=== PATIENT | male | born 1930 | race Caucasian/White ===

== ENCOUNTER 2020-05-29 16:18 | Emergency (ER) | payer MEDICARE, BC ==
[2020-05-29] MEDS ORDERED: Acetaminophen 325 MG Tab PO ONE (17:07)
--- NOTE | 2020-05-29 17:48 | EDM.PDOC ---
ED HPI GENERAL MEDICAL PROBLEM - General Chief Complaint: Eye Problems Stated Complaint: R EYE SWELLING/REDNESS Time Seen by Provider: 05/29/20 16:35 Source of Information: Reports: Patient, Family (daughter), RN Notes Reviewed - History of Present Illness INITIAL COMMENTS - FREE TEXT/NARRATIVE: 89 yr old male with L eye pain for about 7 to 10 days. Daughter states they did see his eye Dr down in [place] and he did not feel that there was a globe problem. They went to our [facility] clinic, transferred here for possible MRI of the R eye but arrived at 5:00, MRI's not done after hrs. There also was concern for possible stroke but he has has no speech difficulty, focal numbness or weakness or facial droop. 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 He has had increased mattering R eye the last few days. Eye feels scratchy. Does not feel that he has gotten anything into the eye. 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." Cardiovascular History: Reports: None Respiratory History: Reports: None Gastrointestinal History: Reports: None Genitourinary History: Reports: None Musculoskeletal History: Reports: Back Pain, Chronic Psychiatric History: Reports: None Endocrine/Metabolic History: Reports: Obesity/BMI 30+ Hematologic History: Reports: None Immunologic History: Reports: None Oncologic (Cancer) History: Reports: None Dermatologic History: Reports: None - Infectious Disease History Infectious Disease History: Reports: None - Past Surgical History Neurological Surgical History: Reports: C-Spine Musculoskeletal Surgical History: Reports: Knee Replacement Social & Family History - Tobacco Use Smoking Status *Q: Never Smoker - Caffeine Use Caffeine Use: Reports: Coffee - Recreational Drug Use Recreational Drug Use: No ED ROS GENERAL - Review of Systems Review Of Systems: See Below Constitutional: Denies: Fever, Chills HEENT: Reports: Eye Pain. Denies: Sinus Problem, Vision Change Respiratory: Denies: Shortness of Breath Cardiovascular: Denies: Chest Pain Endocrine: Reports: Fatigue GI/Abdominal: Denies: Abdominal Pain, Vomiting Musculoskeletal: Reports: Other (no acute sx) Skin: Denies: Rash Neurological: Reports: Dizziness. Denies: Headache ED EXAM GENERAL W FULL EYE - Physical Exam Exam: See Below General Appearance: Alert, No Apparent Distress Eye Exam: Right Eye: Conjunctival Injection Eyelids: Bilateral: Normal Appearance Conjunctiva & Sclera: Right: Injected Course - Vital Signs Last Recorded V/S: Last Vital Signs Temp 98.1 F 05/29/20 16:32 Pulse 65 05/29/20 16:32 Resp 16 05/29/20 16:32 BP 141/80 H 05/29/20 16:32 Pulse Ox 95 05/29/20 16:32 - Orders/Labs/Meds Meds: Medications Discontinued Medications Generic Name Dose Route Start Last Admin Trade Name Kg PRN Reason Stop Dose Admin Acetaminophen 975 mg 05/29/20 17:07 05/29/20 17:12 Tylenol PO 05/29/20 17:08 975 mg ONETIME ONE Administration - Re-Assessments/Exams Free Text/Narrative Re-Assessment/Exam: 05/30/20 22:38 CT orbit, sinuses, do not show any acute findings. Head CT also does not show acute findings. Discharge instr. as documented. Departure - Departure Time of Disposition: 18:49 Disposition: Home, Self-Care 01 Condition: Fair Clinical Impression: Conjunctivitis, Pain, eye, right - Discharge Information Instructions: How to Use Eye Drops and Eye Ointments Referrals: Marvin Santana MD [Primary Care Provider] - Forms: ED Department Discharge Additional Instructions: cipro opthalmic soln. 2 drops R eye 3 times daily for 1 week. Tylenol q 6 to 8 hr as needed for discomfort. See your eye Dr in the next 1 to 3 days for recheck, next available appt. Call tomorrow AM for appt. Sepsis Event Note (ED) - Evaluation Sepsis Screening Result: No Definite Risk
--- NOTE | 2020-05-29 18:30 | CT ---
Head CT Technique: Multiple axial sections through the brain were obtained. Intravenous contrast was not utilized. Comparison: Prior head CT study is not available. Findings: Ventricles along with basal cisterns and sulci over the convexities are moderately prominent. 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 No other abnormal parenchymal densities are seen. No evidence of intracranial hemorrhage. No midline shift or mass-effect is appreciated. Bone window settings were reviewed. Prior left mastoidectomy is seen which shows evidence of an apparent air-fluid level. Right mastoid sinus is clear. Middle ear cavities are clear. No acute calvarial finding is seen. Impression: 1. Air-fluid level within previous left mastoidectomy cavity. Uncertain if this is postsurgical or represents infection. Please correlate if patient is symptomatic over this area. 2. Senescent change as noted above. 3. No acute intracranial abnormality is appreciated. Diagnostic code #3 This report was dictated in MDT
--- NOTE | 2020-05-29 18:32 | CT ---
CT paranasal sinuses Technique: Multiple axial sections through the paranasal sinuses were obtained. Reconstructed coronal and sagittal images were obtained. Findings: Mild mucosal thickening is seen within both maxillary sinuses. Old inferior floor blowout fracture is noted within the left orbit. Minimal areas of mucosal thickening is seen within the ethmoid sinuses. Frontal sinuses and sphenoid sinuses are clear. Air-fluid level is again seen within left mastoidectomy cavity. No acute bony abnormality is appreciated. Right and left globes are symmetric. No retrobulbar abnormality seen. Extraocular muscles are symmetric. Impression: 1. Mild chronic appearing sinus findings. 2. Small air-fluid level is again noted within the left mastoidectomy cavity. 3. Old blowout inferior floor fracture within the left orbit. Diagnostic code #2 This report was dictated in MDT
== END 2020-05-29 19:01 | disposition home or self-care (01) ==
LOC: JD.ED 16:18
DX: H10.9 Unspecified conjunctivitis (principal); E66.9 Obesity, unspecified; Z98.890 Other specified postprocedural states; Z79.82 Long term (current) use of aspirin; Z79.899 Other long term (current) drug therapy; Z68.31 Body mass index [BMI] 31.0-31.9, adult; H57.11 Ocular pain, right eye; R26.9 Unspecified abnormalities of gait and mobility; R29.90 Unspecified symptoms and signs involving the nervous system
CPT/HCPCS: 70450; 70486; 99214; 99283; A9270; 99282

== ENCOUNTER 2020-07-18 16:00 | Emergency (ER) | payer BC, MEDICARE ==
[2020-07-18] MEDS ORDERED: Sodium Chloride 0.9% 10 ML Syringe FLUSH PRN (16:36)
--- NOTE | 2020-07-18 17:14 | EDM.PDOC ---
ED HPI GENERAL MEDICAL PROBLEM - General Chief Complaint: Fever Stated Complaint: [facility] Time Seen by Provider: 07/18/20 16:34 Source of Information: Reports: Patient, [facility] Records History Limitations: Reports: Other (Hearing deficit) - History of Present Illness INITIAL COMMENTS - FREE TEXT/NARRATIVE: Patient is an 89-year-old male sent to the emergency department from [facility] assisted [facility] with complaints of increased confusion, weakness, and fever. Patient was diagnosed COVID +2 days ago and assisted-living reports he is had a cough and fever since that time. Patient is very hard of hearing so it is somewhat difficult to get an accurate history from him. Patient is alert and oriented x3. He knew that the month was June, he knew his full name and date of , and he knew that he was at the hospital. He also knows that he lives at [facility]. Document sent from the assisted living facility state that he has had increased weakness, confusion, and a temperature. Transfer papers from the assisted living showed vital signs of a temperature of 101.3, pulse 95, respiratory rate 18, blood pressure 118/60, and oxygen saturation of 92% on room air. Vital signs on arrival to the emergency department showed a temperature of 97.9, pulse 63, respiratory rate 24, blood pressure 163/95, and an oxygen saturation of 96%. Patient denies any chest pain, however does acknowledge that he has been weak. Review of the patient's medication list show that his last dose of Tylenol 1000 mg was at 9 AM this morning. He is normally alert and oriented and ambulatory with a front wheel walker at the assisted living facility. - Related Data Allergies Allergy/AdvReac Type Severity Reaction Status Date / Time celecoxib [From Celebrex] Allergy Cannot Verified 07/18/20 16:15 Remember solifenacin [From Vesicare] Allergy Cannot Verified 07/18/20 16:15 Remember tamsulosin [From Flomax] Allergy Cannot Verified 07/18/20 16:15 Remember Home Meds: Home Meds Acetaminophen [Tylenol] 650 mg PO BID 05/29/20 [History] Aspirin 325 mg PO DAILY 05/29/20 [History] Gabapentin [Neurontin] 100 mg PO DAILY 05/29/20 [History] [place]-3/DHA/Epa/Fish Oil [Fish Oil 1,000 mg Softgel] 1 each PO DAILY 05/29/20 [History] Cefdinir [Omnicef] 300 mg PO DAILY 10 Days #10 cap 07/18/20 [Rx] Cholecalciferol (Vitamin D3) [Vitamin D3] 5,000 intnl unit PO DAILY 07/18/20 [History] Gabapentin [Neurontin] 100 mg PO BEDTIME PRN 07/18/20 [History] Lactulose 2 tbsp PO DAILY 07/18/20 [History] Vit A and D3 in Cod Liver Oil [Cod Liver Oil Softgel] 1 cap PO DAILY 07/18/20 [History] polyethylene glycoL 3350 [MiraLAX] 17 gm PO DAILY PRN 07/18/20 [History] Past Medical History HEENT History: Reports: Impaired Vision, Other (See Below) 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." Cardiovascular History: Reports: None Respiratory History: Reports: None Gastrointestinal History: Reports: None Genitourinary History: Reports: None Musculoskeletal History: Reports: Back Pain, Chronic Psychiatric History: Reports: None Endocrine/Metabolic History: Reports: Obesity/BMI 30+ Hematologic History: Reports: None Immunologic History: Reports: None Oncologic (Cancer) History: Reports: None Dermatologic History: Reports: None - Infectious Disease History Infectious Disease History: Reports: None - Past Surgical History Neurological Surgical History: Reports: C-Spine Musculoskeletal Surgical History: Reports: Knee Replacement Social & Family History - Caffeine Use Caffeine Use: Reports: Coffee ED ROS GENERAL - Review of Systems Review Of Systems: See Below Constitutional: Reports: Fever, Weakness HEENT: Reports: No Symptoms Respiratory: Reports: Cough. Denies: Shortness of Breath, Wheezing Cardiovascular: Reports: No Symptoms. Denies: Chest Pain Endocrine: Reports: No Symptoms GI/Abdominal: Reports: No Symptoms. Denies: Abdominal Pain, Diarrhea, Nausea, Vomiting : Reports: No Symptoms Musculoskeletal: Reports: No Symptoms Skin: Reports: No Symptoms Neurological: Reports: Confusion (per assisted living report. ) Psychiatric: Reports: No Symptoms Hematologic/Lymphatic: Reports: No Symptoms Immunologic: Reports: No Symptoms ED EXAM, GENERAL - Physical Exam Exam: See Below Exam Limited By: Other (Hearing impairment) General Appearance: Alert, WD/WN, No Apparent Distress Respiratory/Chest: No Respiratory Distress, Lungs Clear, Normal Breath Sounds, No Accessory Muscle Use, Chest Non-Tender, Other (Audible upper airway rhonchi that clear with coughing.) Cardiovascular: Normal Peripheral Pulses, Regular Rate, Rhythm, No Edema, No Gallop, No JVD, No Murmur, No Rub EKG INTERPRETATION EKG Date: 07/18/20 Time: 16:53 Rhythm: NSR Rate (Beats/Min): 61 [place]: Normal P-Wave: Present QRS: Normal ST-T: Normal QT: Normal EKG Interpretation Comments: Sinus rhythm at 61 bpm Initial poor R wave progression with Q waves 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 Linnea GRIGSBY. Course - Vital Signs Last Recorded V/S: Last Vital Signs Temp 97.9 F 07/18/20 16:01 Pulse 63 07/18/20 16:01 Resp 24 H 07/18/20 16:01 BP 163/95 H 07/18/20 16:01 Pulse Ox 96 07/18/20 16:01 - Orders/Labs/Meds Orders: Active Orders 24 hr Category Date Time Status EKG Documentation Completion [RC] STAT Care 07/18/20 16:37 Active Peripheral IV Care [RC] . DIRECTED Care 07/18/20 16:37 Active CULTURE BLOOD [BC] Stat Lab 07/18/20 17:10 Received CULTURE BLOOD [BC] Stat Lab 07/18/20 17:30 Received CULTURE URINE [RM] Stat Lab 07/18/20 18:20 Received Sodium Chloride 0.9% [Saline Flush] Med 07/18/20 16:36 Active 10 ml FLUSH ASDIRECTED PRN Blood Culture x2 Reflex Set [OM.PC] Stat Oth 07/18/20 16:37 Ordered Peripheral IV Insertion Adult [OM.PC] Stat Oth 07/18/20 16:36 Ordered Medication Orders Sodium Chloride (Saline Flush) 10 ml FLUSH ASDIRECTED PRN PRN Reason: Keep Vein Open Last Admin: 07/18/20 17:10 Dose: 10 ml Documented by: MARTINEZ Labs: Laboratory Tests 07/18/20 07/18/20 07/18/20 Range/Units 17:10 17:10 17:10 WBC 6.54 (4.23-9.07) K/mm3 RBC 4.65 (4.63-6.08) M/mm3 Hgb 15.0 (13.7-17.5) gm/dl Hct 43.2 (40.1-51.0) % MCV 92.9 H (79.0-92.2) fl MCH 32.3 H (25.7-32.2) pg MCHC 34.7 (32.2-35.5) g/dl RDW Std Deviation 47.5 H (35.1-43.9) fL Plt Count 143 L (163-337) K/mm3 MPV 10.1 (9.4-12.3) fl Neut % (Auto) 64.0 (34.0-67.9) % Lymph % (Auto) 19.9 L (21.8-53.1) % [place] % (Auto) 13.5 H (5.3-12.2) % Eos % (Auto) 2.1 (0.8-7.0) Baso % (Auto) 0.2 (0.1-1.2) % Neut # (Auto) 4.19 (1.78-5.38) K/mm3 Lymph # (Auto) 1.30 L (1.32-3.57) K/mm3 [place] # (Auto) 0.88 H (0.30-0.82) K/mm3 Eos # (Auto) 0.14 (0.04-0.54) K/mm3 Baso # (Auto) 0.01 (0.01-0.08) K/mm3 D-Dimer, Quantitative 1.11 H (0.19-0.50) mg/L Sodium 130 L (136-145) mEq/L Potassium 4.2 (3.5-5.1) mEq/L Chloride 96 L (98-107) mEq/L Carbon Dioxide 22 (21-32) mEq/L Anion Gap 16.2 H (5-15) BUN 25 H (7-18) mg/dL Creatinine 1.6 H (0.7-1.3) mg/dL Est Cr Clr Drug Dosing 27.76 mL/min Estimated GFR (MDRD) 41 (>60) mL/min BUN/Creatinine Ratio 15.6 (14-18) Glucose 141 H (83-115) mg/dL Lactic Acid (0.4-2.0) mmol/L Calcium 8.7 (8.5-10.1) mg/dL Ferritin (26-388) ng/ml Total Bilirubin 0.4 (0.2-1.0) mg/dL AST 21 (15-37) U/L ALT 21 (16-63) U/L Alkaline Phosphatase 88 (46-116) U/L Lactate Dehydrogenase 178 (85-227) U/L Troponin I 0.040 (0.00-0.056) ng/mL C-Reactive Protein 3.0 H* (<1.0) mg/dL NT-Pro-B Natriuret Pep (0-450) pg/mL Total Protein 7.3 (6.4-8.2) g/dl Albumin 3.5 (3.4-5.0) g/dl Globulin 3.8 gm/dL Albumin/Globulin Ratio 0.9 L (1-2) Urine Color (Yellow) Urine Appearance (Clear) Urine pH (5.0-8.0) Ur Specific [place] (1.005-1.030) Urine Protein (Negative) Urine Glucose (UA) (Negative) Urine Ketones (Negative) Urine Occult Blood (Negative) Urine Nitrite (Negative) Urine Bilirubin (Negative) Urine Urobilinogen (0.2-1.0) Ur Leukocyte Esterase (Negative) Urine RBC (0-5) /hpf Urine WBC (0-5) /hpf Ur Epithelial Cells (0-5) /hpf Urine Bacteria (FEW) /hpf Urine Mucus (FEW) /hpf 07/18/20 07/18/20 07/18/20 Range/Units 17:10 17:10 17:10 WBC (4.23-9.07) K/mm3 RBC (4.63-6.08) M/mm3 Hgb (13.7-17.5) gm/dl Hct (40.1-51.0) % MCV (79.0-92.2) fl MCH (25.7-32.2) pg MCHC (32.2-35.5) g/dl RDW Std Deviation (35.1-43.9) fL Plt Count (163-337) K/mm3 MPV (9.4-12.3) fl Neut % (Auto) (34.0-67.9) % Lymph % (Auto) (21.8-53.1) % [place] % (Auto) (5.3-12.2) % Eos % (Auto) (0.8-7.0) Baso % (Auto) (0.1-1.2) % Neut # (Auto) (1.78-5.38) K/mm3 Lymph # (Auto) (1.32-3.57) K/mm3 [place] # (Auto) (0.30-0.82) K/mm3 Eos # (Auto) (0.04-0.54) K/mm3 Baso # (Auto) (0.01-0.08) K/mm3 D-Dimer, Quantitative (0.19-0.50) mg/L Sodium (136-145) mEq/L Potassium (3.5-5.1) mEq/L Chloride (98-107) mEq/L Carbon Dioxide (21-32) mEq/L Anion Gap (5-15) BUN (7-18) mg/dL Creatinine (0.7-1.3) mg/dL Est Cr Clr Drug Dosing mL/min Estimated GFR (MDRD) (>60) mL/min BUN/Creatinine Ratio (14-18) Glucose (83-115) mg/dL Lactic Acid 1.3 (0.4-2.0) mmol/L Calcium (8.5-10.1) mg/dL Ferritin 737 H (26-388) ng/ml Total Bilirubin (0.2-1.0) mg/dL AST (15-37) U/L ALT (16-63) U/L Alkaline Phosphatase (46-116) U/L Lactate Dehydrogenase (85-227) U/L Troponin I (0.00-0.056) ng/mL C-Reactive Protein (<1.0) mg/dL NT-Pro-B Natriuret Pep 2112 H (0-450) pg/mL Total Protein (6.4-8.2) g/dl Albumin (3.4-5.0) g/dl Globulin gm/dL Albumin/Globulin Ratio (1-2) Urine Color (Yellow) Urine Appearance (Clear) Urine pH (5.0-8.0) Ur Specific [place] (1.005-1.030) Urine Protein (Negative) Urine Glucose (UA) (Negative) Urine Ketones (Negative) Urine Occult Blood (Negative) Urine Nitrite (Negative) Urine Bilirubin (Negative) Urine Urobilinogen (0.2-1.0) Ur Leukocyte Esterase (Negative) Urine RBC (0-5) /hpf Urine WBC (0-5) /hpf Ur Epithelial Cells (0-5) /hpf Urine Bacteria (FEW) /hpf Urine Mucus (FEW) /hpf 07/18/20 Range/Units 18:20 WBC (4.23-9.07) K/mm3 RBC (4.63-6.08) M/mm3 Hgb (13.7-17.5) gm/dl Hct (40.1-51.0) % MCV (79.0-92.2) fl MCH (25.7-32.2) pg MCHC (32.2-35.5) g/dl RDW Std Deviation (35.1-43.9) fL Plt Count (163-337) K/mm3 MPV (9.4-12.3) fl Neut % (Auto) (34.0-67.9) % Lymph % (Auto) (21.8-53.1) % [place] % (Auto) (5.3-12.2) % Eos % (Auto) (0.8-7.0) Baso % (Auto) (0.1-1.2) % Neut # (Auto) (1.78-5.38) K/mm3 Lymph # (Auto) (1.32-3.57) K/mm3 [place] # (Auto) (0.30-0.82) K/mm3 Eos # (Auto) (0.04-0.54) K/mm3 Baso # (Auto) (0.01-0.08) K/mm3 D-Dimer, Quantitative (0.19-0.50) mg/L Sodium (136-145) mEq/L Potassium (3.5-5.1) mEq/L Chloride (98-107) mEq/L Carbon Dioxide (21-32) mEq/L Anion Gap (5-15) BUN (7-18) mg/dL Creatinine (0.7-1.3) mg/dL Est Cr Clr Drug Dosing mL/min Estimated GFR (MDRD) (>60) mL/min BUN/Creatinine Ratio (14-18) Glucose (83-115) mg/dL Lactic Acid (0.4-2.0) mmol/L Calcium (8.5-10.1) mg/dL Ferritin (26-388) ng/ml Total Bilirubin (0.2-1.0) mg/dL AST (15-37) U/L ALT (16-63) U/L Alkaline Phosphatase (46-116) U/L Lactate Dehydrogenase (85-227) U/L Troponin I (0.00-0.056) ng/mL C-Reactive Protein (<1.0) mg/dL NT-Pro-B Natriuret Pep (0-450) pg/mL Total Protein (6.4-8.2) g/dl Albumin (3.4-5.0) g/dl Globulin gm/dL Albumin/Globulin Ratio (1-2) Urine Color Dark yellow (Yellow) Urine Appearance Slt cloudy H (Clear) Urine pH 6.0 (5.0-8.0) Ur Specific [place] 1.025 (1.005-1.030) Urine Protein 1+ H (Negative) Urine Glucose (UA) Negative (Negative) Urine Ketones Trace H (Negative) Urine Occult Blood 2+ H (Negative) Urine Nitrite Positive H (Negative) Urine Bilirubin Negative (Negative) Urine Urobilinogen 1.0 (0.2-1.0) Ur Leukocyte Esterase 1+ H (Negative) Urine RBC 10-20 H (0-5) /hpf Urine WBC 5-10 H (0-5) /hpf Ur Epithelial Cells Not seen (0-5) /hpf Urine Bacteria Many H (FEW) /hpf Urine Mucus Few (FEW) /hpf Meds: Medications Generic Name Dose Route Start Last Admin Trade Name Freq PRN Reason Stop Dose Admin Sodium Chloride 10 ml 07/18/20 16:36 07/18/20 17:10 Saline Flush FLUSH 10 ml ASDIRECTED PRN Administration Keep Vein Open Discontinued Medications Generic Name Dose Route Start Last Admin Trade Name Freq PRN Reason Stop Dose Admin Ceftriaxone Sodium 2 gm/ 100 mls @ 200 mls/hr 07/18/20 19:11 07/18/20 19:45 Sodium Chloride IV 07/18/20 19:40 200 mls/hr ONETIME ONE Administration - Re-Assessments/Exams Free Text/Narrative Re-Assessment/Exam: Patient is an 89-year-old male sent from [facility] assisted living with complaints of confusion, weakness, and fever. Vital signs on triage were stable. He was afebrile at 97.6, and from documentation provided from assisted living, patient has not received Tylenol since 930 this morning. His oxygen saturation was 96% on room air. On my exam, patient is alert and oriented. He knows where he is, he knows what month it is, he knows his name and date of , and he knows that he lives at [facility]. He does admit to being weak, however reports this is to be expected with a COVID diagnosis. I have ordered a CBC, CMP, CRP, troponin, d-dimer, LDH, ferritin, proBNP, blood cultures x2, EKG, and a chest x-ray. Patient is asking to call his at [facility]. Nursing staff will assist with this. 07/18/20 20:38 Hematology was significant for d-dimer minimally elevated at 1.11, sodium 130, chloride 96, anion gap 16.2, BUN 25, creatinine 1.6, glucose 141, ferritin 737, CRP 3.0, BNP 2112. Troponin was negative. D-dimer minimally elevated, however this is to be expected due to patient's age as well as COVID diagnosis. He is not hypoxic and he is not tachycardic, therefore do not feel a CT angiogram of the chest is indicated at this time. Urinalysis did show 1+ protein, trace ketones, 2+ occult blood, positive nitrates, 1+ leukocyte esterase, 10-20 RBCs, 5-10 WBCs, and many bacteria. 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 I have ordered Rocephin 2 g to be given IV. We will plan to discharge the patient back to the assisted living facility with a prescription for Omnicef for treatment of urinary tract infection at a renal dosing of 300 mg daily for 10 days. Recommend that they continue Tylenol as well as extra assistance with ADLs due to his weakness. Return to the ER for worsening symptoms. 07/18/20 22:22 Nursing staff updated me that [facility] was hesitant to accept the patient back due to his weakness and that they do not feel that they have sufficient staff to care for him. They requested that we ensure that he is able to ambulate without assistance. HEAVEN Graves help to walk the patient. He was able to walk independently with the use of a front wheel walker which is his normal assistive device per assisted living transfer sheet. He was able to walk out of the room, into the hallway, turn around and walk back into the room and then remained sitting up in the chair. Mikayla RN, and Mine RN are working with [facility] to arrange patient's return to [facility] as there are no beds available in the facility and there is no medical need for admission at this point. Departure - Departure Time of Disposition: 20:41 Disposition: Home, Self-Care 01 Condition: Good Clinical Impression: COVID-19 Urinary tract infection Qualifiers: Urinary tract infection type: catheter-associated UTI Indwelling urinary catheter type: indwelling urethral catheter Encounter type: initial encounter Qualified Code(s): T83.511A - Infection and inflammatory reaction due to indwelling urethral catheter, initial encounter - Discharge Information *PRESCRIPTION DRUG MONITORING PROGRAM REVIEWED*: No *COPY OF PRESCRIPTION DRUG MONITORING REPORT IN PATIENT KENDAL: No Prescriptions: Cefdinir [Omnicef] 300 mg PO DAILY 10 Days #10 cap Instructions: COVID-19 Frequently Asked Questions, COVID-19, Urinary Tract Infection, Adult Referrals: PCP,None [Primary Care Provider] - Forms: ED Department Discharge Additional Instructions: Brayan was seen in the emergency department today for weakness, confusion, and fever with a diagnosis of COVID. On arrival to ER,Brayan was afebrile with a temperature of 97.9, pulse was 63, respiratory rate 24, oxygen was 96% on room air, blood pressure 163/95. He was alert and oriented. He knew his name, what month it was, his date of , and where he lives. Work-up was completed including blood work, urinalysis, chest x-ray, and an EKG of his heart. His chest x-ray was clear of a pneumonia. His EKG showed no acute abnormalities. Troponin was negative. His urinalysis did show that he has a catheter associated UTI. He received a dose of IV antibiotics while in the emergency department. A prescription for Omnicef has been sent. He should take this once daily for 10 days to clear the infection. He was able to get up and walk throughout the room and out into the hallway with a front wheel walker without difficulty. If he should have worsening symptoms such as hypoxia, chest pain, or other symptoms of concern, please not hesitate to return him to emergency department for reevaluation. Sepsis Event Note (ED) - Evaluation Sepsis Screening Result: Possible Severe Sepsis Risk - Focused Exam Vital Signs: Vital Signs Temp Pulse Resp BP Pulse Ox 07/18/20 16:01 97.9 F 63 24 H 163/95 H 96 - My Orders Last 24 Hours: My Active Orders 07/18/20 16:36 Sodium Chloride 0.9% [Saline Flush] 10 ml FLUSH ASDIRECTED PRN Peripheral IV Insertion Adult [OM.PC] Stat 07/18/20 16:37 EKG Documentation Completion [RC] STAT Peripheral IV Care [RC] . DIRECTED Blood Culture x2 Reflex Set [OM.PC] Stat 07/18/20 17:10 CULTURE BLOOD [BC] Stat 07/18/20 17:30 CULTURE BLOOD [BC] Stat 07/18/20 18:20 CULTURE URINE [RM] Stat - Assessment/Plan Last 24 Hours: My Active Orders 07/18/20 16:36 Sodium Chloride 0.9% [Saline Flush] 10 ml FLUSH ASDIRECTED PRN Peripheral IV Insertion Adult [OM.PC] Stat 07/18/20 16:37 EKG Documentation Completion [RC] STAT Peripheral IV Care [RC] . DIRECTED Blood Culture x2 Reflex Set [OM.PC] Stat 07/18/20 17:10 CULTURE BLOOD [BC] Stat 07/18/20 17:30 CULTURE BLOOD [BC] Stat 07/18/20 18:20 CULTURE URINE [RM] Stat
--- NOTE | 2020-07-18 18:07 | CR ---
Chest: Portable view of the chest was obtained. Comparison: No prior chest imaging is available. Heart size and mediastinum are normal. Lungs are clear with no acute parenchymal change. Previous cervical spine surgery is noted. Impression: 1. Findings as noted above. Nothing acute is appreciated at this time. Diagnostic code #2 This report was dictated in MDT
[2020-07-18] MEDS ORDERED: cefTRIAXone 2 GM in Sodium Chloride 0.9% 100 ML IV ONE (19:11)
== END 2020-07-18 22:49 | disposition home or self-care (01) ==
LOC: JD.ED 16:00
DX: U07.1 COVID-19 (principal); T83.511A Infection and inflammatory reaction due to indwelling urethral catheter, initial encounter; E66.9 Obesity, unspecified; Z88.8 Allergy status to other drugs, medicaments and biological substances; Z79.82 Long term (current) use of aspirin; Z79.899 Other long term (current) drug therapy; Z68.26 Body mass index [BMI] 26.0-26.9, adult
CPT/HCPCS: 36415; 71045; 80053; 81001; 82728; 83605; 83615; 83880; 84484; 85025; 85379; 86140; 87040; 87086; 87088; 87184; 87186; 93005; 96365; 99285; J0696; J7050

== ENCOUNTER 2020-07-19 11:10 | Emergency (ER) | payer MEDICARE, BC ==
--- NOTE | 2020-07-19 11:58 | EDM.PDOC ---
ED HPI GENERAL MEDICAL PROBLEM - General Chief Complaint: General Stated Complaint: [facility] Time Seen by Provider: 07/19/20 11:52 - History of Present Illness INITIAL COMMENTS - FREE TEXT/NARRATIVE: 89-year-old male brought in by EMS from [facility] as the patient could get off the toilet without help. When EMS arrived with the assistance of a gait belt could get off the toilet and shuffled to the gurney. Patient was seen here last evening diagnosed with urinary tract infection he was diagnosed with COVID 3 days ago. The patient has a history of urinary tract infections that he gets on a frequent basis after 2 days of antibiotics the patient usually bounce right back and feels normal. He was given 2 g of Rocephin around 830 last night. The patient tells me that he would feel better if he got home, referring to the [facility] [place]. He denies new complaint however communication with him is somewhat difficult due to his hearing problems. - Related Data Allergies Allergy/AdvReac Type Severity Reaction Status Date / Time celecoxib [From Celebrex] Allergy Cannot Verified 07/19/20 11:30 Remember solifenacin [From Vesicare] Allergy Cannot Verified 07/19/20 11:30 Remember tamsulosin [From Flomax] Allergy Cannot Verified 07/19/20 11:30 Remember Home Meds: Home Meds Acetaminophen [Tylenol] 650 mg PO BID 05/29/20 [History] Aspirin 325 mg PO DAILY 05/29/20 [History] Gabapentin [Neurontin] 100 mg PO DAILY 05/29/20 [History] [place]-3/DHA/Epa/Fish Oil [Fish Oil 1,000 mg Softgel] 1 each PO DAILY 05/29/20 [History] Cefdinir [Omnicef] 300 mg PO DAILY 10 Days #10 cap 07/18/20 [Rx] Cholecalciferol (Vitamin D3) [Vitamin D3] 5,000 intnl unit PO DAILY 07/18/20 [History] Gabapentin [Neurontin] 100 mg PO BEDTIME PRN 07/18/20 [History] Lactulose 2 tbsp PO DAILY 07/18/20 [History] Vit A and D3 in Cod Liver Oil [Cod Liver Oil Softgel] 1 cap PO DAILY 07/18/20 [History] polyethylene glycoL 3350 [MiraLAX] 17 gm PO DAILY PRN 07/18/20 [History] Acetaminophen [Tylenol Extra Strength] 1,000 mg PO DAILY 07/19/20 [History] Past Medical History HEENT History: Reports: Impaired Vision, Other (See Below) 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 Musculoskeletal History: Reports: Back Pain, Chronic Other Musculoskeletal History: sacroilitis, cervicalgia Other Neuro History: disorientation Psychiatric History: Reports: None Endocrine/Metabolic History: Reports: Obesity/BMI 30+ Hematologic History: Reports: None Immunologic History: Reports: None Oncologic (Cancer) History: Reports: None Dermatologic History: Reports: None Other Dermatologic History: biomechanical lesion - Infectious Disease History Infectious Disease History: Reports: None - Past Surgical History Neurological Surgical History: Reports: C-Spine Musculoskeletal Surgical History: Reports: Knee Replacement Social & Family History - Tobacco Use Smoking Status *Q: Never Smoker - Caffeine Use Caffeine Use: Reports: None - Recreational Drug Use Recreational Drug Use: No ED ROS GENERAL - Review of Systems Review Of Systems: See Below Constitutional: Denies: Fever HEENT: Reports: No Symptoms Respiratory: Reports: Cough. Denies: No Symptoms, Shortness of Breath Cardiovascular: Reports: No Symptoms GI/Abdominal: Reports: No Symptoms : Reports: Other (He is currently treated for urinary tract infection) Musculoskeletal: Reports: No Symptoms Skin: Reports: No Symptoms ED EXAM, GENERAL - Physical Exam Exam: See Below Exam Limited By: Other (Is horribly hard of hearing and somewhat difficult to communicate with but he cannot communicate slowly) General Appearance: Alert, No Apparent Distress Eye Exam: Bilateral Eye: Normal Inspection Ears: Normal External Exam, Normal Canal, Hearing Grossly Normal, Normal TMs Nose: Normal Inspection, Normal Mucosa, No Blood Throat/Mouth: Normal Inspection, Normal Lips, Normal Gums, Normal Oropharynx, Normal Voice, No Airway Compromise. No: Normal Teeth Head: Atraumatic, Normocephalic Neck: Normal Inspection, Supple, Non-Tender, Full Range of Motion. No: Lymphadenopathy (L), Lymphadenopathy (R) Respiratory/Chest: No Respiratory Distress, Lungs Clear Cardiovascular: Regular Rate, Rhythm, No Murmur GI/Abdominal: Normal Bowel Sounds, Soft, Non-Tender Back Exam: Normal Inspection. No: CVA Tenderness (L), CVA Tenderness (R) Course - Vital Signs Last Recorded V/S: Last Vital Signs Temp 36.7 C 07/19/20 11:27 Pulse 64 07/19/20 11:27 Resp 18 07/19/20 11:27 BP 136/86 07/19/20 11:27 Pulse Ox 96 07/19/20 11:27 - Re-Assessments/Exams Free Text/Narrative Re-Assessment/Exam: 07/19/20 13:20 There is no way the assisted living center will take the patient back at this point and sounds like he has a little too much going on for them to be over the handle it. We did find a bed at my not and I discussed the situation with Dr. Lemus, and he is kind enough to accept the patient. Understanding the patient has a probable UTI is COVID positive. 07/19/20 15:19 Patient's family would like to drive him to [facility] in [place] they understand he is going to need to be reevaluated in the emergency room there. Departure - Departure Time of Disposition: 13:21 Disposition: DC/Tfer to Acute Hospital 02 Clinical Impression: COVID-19, Increased weakness when ambulating Urinary tract infection Qualifiers: Urinary tract infection type: catheter-associated UTI Indwelling urinary catheter type: indwelling urethral catheter Encounter type: initial encounter Qualified Code(s): T83.511A - Infection and inflammatory reaction due to indwelling urethral catheter, initial encounter - Discharge Information Referrals: PCP,None [Ordering Only Provider] - Forms: ED Department Discharge Additional Instructions: Go straight to the emergency room at [facility] Sepsis Event Note (ED) - Evaluation Sepsis Screening Result: No Definite Risk - Focused Exam Vital Signs: Vital Signs Temp Pulse Resp BP Pulse Ox 07/19/20 11:27 36.7 C 64 18 136/86 96
== END 2020-07-19 16:59 ==
LOC: JD.ED 11:10
DX: T83.511A Infection and inflammatory reaction due to indwelling urethral catheter, initial encounter (principal); U07.1 COVID-19; E66.9 Obesity, unspecified; Z79.82 Long term (current) use of aspirin; Z88.8 Allergy status to other drugs, medicaments and biological substances; Z79.899 Other long term (current) drug therapy
CPT/HCPCS: 99285

== ENCOUNTER 2020-07-23 09:37 | Inpatient (IN) | payer MEDICARE, BC ==
[2020-07-23] MEDS ORDERED: Sodium Chloride 0.9% 10 ML Syringe FLUSH PRN ×2 (10:53→15:30)
--- NOTE | 2020-07-23 11:20 | EDM.PDOC ---
ED HPI GENERAL MEDICAL PROBLEM - General Chief Complaint: General Stated Complaint: COVID +/COUGH/UTI/WEAK Time Seen by Provider: 07/23/20 10:05 Source of Information: Reports: Patient, Family, [facility] Records History Limitations: Reports: Other (Hard of hearing and slightly confused) - History of Present Illness INITIAL COMMENTS - FREE TEXT/NARRATIVE: The patient presents from [place] for generalized weakness. He is COVID 19 positive. He was diagnosed about 10 days ago. He was seen here on the and . On the he was found to have a UTI and he was given rocephin and put on omnicef. He was able to go back because he could walk around with a walker. He came back on the and had generalized weakness. There was no beds here or in [place] and arrangements were made to admit him to [place] and family was going to take him. The family did not take him and [place] took him back. He has more generalized weakness. He has a slight cough. His oxygen saturations are good. He denies any The patient does have an indwelling peña catheter. Onset: Gradual Duration: Day(s): Improves with: Reports: None Worsens with: Reports: None Associated Symptoms: Reports: Cough, Loss of Appetite. Denies: Chest Pain, Fever/Chills, Headaches, Nausea/Vomiting, Shortness of Breath - Related Data Allergies Allergy/AdvReac Type Severity Reaction Status Date / Time celecoxib [From Celebrex] Allergy Cannot Verified 07/23/20 10:15 Remember solifenacin [From Vesicare] Allergy Cannot Verified 07/23/20 10:15 Remember tamsulosin [From Flomax] Allergy Cannot Verified 07/23/20 10:15 Remember Home Meds: Home Meds Acetaminophen [Tylenol] 650 mg PO BID 05/29/20 [History] Aspirin 325 mg PO DAILY 05/29/20 [History] Gabapentin [Neurontin] 100 mg PO DAILY 05/29/20 [History] [place]-3/DHA/Epa/Fish Oil [Fish Oil 1,000 mg Softgel] 1 each PO DAILY 05/29/20 [History] Cefdinir [Omnicef] 300 mg PO DAILY 10 Days #10 cap 07/18/20 [Rx] Cholecalciferol (Vitamin D3) [Vitamin D3] 5,000 intnl unit PO DAILY 07/18/20 [History] Gabapentin [Neurontin] 100 mg PO BEDTIME PRN 07/18/20 [History] Lactulose 2 tbsp PO DAILY 07/18/20 [History] Vit A and D3 in Cod Liver Oil [Cod Liver Oil Softgel] 1 cap PO DAILY 07/18/20 [History] polyethylene glycoL 3350 [MiraLAX] 17 gm PO DAILY PRN 07/18/20 [History] Acetaminophen [Tylenol Extra Strength] 1,000 mg PO DAILY 07/19/20 [History] Past Medical History HEENT History: Reports: Impaired Vision, Other (See Below) 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 Musculoskeletal History: Reports: Back Pain, Chronic Other Musculoskeletal History: sacroilitis, cervicalgia Other Neuro History: disorientation Psychiatric History: Reports: None Endocrine/Metabolic History: Reports: Obesity/BMI 30+ Hematologic History: Reports: None Immunologic History: Reports: None Oncologic (Cancer) History: Reports: None Dermatologic History: Reports: None Other Dermatologic History: biomechanical lesion - Infectious Disease History Infectious Disease History: Reports: Novel Coronavirus - Past Surgical History Neurological Surgical History: Reports: C-Spine Musculoskeletal Surgical History: Reports: Knee Replacement Social & Family History - Tobacco Use Smoking Status *Q: Unknown Ever Smoked Second Hand Smoke Exposure: No - Caffeine Use Caffeine Use: Reports: None ED ROS GENERAL - Review of Systems Review Of Systems: See Below Constitutional: Reports: Malaise, Weakness, Fatigue. Denies: Fever, Chills HEENT: Reports: No Symptoms Respiratory: Reports: Cough. Denies: Shortness of Breath Cardiovascular: Reports: No Symptoms Endocrine: Reports: No Symptoms GI/Abdominal: Reports: Anorexia. Denies: Abdominal Pain, Diarrhea, Nausea, Vomiting : Reports: No Symptoms Musculoskeletal: Reports: No Symptoms ED EXAM, GENERAL - Physical Exam Exam: See Below Exam Limited By: No Limitations General Appearance: No Apparent Distress, Other (Sleepy but he will answer questions) Ears: Normal External Exam Nose: Normal Inspection Head: Atraumatic, Normocephalic Neck: Normal Inspection, Supple, Non-Tender Respiratory/Chest: No Respiratory Distress, Lungs Clear, Normal Breath Sounds Cardiovascular: Regular Rate, Rhythm, No Edema, No Murmur GI/Abdominal: Soft, Non-Tender, No Organomegaly, No Mass (Male) Exam: Other (Peña cath in place) Back Exam: Normal Inspection Extremities: Normal Inspection Neurological: No Motor/Sensory Deficits, Other (Sleepy but will arrouse to answer questions) Course - Vital Signs Last Recorded V/S: Last Vital Signs Temp 97.4 F 07/23/20 10:06 Pulse 64 07/23/20 10:06 Resp 18 07/23/20 10:06 BP 153/81 H 07/23/20 10:06 Pulse Ox 100 07/23/20 10:06 - Orders/Labs/Meds Orders: Active Orders 24 hr Category Date Time Status Oxygen Therapy [RC] PRN Care 07/23/20 10:53 Active Peripheral IV Care [RC] . DIRECTED Care 07/23/20 10:53 Active Sodium Chloride 0.9% [Normal Saline] 1,000 ml Med 07/23/20 11:00 Active IV ASDIRECTED Sodium Chloride 0.9% [Saline Flush] Med 07/23/20 10:53 Active 10 ml FLUSH ASDIRECTED PRN Peripheral IV Insertion Adult [OM.PC] Stat Oth 07/23/20 10:53 Ordered Medication Orders Sodium Chloride (Normal Saline) 1,000 mls @ 125 mls/hr IV ASDIRECTED MAYCO Last Admin: 07/23/20 12:41 Dose: 125 mls/hr Documented by: ALYSON Sodium Chloride (Saline Flush) 10 ml FLUSH ASDIRECTED PRN PRN Reason: Keep Vein Open Last Admin: 07/23/20 12:40 Dose: 10 ml Documented by: ALYSON Labs: Laboratory Tests 07/23/20 07/23/20 07/23/20 Range/Units 10:10 11:10 11:10 WBC 6.11 (4.23-9.07) K/mm3 RBC 4.35 L (4.63-6.08) M/mm3 Hgb 13.7 (13.7-17.5) gm/dl Hct 39.6 L (40.1-51.0) % MCV 91.0 (79.0-92.2) fl MCH 31.5 (25.7-32.2) pg MCHC 34.6 (32.2-35.5) g/dl RDW Std Deviation 46.1 H (35.1-43.9) fL Plt Count 106 L (163-337) K/mm3 MPV 10.1 (9.4-12.3) fl Neut % (Auto) 66.0 (34.0-67.9) % Lymph % (Auto) 18.0 L (21.8-53.1) % [place] % (Auto) 12.3 H (5.3-12.2) % Eos % (Auto) 3.3 (0.8-7.0) Baso % (Auto) 0.2 (0.1-1.2) % Neut # (Auto) 4.04 (1.78-5.38) K/mm3 Lymph # (Auto) 1.10 L (1.32-3.57) K/mm3 [place] # (Auto) 0.75 (0.30-0.82) K/mm3 Eos # (Auto) 0.20 (0.04-0.54) K/mm3 Baso # (Auto) 0.01 (0.01-0.08) K/mm3 PT 10.6 (9.7-11.7) SECONDS INR 0.99 APTT 31 (22-31) SECONDS D-Dimer, Quantitative 0.76 H (0.19-0.50) mg/L Puncture Site ABG pH (7.35-7.45) ABG pCO2 (35.0-45.0) mmHg ABG pO2 (80.0-100.0) mmHg ABG HCO3 (22.0-26.0) meq/L ABG O2 Saturation (96.0-97.0) % ABG Base Excess (-2-2.0) Db Test A-a Gradient mmHg O2 Delivery Device FiO2 (21.00-100.00) % Sodium (136-145) mEq/L Potassium (3.5-5.1) mEq/L Chloride (98-107) mEq/L Carbon Dioxide (21-32) mEq/L Anion Gap (5-15) BUN (7-18) mg/dL Creatinine (0.7-1.3) mg/dL Est Cr Clr Drug Dosing mL/min Estimated GFR (MDRD) (>60) mL/min BUN/Creatinine Ratio (14-18) Glucose (83-115) mg/dL Lactic Acid (0.4-2.0) mmol/L Calcium (8.5-10.1) mg/dL Ferritin (26-388) ng/ml Total Bilirubin (0.2-1.0) mg/dL AST (15-37) U/L ALT (16-63) U/L Alkaline Phosphatase (46-116) U/L Lactate Dehydrogenase (85-227) U/L C-Reactive Protein (<1.0) mg/dL Total Protein (6.4-8.2) g/dl Albumin (3.4-5.0) g/dl Globulin gm/dL Albumin/Globulin Ratio (1-2) Urine Color Yellow (Yellow) Urine Appearance Clear (Clear) Urine pH 6.0 (5.0-8.0) Ur Specific [place] 1.020 (1.005-1.030) Urine Protein 1+ H (Negative) Urine Glucose (UA) Negative (Negative) Urine Ketones Trace H (Negative) Urine Occult Blood 1+ H (Negative) Urine Nitrite Negative (Negative) Urine Bilirubin Negative (Negative) Urine Urobilinogen 0.2 (0.2-1.0) Ur Leukocyte Esterase Negative (Negative) Urine RBC 5-10 H (0-5) /hpf Urine WBC 0-5 (0-5) /hpf Ur Squamous Epith Cells 0-5 (0-5) /hpf Urine Bacteria Few (FEW) /hpf Urine Mucus Rare (FEW) /hpf 07/23/20 07/23/20 07/23/20 Range/Units 11:10 11:10 11:10 WBC (4.23-9.07) K/mm3 RBC (4.63-6.08) M/mm3 Hgb (13.7-17.5) gm/dl Hct (40.1-51.0) % MCV (79.0-92.2) fl MCH (25.7-32.2) pg MCHC (32.2-35.5) g/dl RDW Std Deviation (35.1-43.9) fL Plt Count (163-337) K/mm3 MPV (9.4-12.3) fl Neut % (Auto) (34.0-67.9) % Lymph % (Auto) (21.8-53.1) % [place] % (Auto) (5.3-12.2) % Eos % (Auto) (0.8-7.0) Baso % (Auto) (0.1-1.2) % Neut # (Auto) (1.78-5.38) K/mm3 Lymph # (Auto) (1.32-3.57) K/mm3 [place] # (Auto) (0.30-0.82) K/mm3 Eos # (Auto) (0.04-0.54) K/mm3 Baso # (Auto) (0.01-0.08) K/mm3 PT (9.7-11.7) SECONDS INR APTT (22-31) SECONDS D-Dimer, Quantitative (0.19-0.50) mg/L Puncture Site ABG pH (7.35-7.45) ABG pCO2 (35.0-45.0) mmHg ABG pO2 (80.0-100.0) mmHg ABG HCO3 (22.0-26.0) meq/L ABG O2 Saturation (96.0-97.0) % ABG Base Excess (-2-2.0) Db Test A-a Gradient mmHg O2 Delivery Device FiO2 (21.00-100.00) % Sodium 127 L (136-145) mEq/L Potassium 4.1 (3.5-5.1) mEq/L Chloride 94 L (98-107) mEq/L Carbon Dioxide 24 (21-32) mEq/L Anion Gap 13.1 (5-15) BUN 17 (7-18) mg/dL Creatinine 1.4 H (0.7-1.3) mg/dL Est Cr Clr Drug Dosing 29.95 mL/min Estimated GFR (MDRD) 48 (>60) mL/min BUN/Creatinine Ratio 12.1 L (14-18) Glucose 120 H (83-115) mg/dL Lactic Acid 0.8 (0.4-2.0) mmol/L Calcium 8.1 L (8.5-10.1) mg/dL Ferritin 938 H (26-388) ng/ml Total Bilirubin 0.6 (0.2-1.0) mg/dL AST 23 (15-37) U/L ALT 17 (16-63) U/L Alkaline Phosphatase 91 (46-116) U/L Lactate Dehydrogenase 190 (85-227) U/L C-Reactive Protein (<1.0) mg/dL Total Protein 6.6 (6.4-8.2) g/dl Albumin 2.8 L (3.4-5.0) g/dl Globulin 3.8 gm/dL Albumin/Globulin Ratio 0.7 L (1-2) Urine Color (Yellow) Urine Appearance (Clear) Urine pH (5.0-8.0) Ur Specific [place] (1.005-1.030) Urine Protein (Negative) Urine Glucose (UA) (Negative) Urine Ketones (Negative) Urine Occult Blood (Negative) Urine Nitrite (Negative) Urine Bilirubin (Negative) Urine Urobilinogen (0.2-1.0) Ur Leukocyte Esterase (Negative) Urine RBC (0-5) /hpf Urine WBC (0-5) /hpf Ur Squamous Epith Cells (0-5) /hpf Urine Bacteria (FEW) /hpf Urine Mucus (FEW) /hpf 07/23/20 07/23/20 Range/Units 11:10 11:33 WBC (4.23-9.07) K/mm3 RBC (4.63-6.08) M/mm3 Hgb (13.7-17.5) gm/dl Hct (40.1-51.0) % MCV (79.0-92.2) fl MCH (25.7-32.2) pg MCHC (32.2-35.5) g/dl RDW Std Deviation (35.1-43.9) fL Plt Count (163-337) K/mm3 MPV (9.4-12.3) fl Neut % (Auto) (34.0-67.9) % Lymph % (Auto) (21.8-53.1) % [place] % (Auto) (5.3-12.2) % Eos % (Auto) (0.8-7.0) Baso % (Auto) (0.1-1.2) % Neut # (Auto) (1.78-5.38) K/mm3 Lymph # (Auto) (1.32-3.57) K/mm3 [place] # (Auto) (0.30-0.82) K/mm3 Eos # (Auto) (0.04-0.54) K/mm3 Baso # (Auto) (0.01-0.08) K/mm3 PT (9.7-11.7) SECONDS INR APTT (22-31) SECONDS D-Dimer, Quantitative (0.19-0.50) mg/L Puncture Site Lt radial ABG pH 7.45 (7.35-7.45) ABG pCO2 30.2 L (35.0-45.0) mmHg ABG pO2 70.0 L (80.0-100.0) mmHg ABG HCO3 20.5 L (22.0-26.0) meq/L ABG O2 Saturation 95.0 L (96.0-97.0) % ABG Base Excess -2.1 L (-2-2.0) Db Test Positive A-a Gradient 42 mmHg O2 Delivery Device Room air FiO2 21.00 (21.00-100.00) % Sodium (136-145) mEq/L Potassium (3.5-5.1) mEq/L Chloride (98-107) mEq/L Carbon Dioxide (21-32) mEq/L Anion Gap (5-15) BUN (7-18) mg/dL Creatinine (0.7-1.3) mg/dL Est Cr Clr Drug Dosing mL/min Estimated GFR (MDRD) (>60) mL/min BUN/Creatinine Ratio (14-18) Glucose (83-115) mg/dL Lactic Acid (0.4-2.0) mmol/L Calcium (8.5-10.1) mg/dL Ferritin (26-388) ng/ml Total Bilirubin (0.2-1.0) mg/dL AST (15-37) U/L ALT (16-63) U/L Alkaline Phosphatase (46-116) U/L Lactate Dehydrogenase (85-227) U/L C-Reactive Protein 9.9 H* (<1.0) mg/dL Total Protein (6.4-8.2) g/dl Albumin (3.4-5.0) g/dl Globulin gm/dL Albumin/Globulin Ratio (1-2) Urine Color (Yellow) Urine Appearance (Clear) Urine pH (5.0-8.0) Ur Specific [place] (1.005-1.030) Urine Protein (Negative) Urine Glucose (UA) (Negative) Urine Ketones (Negative) Urine Occult Blood (Negative) Urine Nitrite (Negative) Urine Bilirubin (Negative) Urine Urobilinogen (0.2-1.0) Ur Leukocyte Esterase (Negative) Urine RBC (0-5) /hpf Urine WBC (0-5) /hpf Ur Squamous Epith Cells (0-5) /hpf Urine Bacteria (FEW) /hpf Urine Mucus (FEW) /hpf Meds: Medications Generic Name Dose Route Start Last Admin Trade Name Freq PRN Reason Stop Dose Admin Sodium Chloride 1,000 mls @ 125 mls/hr 07/23/20 11:00 07/23/20 12:41 Normal Saline IV 125 mls/hr ASDIRECTED MAYCO Administration Sodium Chloride 10 ml 07/23/20 10:53 07/23/20 12:40 Saline Flush FLUSH 10 ml ASDIRECTED PRN Administration Keep Vein Open Discontinued Medications Generic Name Dose Route Start Last Admin Trade Name Freq PRN Reason Stop Dose Admin Dexamethasone 4 mg 07/23/20 12:06 07/23/20 12:41 Dexamethasone IVPUSH 07/23/20 12:07 4 mg ONETIME ONE Administration - Re-Assessments/Exams Free Text/Narrative Re-Assessment/Exam: 07/23/20 12:02 I ordered oxygen, IV NS at 125mL/hr, labs, CXR, lactic acid and blood cultures. His CXR shows increased density within left lung base suspicious for small area of pneumonia. This most likely viral given the history of the patient being positive for COVID 19. Other stable findings. His CBC looks good. His D-dimer is elevated but improved from a few days ago at 0.76. His pCO2 is low at 30.2. His pO2 is low at 70. His Na is low at 127. His creatinine is elevated at 1.4. His glucose is 120. His ferritin has increased to 938. His LDH is negative. Given the change on his CXR and his hypoxia. I feel he needs to be admitted. I called Dr Royal and she agreed to the admission. Departure - Departure Time of Disposition: 15:05 Disposition: Admitted As Inpatient 67 Condition: Poor Clinical Impression: Hypoxia, Generalized weakness, Pneumonia due to COVID-19 virus - Discharge Information Referrals: Marvin Santana MD [Primary Care Provider] - Forms: ED Department Discharge Sepsis Event Note (ED) - Evaluation Sepsis Screening Result: No Definite Risk - Focused Exam Vital Signs: Vital Signs Temp Pulse Resp BP Pulse Ox 07/23/20 10:06 97.4 F 64 18 153/81 H 100 - My Orders Last 24 Hours: My Active Orders 07/23/20 10:53 Oxygen Therapy [RC] PRN Peripheral IV Care [RC] . DIRECTED Sodium Chloride 0.9% [Saline Flush] 10 ml FLUSH ASDIRECTED PRN Peripheral IV Insertion Adult [OM.PC] Stat 07/23/20 11:00 Sodium Chloride 0.9% [Normal Saline] 1,000 ml IV ASDIRECTED - Assessment/Plan Last 24 Hours: My Active Orders 07/23/20 10:53 Oxygen Therapy [RC] PRN Peripheral IV Care [RC] . DIRECTED Sodium Chloride 0.9% [Saline Flush] 10 ml FLUSH ASDIRECTED PRN Peripheral IV Insertion Adult [OM.PC] Stat 07/23/20 11:00 Sodium Chloride 0.9% [Normal Saline] 1,000 ml IV ASDIRECTED
--- NOTE | 2020-07-23 11:38 | CR ---
Chest: Portable view of the chest was obtained. Comparison: Prior chest x-ray of 07/18/20. Slight increased density within left lung base is seen. Lungs otherwise are clear. Heart size and mediastinum are within normal limits for portable technique. Prior cervical spine surgery is seen. Impression: 1. Increased density within left lung base suspicious for small area of pneumonia. This is most likely viral given the history of patient is positive for Covid 19. 2. Other stable findings as noted above. Diagnostic code #3 This report was dictated in MDT
[2020-07-23] MEDS ORDERED: Dexamethasone 4 MG/ML SDV IVPUSH ONE (12:06)
[2020-07-23] MEDS: Sodium Chloride 0.9% 1,000 ML IV SCH ×2 (12:41→22:13)
[2020-07-23] MEDS ORDERED: Ondansetron 4 MG/2 ML SDV IV PRN (15:30)
--- NOTE | 2020-07-23 17:29 | PCM.HP.2 ---
H&P History of Present Illness - General Date of Service: 07/23/20 Admit Problem/Dx: Admission Diagnosis/Problem Admission Diagnosis/Problem Failure to thrive Source of Information: Provider, RN Notes Reviewed History Limitations: Reports: No Limitations - History of Present Illness Initial Comments - Free Text/Narative: The patient presents from [place] for generalized weakness. He is COVID 19 positive. He was diagnosed about 10 days ago. He was seen here on the and . On the he was found to have a UTI and he was given rocephin and put on omnicef. He was able to go back because he could walk around with a walker. He came back on the and had generalized weakness. There was no beds here or in [place] and arrangements were made to admit him to [facility] and family was going to take him. The family did not take him and [facility] took him back. He has more generalized weakness. He has a slight cough. His oxygen saturations are good. He denies any The patient does have an indwelling peña catheter. Onset of Symptoms: Reports: Gradual Associated Symptoms: Reports: Cough, Fever/Chills, Loss of Appetite, Malaise, Shortness of Breath, Weakness - Related Data Allergies/Adverse Reactions: Allergies Allergy/AdvReac Type Severity Reaction Status Date / Time celecoxib [From Celebrex] Allergy Cannot Verified 07/23/20 10:15 Remember solifenacin [From Vesicare] Allergy Cannot Verified 07/23/20 10:15 Remember tamsulosin [From Flomax] Allergy Cannot Verified 07/23/20 10:15 Remember Home Medications: Home Meds Acetaminophen [Tylenol] 650 mg PO BID 05/29/20 [History] Aspirin 325 mg PO DAILY 05/29/20 [History] Gabapentin [Neurontin] 100 mg PO DAILY 05/29/20 [History] [place]-3/DHA/Epa/Fish Oil [Fish Oil 1,000 mg Softgel] 1 each PO DAILY 05/29/20 [History] Cefdinir [Omnicef] 300 mg PO DAILY 10 Days #10 cap 07/18/20 [Rx] Cholecalciferol (Vitamin D3) [Vitamin D3] 5,000 intnl unit PO DAILY 07/18/20 [History] Gabapentin [Neurontin] 100 mg PO BEDTIME PRN 07/18/20 [History] Lactulose 2 tbsp PO DAILY 07/18/20 [History] Vit A and D3 in Cod Liver Oil [Cod Liver Oil Softgel] 1 cap PO DAILY 07/18/20 [History] polyethylene glycoL 3350 [MiraLAX] 17 gm PO DAILY PRN 07/18/20 [History] Acetaminophen [Tylenol Extra Strength] 1,000 mg PO DAILY 07/19/20 [History] Past Medical History HEENT History: Reports: Impaired Vision, Other (See Below) 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 Musculoskeletal History: Reports: Back Pain, Chronic Other Musculoskeletal History: sacroilitis, cervicalgia Other Neuro History: disorientation Psychiatric History: Reports: None Endocrine/Metabolic History: Reports: Obesity/BMI 30+ Hematologic History: Reports: None Immunologic History: Reports: None Oncologic (Cancer) History: Reports: None Dermatologic History: Reports: None Other Dermatologic History: biomechanical lesion - Infectious Disease History Infectious Disease History: Reports: Novel Coronavirus - Past Surgical History Neurological Surgical History: Reports: C-Spine Musculoskeletal Surgical History: Reports: Knee Replacement Social & Family History - Tobacco Use Smoking Status *Q: Unknown Ever Smoked Second Hand Smoke Exposure: No - Caffeine Use Caffeine Use: Reports: None H&P Review of Systems - Review of Systems: Review Of Systems: See Below General: Reports: Malaise, Weakness, Fatigue HEENT: Reports: No Symptoms Pulmonary: Reports: Shortness of Breath, Cough. Denies: Sputum Cardiovascular: Reports: No Symptoms. Denies: Edema Gastrointestinal: Reports: Decreased Appetite. Denies: Constipation, Diarrhea, Nausea, Vomiting Genitourinary: Reports: Other (chronic peña catheter) Musculoskeletal: Reports: No Symptoms Skin: Reports: No Symptoms Psychiatric: Reports: No Symptoms Neurological: Reports: No Symptoms Hematologic/Lymphatic: Reports: No Symptoms Immunologic: Reports: No Symptoms Exam - Exam Exam: See Below - Vital Signs Vital Signs: Last Vital Signs Temp 97.4 F 07/23/20 10:06 Pulse 64 07/23/20 10:06 Resp 18 07/23/20 10:06 BP 153/81 H 07/23/20 10:06 Pulse Ox 100 07/23/20 10:06 Weight: 170 lb - Exam Quality Assessment: Supplemental Oxygen, Urinary Catheter (chronic), DVT Prophylaxis (lovenox) General: Alert, Oriented, Cooperative, Mild Distress HEENT: Conjunctiva Clear, Pupils Equal, Pupils Reactive. No: Hearing Intact (hard of hearing), Mucosa Moist & [place] (dry) Neck: Supple, Trachea Midline. No: Lymphadenopathy Lungs: Decreased Breath Sounds, Crackles (bilateral bases) Cardiovascular: Regular Rate, Regular Rhythm GI/Abdominal Exam: Normal Bowel Sounds, Soft, Non-Tender (Male) Exam: Deferred Rectal (Males) Exam: Deferred Extremities: Normal Inspection, Normal Range of Motion, Non-Tender, No Pedal Edema, Normal Capillary Refill Peripheral Pulses: 2+: Radial (L), Radial (R), Dorsalis Pedis (L), Dorsalis Pedis (R) Skin: Warm, Dry, Intact Neurological: Normal Speech, Normal Tone Neuro Extensive - Mental Status: Alert, Oriented x3, Normal Mood/Affect, Normal Cognition Psychiatric: Alert, Normal Affect, Normal Mood - Patient Data Lab Results Last 24 hrs: Laboratory Results - last 24 hr 07/23/20 07/23/20 07/23/20 Range/Units 10:10 11:10 11:10 WBC 6.11 (4.23-9.07) K/mm3 RBC 4.35 L (4.63-6.08) M/mm3 Hgb 13.7 (13.7-17.5) gm/dl Hct 39.6 L (40.1-51.0) % MCV 91.0 (79.0-92.2) fl MCH 31.5 (25.7-32.2) pg MCHC 34.6 (32.2-35.5) g/dl RDW Std Deviation 46.1 H (35.1-43.9) fL Plt Count 106 L (163-337) K/mm3 MPV 10.1 (9.4-12.3) fl Neut % (Auto) 66.0 (34.0-67.9) % Lymph % (Auto) 18.0 L (21.8-53.1) % [place] % (Auto) 12.3 H (5.3-12.2) % Eos % (Auto) 3.3 (0.8-7.0) Baso % (Auto) 0.2 (0.1-1.2) % Neut # (Auto) 4.04 (1.78-5.38) K/mm3 Lymph # (Auto) 1.10 L (1.32-3.57) K/mm3 [place] # (Auto) 0.75 (0.30-0.82) K/mm3 Eos # (Auto) 0.20 (0.04-0.54) K/mm3 Baso # (Auto) 0.01 (0.01-0.08) K/mm3 PT 10.6 (9.7-11.7) SECONDS INR 0.99 APTT 31 (22-31) SECONDS D-Dimer, Quantitative 0.76 H (0.19-0.50) mg/L Puncture Site ABG pH (7.35-7.45) ABG pCO2 (35.0-45.0) mmHg ABG pO2 (80.0-100.0) mmHg ABG HCO3 (22.0-26.0) meq/L ABG O2 Saturation (96.0-97.0) % ABG Base Excess (-2-2.0) Db Test A-a Gradient mmHg O2 Delivery Device FiO2 (21.00-100.00) % Sodium (136-145) mEq/L Potassium (3.5-5.1) mEq/L Chloride (98-107) mEq/L Carbon Dioxide (21-32) mEq/L Anion Gap (5-15) BUN (7-18) mg/dL Creatinine (0.7-1.3) mg/dL Est Cr Clr Drug Dosing mL/min Estimated GFR (MDRD) (>60) mL/min BUN/Creatinine Ratio (14-18) Glucose (83-115) mg/dL Serum Osmolality (280-300) mosm/kg Lactic Acid (0.4-2.0) mmol/L Calcium (8.5-10.1) mg/dL Ferritin (26-388) ng/ml Total Bilirubin (0.2-1.0) mg/dL AST (15-37) U/L ALT (16-63) U/L Alkaline Phosphatase (46-116) U/L Lactate Dehydrogenase (85-227) U/L C-Reactive Protein (<1.0) mg/dL Total Protein (6.4-8.2) g/dl Albumin (3.4-5.0) g/dl Globulin gm/dL Albumin/Globulin Ratio (1-2) Urine Color Yellow (Yellow) Urine Appearance Clear (Clear) Urine pH 6.0 (5.0-8.0) Ur Specific Kenneth 1.020 (1.005-1.030) Urine Protein 1+ H (Negative) Urine Glucose (UA) Negative (Negative) Urine Ketones Trace H (Negative) Urine Occult Blood 1+ H (Negative) Urine Nitrite Negative (Negative) Urine Bilirubin Negative (Negative) Urine Urobilinogen 0.2 (0.2-1.0) Ur Leukocyte Esterase Negative (Negative) Urine RBC 5-10 H (0-5) /hpf Urine WBC 0-5 (0-5) /hpf Ur Squamous Epith Cells 0-5 (0-5) /hpf Urine Bacteria Few (FEW) /hpf Urine Mucus Rare (FEW) /hpf 07/23/20 07/23/20 07/23/20 Range/Units 11:10 11:10 11:10 WBC (4.23-9.07) K/mm3 RBC (4.63-6.08) M/mm3 Hgb (13.7-17.5) gm/dl Hct (40.1-51.0) % MCV (79.0-92.2) fl MCH (25.7-32.2) pg MCHC (32.2-35.5) g/dl RDW Std Deviation (35.1-43.9) fL Plt Count (163-337) K/mm3 MPV (9.4-12.3) fl Neut % (Auto) (34.0-67.9) % Lymph % (Auto) (21.8-53.1) % [place] % (Auto) (5.3-12.2) % Eos % (Auto) (0.8-7.0) Baso % (Auto) (0.1-1.2) % Neut # (Auto) (1.78-5.38) K/mm3 Lymph # (Auto) (1.32-3.57) K/mm3 [place] # (Auto) (0.30-0.82) K/mm3 Eos # (Auto) (0.04-0.54) K/mm3 Baso # (Auto) (0.01-0.08) K/mm3 PT (9.7-11.7) SECONDS INR APTT (22-31) SECONDS D-Dimer, Quantitative (0.19-0.50) mg/L Puncture Site ABG pH (7.35-7.45) ABG pCO2 (35.0-45.0) mmHg ABG pO2 (80.0-100.0) mmHg ABG HCO3 (22.0-26.0) meq/L ABG O2 Saturation (96.0-97.0) % ABG Base Excess (-2-2.0) Db Test A-a Gradient mmHg O2 Delivery Device FiO2 (21.00-100.00) % Sodium 127 L (136-145) mEq/L Potassium 4.1 (3.5-5.1) mEq/L Chloride 94 L (98-107) mEq/L Carbon Dioxide 24 (21-32) mEq/L Anion Gap 13.1 (5-15) BUN 17 (7-18) mg/dL Creatinine 1.4 H (0.7-1.3) mg/dL Est Cr Clr Drug Dosing 29.95 mL/min Estimated GFR (MDRD) 48 (>60) mL/min BUN/Creatinine Ratio 12.1 L (14-18) Glucose 120 H (83-115) mg/dL Serum Osmolality (280-300) mosm/kg Lactic Acid 0.8 (0.4-2.0) mmol/L Calcium 8.1 L (8.5-10.1) mg/dL Ferritin 938 H (26-388) ng/ml Total Bilirubin 0.6 (0.2-1.0) mg/dL AST 23 (15-37) U/L ALT 17 (16-63) U/L Alkaline Phosphatase 91 (46-116) U/L Lactate Dehydrogenase 190 (85-227) U/L C-Reactive Protein (<1.0) mg/dL Total Protein 6.6 (6.4-8.2) g/dl Albumin 2.8 L (3.4-5.0) g/dl Globulin 3.8 gm/dL Albumin/Globulin Ratio 0.7 L (1-2) Urine Color (Yellow) Urine Appearance (Clear) Urine pH (5.0-8.0) Ur Specific Kenneth (1.005-1.030) Urine Protein (Negative) Urine Glucose (UA) (Negative) Urine Ketones (Negative) Urine Occult Blood (Negative) Urine Nitrite (Negative) Urine Bilirubin (Negative) Urine Urobilinogen (0.2-1.0) Ur Leukocyte Esterase (Negative) Urine RBC (0-5) /hpf Urine WBC (0-5) /hpf Ur Squamous Epith Cells (0-5) /hpf Urine Bacteria (FEW) /hpf Urine Mucus (FEW) /hpf 07/23/20 07/23/20 07/23/20 Range/Units 11:10 11:10 11:33 WBC (4.23-9.07) K/mm3 RBC (4.63-6.08) M/mm3 Hgb (13.7-17.5) gm/dl Hct (40.1-51.0) % MCV (79.0-92.2) fl MCH (25.7-32.2) pg MCHC (32.2-35.5) g/dl RDW Std Deviation (35.1-43.9) fL Plt Count (163-337) K/mm3 MPV (9.4-12.3) fl Neut % (Auto) (34.0-67.9) % Lymph % (Auto) (21.8-53.1) % [place] % (Auto) (5.3-12.2) % Eos % (Auto) (0.8-7.0) Baso % (Auto) (0.1-1.2) % Neut # (Auto) (1.78-5.38) K/mm3 Lymph # (Auto) (1.32-3.57) K/mm3 [place] # (Auto) (0.30-0.82) K/mm3 Eos # (Auto) (0.04-0.54) K/mm3 Baso # (Auto) (0.01-0.08) K/mm3 PT (9.7-11.7) SECONDS INR APTT (22-31) SECONDS D-Dimer, Quantitative (0.19-0.50) mg/L Puncture Site Lt radial ABG pH 7.45 (7.35-7.45) ABG pCO2 30.2 L (35.0-45.0) mmHg ABG pO2 70.0 L (80.0-100.0) mmHg ABG HCO3 20.5 L (22.0-26.0) meq/L ABG O2 Saturation 95.0 L (96.0-97.0) % ABG Base Excess -2.1 L (-2-2.0) Db Test Positive A-a Gradient 42 mmHg O2 Delivery Device Room air FiO2 21.00 (21.00-100.00) % Sodium (136-145) mEq/L Potassium (3.5-5.1) mEq/L Chloride (98-107) mEq/L Carbon Dioxide (21-32) mEq/L Anion Gap (5-15) BUN (7-18) mg/dL Creatinine (0.7-1.3) mg/dL Est Cr Clr Drug Dosing mL/min Estimated GFR (MDRD) (>60) mL/min BUN/Creatinine Ratio (14-18) Glucose (83-115) mg/dL Serum Osmolality 275 L (280-300) mosm/kg Lactic Acid (0.4-2.0) mmol/L Calcium (8.5-10.1) mg/dL Ferritin (26-388) ng/ml Total Bilirubin (0.2-1.0) mg/dL AST (15-37) U/L ALT (16-63) U/L Alkaline Phosphatase (46-116) U/L Lactate Dehydrogenase (85-227) U/L C-Reactive Protein 9.9 H* (<1.0) mg/dL Total Protein (6.4-8.2) g/dl Albumin (3.4-5.0) g/dl Globulin gm/dL Albumin/Globulin Ratio (1-2) Urine Color (Yellow) Urine Appearance (Clear) Urine pH (5.0-8.0) Ur Specific Kenneth (1.005-1.030) Urine Protein (Negative) Urine Glucose (UA) (Negative) Urine Ketones (Negative) Urine Occult Blood (Negative) Urine Nitrite (Negative) Urine Bilirubin (Negative) Urine Urobilinogen (0.2-1.0) Ur Leukocyte Esterase (Negative) Urine RBC (0-5) /hpf Urine WBC (0-5) /hpf Ur Squamous Epith Cells (0-5) /hpf Urine Bacteria (FEW) /hpf Urine Mucus (FEW) /hpf Result Diagrams: 07/23/20 11:10 07/23/20 11:10 Sepsis Event Note - Evaluation Sepsis Screening Result: No Definite Risk - Focused Exam Vital Signs: Vital Signs Temp Pulse Resp BP Pulse Ox 07/23/20 10:06 97.4 F 64 18 153/81 H 100 - Problem List (1) Failure to thrive SNOMED Code(s): 93282365 ICD Code: [id number] - Status: Acute Priority: High Current Visit: Yes (2) Weakness SNOMED Code(s): 57865698 ICD Code: R53.1 - WEAKNESS Status: Acute Priority: High Current Visit: Yes (3) Physical deconditioning SNOMED Code(s): 12551885091970 ICD Code: R53.81 - OTHER MALAISE Status: Acute Priority: High Current Visit: Yes (4) Hypochloremia SNOMED Code(s): 20815264 ICD Code: E87.8 - OTH DISORDERS OF ELECTROLYTE AND FLUID BALANCE, NEC Status: Acute Priority: High Current Visit: Yes (5) Hyponatremia SNOMED Code(s): 15020954 ICD Code: E87.1 - HYPO-OSMOLALITY AND HYPONATREMIA Status: Acute Priority: High Current Visit: Yes (6) Volume depletion SNOMED Code(s): 526736997 ICD Code: E86.9 - VOLUME DEPLETION, UNSPECIFIED Status: Acute Priority: High Current Visit: Yes (7) Acute kidney injury SNOMED Code(s): 34728695, 53111304 ICD Code: N17.9 - ACUTE KIDNEY FAILURE, UNSPECIFIED Status: Acute Priority: High Current Visit: Yes (8) Acute hypoxemic respiratory failure due to COVID-19 SNOMED Code(s): 726700540 ICD Code: U07.1 - COVID-19; J96.01 - ACUTE RESPIRATORY FAILURE WITH HYPOXIA Status: Acute Priority: High Current Visit: Yes (9) Hypertension SNOMED Code(s): 39381021 ICD Code: I10 - ESSENTIAL (PRIMARY) HYPERTENSION Status: Acute Priority: High Current Visit: Yes Qualifiers: Hypertension type: unspecified Qualified Code(s): I10 - Essential (primary) hypertension (10) Pneumonia due to COVID-19 virus SNOMED Code(s): 482987853 ICD Code: U07.1 - COVID-19; J12.89 - OTHER VIRAL PNEUMONIA Status: Acute Priority: High Current Visit: Yes (11) COVID-19 SNOMED Code(s): 616008103 ICD Code: U07.1 - COVID-19 Status: Acute Priority: High Current Visit: No Problem List Initiated/Reviewed/Updated: Yes Orders Last 24hrs: Active Orders 24 hr Category Date Time Status Patient Status [ADT] Routine ADT 07/23/20 15:30 Active Patient Status [ADT] Routine ADT 07/23/20 15:36 Active Height and Weight [RC] 04 Care 07/23/20 15:30 Active Intake and Output [RC] 04,16 Care 07/23/20 15:32 Active Orthostatic Vital Signs [RC] ASDIRECTED Care 07/23/20 15:42 Active Oxygen Therapy [RC] PRN Care 07/23/20 10:53 Active Pulse Oximetry [RC] CONTINUOUS Care 07/23/20 15:32 Active Up With Assistance [RC] ASDIRECTED Care 07/23/20 15:30 Active VTE/DVT Education [RC] PER UNIT ROUTINE Care 07/23/20 15:30 Active Vital Signs [RC] Q4HR Care 07/23/20 15:30 Active Consult to Rides Supervisor [CONS] Routine Cons 07/23/20 15:30 Active Consult to Spiritual Care [CONS] Routine Cons 07/23/20 15:30 Active OT Evaluation and Treatment [CONS] Routine Cons 07/23/20 15:30 Active PT Evaluation and Treatment [CONS] Routine Cons 07/23/20 15:30 Active Regular Diet [DIET] Diet 07/23/20 Dinner Active CBC WITH AUTO DIFF [HEME] AM Lab 07/24/20 05:11 Ordered COMPREHENSIVE METABOLIC PN,CMP [CHEM] AM Lab 07/24/20 05:11 Ordered FOLIC ACID [CHEM] Routine Lab 07/24/20 05:11 Ordered MAGNESIUM [CHEM] AM Lab 07/24/20 05:11 Ordered OSMOLALITY,URINE [URCHEM] Stat Lab 07/23/20 15:42 Ordered PREALBUMIN [REF] Routine Lab 07/24/20 05:11 Ordered PROCALCITONIN [REF] Stat Lab 07/23/20 11:10 Received SODIUM,URINE RANDOM [URCHEM] Stat Lab 07/23/20 15:42 Ordered VITAMIN B12 [CHEM] AM Lab 07/24/20 05:11 Ordered VITAMIN D,25-HYDROXY [CHEM] Routine Lab 07/24/20 05:11 Ordered Acetaminophen [TylenoL] Med 07/23/20 15:30 Active 650 mg PO Q4H PRN Enoxaparin [Lovenox] Med 07/24/20 09:00 Active 30 mg SUBCUT DAILY Ondansetron [Zofran] Med 07/23/20 15:30 Active 4 mg IV Q4H PRN Sodium Chloride 0.9% [Normal Saline] 1,000 ml Med 07/23/20 11:00 Active IV ASDIRECTED Sodium Chloride 0.9% [Saline Flush] Med 07/23/20 10:53 Active 10 ml FLUSH ASDIRECTED PRN Sodium Chloride 0.9% [Saline Flush] Med 07/23/20 15:30 Active 10 ml FLUSH ASDIRECTED PRN dexAMETHasone Med 07/24/20 09:00 Active 6 mg PO DAILY Peripheral IV Insertion Adult [OM.PC] Stat Oth 07/23/20 10:53 Ordered Saline Lock Insert [OM.PC] Routine Oth 07/23/20 15:30 Ordered Medication Orders Acetaminophen (Tylenol) 650 mg PO Q4H PRN PRN Reason: Pain (Mild 1-3)/fever Dexamethasone (Dexamethasone) 6 mg PO DAILY MAYCO Enoxaparin Sodium (Lovenox) 30 mg SUBCUT DAILY [facility]CO Sodium Chloride (Normal Saline) 1,000 mls @ 125 mls/hr IV ASDIRECTED MAYCO Last Admin: 07/23/20 12:41 Dose: 125 mls/hr Documented by: ALYSON Ondansetron HCl (Zofran) 4 mg IV Q4H PRN PRN Reason: Nausea/Vomiting Sodium Chloride (Saline Flush) 10 ml FLUSH ASDIRECTED PRN PRN Reason: Keep Vein Open Last Admin: 07/23/20 12:40 Dose: 10 ml Documented by: ALYSON Sodium Chloride (Saline Flush) 10 ml FLUSH ASDIRECTED PRN PRN Reason: Keep Vein Open Assessment/Plan Comment:: 07/23/20 10 day history of positive COVID diagnosis Has been seen in the ED three times in the last 8 days. History of UTI recently treated with rocephin and omnicef Lives in [place] Pulse ox on admission was 88-89% Decreased appetite and po intake. Chest xray reveals increased density within the left lung base suspicious for small area of pneumonia. Lab results: -WBC 6.11 -Plt 106 -Ddimer 0.76 -UA negative -Na 127 -Chl 94 -BUN 17 -CRE 1.4 -GFR 48 -Ferritin 938 -LDH 190 -CRP 9.9 ABGs on room air -pH 7.45 -pCO2 30.2 -pO2 70.0 -HCO3 20.5 PLAN -Start Remdesivir -Start dexamethasone -Normal Saline @ 100ml/hr -Monitor for hypoxemia -Monitor urine output -Renally dosed medications -Repeat labs and replace electrolytes as needed -PT/OT to eval and treat -Rides Supervisor consult for supplements -Incentive spirometry PLAN: Failure to thrive Weakness Physical deconditioning -PT/OT to eval and treat -Rides Supervisor consult Hypochloremia Hyponatremia Volume depletion -Replace electrolytes as needed -IV fluids -Encourage po intake Acute kidney injury -Renally dosed medications -Monitor kidney function -Monitory urine output Acute hypoxemic respiratory failure due to COVID-19 Pneumonia due to COVID-19 virus COVID-19 -Start Remdesivir -Start Dex -Incentive spirometry -Continuous pulse ox -Monitor for hypoxemia -Repeat labs as needed Hypertension -PRN Hydralazine PROPHYLAXIS DVT-lovenox GI- CODE STATUS: DISPOSITION: Patient will be admitted to [facility] floor with telemetry for antiviral treatment of COVID. Length of stay will be greater than 96 hours due to length of treatment required for COVID. - Mortality Measure Prognosis:: Good
[2020-07-24] MEDS: Sodium Chloride 0.9% 1,000 ML IV SCH (07:34)
[2020-07-24 07:53] LABS: VITAMIN D,25-HYDROXY 73.6 ng/ml (30.0-100.0)
[2020-07-24] MEDS: Dexamethasone 4 MG Tab PO SCH (08:41)
[2020-07-24] MEDS: Polyethylene Glycol 3350 Powder 17 GM Packet PO PRN (08:41)
[2020-07-24] MEDS: Lactulose Soln 10 GM/15 ML 30 ML UD Cup PO SCH (08:41)
[2020-07-24] MEDS: Gabapentin 100 MG Cap PO SCH (08:42)
[2020-07-24] MEDS: Cholecalciferol (Vitamin D3) 5,000 UNIT Tab PO SCH (08:42)
[2020-07-24] MEDS: Brimonidine 0.2% Ophth Soln 5 ML Bottle EYERT SCH ×2 (08:42→23:01)
[2020-07-24] MEDS: Carboxymethylcellulose Sodium 1% Ophth Gel 15 ML Bottle EYERT SCH ×3 (08:43→23:14)
[2020-07-24] MEDS ORDERED: Enoxaparin 30 MG/0.3 ML Syringe SUBCUT SCH (09:00)
[2020-07-24] MEDS ORDERED: Magnesium Hydroxide 400 MG/5 ML Susp 30 ML Cup PO ONE (09:00)
[2020-07-24] MEDS: Enoxaparin 40 MG/0.4 ML Syringe SUBCUT SCH (09:04)
[2020-07-24] MEDS: Timolol Maleate 0.5% Ophth Soln 5 ML Bottle EYERT SCH ×3 (09:14→23:12)
[2020-07-24] MEDS: Nystatin Topical Powder 15 GM Bottle TOP SCH ×3 (12:01→23:04)
--- NOTE | 2020-07-24 13:41 | PCM.PN ---
- General Info Date of Service: 07/24/20 Admission Dx/Problem (Free Text): Admission Diagnosis/Problem Admission Diagnosis/Problem Failure to thrive Subjective Update: Eating well. Very weak. Needs assistance with meals. Hematuria noted in peña. Functional Status: Reports: Tolerating Diet, Urinating (chronic peña catheter), Incentive Spirometry. Denies: Ambulating (up with max of 2 asst) - Review of Systems General: Reports: Weakness, Fatigue, Appetite HEENT: Reports: Other (poor vision, very hard of hearing) Pulmonary: Reports: Cough. Denies: Sputum Cardiovascular: Reports: No Symptoms, Edema (scrotal) Gastrointestinal: Reports: No Symptoms Genitourinary: Reports: Hematuria (ua/uc ordered) Musculoskeletal: Reports: No Symptoms Skin: Reports: Rash (groin) Neurological: Reports: No Symptoms Psychiatric: Reports: No Symptoms - Patient Data Weight - Most Recent: 170 lb - Exam Quality Assessment: Supplemental Oxygen, Urine Catheter (chronic), DVT Prophylaxis General: Alert, Cooperative, Mild Distress. No: Oriented HEENT: Pupils Equal, Mucous Membr. Moist/[place] Neck: Supple, Trachea Midline. No: Lymphadenopathy Lungs: Decreased Breath Sounds, Crackles (bases) Cardiovascular: Regular Rate, Regular Rhythm, No Murmurs GI/Abdominal Exam: Normal Bowel Sounds, Soft, Non-Tender, No Distention (Male) Exam: Scrotal Swelling, Other (yeast noted to groin) Back Exam: Normal Inspection, Full Range of Motion Extremities: Normal Inspection, Normal Range of Motion, Non-Tender, No Pedal Edema, Normal Capillary Refill Peripheral Pulses: 2+: Radial (L), Radial (R), Dorsalis Pedis (L), Dorsalis Pedis (R) Skin: Rash (yeast infection in groin) Neurological: No New Focal Deficit Psy/Mental Status: Alert, Normal Affect, Normal Mood Sepsis Event Note - Evaluation Sepsis Screening Result: No Definite Risk - Problem List & Annotations (1) Failure to thrive SNOMED Code(s): 66636247 Code(s): ZEP6325 - Status: Acute Priority: High Current Visit: Yes (2) Weakness SNOMED Code(s): 54685638 Code(s): R53.1 - WEAKNESS Status: Acute Priority: High Current Visit: Yes (3) Physical deconditioning SNOMED Code(s): 10505778038181 Code(s): R53.81 - OTHER MALAISE Status: Acute Priority: High Current Visit: Yes (4) Hypochloremia SNOMED Code(s): 16221885 Code(s): E87.8 - OTH DISORDERS OF ELECTROLYTE AND FLUID BALANCE, NEC Status: Acute Priority: High Current Visit: Yes (5) Hyponatremia SNOMED Code(s): 09326961 Code(s): E87.1 - HYPO-OSMOLALITY AND HYPONATREMIA Status: Acute Priority: High Current Visit: Yes (6) Volume depletion SNOMED Code(s): 789610591 Code(s): E86.9 - VOLUME DEPLETION, UNSPECIFIED Status: Acute Priority: High Current Visit: Yes (7) Acute kidney injury SNOMED Code(s): 30143591, 30685249 Code(s): N17.9 - ACUTE KIDNEY FAILURE, UNSPECIFIED Status: Acute Priority: High Current Visit: Yes (8) Acute hypoxemic respiratory failure due to COVID-19 SNOMED Code(s): 172029790 Code(s): U07.1 - COVID-19; J96.01 - ACUTE RESPIRATORY FAILURE WITH HYPOXIA Status: Acute Priority: High Current Visit: Yes (9) Hypertension SNOMED Code(s): 05887974 Code(s): I10 - ESSENTIAL (PRIMARY) HYPERTENSION Status: Acute Priority: High Current Visit: Yes Qualifiers: Hypertension type: unspecified Qualified Code(s): I10 - Essential (primary) hypertension (10) Pneumonia due to COVID-19 virus SNOMED Code(s): 249633792 Code(s): U07.1 - COVID-19; J12.89 - OTHER VIRAL PNEUMONIA Status: Acute Priority: High Current Visit: Yes (11) COVID-19 SNOMED Code(s): 509476830 Code(s): U07.1 - COVID-19 Status: Acute Priority: High Current Visit: No - Problem List Review Problem List Initiated/Reviewed/Updated: Yes - My Orders Last 24 Hours: My Active Orders 07/23/20 15:30 Patient Status [ADT] Routine Height and Weight [RC] 04 Up With Assistance [RC] ASDIRECTED VTE/DVT Education [RC] BID Vital Signs [RC] Q4HR Consult to Home Therapy Clinician [CONS] Routine Consult to Spiritual Care [CONS] Routine OT Evaluation and Treatment [CONS] Routine PT Evaluation and Treatment [CONS] Routine Acetaminophen [TylenoL] 650 mg PO Q4H PRN Ondansetron [Zofran] 4 mg IV Q4H PRN Sodium Chloride 0.9% [Saline Flush] 10 ml FLUSH ASDIRECTED PRN Saline Lock Insert [OM.PC] Routine 07/23/20 15:32 Intake and Output [RC] 04,16 Pulse Oximetry [RC] CONTINUOUS 07/23/20 15:42 Orthostatic Vital Signs [RC] ASDIRECTED 07/24/20 04:25 PREALBUMIN [REF] Routine 07/24/20 08:08 UA RFX [place] AND CULT IF INDIC [URIN] Stat 07/24/20 08:13 polyethylene glycoL 3350 [MiraLAX] 17 gm PO DAILY PRN 07/24/20 09:00 Brimonidine [Alphagan 0.2% Ophth Soln] 0 ml EYERT BID Carboxymethylcellulose Sodium [Refresh Liquigel 1%] 0 ml EYERT BID Cholecalciferol (Vitamin D3) [Vitamin D3] 5,000 unit PO DAILY Enoxaparin [Lovenox] 40 mg SUBCUT DAILY Gabapentin [Neurontin] 100 mg PO DAILY Lactulose [Cephulac] 20 gm PO DAILY dexAMETHasone 6 mg PO DAILY timoloL maleate [Timoptic 0.5% Ophth Soln] 0 ml EYERT BID 07/24/20 10:32 Nystatin [Nystop] 0 gm TOP TID 07/24/20 11:42 Code Status [Resuscitation Status] Routine 07/24/20 21:00 Gabapentin [Neurontin] 100 mg PO BEDTIME PRN 07/24/20 23:00 Remdesivir (Eua) [Remdesivir (EUA)] 100 mg Sodium Chloride 0.9% [Normal Saline] 100 ml IV Q24H 07/25/20 05:11 C-REACTIVE PROTEIN [CHEM] AM CBC WITH AUTO DIFF [HEME] AM COMPREHENSIVE METABOLIC PN,CMP [CHEM] AM D-DIMER QUANTITATIVE [COAG] AM MAGNESIUM [CHEM] AM PROCALCITONIN [REF] Routine - Assessment Assessment:: 07/24/20 Still requires 2 liters of O2 Hematuria noted in peña catheter today. UA/UC ordered Day 2 of dexamethasone and remdesivir IV fluids stopped-pt taking po well Encourage IS Lab results: -WBC down from 6.11-4.03 -Na up from 127-134 -BUN down from 17-15 -CRE down from 1.4-1.1 -GFR up from 48->60 PLAN -Day 2 of Remdesivir and dexamethasone -Saline lock IVF -Monitor for hypoxemia -Monitor urine output -Renally dosed medications -Repeat labs and replace electrolytes as needed -PT/OT to eval and treat -Home Therapy Clinician consult for supplements -Incentive spirometry -Nystantin to groin -UA/UC - Plan Plan:: 07/23/20 10 day history of positive COVID diagnosis Has been seen in the ED three times in the last 8 days. History of UTI recently treated with rocephin and omnicef Lives in [place] Pulse ox on admission was 88-89% Decreased appetite and po intake. Chest xray reveals increased density within the left lung base suspicious for small area of pneumonia. Lab results: -WBC 6.11 -Plt 106 -Ddimer 0.76 -UA negative -Na 127 -Chl 94 -BUN 17 -CRE 1.4 -GFR 48 -Ferritin 938 -LDH 190 -CRP 9.9 ABGs on room air -pH 7.45 -pCO2 30.2 -pO2 70.0 -HCO3 20.5 PLAN -Start Remdesivir -Start dexamethasone -Normal Saline @ 100ml/hr -Monitor for hypoxemia -Monitor urine output -Renally dosed medications -Repeat labs and replace electrolytes as needed -PT/OT to eval and treat -Home Therapy Clinician consult for supplements -Incentive spirometry PLAN: Failure to thrive Weakness Physical deconditioning -PT/OT to eval and treat -Home Therapy Clinician consult Hypochloremia Hyponatremia Volume depletion -Replace electrolytes as needed -Saline lock IV -Encourage po intake Acute kidney injury -Renally dosed medications -Monitor kidney function -Monitory urine output Acute hypoxemic respiratory failure due to COVID-19 Pneumonia due to COVID-19 virus COVID-19 -Currently on Dexamethasone and Remdesivir -Incentive spirometry -Continuous pulse ox -Monitor for hypoxemia -Repeat labs as needed Hypertension -PRN Hydralazine PROPHYLAXIS DVT-lovenox GI- CODE STATUS: FULLCODE DISPOSITION: [facility] with telemetry for antiviral treatment of COVID and continuous pulse oximetry Length of stay will be greater than 96 hours due to length of treatment required for COVID. rehabilitation services counselor consult regarding group home placement.
[2020-07-24] MEDS ORDERED: Bisacodyl 10 MG Supp RECTAL ONE (18:30)
[2020-07-24] MEDS ORDERED: Gabapentin 100 MG Cap PO PRN (21:00)
[2020-07-24] MEDS: REMDESIVIR (EUA) 100 MG in Sodium Chloride 0.9% 100 ML IV SCH (23:04)
[2020-07-25] MEDS: Gabapentin 100 MG Cap PO SCH (08:54)
[2020-07-25] MEDS: Enoxaparin 40 MG/0.4 ML Syringe SUBCUT SCH (08:54)
[2020-07-25] MEDS: Lactulose Soln 10 GM/15 ML 30 ML UD Cup PO SCH (08:54)
[2020-07-25] MEDS: Dexamethasone 4 MG Tab PO SCH (08:54)
[2020-07-25] MEDS: Cholecalciferol (Vitamin D3) 5,000 UNIT Tab PO SCH (08:55)
[2020-07-25] MEDS: Nystatin Topical Powder 15 GM Bottle TOP SCH ×3 (08:59→20:47)
[2020-07-25] MEDS: Brimonidine 0.2% Ophth Soln 5 ML Bottle EYERT SCH ×2 (08:59→20:38)
[2020-07-25] MEDS: Carboxymethylcellulose Sodium 1% Ophth Gel 15 ML Bottle EYERT SCH ×2 (09:00→20:49)
[2020-07-25] MEDS: Timolol Maleate 0.5% Ophth Soln 5 ML Bottle EYERT SCH ×2 (09:00→21:02)
--- NOTE | 2020-07-25 12:50 | PCM.PN ---
- General Info Date of Service: 07/25/20 Admission Dx/Problem (Free Text): Admission Diagnosis/Problem Admission Diagnosis/Problem Failure to thrive Subjective Update: On room air. Confused. Needs assistance with meals. Very weak. Functional Status: Reports: Tolerating Diet, Urinating (chronic peña catheter). Denies: Incentive Spirometry (unable to comprehend how to use) - Review of Systems General: Reports: Weakness, Appetite HEENT: Reports: No Symptoms Pulmonary: Reports: No Symptoms Cardiovascular: Reports: No Symptoms. Denies: Edema Gastrointestinal: Reports: No Symptoms Genitourinary: Reports: No Symptoms (chronic peña catheter) Musculoskeletal: Reports: No Symptoms Skin: Reports: Rash (groin) Neurological: Reports: Confusion Psychiatric: Reports: Confusion - Patient Data Weight - Most Recent: 172 lb 8 oz - Exam Quality Assessment: Urine Catheter (chronic), DVT Prophylaxis. No: Supplemental Oxygen (on room air) General: Alert, Cooperative, No Acute Distress HEENT: Pupils Equal, Mucous Membr. Moist/[place] Neck: Supple, Trachea Midline. No: Lymphadenopathy Lungs: Clear to Auscultation, Normal Respiratory Effort Cardiovascular: Regular Rate, Regular Rhythm, No Murmurs GI/Abdominal Exam: Normal Bowel Sounds, Soft, Non-Tender, No Distention (Male) Exam: Rash (yeast to groin), Scrotal Swelling Back Exam: Normal Inspection, Full Range of Motion Extremities: Normal Inspection, Normal Range of Motion, Non-Tender, No Pedal Edema, Normal Capillary Refill Peripheral Pulses: 2+: Radial (L), Radial (R), Dorsalis Pedis (L), Dorsalis Pedis (R) Skin: Warm, Dry, Intact Neurological: No New Focal Deficit Psy/Mental Status: Alert, Normal Affect, Normal Mood Sepsis Event Note - Evaluation Sepsis Screening Result: No Definite Risk - Problem List & Annotations (1) Failure to thrive SNOMED Code(s): 85505695 Code(s): YRM4236 - Status: Acute Priority: High Current Visit: Yes (2) Weakness SNOMED Code(s): 27078631 Code(s): R53.1 - WEAKNESS Status: Acute Priority: High Current Visit: Yes (3) Physical deconditioning SNOMED Code(s): 24482746342948 Code(s): R53.81 - OTHER MALAISE Status: Acute Priority: High Current Visit: Yes (4) Hypochloremia SNOMED Code(s): 39712599 Code(s): E87.8 - OTH DISORDERS OF ELECTROLYTE AND FLUID BALANCE, NEC Status: Acute Priority: High Current Visit: Yes (5) Hyponatremia SNOMED Code(s): 61237651 Code(s): E87.1 - HYPO-OSMOLALITY AND HYPONATREMIA Status: Acute Priority: High Current Visit: Yes (6) Volume depletion SNOMED Code(s): 393824442 Code(s): E86.9 - VOLUME DEPLETION, UNSPECIFIED Status: Acute Priority: High Current Visit: Yes (7) Acute kidney injury SNOMED Code(s): 35263877, 44746141 Code(s): N17.9 - ACUTE KIDNEY FAILURE, UNSPECIFIED Status: Acute Priority: High Current Visit: Yes (8) Acute hypoxemic respiratory failure due to COVID-19 SNOMED Code(s): 938875683 Code(s): U07.1 - COVID-19; J96.01 - ACUTE RESPIRATORY FAILURE WITH HYPOXIA Status: Acute Priority: High Current Visit: Yes (9) Hypertension SNOMED Code(s): 29795607 Code(s): I10 - ESSENTIAL (PRIMARY) HYPERTENSION Status: Acute Priority: High Current Visit: Yes Qualifiers: Hypertension type: unspecified Qualified Code(s): I10 - Essential (primary) hypertension (10) Pneumonia due to COVID-19 virus SNOMED Code(s): 220416398 Code(s): U07.1 - COVID-19; J12.89 - OTHER VIRAL PNEUMONIA Status: Acute Priority: High Current Visit: Yes (11) COVID-19 SNOMED Code(s): 327719855 Code(s): U07.1 - COVID-19 Status: Acute Priority: High Current Visit: No - Problem List Review Problem List Initiated/Reviewed/Updated: Yes - My Orders Last 24 Hours: My Active Orders 07/24/20 11:42 Code Status [Resuscitation Status] Routine 07/24/20 13:42 Incentive Spirometry [RT Incentive Spirometry] [RC] Q1HWA 07/24/20 21:00 Gabapentin [Neurontin] 100 mg PO BEDTIME PRN 07/24/20 23:00 Remdesivir (Eua) [Remdesivir (EUA)] 100 mg Sodium Chloride 0.9% [Normal Saline] 100 ml IV Q24H 07/25/20 05:30 PROCALCITONIN [REF] Routine - Assessment Assessment:: 07/24/20 Still requires 2 liters of O2 Hematuria noted in peña catheter today. UA/UC ordered Day 2 of dexamethasone and remdesivir IV fluids stopped-pt taking po well Encourage IS Lab results: -WBC down from 6.11-4.03 -Na up from 127-134 -BUN down from 17-15 -CRE down from 1.4-1.1 -GFR up from 48->60 PLAN -Day 2 of Remdesivir and dexamethasone -Saline lock IVF -Monitor for hypoxemia -Monitor urine output -Renally dosed medications -Repeat labs and replace electrolytes as needed -PT/OT to eval and treat -Legal Referee consult for supplements -Incentive spirometry -Nystantin to groin -UA/UC 07/25/20 On room air Day 3 of dexamethasone and remdesivir Encourage IS Yeast to groin. Vitals: BP 128-166/79-96 Tmax 98.4 Heart rate 62-72 91-91% on room air Lab results: -WBC 7.19 from 4.03 -Ddimer 1.07 from 0.76 -BUN from 16.6 to 17 -CRE up from 1.1 to 1.3 -GFR down from >60 to 52 -CRP down from 9.9 to 6.5 PLAN -Day 3 of Remdesivir and dexamethasone -Monitor for hypoxemia -Monitor urine output -Renally dosed medications -Repeat labs and replace electrolytes as needed -PT/OT to eval and treat -Incentive spirometry -Nystantin to groin - Plan Plan:: 07/23/20 10 day history of positive COVID diagnosis Has been seen in the ED three times in the last 8 days. History of UTI recently treated with rocephin and omnicef Lives in [place] Pulse ox on admission was 88-89% Decreased appetite and po intake. Chest xray reveals increased density within the left lung base suspicious for small area of pneumonia. Lab results: -WBC 6.11 -Plt 106 -Ddimer 0.76 -UA negative -Na 127 -Chl 94 -BUN 17 -CRE 1.4 -GFR 48 -Ferritin 938 -LDH 190 -CRP 9.9 ABGs on room air -pH 7.45 -pCO2 30.2 -pO2 70.0 -HCO3 20.5 PLAN -Start Remdesivir -Start dexamethasone -Normal Saline @ 100ml/hr -Monitor for hypoxemia -Monitor urine output -Renally dosed medications -Repeat labs and replace electrolytes as needed -PT/OT to eval and treat -Legal Referee consult for supplements -Incentive spirometry PLAN: Failure to thrive Weakness Physical deconditioning -PT/OT to eval and treat -Legal Referee consult Hypochloremia Hyponatremia Volume depletion -Replace electrolytes as needed -Encourage po intake Acute kidney injury -Renally dosed medications -Monitor kidney function -Monitory urine output Acute hypoxemic respiratory failure due to COVID-19 Pneumonia due to COVID-19 virus COVID-19 -Currently on Dexamethasone and Remdesivir -Incentive spirometry -Continuous pulse ox -Monitor for hypoxemia -Repeat labs as needed Hypertension -PRN Hydralazine PROPHYLAXIS DVT-lovenox GI- CODE STATUS: FULLCODE DISPOSITION: Length of stay will be greater than 96 hours due to length of treatment required for COVID. financial services specialist consult regarding correction placement. PT/OT to eval and treat patient.
[2020-07-25] MEDS: REMDESIVIR (EUA) 100 MG in Sodium Chloride 0.9% 100 ML IV SCH (22:46)
[2020-07-26] MEDS ORDERED: Magnesium Sulfate/Water 2 GM/50 ML BAG IV ONE (07:45)
[2020-07-26] MEDS: Cholecalciferol (Vitamin D3) 5,000 UNIT Tab PO SCH (08:22)
[2020-07-26] MEDS: Gabapentin 100 MG Cap PO SCH (08:22)
[2020-07-26] MEDS: Dexamethasone 4 MG Tab PO SCH (08:22)
[2020-07-26] MEDS: Nystatin Topical Powder 15 GM Bottle TOP SCH ×3 (08:23→22:17)
[2020-07-26] MEDS: Brimonidine 0.2% Ophth Soln 5 ML Bottle EYERT SCH ×2 (08:23→22:17)
[2020-07-26] MEDS: Enoxaparin 40 MG/0.4 ML Syringe SUBCUT SCH (08:24)
[2020-07-26] MEDS: Carboxymethylcellulose Sodium 1% Ophth Gel 15 ML Bottle EYERT SCH ×2 (08:24→22:16)
[2020-07-26] MEDS: Lactulose Soln 10 GM/15 ML 30 ML UD Cup PO SCH (08:24)
[2020-07-26] MEDS: Timolol Maleate 0.5% Ophth Soln 5 ML Bottle EYERT SCH ×2 (08:25→22:16)
[2020-07-26] MEDS ORDERED: Haloperidol Lactate 5 MG/ML SDV IVPUSH ONE (10:09)
--- NOTE | 2020-07-26 13:13 | PCM.PN ---
- General Info Date of Service: 07/26/20 Admission Dx/Problem (Free Text): Admission Diagnosis/Problem Admission Diagnosis/Problem Failure to thrive Subjective Update: Very restless and confused today. Family states that pt has an adverse reaction to dexamethasone in the past similar to this. Pt is a 1:1. Functional Status: Reports: Pain Controlled, Urinating (chronic peña). Denies: Tolerating Diet (refusing to eat today), Incentive Spirometry (unable to follow directions) - Review of Systems General: Reports: No Symptoms HEENT: Reports: No Symptoms Pulmonary: Reports: No Symptoms. Denies: Cough Cardiovascular: Reports: No Symptoms. Denies: Edema Gastrointestinal: Reports: No Symptoms Genitourinary: Reports: No Symptoms Musculoskeletal: Reports: No Symptoms Skin: Reports: Rash (groin) Neurological: Reports: Confusion Psychiatric: Reports: Confusion - Patient Data Weight - Most Recent: 173 lb 6.4 oz - Exam Quality Assessment: Urine Catheter (chronic), DVT Prophylaxis (lovenox). No: Supplemental Oxygen General: Alert, Mild Distress, Lethargic. No: Oriented, Cooperative (restless and not following instructions) HEENT: Mucous Membr. Moist/[place] Neck: Supple, Trachea Midline. No: Lymphadenopathy Lungs: Clear to Auscultation, Normal Respiratory Effort Cardiovascular: Regular Rate, Regular Rhythm, No Murmurs GI/Abdominal Exam: Normal Bowel Sounds, Soft, Non-Tender, No Distention (Male) Exam: Rash (yeast to groin), Scrotal Swelling Back Exam: Normal Inspection, Full Range of Motion Extremities: Normal Inspection, Normal Range of Motion, Non-Tender, No Pedal Edema, Normal Capillary Refill Sepsis Event Note - Evaluation Sepsis Screening Result: No Definite Risk - Problem List & Annotations (1) Failure to thrive SNOMED Code(s): 65009001 Code(s): ETU6981 - Status: Acute Priority: High Current Visit: Yes (2) Weakness SNOMED Code(s): 45810887 Code(s): R53.1 - WEAKNESS Status: Acute Priority: High Current Visit: Yes (3) Physical deconditioning SNOMED Code(s): 48693516055115 Code(s): R53.81 - OTHER MALAISE Status: Acute Priority: High Current Visit: Yes (4) Hypochloremia SNOMED Code(s): 73073092 Code(s): E87.8 - OTH DISORDERS OF ELECTROLYTE AND FLUID BALANCE, NEC Status: Acute Priority: High Current Visit: Yes (5) Hyponatremia SNOMED Code(s): 27834811 Code(s): E87.1 - HYPO-OSMOLALITY AND HYPONATREMIA Status: Acute Priority: High Current Visit: Yes (6) Volume depletion SNOMED Code(s): 921705601 Code(s): E86.9 - VOLUME DEPLETION, UNSPECIFIED Status: Acute Priority: High Current Visit: Yes (7) Acute kidney injury SNOMED Code(s): 17691948, 96604921 Code(s): N17.9 - ACUTE KIDNEY FAILURE, UNSPECIFIED Status: Acute Priority: High Current Visit: Yes (8) Acute hypoxemic respiratory failure due to COVID-19 SNOMED Code(s): 014700709 Code(s): U07.1 - ; J96.01 - ACUTE RESPIRATORY FAILURE WITH HYPOXIA Status: Acute Priority: High Current Visit: Yes (9) Hypertension SNOMED Code(s): 59020943 Code(s): I10 - ESSENTIAL (PRIMARY) HYPERTENSION Status: Acute Priority: High Current Visit: Yes Qualifiers: Hypertension type: unspecified Qualified Code(s): I10 - Essential (primary) hypertension (10) Pneumonia due to COVID-19 virus SNOMED Code(s): 935695722 Code(s): U07.1 - ; J12.89 - OTHER VIRAL PNEUMONIA Status: Acute Priority: High Current Visit: Yes (11) COVID-19 SNOMED Code(s): 538748596 Code(s): U07.1 - Status: Acute Priority: High Current Visit: No - Problem List Review Problem List Initiated/Reviewed/Updated: Yes - Assessment Assessment:: 07/24/20 Still requires 2 liters of O2 Hematuria noted in peña catheter today. UA/UC ordered Day 2 of dexamethasone and remdesivir IV fluids stopped-pt taking po well Encourage IS Lab results: -WBC down from 6.11-4.03 -Na up from 127-134 -BUN down from 17-15 -CRE down from 1.4-1.1 -GFR up from 48->60 PLAN -Day 2 of Remdesivir and dexamethasone -Saline lock IVF -Monitor for hypoxemia -Monitor urine output -Renally dosed medications -Repeat labs and replace electrolytes as needed -PT/OT to eval and treat -Cable Reeler consult for supplements -Incentive spirometry -Nystantin to groin -UA/UC 07/25/20 On room air Day 3 of dexamethasone and remdesivir Encourage IS Yeast to groin. Vitals: BP 128-166/79-96 Tmax 98.4 Heart rate 62-72 91-91% on room air Lab results: -WBC 7.19 from 4.03 -Ddimer 1.07 from 0.76 -BUN from 16.6 to 17 -CRE up from 1.1 to 1.3 -GFR down from >60 to 52 -CRP down from 9.9 to 6.5 PLAN -Day 3 of Remdesivir and dexamethasone -Monitor for hypoxemia -Monitor urine output -Renally dosed medications -Repeat labs and replace electrolytes as needed -PT/OT to eval and treat -Incentive spirometry -Nystantin to groin 07/26/20 Extremely confused and agitated today. Per the family, he has had this reaction to dexamethasone in the past. Day 4 of dexamethasone and remdesivir Encourage IS Yeast to groin. Vitals: BP 126-166/74-93 Tmax 97.6 Heart rate 60-74 90-95% on room air Lab results: -BUN from 20-26 -CRE down from 1.3-1.2 -GFR up from 52 to 57 -Mg down from 1.9 to 1.7 PLAN -Day 4 of Remdesivir and dexamethasone -discontinue dexamethasone due to increased confusion and agitation. Pt given haldol x 1 dose due to dexamethasone effects. -Monitor for hypoxemia -Monitor urine output -Renally dosed medications -Repeat labs and replace electrolytes as needed -PT/OT to eval and treat -Pt continues to pull at peña and dig in his groin per nursing staff and then complains of back pain. UA ordered. -Nystantin to groin - Plan Plan:: 07/23/20 10 day history of positive COVID diagnosis Has been seen in the ED three times in the last 8 days. History of UTI recently treated with rocephin and omnicef Lives in [place] Pulse ox on admission was 88-89% Decreased appetite and po intake. Chest xray reveals increased density within the left lung base suspicious for small area of pneumonia. Lab results: -WBC 6.11 -Plt 106 -Ddimer 0.76 -UA negative -Na 127 -Chl 94 -BUN 17 -CRE 1.4 -GFR 48 -Ferritin 938 -LDH 190 -CRP 9.9 ABGs on room air -pH 7.45 -pCO2 30.2 -pO2 70.0 -HCO3 20.5 PLAN -Start Remdesivir -Start dexamethasone -Normal Saline @ 100ml/hr -Monitor for hypoxemia -Monitor urine output -Renally dosed medications -Repeat labs and replace electrolytes as needed -PT/OT to eval and treat -Cable Reeler consult for supplements -Incentive spirometry PLAN: Failure to thrive Weakness Physical deconditioning -PT/OT to eval and treat -Cable Reeler consult Hypochloremia Hyponatremia Volume depletion -Replace electrolytes as needed -Encourage po intake Acute kidney injury -Renally dosed medications -Monitor kidney function -Monitory urine output Acute hypoxemic respiratory failure due to COVID-19 Pneumonia due to COVID-19 virus COVID-19 -Discontinue dexamethasone due to increased agitation and confusion. Give haldol x 1 dose. -1:1 nursing care -Currently on Remdesivir -Incentive spirometry -Continuous pulse ox -Monitor for hypoxemia -Repeat labs as needed Hypertension -PRN Hydralazine PROPHYLAXIS DVT-lovenox GI- CODE STATUS: FULLCODE DISPOSITION: Length of stay will be greater than 96 hours due to length of treatment required for COVID. administrative services officer consult regarding correction placement. Plan to go to [facility] on 07/30/20 PT/OT to eval and treat patient.
[2020-07-26] MEDS ORDERED: FLU Vacc QV2020-21(65YR UP)/PF 240 MCG/0.7 ML Syringe IM ONE (13:15)
[2020-07-26] MEDS: Acetaminophen 325 MG Tab PO PRN ×2 (15:43→17:19)
[2020-07-26] MEDS: REMDESIVIR (EUA) 100 MG in Sodium Chloride 0.9% 100 ML IV SCH (22:16)
[2020-07-27] MEDS: Carboxymethylcellulose Sodium 1% Ophth Gel 15 ML Bottle EYERT SCH ×2 (09:02→21:01)
[2020-07-27] MEDS: Gabapentin 100 MG Cap PO SCH (09:02)
[2020-07-27] MEDS: Enoxaparin 40 MG/0.4 ML Syringe SUBCUT SCH (09:02)
[2020-07-27] MEDS: Lactulose Soln 10 GM/15 ML 30 ML UD Cup PO SCH (09:02)
[2020-07-27] MEDS: Cholecalciferol (Vitamin D3) 5,000 UNIT Tab PO SCH (09:02)
[2020-07-27] MEDS: Timolol Maleate 0.5% Ophth Soln 5 ML Bottle EYERT SCH ×2 (09:03→20:36)
[2020-07-27] MEDS: Nystatin Topical Powder 15 GM Bottle TOP SCH ×3 (09:06→20:36)
[2020-07-27] MEDS: Brimonidine 0.2% Ophth Soln 5 ML Bottle EYERT SCH ×2 (09:09→20:30)
--- NOTE | 2020-07-27 10:22 | PCM.PN ---
- General Info Date of Service: 07/27/20 Admission Dx/Problem (Free Text): Admission Diagnosis/Problem Admission Diagnosis/Problem Failure to thrive Subjective Update: Still confused, but pleasant. Functional Status: Reports: Pain Controlled, Urinating (chronic peña) - Review of Systems General: Reports: No Symptoms. Denies: Appetite (poor) HEENT: Reports: No Symptoms Pulmonary: Reports: Cough. Denies: Sputum, Wheezing Cardiovascular: Reports: No Symptoms. Denies: Edema Gastrointestinal: Reports: No Symptoms Genitourinary: Reports: Incontinence (chronic peña catheter) Musculoskeletal: Reports: No Symptoms Skin: Reports: Rash (yeast to groin-resolving ) Neurological: Reports: Confusion Psychiatric: Reports: Confusion - Patient Data Weight - Most Recent: 170 lb 1.6 oz - Exam Quality Assessment: Urine Catheter (chronic), DVT Prophylaxis (lovenox). No: Supplemental Oxygen General: Alert, Cooperative, Other (confused) HEENT: Pupils Equal, Mucous Membr. Moist/[place] Neck: Supple, Trachea Midline. No: Lymphadenopathy Lungs: Crackles (fine crackles in the bases) Cardiovascular: Regular Rate, Regular Rhythm, No Murmurs GI/Abdominal Exam: Normal Bowel Sounds, Soft, Non-Tender, No Distention (Male) Exam: Rash, Scrotal Swelling Back Exam: Normal Inspection, Full Range of Motion Extremities: Normal Inspection, Normal Range of Motion, Non-Tender, No Pedal Edema, Normal Capillary Refill Peripheral Pulses: 2+: Radial (L), Radial (R), Dorsalis Pedis (L), Dorsalis Pedis (R) Skin: Warm, Dry, Intact Neurological: No New Focal Deficit Psy/Mental Status: Alert, Normal Affect, Normal Mood, Other (confused-remains a 1:1) Sepsis Event Note - Evaluation Sepsis Screening Result: No Definite Risk - Problem List & Annotations (1) Failure to thrive SNOMED Code(s): 47003067 Code(s): AOO6877 - Status: Acute Priority: High Current Visit: Yes (2) Weakness SNOMED Code(s): 57408676 Code(s): R53.1 - WEAKNESS Status: Acute Priority: High Current Visit: Yes (3) Physical deconditioning SNOMED Code(s): 93702131280463 Code(s): R53.81 - OTHER MALAISE Status: Acute Priority: High Current Visit: Yes (4) Hypochloremia SNOMED Code(s): 73042522 Code(s): E87.8 - OTH DISORDERS OF ELECTROLYTE AND FLUID BALANCE, NEC Status: Acute Priority: High Current Visit: Yes (5) Hyponatremia SNOMED Code(s): 43874089 Code(s): E87.1 - HYPO-OSMOLALITY AND HYPONATREMIA Status: Acute Priority: High Current Visit: Yes (6) Volume depletion SNOMED Code(s): 576551031 Code(s): E86.9 - VOLUME DEPLETION, UNSPECIFIED Status: Acute Priority: High Current Visit: Yes (7) Acute kidney injury SNOMED Code(s): 76999452, 36594147 Code(s): N17.9 - ACUTE KIDNEY FAILURE, UNSPECIFIED Status: Acute Priority: High Current Visit: Yes (8) Acute hypoxemic respiratory failure due to COVID-19 SNOMED Code(s): 770729781 Code(s): U07.1 - COVID-19; J96.01 - ACUTE RESPIRATORY FAILURE WITH HYPOXIA Status: Acute Priority: High Current Visit: Yes (9) Hypertension SNOMED Code(s): 69746952 Code(s): I10 - ESSENTIAL (PRIMARY) HYPERTENSION Status: Acute Priority: High Current Visit: Yes Qualifiers: Hypertension type: unspecified Qualified Code(s): I10 - Essential (primary) hypertension (10) Pneumonia due to COVID-19 virus SNOMED Code(s): 505293854185483920 Code(s): U07.1 - COVID-19; J12.89 - OTHER VIRAL PNEUMONIA Status: Acute Priority: High Current Visit: Yes (11) COVID-19 SNOMED Code(s): 253232914 Code(s): U07.1 - COVID-19 Status: Acute Priority: High Current Visit: No - Problem List Review Problem List Initiated/Reviewed/Updated: Yes - My Orders Last 24 Hours: My Active Orders 07/27/20 08:00 PROCALCITONIN [REF] Stat 07/28/20 09:00 Cholecalciferol (Vitamin D3) [Vitamin D3] 5,000 unit PO DAILY - Assessment Assessment:: 07/24/20 Still requires 2 liters of O2 Hematuria noted in peña catheter today. UA/UC ordered Day 2 of dexamethasone and remdesivir IV fluids stopped-pt taking po well Encourage IS Lab results: -WBC down from 6.11-4.03 -Na up from 127-134 -BUN down from 17-15 -CRE down from 1.4-1.1 -GFR up from 48->60 PLAN -Day 2 of Remdesivir and dexamethasone -Saline lock IVF -Monitor for hypoxemia -Monitor urine output -Renally dosed medications -Repeat labs and replace electrolytes as needed -PT/OT to eval and treat -Filter Bed Placer consult for supplements -Incentive spirometry -Nystantin to groin -UA/UC 07/25/20 On room air Day 3 of dexamethasone and remdesivir Encourage IS Yeast to groin. Vitals: BP 128-166/79-96 Tmax 98.4 Heart rate 62-72 91-91% on room air Lab results: -WBC 7.19 from 4.03 -Ddimer 1.07 from 0.76 -BUN from 16.6 to 17 -CRE up from 1.1 to 1.3 -GFR down from >60 to 52 -CRP down from 9.9 to 6.5 PLAN -Day 3 of Remdesivir and dexamethasone -Monitor for hypoxemia -Monitor urine output -Renally dosed medications -Repeat labs and replace electrolytes as needed -PT/OT to eval and treat -Incentive spirometry -Nystantin to groin 07/26/20 Extremely confused and agitated today. Per the family, he has had this reaction to dexamethasone in the past. Day 4 of dexamethasone and remdesivir Encourage IS Yeast to groin. Vitals: BP 126-166/74-93 Tmax 97.6 Heart rate 60-74 90-95% on room air Lab results: -BUN from 20-26 -CRE down from 1.3-1.2 -GFR up from 52 to 57 -Mg down from 1.9 to 1.7 PLAN -Day 4 of Remdesivir and dexamethasone -discontinue dexamethasone due to increased confusion and agitation. Pt given haldol x 1 dose due to dexamethasone effects. -Monitor for hypoxemia -Monitor urine output -Renally dosed medications -Repeat labs and replace electrolytes as needed -PT/OT to eval and treat -Pt continues to pull at peña and dig in his groin per nursing staff and then complains of back pain. UA ordered. -Nystantin to groin 07/27/20 Remains confused but is much more alert and less agitated. Day 4 of Remdesivir Encourage IS Yeast to groin. Vitals: BP 126-147-165/72-103 Tmax 97.9 Heart rate 71-76 92% on room air Lab results: -WBC up from 7.66 to 9.92 -BUN up from 26 to 28 -CRE 1.2 -GFR 57 -CRP down to 2.7 to 6.5 PLAN -Day 5 of Remdesivir -Monitor for hypoxemia -Monitor urine output -Renally dosed medications -Repeat labs and replace electrolytes as needed -PT/OT to eval and treat -UA unremarkable -Nystantin to groin - Plan Plan:: 07/23/20 10 day history of positive COVID diagnosis Has been seen in the ED three times in the last 8 days. History of UTI recently treated with rocephin and omnicef Lives in [place] Pulse ox on admission was 88-89% Decreased appetite and po intake. Chest xray reveals increased density within the left lung base suspicious for small area of pneumonia. Lab results: -WBC 6.11 -Plt 106 -Ddimer 0.76 -UA negative -Na 127 -Chl 94 -BUN 17 -CRE 1.4 -GFR 48 -Ferritin 938 -LDH 190 -CRP 9.9 ABGs on room air -pH 7.45 -pCO2 30.2 -pO2 70.0 -HCO3 20.5 PLAN -Start Remdesivir -Start dexamethasone -Normal Saline @ 100ml/hr -Monitor for hypoxemia -Monitor urine output -Renally dosed medications -Repeat labs and replace electrolytes as needed -PT/OT to eval and treat -Filter Bed Placer consult for supplements -Incentive spirometry PLAN: Failure to thrive Weakness Physical deconditioning -PT/OT to eval and treat -Filter Bed Placer consult Hypochloremia Hyponatremia Volume depletion -Replace electrolytes as needed -Encourage po intake Acute kidney injury -Renally dosed medications -Monitor kidney function -Monitory urine output Acute hypoxemic respiratory failure due to COVID-19 Pneumonia due to COVID-19 virus COVID-19 -Discontinue dexamethasone due to increased agitation and confusion. Give haldol x 1 dose. -1:1 nursing care -Currently on Remdesivir -Incentive spirometry -Continuous pulse ox -Monitor for hypoxemia -Repeat labs as needed Hypertension -PRN Hydralazine PROPHYLAXIS DVT-lovenox GI- CODE STATUS: FULLCODE DISPOSITION: Length of stay will be greater than 96 hours due to length of treatment required for COVID. rehabilitation services counselor consult regarding assisted placement. Plan to go to [facility] assisted on 07/30/20 PT/OT to eval and treat patient.
[2020-07-27] MEDS: Acetaminophen 325 MG Tab PO PRN ×2 (14:11→20:46)
[2020-07-27] MEDS: REMDESIVIR (EUA) 100 MG in Sodium Chloride 0.9% 100 ML IV SCH (23:38)
[2020-07-27] MEDS: Polyethylene Glycol 3350 Powder 17 GM Packet PO PRN (23:46)
[2020-07-28] MEDS: Acetaminophen 325 MG Tab PO PRN ×3 (05:48→20:45)
[2020-07-28] MEDS: Brimonidine 0.2% Ophth Soln 5 ML Bottle EYERT SCH ×2 (08:07→20:43)
[2020-07-28] MEDS: Lactulose Soln 10 GM/15 ML 30 ML UD Cup PO SCH (08:07)
[2020-07-28] MEDS: Gabapentin 100 MG Cap PO SCH (08:08)
[2020-07-28] MEDS: Cholecalciferol (Vitamin D3) 5,000 UNIT Cap PO SCH (08:08)
[2020-07-28] MEDS: Enoxaparin 40 MG/0.4 ML Syringe SUBCUT SCH (08:12)
[2020-07-28] MEDS: Nystatin Topical Powder 15 GM Bottle TOP SCH ×3 (09:40→22:59)
[2020-07-28] MEDS: Carboxymethylcellulose Sodium 1% Ophth Gel 15 ML Bottle EYERT SCH ×2 (09:56→20:44)
[2020-07-28] MEDS: Timolol Maleate 0.5% Ophth Soln 5 ML Bottle EYERT SCH ×2 (10:04→20:44)
[2020-07-28] MEDS ORDERED: Magnesium Hydroxide 400 MG/5 ML Susp 30 ML Cup PO ONE (13:55)
--- NOTE | 2020-07-28 15:41 | PCM.PN ---
- General Info Date of Service: 07/28/20 Admission Dx/Problem (Free Text): Admission Diagnosis/Problem Admission Diagnosis/Problem Failure to thrive Subjective Update: Patient continues to improve. Appetite is still poor. Weight is up approximately 0.7 kg over the last 24 hours and since admission. Functional Status: Reports: Pain Controlled - Review of Systems General: Reports: Fatigue HEENT: Reports: No Symptoms Pulmonary: Reports: Shortness of Breath, Cough Cardiovascular: Reports: No Symptoms Gastrointestinal: Reports: No Symptoms - Patient Data Vitals - Most Recent: Last Vital Signs Temp 97.7 F 07/28/20 11:51 Pulse 69 07/28/20 11:51 Resp 20 07/28/20 11:51 BP 104/69 07/28/20 11:51 Pulse Ox 91 L 07/28/20 11:51 Weight - Most Recent: 77.882 kg I&O - Last 24 Hours: Intake & Output 07/28/20 07/28/20 07/28/20 06:59 14:59 22:59 Intake Total 200 0 Output Total 450 Balance -250 0 Lab Results Last 24 Hours: Laboratory Results - last 24 hr 07/27/20 Range/Units 08:00 Procalcitonin <0.05 (<0.10) ng/mL Med Orders - Current: Current Medications Acetaminophen (Tylenol) 650 mg PO Q4H PRN PRN Reason: Pain (Mild 1-3)/fever Last Admin: 07/28/20 05:48 Dose: 650 mg Documented by: Artificial Tears (Refresh Liquigel 1%) 0 ml EYERT BID [facility] Last Admin: 07/28/20 09:56 Dose: 1 drop Documented by: Brimonidine Tartrate (Alphagan 0.2% Oph Soln) 0 ml EYERT BID [facility] Last Admin: 07/28/20 08:07 Dose: 1 drop Documented by: Cholecalciferol (Vitamin D3) 5,000 unit PO DAILY [facility] Last Admin: 07/28/20 08:08 Dose: 5,000 unit Documented by: Enoxaparin Sodium (Lovenox) 40 mg SUBCUT DAILY [facility] Last Admin: 07/28/20 08:12 Dose: 40 mg Documented by: Gabapentin (Neurontin) 100 mg PO DAILY [facility] Last Admin: 07/28/20 08:08 Dose: 100 mg Documented by: Gabapentin (Neurontin) 100 mg PO BEDTIME PRN PRN Reason: Pain Lactulose (Cephulac) 20 gm PO DAILY [facility] Last Admin: 07/28/20 08:07 Dose: 20 gm Documented by: Nystatin (Nystop) 0 gm TOP TID [facility] Last Admin: 07/28/20 15:26 Dose: 15 gm Documented by: Ondansetron HCl (Zofran) 4 mg IV Q4H PRN PRN Reason: Nausea/Vomiting Polyethylene Glycol (Miralax) 17 gm PO DAILY PRN PRN Reason: Constipation Last Admin: 07/27/20 23:46 Dose: 17 gm Documented by: Sodium Chloride (Saline Flush) 10 ml FLUSH ASDIRECTED PRN PRN Reason: Keep Vein Open Last Admin: 07/23/20 12:40 Dose: 10 ml Documented by: Sodium Chloride (Saline Flush) 10 ml FLUSH ASDIRECTED PRN PRN Reason: Keep Vein Open Timolol Maleate (Timoptic 0.5% Ophth Soln) 0 ml EYERT BID [facility] Last Admin: 07/28/20 10:04 Dose: 1 drop Documented by: Discontinued Medications Bisacodyl (Dulcolax) 10 mg RECTAL ONETIME ONE Stop: 07/24/20 18:31 Last Admin: 07/24/20 18:27 Dose: 10 mg Documented by: Cholecalciferol (Vitamin D3) 5,000 unit PO DAILY [facility] Last Admin: 07/27/20 09:02 Dose: 5,000 unit Documented by: Dexamethasone (Dexamethasone) 4 mg IVPUSH ONETIME ONE Stop: 07/23/20 12:07 Last Admin: 07/23/20 12:41 Dose: 4 mg Documented by: Dexamethasone (Dexamethasone) 6 mg PO DAILY [facility] Stop: 08/01/20 09:01 Last Admin: 07/26/20 08:22 Dose: 6 mg Documented by: Haloperidol Lactate (Haldol) 2.5 mg IVPUSH ONETIME ONE Stop: 07/26/20 10:10 Last Admin: 07/26/20 10:21 Dose: 2.5 mg Documented by: Sodium Chloride (Normal Saline) 1,000 mls @ 125 mls/hr IV ASDIRECTED [facility] Last Admin: 07/24/20 07:34 Dose: 125 mls/hr Documented by: Remdesivir 200 mg/ Sodium (Chloride) 250 mls @ 250 mls/hr IV ONETIME ONE Stop: 07/24/20 01:29 Last Admin: 07/24/20 00:29 Dose: 250 mls/hr Documented by: Remdesivir 100 mg/ Sodium (Chloride) 100 mls @ 100 mls/hr IV Q24H [facility] Stop: 07/27/20 23:59 Last Admin: 07/27/20 23:38 Dose: 100 mls/hr Documented by: Magnesium Sulfate (Magnesium Sulfate In Water Premix) 2 gm in 50 mls @ 25 mls/hr IV ONETIME ONE Stop: 07/26/20 09:44 Last Admin: 07/26/20 08:22 Dose: 25 mls/hr Documented by: Influenza Virus Vaccine (Fluzone High-Dose Quad ) 240 mcg IM .ONCE ONE Stop: 07/26/20 13:16 Magnesium Hydroxide (Milk Of Magnesia) 30 ml PO ONETIME ONE Stop: 07/24/20 09:01 Last Admin: 07/24/20 08:41 Dose: 30 ml Documented by: Magnesium Hydroxide (Milk Of Magnesia) 30 ml PO ONETIME ONE Stop: 07/28/20 13:56 Last Admin: 07/28/20 15:26 Dose: 30 ml Documented by: - Exam Quality Assessment: Supplemental Oxygen General: Alert HEENT: Pupils Equal, Mucous Membr. Moist/[place] Neck: Supple Lungs: Normal Respiratory Effort, Crackles Cardiovascular: Regular Rate, Regular Rhythm GI/Abdominal Exam: Normal Bowel Sounds, Soft, Non-Tender, No Distention Back Exam: Normal Inspection Extremities: Normal Inspection, No Pedal Edema, Normal Capillary Refill Skin: Warm, Dry, Intact Sepsis Event Note - Evaluation Sepsis Screening Result: No Definite Risk - Focused Exam Vital Signs: Vital Signs Temp Temp Pulse Pulse Resp BP BP 07/28/20 11:51 97.7 F 69 20 104/69 07/28/20 09:12 70 15 110/73 07/28/20 04:00 97.8 F 78 28 H 123/64 Pulse Ox 07/28/20 11:51 91 L 07/28/20 09:12 92 L 07/28/20 04:00 93 L - Problem List & Annotations (1) Acute hypoxemic respiratory failure due to COVID-19 SNOMED Code(s): 041851565 Code(s): U07.1 - COVID-19; J96.01 - ACUTE RESPIRATORY FAILURE WITH HYPOXIA Status: Acute Priority: High Current Visit: Yes (2) Failure to thrive SNOMED Code(s): 96755151 Code(s): NLJ2562 - Status: Acute Priority: High Current Visit: Yes (3) Generalized weakness SNOMED Code(s): 90911038 Code(s): R53.1 - WEAKNESS Status: Acute Current Visit: Yes (4) Hypertension SNOMED Code(s): 86226069 Code(s): I10 - ESSENTIAL (PRIMARY) HYPERTENSION Status: Acute Priority: High Current Visit: Yes Qualifiers: Hypertension type: unspecified Qualified Code(s): I10 - Essential (primary) hypertension (5) Pneumonia due to COVID-19 virus SNOMED Code(s): 158198563441999530 Code(s): U07.1 - COVID-19; J12.89 - OTHER VIRAL PNEUMONIA Status: Acute Priority: High Current Visit: Yes - Problem List Review Problem List Initiated/Reviewed/Updated: Yes - Assessment Assessment:: 07/23/2020 10 day history of positive COVID diagnosis Has been seen in the ED three times in the last 8 days. History of UTI recently treated with rocephin and omnicef Lives in [place] Pulse ox on admission was 88-89% Decreased appetite and po intake. Chest xray reveals increased density within the left lung base suspicious for small area of pneumonia. Lab results: -WBC 6.11 -Plt 106 -Ddimer 0.76 -UA negative -Na 127 -Chl 94 -BUN 17 -CRE 1.4 -GFR 48 -Ferritin 938 -LDH 190 -CRP 9.9 ABGs on room air -pH 7.45 -pCO2 30.2 -pO2 70.0 -HCO3 20.5 PLAN -Start Remdesivir -Start dexamethasone -Normal Saline @ 100ml/hr -Monitor for hypoxemia -Monitor urine output -Renally dosed medications -Repeat labs and replace electrolytes as needed -PT/OT to eval and treat -Electromechanical Inspector consult for supplements -Incentive spirometry 07/24/20 Still requires 2 liters of O2 Hematuria noted in peña catheter today. UA/UC ordered Day 2 of dexamethasone and remdesivir IV fluids stopped-pt taking po well Encourage IS Lab results: -WBC down from 6.11-4.03 -Na up from 127-134 -BUN down from 17-15 -CRE down from 1.4-1.1 -GFR up from 48->60 PLAN -Day 2 of Remdesivir and dexamethasone -Saline lock IVF -Monitor for hypoxemia -Monitor urine output -Renally dosed medications -Repeat labs and replace electrolytes as needed -PT/OT to eval and treat -Electromechanical Inspector consult for supplements -Incentive spirometry -Nystantin to groin -UA/UC 07/25/20 On room air Day 3 of dexamethasone and remdesivir Encourage IS Yeast to groin. Vitals: BP 128-166/79-96 Tmax 98.4 Heart rate 62-72 91-91% on room air Lab results: -WBC 7.19 from 4.03 -Ddimer 1.07 from 0.76 -BUN from 16.6 to 17 -CRE up from 1.1 to 1.3 -GFR down from >60 to 52 -CRP down from 9.9 to 6.5 PLAN -Day 3 of Remdesivir and dexamethasone -Monitor for hypoxemia -Monitor urine output -Renally dosed medications -Repeat labs and replace electrolytes as needed -PT/OT to eval and treat -Incentive spirometry -Nystantin to groin 07/26/20 Extremely confused and agitated today. Per the family, he has had this reaction to dexamethasone in the past. Day 4 of dexamethasone and remdesivir Encourage IS Yeast to groin. Vitals: BP 126-166/74-93 Tmax 97.6 Heart rate 60-74 90-95% on room air Lab results: -BUN from 20-26 -CRE down from 1.3-1.2 -GFR up from 52 to 57 -Mg down from 1.9 to 1.7 PLAN -Day 4 of Remdesivir and dexamethasone -discontinue dexamethasone due to increased confusion and agitation. Pt given haldol x 1 dose due to dexamethasone effects. -Monitor for hypoxemia -Monitor urine output -Renally dosed medications -Repeat labs and replace electrolytes as needed -PT/OT to eval and treat -Pt continues to pull at peña and dig in his groin per nursing staff and then complains of back pain. UA ordered. -Nystantin to groin 07/27/20 Remains confused but is much more alert and less agitated. Day 5 of Remdesivir Encourage IS Yeast to groin. Vitals: BP 126-147-165/72-103 Tmax 97.9 Heart rate 71-76 92% on room air Lab results: -WBC up from 7.66 to 9.92 -BUN up from 26 to 28 -CRE 1.2 -GFR 57 -CRP down to 2.7 to 6.5 PLAN -Day 5 of Remdesivir -Monitor for hypoxemia -Monitor urine output -Renally dosed medications -Repeat labs and replace electrolytes as needed -PT/OT to eval and treat -UA unremarkable -Nystantin to groin 07/28/2020 Continues improving, but still poor oral intake. Stop dexamethasone because of delirium. Completed remdesivir. No labs today. 91 to 93% on room air. Vital signs stable. Afebrile. - Plan Plan:: PLAN: Failure to thrive Weakness Physical deconditioning -PT/OT to eval and treat -Encourage oral intake Hypochloremia Hyponatremia Volume depletion-resolved -Replace electrolytes as needed Acute kidney injury -Renally dosed medications -Monitor kidney function -Monitory urine output Acute hypoxemic respiratory failure due to COVID-19 Pneumonia due to COVID-19 virus COVID-19 -Discontinue dexamethasone due to increased agitation and confusion. G -1:1 nursing care -Completed Remdesivir -Incentive spirometry -Continuous pulse ox -Monitor for hypoxemia -Repeat labs as needed Hypertension -PRN Hydralazine PROPHYLAXIS DVT-lovenox GI- CODE STATUS: FULLCODE DISPOSITION: Length of stay will be greater than 96 hours due to length of treatment required for COVID. web services manager consult regarding group home placement. Plan to go to [facility] on 07/30/20 PT/OT to eval and treat patient.
[2020-07-29] MEDS: Acetaminophen 325 MG Tab PO PRN ×2 (05:24→22:05)
[2020-07-29] MEDS: Cholecalciferol (Vitamin D3) 5,000 UNIT Cap PO SCH (08:28)
[2020-07-29] MEDS: Nystatin Topical Powder 15 GM Bottle TOP SCH ×3 (08:28→20:10)
[2020-07-29] MEDS: Enoxaparin 40 MG/0.4 ML Syringe SUBCUT SCH (08:28)
[2020-07-29] MEDS: Lactulose Soln 10 GM/15 ML 30 ML UD Cup PO SCH (08:28)
[2020-07-29] MEDS: Gabapentin 100 MG Cap PO SCH (08:28)
[2020-07-29] MEDS: Brimonidine 0.2% Ophth Soln 5 ML Bottle EYERT SCH ×2 (08:28→20:06)
[2020-07-29] MEDS: Carboxymethylcellulose Sodium 1% Ophth Gel 15 ML Bottle EYERT SCH ×2 (08:29→20:03)
[2020-07-29] MEDS: Timolol Maleate 0.5% Ophth Soln 5 ML Bottle EYERT SCH ×2 (08:29→20:09)
[2020-07-29] MEDS ORDERED: Bisacodyl 10 MG Supp RECTAL ONE (09:19)
[2020-07-29] MEDS ORDERED: Sodium Chloride 0.9% 1,000 ML IV SCH (09:30)
--- NOTE | 2020-07-29 14:49 | PCM.PN ---
- General Info Date of Service: 07/29/20 Admission Dx/Problem (Free Text): Admission Diagnosis/Problem Admission Diagnosis/Problem Failure to thrive Subjective Update: Patient with no specific change. He continues to have poor urine output but renal function is stable. He continues on room air at 90 to 91% pulse ox. He has not had a bowel movement in a few days and has had an enema. He refused milk of mag yesterday. Functional Status: Reports: Pain Controlled - Review of Systems General: Reports: No Symptoms - Patient Data Vitals - Most Recent: Last Vital Signs Temp 97.9 F 07/29/20 12:29 Pulse 67 07/29/20 12:29 Resp 18 07/29/20 12:30 BP 139/96 H 07/29/20 12:29 Pulse Ox 90 L 07/29/20 12:29 Weight - Most Recent: 76.612 kg I&O - Last 24 Hours: Intake & Output 07/28/20 07/29/20 07/29/20 22:59 06:59 14:59 Intake Total 200 200 Output Total 450 250 Balance -250 -50 Lab Results Last 24 Hours: Laboratory Results - last 24 hr 07/29/20 07/29/20 07/29/20 Range/Units 05:45 05:45 05:45 WBC 9.09 H (4.23-9.07) K/mm3 RBC 4.68 (4.63-6.08) M/mm3 Hgb 14.6 (13.7-17.5) gm/dl Hct 42.4 (40.1-51.0) % MCV 90.6 (79.0-92.2) fl MCH 31.2 (25.7-32.2) pg MCHC 34.4 (32.2-35.5) g/dl RDW Std Deviation 46.3 H (35.1-43.9) fL Plt Count 126 L (163-337) K/mm3 MPV 10.2 (9.4-12.3) fl Neut % (Auto) 74.8 H (34.0-67.9) % Lymph % (Auto) 11.9 L (21.8-53.1) % Baxter % (Auto) 9.5 (5.3-12.2) % Eos % (Auto) 3.5 (0.8-7.0) Baso % (Auto) 0.1 (0.1-1.2) % Neut # (Auto) 6.80 H (1.78-5.38) K/mm3 Lymph # (Auto) 1.08 L (1.32-3.57) K/mm3 Baxter # (Auto) 0.86 H (0.30-0.82) K/mm3 Eos # (Auto) 0.32 (0.04-0.54) K/mm3 Baso # (Auto) 0.01 (0.01-0.08) K/mm3 Manual Slide Review Normal smear D-Dimer, Quantitative 0.95 H (0.19-0.50) mg/L Sodium 134 L (136-145) mEq/L Potassium 3.8 (3.5-5.1) mEq/L Chloride 99 (98-107) mEq/L Carbon Dioxide 27 (21-32) mEq/L Anion Gap 11.8 (5-15) BUN 25 H (7-18) mg/dL Creatinine 1.2 (0.7-1.3) mg/dL Est Cr Clr Drug Dosing 35.18 mL/min Estimated GFR (MDRD) 57 (>60) mL/min BUN/Creatinine Ratio 20.8 H (14-18) Glucose 137 H (83-115) mg/dL Calcium 8.4 L (8.5-10.1) mg/dL Phosphorus 2.6 (2.6-4.7) mg/dL Magnesium 1.8 (1.8-2.4) mg/dl Total Bilirubin 1.1 H (0.2-1.0) mg/dL AST 21 (15-37) U/L ALT 22 (16-63) U/L Alkaline Phosphatase 76 (46-116) U/L C-Reactive Protein 15.1 H* (<1.0) mg/dL Total Protein 6.1 L (6.4-8.2) g/dl Albumin 2.7 L (3.4-5.0) g/dl Globulin 3.4 gm/dL Albumin/Globulin Ratio 0.8 L (1-2) Med Orders - Current: Current Medications Acetaminophen (Tylenol) 650 mg PO Q4H PRN PRN Reason: Pain (Mild 1-3)/fever Last Admin: 07/29/20 05:24 Dose: 650 mg Documented by: Artificial Tears (Refresh Liquigel 1%) 0 ml EYERT BID [facility] Last Admin: 07/29/20 08:29 Dose: 1 drop Documented by: Brimonidine Tartrate (Alphagan 0.2% Ophth Soln) 0 ml EYERT BID [facility] Last Admin: 07/29/20 08:28 Dose: 1 drop Documented by: Cholecalciferol (Vitamin D3) 5,000 unit PO DAILY [facility] Last Admin: 07/29/20 08:28 Dose: 5,000 unit Documented by: Enoxaparin Sodium (Lovenox) 40 mg SUBCUT DAILY [facility] Last Admin: 07/29/20 08:28 Dose: 40 mg Documented by: Gabapentin (Neurontin) 100 mg PO DAILY [facility] Last Admin: 07/29/20 08:28 Dose: 100 mg Documented by: Gabapentin (Neurontin) 100 mg PO BEDTIME PRN PRN Reason: Pain Sodium Chloride (Normal Saline) 1,000 mls @ 100 mls/hr IV ASDIRECTED [facility] Last Admin: 07/29/20 09:45 Dose: 100 mls/hr Documented by: Lactulose (Cephulac) 20 gm PO DAILY [facility] Last Admin: 07/29/20 08:28 Dose: 20 gm Documented by: Nystatin (Nystop) 0 gm TOP TID [facility] Last Admin: 07/29/20 08:28 Dose: 15 gm Documented by: Ondansetron HCl (Zofran) 4 mg IV Q4H PRN PRN Reason: Nausea/Vomiting Polyethylene Glycol (Miralax) 17 gm PO DAILY PRN PRN Reason: Constipation Last Admin: 07/27/20 23:46 Dose: 17 gm Documented by: Sodium Chloride (Saline Flush) 10 ml FLUSH ASDIRECTED PRN PRN Reason: Keep Vein Open Last Admin: 07/23/20 12:40 Dose: 10 ml Documented by: Sodium Chloride (Saline Flush) 10 ml FLUSH ASDIRECTED PRN PRN Reason: Keep Vein Open Timolol Maleate (Timoptic 0.5% Ophth Soln) 0 ml EYERT BID [facility] Last Admin: 07/29/20 08:29 Dose: 1 drop Documented by: Discontinued Medications Bisacodyl (Dulcolax) 10 mg RECTAL ONETIME ONE Stop: 07/24/20 18:31 Last Admin: 07/24/20 18:27 Dose: 10 mg Documented by: Bisacodyl (Dulcolax) 10 mg RECTAL ONETIME ONE Stop: 07/29/20 09:20 Last Admin: 07/29/20 09:45 Dose: 10 mg Documented by: Cholecalciferol (Vitamin D3) 5,000 unit PO DAILY [facility] Last Admin: 07/27/20 09:02 Dose: 5,000 unit Documented by: Dexamethasone (Dexamethasone) 4 mg IVPUSH ONETIME ONE Stop: 07/23/20 12:07 Last Admin: 07/23/20 12:41 Dose: 4 mg Documented by: Dexamethasone (Dexamethasone) 6 mg PO DAILY [facility] Stop: 08/01/20 09:01 Last Admin: 07/26/20 08:22 Dose: 6 mg Documented by: Haloperidol Lactate (Haldol) 2.5 mg IVPUSH ONETIME ONE Stop: 07/26/20 10:10 Last Admin: 07/26/20 10:21 Dose: 2.5 mg Documented by: Sodium Chloride (Normal Saline) 1,000 mls @ 125 mls/hr IV ASDIRECTED [facility] Last Admin: 07/24/20 07:34 Dose: 125 mls/hr Documented by: Remdesivir 200 mg/ Sodium (Chloride) 250 mls @ 250 mls/hr IV ONETIME ONE Stop: 07/24/20 01:29 Last Admin: 07/24/20 00:29 Dose: 250 mls/hr Documented by: Remdesivir 100 mg/ Sodium (Chloride) 100 mls @ 100 mls/hr IV Q24H [facility] Stop: 07/27/20 23:59 Last Admin: 07/27/20 23:38 Dose: 100 mls/hr Documented by: Magnesium Sulfate (Magnesium Sulfate In Water Premix) 2 gm in 50 mls @ 25 mls/hr IV ONETIME ONE Stop: 07/26/20 09:44 Last Admin: 07/26/20 08:22 Dose: 25 mls/hr Documented by: Influenza Virus Vaccine (Fluzone High-Dose Quad ) 240 mcg IM .ONCE ONE Stop: 07/26/20 13:16 Magnesium Hydroxide (Milk Of Magnesia) 30 ml PO ONETIME ONE Stop: 07/24/20 09:01 Last Admin: 07/24/20 08:41 Dose: 30 ml Documented by: Magnesium Hydroxide (Milk Of Magnesia) 30 ml PO ONETIME ONE Stop: 07/28/20 13:56 Last Admin: 07/28/20 15:26 Dose: 30 ml Documented by: - Exam General: Cooperative HEENT: Pupils Equal Neck: Supple Lungs: Normal Respiratory Effort, Decreased Breath Sounds Cardiovascular: Regular Rate, Regular Rhythm GI/Abdominal Exam: Normal Bowel Sounds, Soft, Non-Tender, No Distention Extremities: Normal Inspection, Normal Capillary Refill Skin: Warm, Dry, Intact Neurological: No New Focal Deficit Sepsis Event Note - Evaluation Sepsis Screening Result: No Definite Risk - Focused Exam Vital Signs: Vital Signs Temp Pulse Resp BP Pulse Ox 07/29/20 12:30 18 07/29/20 12:29 97.9 F 67 29 H 139/96 H 90 L 07/29/20 08:38 97.7 F 07/29/20 08:26 64 16 143/90 H 92 L 07/29/20 05:12 97.9 F 76 20 146/97 H 91 L - Problem List & Annotations (1) Acute hypoxemic respiratory failure due to COVID-19 SNOMED Code(s): 140935099 Code(s): U07.1 - COVID-19; J96.01 - ACUTE RESPIRATORY FAILURE WITH HYPOXIA Status: Acute Priority: High Current Visit: Yes (2) Failure to thrive SNOMED Code(s): 01402434 Code(s): JDW3187 - Status: Acute Priority: High Current Visit: Yes (3) Generalized weakness SNOMED Code(s): 63707789 Code(s): R53.1 - WEAKNESS Status: Acute Current Visit: Yes (4) Hypertension SNOMED Code(s): 61861712 Code(s): I10 - ESSENTIAL (PRIMARY) HYPERTENSION Status: Acute Priority: High Current Visit: Yes Qualifiers: Hypertension type: unspecified Qualified Code(s): I10 - Essential (primary) hypertension (5) Pneumonia due to COVID-19 virus SNOMED Code(s): 824339751635160728 Code(s): U07.1 - COVID-19; J12.89 - OTHER VIRAL PNEUMONIA Status: Acute Priority: High Current Visit: Yes (6) Constipation SNOMED Code(s): 29028459 Code(s): K59.00 - CONSTIPATION, UNSPECIFIED Status: Acute Current Visit: Yes - Problem List Review Problem List Initiated/Reviewed/Updated: Yes - My Orders Last 24 Hours: My Active Orders 07/29/20 09:30 Sodium Chloride 0.9% [Normal Saline] 1,000 ml IV ASDIRECTED 07/29/20 11:55 CXR [Chest 1V Frontal] [CR] Routine 07/30/20 05:11 C-REACTIVE PROTEIN [CHEM] AM CBC WITH AUTO DIFF [HEME] AM CMP [COMPREHENSIVE METABOLIC PN,CMP] [CHEM] AM DD [D-DIMER QUANTITATIVE] [COAG] AM MAGNESIUM [CHEM] AM PHOSPHORUS [CHEM] AM - Assessment Assessment:: 07/23/2020 10 day history of positive COVID diagnosis Has been seen in the ED three times in the last 8 days. History of UTI recently treated with rocephin and omnicef Lives in [place] Pulse ox on admission was 88-89% Decreased appetite and po intake. Chest xray reveals increased density within the left lung base suspicious for small area of pneumonia. Lab results: -WBC 6.11 -Plt 106 -Ddimer 0.76 -UA negative -Na 127 -Chl 94 -BUN 17 -CRE 1.4 -GFR 48 -Ferritin 938 -LDH 190 -CRP 9.9 ABGs on room air -pH 7.45 -pCO2 30.2 -pO2 70.0 -HCO3 20.5 PLAN -Start Remdesivir -Start dexamethasone -Normal Saline @ 100ml/hr -Monitor for hypoxemia -Monitor urine output -Renally dosed medications -Repeat labs and replace electrolytes as needed -PT/OT to eval and treat -Scientific Writer consult for supplements -Incentive spirometry 07/24/20 Still requires 2 liters of O2 Hematuria noted in peña catheter today. UA/UC ordered Day 2 of dexamethasone and remdesivir IV fluids stopped-pt taking po well Encourage IS Lab results: -WBC down from 6.11-4.03 -Na up from 127-134 -BUN down from 17-15 -CRE down from 1.4-1.1 -GFR up from 48->60 PLAN -Day 2 of Remdesivir and dexamethasone -Saline lock IVF -Monitor for hypoxemia -Monitor urine output -Renally dosed medications -Repeat labs and replace electrolytes as needed -PT/OT to eval and treat -Scientific Writer consult for supplements -Incentive spirometry -Nystantin to groin -UA/UC 07/25/20 On room air Day 3 of dexamethasone and remdesivir Encourage IS Yeast to groin. Vitals: BP 128-166/79-96 Tmax 98.4 Heart rate 62-72 91-91% on room air Lab results: -WBC 7.19 from 4.03 -Ddimer 1.07 from 0.76 -BUN from 16.6 to 17 -CRE up from 1.1 to 1.3 -GFR down from >60 to 52 -CRP down from 9.9 to 6.5 PLAN -Day 3 of Remdesivir and dexamethasone -Monitor for hypoxemia -Monitor urine output -Renally dosed medications -Repeat labs and replace electrolytes as needed -PT/OT to eval and treat -Incentive spirometry -Nystantin to groin 07/26/20 Extremely confused and agitated today. Per the family, he has had this reaction to dexamethasone in the past. Day 4 of dexamethasone and remdesivir Encourage IS Yeast to groin. Vitals: BP 126-166/74-93 Tmax 97.6 Heart rate 60-74 90-95% on room air Lab results: -BUN from 20-26 -CRE down from 1.3-1.2 -GFR up from 52 to 57 -Mg down from 1.9 to 1.7 PLAN -Day 4 of Remdesivir and dexamethasone -discontinue dexamethasone due to increased confusion and agitation. Pt given haldol x 1 dose due to dexamethasone effects. -Monitor for hypoxemia -Monitor urine output -Renally dosed medications -Repeat labs and replace electrolytes as needed -PT/OT to eval and treat -Pt continues to pull at peña and dig in his groin per nursing staff and then complains of back pain. UA ordered. -Nystantin to groin 07/27/20 Remains confused but is much more alert and less agitated. Day 5 of Remdesivir Encourage IS Yeast to groin. Vitals: BP 126-147-165/72-103 Tmax 97.9 Heart rate 71-76 92% on room air Lab results: -WBC up from 7.66 to 9.92 -BUN up from 26 to 28 -CRE 1.2 -GFR 57 -CRP down to 2.7 to 6.5 PLAN -Day 5 of Remdesivir -Monitor for hypoxemia -Monitor urine output -Renally dosed medications -Repeat labs and replace electrolytes as needed -PT/OT to eval and treat -UA unremarkable -Nystantin to groin 07/28/2020 Continues improving, but still poor oral intake. Stop dexamethasone because of delirium. Completed remdesivir. No labs today. 91 to 93% on room air. Vital signs stable. Afebrile. 07/29/2020 Continued poor oral intake. Decreased urine output secondary to poor oral intake. CRP increased dramatically to 15.1. WBC stable at 9.1, d-dimer 0.95. Procalcitonin done yesterday was less than 0.05. Renal function is stable with GFR 57. Albumin is low at 2.7. This reflects his poor oral intake. Chest x-ray showed some improvement in the multifocal peripheral airspace opacities consistent with his known COVID illness. - Plan Plan:: PLAN: Failure to thrive Weakness Physical deconditioning -PT/OT to continue working with him -Encourage oral intake Hyponatremia-sodium 134 Volume depletion-resolved -Replace electrolytes as needed -Follow electrolytes Stage III chronic renal disease -GFR 57 -Renally dosed medications -Monitor kidney function -Monitory urine output Acute hypoxemic respiratory failure due to COVID-19 Pneumonia due to COVID-19 virus COVID-19 -Dexamethasone discontinued secondary to increased confusion. - no longer one-on-one nursing care. -Completed remdesivir -Incentive spirometry -Continuous pulse ox-oxygen saturations have been stable on room air. -Monitor for hypoxemia -Repeat pro calcitonin and CRP tomorrow. There is no obvious reason why his CRP went up so dramatically overnight. White count remains normal and chest x-ray looks slightly improved. Repeat lab work in the morning. Hypertension -PRN Hydralazine PROPHYLAXIS DVT-Lovenox CODE STATUS: FULL CODE DISPOSITION: Length of stay will be greater than 96 hours due to length of treatment required for COVID. business services sales agent consult regarding usp placement. Plan to go to [facility] on 07/30/20 PT/OT to eval and treat patient.
[2020-07-29] MEDS: Sodium Chloride 0.9% 1,000 ML IV SCH (20:00)
[2020-07-30] MEDS: Sodium Chloride 0.9% 1,000 ML IV SCH ×2 (05:38→15:38)
[2020-07-30] MEDS: Enoxaparin 40 MG/0.4 ML Syringe SUBCUT SCH (09:24)
[2020-07-30] MEDS: Acetaminophen 325 MG Tab PO PRN (09:25)
[2020-07-30] MEDS: Cholecalciferol (Vitamin D3) 5,000 UNIT Cap PO SCH (09:25)
[2020-07-30] MEDS: Carboxymethylcellulose Sodium 1% Ophth Gel 15 ML Bottle EYERT SCH ×2 (09:26→22:17)
[2020-07-30] MEDS: Lactulose Soln 10 GM/15 ML 30 ML UD Cup PO SCH (09:26)
[2020-07-30] MEDS: Brimonidine 0.2% Ophth Soln 5 ML Bottle EYERT SCH ×2 (09:26→22:23)
[2020-07-30] MEDS: Gabapentin 100 MG Cap PO SCH (09:26)
[2020-07-30] MEDS: Nystatin Topical Powder 15 GM Bottle TOP SCH ×2 (09:26→15:41)
[2020-07-30] MEDS: Timolol Maleate 0.5% Ophth Soln 5 ML Bottle EYERT SCH ×2 (09:27→22:23)
[2020-07-30] MEDS ORDERED: Magnesium Sulfate/Water 2 GM/50 ML BAG IV ONE (12:17)
--- NOTE | 2020-07-30 14:27 | PCM.PN ---
- General Info Date of Service: 07/30/20 Admission Dx/Problem (Free Text): Admission Diagnosis/Problem Admission Diagnosis/Problem Failure to thrive Subjective Update: Doing about the same. Appetite remains poor. Plan for discharge tomorrow pending procalcitonin levels. Functional Status: Reports: Tolerating Diet (poor appetite), Urinating (chronic peña catheter). Denies: Incentive Spirometry - Review of Systems General: Reports: Weakness. Denies: Appetite (poor) HEENT: Reports: No Symptoms Pulmonary: Reports: No Symptoms Cardiovascular: Reports: No Symptoms Gastrointestinal: Reports: Decreased Appetite. Denies: Constipation, Diarrhea, Nausea, Vomiting Genitourinary: Reports: No Symptoms (chronic peña) Musculoskeletal: Reports: No Symptoms Skin: Reports: No Symptoms Neurological: Reports: Confusion Psychiatric: Reports: Confusion - Patient Data Weight - Most Recent: 172 lb - Exam Quality Assessment: DVT Prophylaxis (lovenox). No: Supplemental Oxygen General: Alert, Cooperative, No Acute Distress. No: Oriented HEENT: Pupils Equal, Mucous Membr. Moist/[place] Neck: Supple, Trachea Midline. No: Lymphadenopathy Lungs: Decreased Breath Sounds Cardiovascular: Regular Rate, Regular Rhythm, No Murmurs GI/Abdominal Exam: Normal Bowel Sounds, Soft, Non-Tender, No Distention (Male) Exam: Deferred Back Exam: Normal Inspection, Full Range of Motion Extremities: Normal Inspection, Normal Range of Motion, Non-Tender, No Pedal Edema, Normal Capillary Refill Peripheral Pulses: 2+: Radial (L), Radial (R), Dorsalis Pedis (L), Dorsalis Pedis (R) Skin: Warm, Dry, Intact Neurological: No New Focal Deficit Psy/Mental Status: Alert, Normal Affect, Normal Mood Sepsis Event Note - Evaluation Sepsis Screening Result: No Definite Risk - Problem List & Annotations (1) Failure to thrive SNOMED Code(s): 97770017 Code(s): XGE7759 - Status: Acute Priority: High Current Visit: Yes (2) Weakness SNOMED Code(s): 98867866 Code(s): R53.1 - WEAKNESS Status: Acute Priority: High Current Visit: Yes (3) Physical deconditioning SNOMED Code(s): 11441310209530 Code(s): R53.81 - OTHER MALAISE Status: Acute Priority: High Current Visit: Yes (4) Hypochloremia SNOMED Code(s): 87368031 Code(s): E87.8 - OTH DISORDERS OF ELECTROLYTE AND FLUID BALANCE, NEC Status: Acute Priority: High Current Visit: Yes (5) Hyponatremia SNOMED Code(s): 46894015 Code(s): E87.1 - HYPO-OSMOLALITY AND HYPONATREMIA Status: Acute Priority: High Current Visit: Yes (6) Volume depletion SNOMED Code(s): 226761597 Code(s): E86.9 - VOLUME DEPLETION, UNSPECIFIED Status: Acute Priority: High Current Visit: Yes (7) Acute kidney injury SNOMED Code(s): 03146591, 84113538 Code(s): N17.9 - ACUTE KIDNEY FAILURE, UNSPECIFIED Status: Acute Priority: High Current Visit: Yes (8) Acute hypoxemic respiratory failure due to COVID-19 SNOMED Code(s): 053217539 Code(s): U07.1 - COVID-19; J96.01 - ACUTE RESPIRATORY FAILURE WITH HYPOXIA Status: Acute Priority: High Current Visit: Yes (9) Hypertension SNOMED Code(s): 33794269 Code(s): I10 - ESSENTIAL (PRIMARY) HYPERTENSION Status: Acute Priority: High Current Visit: Yes Qualifiers: Hypertension type: unspecified Qualified Code(s): I10 - Essential (primary) hypertension (10) Pneumonia due to COVID-19 virus SNOMED Code(s): 700120164600631701 Code(s): U07.1 - COVID-19; J12.89 - OTHER VIRAL PNEUMONIA Status: Acute Priority: High Current Visit: Yes (11) COVID-19 SNOMED Code(s): 233873595 Code(s): U07.1 - COVID-19 Status: Acute Priority: High Current Visit: No - Problem List Review Problem List Initiated/Reviewed/Updated: Yes - My Orders Last 24 Hours: My Active Orders 07/31/20 05:11 C-REACTIVE PROTEIN [CHEM] AM CBC WITH AUTO DIFF [HEME] AM COMPREHENSIVE METABOLIC PN,CMP [CHEM] AM D-DIMER QUANTITATIVE [COAG] AM MAGNESIUM [CHEM] AM - Assessment Assessment:: 07/23/2020 10 day history of positive COVID diagnosis Has been seen in the ED three times in the last 8 days. History of UTI recently treated with rocephin and omnicef Lives in [place] Pulse ox on admission was 88-89% Decreased appetite and po intake. Chest xray reveals increased density within the left lung base suspicious for small area of pneumonia. Lab results: -WBC 6.11 -Plt 106 -Ddimer 0.76 -UA negative -Na 127 -Chl 94 -BUN 17 -CRE 1.4 -GFR 48 -Ferritin 938 -LDH 190 -CRP 9.9 ABGs on room air -pH 7.45 -pCO2 30.2 -pO2 70.0 -HCO3 20.5 PLAN -Start Remdesivir -Start dexamethasone -Normal Saline @ 100ml/hr -Monitor for hypoxemia -Monitor urine output -Renally dosed medications -Repeat labs and replace electrolytes as needed -PT/OT to eval and treat -Weapons Specialist consult for supplements -Incentive spirometry 07/24/20 Still requires 2 liters of O2 Hematuria noted in peña catheter today. UA/UC ordered Day 2 of dexamethasone and remdesivir IV fluids stopped-pt taking po well Encourage IS Lab results: -WBC down from 6.11-4.03 -Na up from 127-134 -BUN down from 17-15 -CRE down from 1.4-1.1 -GFR up from 48->60 PLAN -Day 2 of Remdesivir and dexamethasone -Saline lock IVF -Monitor for hypoxemia -Monitor urine output -Renally dosed medications -Repeat labs and replace electrolytes as needed -PT/OT to eval and treat -Weapons Specialist consult for supplements -Incentive spirometry -Nystantin to groin -UA/UC 07/25/20 On room air Day 3 of dexamethasone and remdesivir Encourage IS Yeast to groin. Vitals: BP 128-166/79-96 Tmax 98.4 Heart rate 62-72 91-91% on room air Lab results: -WBC 7.19 from 4.03 -Ddimer 1.07 from 0.76 -BUN from 16.6 to 17 -CRE up from 1.1 to 1.3 -GFR down from >60 to 52 -CRP down from 9.9 to 6.5 PLAN -Day 3 of Remdesivir and dexamethasone -Monitor for hypoxemia -Monitor urine output -Renally dosed medications -Repeat labs and replace electrolytes as needed -PT/OT to eval and treat -Incentive spirometry -Nystantin to groin 07/26/20 Extremely confused and agitated today. Per the family, he has had this reaction to dexamethasone in the past. Day 4 of dexamethasone and remdesivir Encourage IS Yeast to groin. Vitals: BP 126-166/74-93 Tmax 97.6 Heart rate 60-74 90-95% on room air Lab results: -BUN from 20-26 -CRE down from 1.3-1.2 -GFR up from 52 to 57 -Mg down from 1.9 to 1.7 PLAN -Day 4 of Remdesivir and dexamethasone -discontinue dexamethasone due to increased confusion and agitation. Pt given haldol x 1 dose due to dexamethasone effects. -Monitor for hypoxemia -Monitor urine output -Renally dosed medications -Repeat labs and replace electrolytes as needed -PT/OT to eval and treat -Pt continues to pull at peña and dig in his groin per nursing staff and then complains of back pain. UA ordered. -Nystantin to groin 07/27/20 Remains confused but is much more alert and less agitated. Day 5 of Remdesivir Encourage IS Yeast to groin. Vitals: BP 126-147-165/72-103 Tmax 97.9 Heart rate 71-76 92% on room air Lab results: -WBC up from 7.66 to 9.92 -BUN up from 26 to 28 -CRE 1.2 -GFR 57 -CRP down to 2.7 to 6.5 PLAN -Day 5 of Remdesivir -Monitor for hypoxemia -Monitor urine output -Renally dosed medications -Repeat labs and replace electrolytes as needed -PT/OT to eval and treat -UA unremarkable -Nystantin to groin 07/28/2020 Continues improving, but still poor oral intake. Stop dexamethasone because of delirium. Completed remdesivir. No labs today. 91 to 93% on room air. Vital signs stable. Afebrile. 07/29/2020 Continued poor oral intake. Decreased urine output secondary to poor oral intake. CRP increased dramatically to 15.1. WBC stable at 9.1, d-dimer 0.95. Procalcitonin done yesterday was less than 0.05. Renal function is stable with GFR 57. Albumin is low at 2.7. This reflects his poor oral intake. Chest x-ray showed some improvement in the multifocal peripheral airspace opacities consistent with his known COVID illness. 07/30/2020 Continued poor oral intake. Urine output is better CRP increased from 15.1 to 15.7 Will hold discharge til we get procalcitonin level back tomorrow. - Plan Plan:: PLAN: Failure to thrive Weakness Physical deconditioning -PT/OT to continue working with him -Encourage oral intake Hyponatremia-sodium 134 Volume depletion-resolved -Replace electrolytes as needed -Follow electrolytes Stage III chronic renal disease -GFR 57 -Renally dosed medications -Monitor kidney function -Monitory urine output Acute hypoxemic respiratory failure due to COVID-19 Pneumonia due to COVID-19 virus COVID-19 -Dexamethasone discontinued secondary to increased confusion. - no longer one-on-one nursing care. -Completed remdesivir -Incentive spirometry -Continuous pulse discontinued due to patient removing pulse ox. -Monitor for hypoxemia -Repeat pro calcitonin and CRP tomorrow. White count remains normal. Repeat lab work in the morning. Hypertension -PRN Hydralazine PROPHYLAXIS DVT-Lovenox CODE STATUS: FULL CODE DISPOSITION: Length of stay will be greater than 96 hours due to length of treatment required for COVID. tax services professional consult regarding long term placement. Plan for discharge tomorrow pending procalcitonin results. PT/OT to eval and treat patient.
[2020-07-31] MEDS: Acetaminophen 325 MG Tab PO PRN ×2 (01:00→08:34)
[2020-07-31] MEDS: Sodium Chloride 0.9% 1,000 ML IV SCH (01:42)
[2020-07-31] MEDS: Nystatin Topical Powder 15 GM Bottle TOP SCH ×4 (05:26→21:58)
[2020-07-31] MEDS: Brimonidine 0.2% Ophth Soln 5 ML Bottle EYERT SCH ×2 (08:38→21:55)
[2020-07-31] MEDS: Lactulose Soln 10 GM/15 ML 30 ML UD Cup PO SCH (08:40)
[2020-07-31] MEDS: Enoxaparin 40 MG/0.4 ML Syringe SUBCUT SCH (08:41)
[2020-07-31] MEDS: Gabapentin 100 MG Cap PO SCH (08:42)
[2020-07-31] MEDS: Cholecalciferol (Vitamin D3) 5,000 UNIT Cap PO SCH (08:43)
[2020-07-31] MEDS: Timolol Maleate 0.5% Ophth Soln 5 ML Bottle EYERT SCH ×2 (08:45→21:56)
[2020-07-31] MEDS: Carboxymethylcellulose Sodium 1% Ophth Gel 15 ML Bottle EYERT SCH ×2 (08:50→21:56)
--- NOTE | 2020-07-31 14:22 | PCM.PN ---
- General Info Date of Service: 07/31/20 Admission Dx/Problem (Free Text): Admission Diagnosis/Problem Admission Diagnosis/Problem Failure to thrive Subjective Update: Ready for discharge. Doing much better. Functional Status: Reports: Tolerating Diet, Urinating (chronic peña) - Review of Systems General: Reports: Weakness HEENT: Reports: No Symptoms Pulmonary: Reports: No Symptoms. Denies: Cough Cardiovascular: Reports: No Symptoms Gastrointestinal: Reports: No Symptoms Genitourinary: Reports: No Symptoms (chronic peña) Musculoskeletal: Reports: No Symptoms Skin: Reports: Rash (groin) Neurological: Reports: Confusion Psychiatric: Reports: Confusion - Patient Data Weight - Most Recent: 174 lb 1.6 oz - Exam Quality Assessment: DVT Prophylaxis (lovenox) General: Alert, No Acute Distress HEENT: Pupils Equal, Mucous Membr. Moist/[place] Neck: Supple, Trachea Midline. No: Lymphadenopathy Lungs: Normal Respiratory Effort, Decreased Breath Sounds Cardiovascular: Regular Rate, Regular Rhythm GI/Abdominal Exam: Normal Bowel Sounds, Soft, Non-Tender, No Distention (Male) Exam: Rash (groin), Scrotal Swelling Back Exam: Normal Inspection, Full Range of Motion Extremities: Normal Inspection, Normal Range of Motion, Non-Tender, No Pedal Edema, Normal Capillary Refill Peripheral Pulses: 2+: Radial (L), Radial (R), Dorsalis Pedis (L), Dorsalis Pedis (R) Skin: Warm, Dry, Intact Wound/Incisions: Healing Well Neurological: No New Focal Deficit Psy/Mental Status: Alert, Normal Affect, Normal Mood Sepsis Event Note - Evaluation Sepsis Screening Result: No Definite Risk - Problem List & Annotations (1) Failure to thrive SNOMED Code(s): 11374236 Code(s): NOU3395 - Status: Acute Priority: High Current Visit: Yes (2) Weakness SNOMED Code(s): 11298983 Code(s): R53.1 - WEAKNESS Status: Acute Priority: High Current Visit: Yes (3) Physical deconditioning SNOMED Code(s): 00787467592733 Code(s): R53.81 - OTHER MALAISE Status: Acute Priority: High Current Visit: Yes (4) Hypochloremia SNOMED Code(s): 00222153 Code(s): E87.8 - OTH DISORDERS OF ELECTROLYTE AND FLUID BALANCE, NEC Status: Acute Priority: High Current Visit: Yes (5) Hyponatremia SNOMED Code(s): 43790537 Code(s): E87.1 - HYPO-OSMOLALITY AND HYPONATREMIA Status: Acute Priority: High Current Visit: Yes (6) Volume depletion SNOMED Code(s): 460268735 Code(s): E86.9 - VOLUME DEPLETION, UNSPECIFIED Status: Acute Priority: High Current Visit: Yes (7) Acute kidney injury SNOMED Code(s): 09513240, 75905761 Code(s): N17.9 - ACUTE KIDNEY FAILURE, UNSPECIFIED Status: Acute Priority: High Current Visit: Yes (8) Acute hypoxemic respiratory failure due to COVID-19 SNOMED Code(s): 814832388 Code(s): U07.1 - COVID-19; J96.01 - ACUTE RESPIRATORY FAILURE WITH HYPOXIA Status: Acute Priority: High Current Visit: Yes (9) Hypertension SNOMED Code(s): 70588530 Code(s): I10 - ESSENTIAL (PRIMARY) HYPERTENSION Status: Acute Priority: High Current Visit: Yes Qualifiers: Hypertension type: unspecified Qualified Code(s): I10 - Essential (primary) hypertension (10) Pneumonia due to COVID-19 virus SNOMED Code(s): 848464530866222650 Code(s): U07.1 - COVID-19; J12.89 - OTHER VIRAL PNEUMONIA Status: Acute Priority: High Current Visit: Yes (11) COVID-19 SNOMED Code(s): 665524066 Code(s): U07.1 - COVID-19 Status: Acute Priority: High Current Visit: No - Problem List Review Problem List Initiated/Reviewed/Updated: Yes - My Orders Last 24 Hours: My Active Orders 07/31/20 13:36 CORONAVIRUS COVID-19 CLAUDIA [MOLEC] Stat - Assessment Assessment:: 07/23/2020 10 day history of positive COVID diagnosis Has been seen in the ED three times in the last 8 days. History of UTI recently treated with rocephin and omnicef Lives in [place] Pulse ox on admission was 88-89% Decreased appetite and po intake. Chest xray reveals increased density within the left lung base suspicious for small area of pneumonia. Lab results: -WBC 6.11 -Plt 106 -Ddimer 0.76 -UA negative -Na 127 -Chl 94 -BUN 17 -CRE 1.4 -GFR 48 -Ferritin 938 -LDH 190 -CRP 9.9 ABGs on room air -pH 7.45 -pCO2 30.2 -pO2 70.0 -HCO3 20.5 PLAN -Start Remdesivir -Start dexamethasone -Normal Saline @ 100ml/hr -Monitor for hypoxemia -Monitor urine output -Renally dosed medications -Repeat labs and replace electrolytes as needed -PT/OT to eval and treat -First Aid Teacher consult for supplements -Incentive spirometry 07/24/20 Still requires 2 liters of O2 Hematuria noted in peña catheter today. UA/UC ordered Day 2 of dexamethasone and remdesivir IV fluids stopped-pt taking po well Encourage IS Lab results: -WBC down from 6.11-4.03 -Na up from 127-134 -BUN down from 17-15 -CRE down from 1.4-1.1 -GFR up from 48->60 PLAN -Day 2 of Remdesivir and dexamethasone -Saline lock IVF -Monitor for hypoxemia -Monitor urine output -Renally dosed medications -Repeat labs and replace electrolytes as needed -PT/OT to eval and treat -First Aid Teacher consult for supplements -Incentive spirometry -Nystantin to groin -UA/UC 07/25/20 On room air Day 3 of dexamethasone and remdesivir Encourage IS Yeast to groin. Vitals: BP 128-166/79-96 Tmax 98.4 Heart rate 62-72 91-91% on room air Lab results: -WBC 7.19 from 4.03 -Ddimer 1.07 from 0.76 -BUN from 16.6 to 17 -CRE up from 1.1 to 1.3 -GFR down from >60 to 52 -CRP down from 9.9 to 6.5 PLAN -Day 3 of Remdesivir and dexamethasone -Monitor for hypoxemia -Monitor urine output -Renally dosed medications -Repeat labs and replace electrolytes as needed -PT/OT to eval and treat -Incentive spirometry -Nystantin to groin 07/26/20 Extremely confused and agitated today. Per the family, he has had this reaction to dexamethasone in the past. Day 4 of dexamethasone and remdesivir Encourage IS Yeast to groin. Vitals: BP 126-166/74-93 Tmax 97.6 Heart rate 60-74 90-95% on room air Lab results: -BUN from 20-26 -CRE down from 1.3-1.2 -GFR up from 52 to 57 -Mg down from 1.9 to 1.7 PLAN -Day 4 of Remdesivir and dexamethasone -discontinue dexamethasone due to increased confusion and agitation. Pt given haldol x 1 dose due to dexamethasone effects. -Monitor for hypoxemia -Monitor urine output -Renally dosed medications -Repeat labs and replace electrolytes as needed -PT/OT to eval and treat -Pt continues to pull at peña and dig in his groin per nursing staff and then complains of back pain. UA ordered. -Nystantin to groin 07/27/20 Remains confused but is much more alert and less agitated. Day 5 of Remdesivir Encourage IS Yeast to groin. Vitals: BP 126-147-165/72-103 Tmax 97.9 Heart rate 71-76 92% on room air Lab results: -WBC up from 7.66 to 9.92 -BUN up from 26 to 28 -CRE 1.2 -GFR 57 -CRP down to 2.7 to 6.5 PLAN -Day 5 of Remdesivir -Monitor for hypoxemia -Monitor urine output -Renally dosed medications -Repeat labs and replace electrolytes as needed -PT/OT to eval and treat -UA unremarkable -Nystantin to groin 07/28/2020 Continues improving, but still poor oral intake. Stop dexamethasone because of delirium. Completed remdesivir. No labs today. 91 to 93% on room air. Vital signs stable. Afebrile. 07/29/2020 Continued poor oral intake. Decreased urine output secondary to poor oral intake. CRP increased dramatically to 15.1. WBC stable at 9.1, d-dimer 0.95. Procalcitonin done yesterday was less than 0.05. Renal function is stable with GFR 57. Albumin is low at 2.7. This reflects his poor oral intake. Chest x-ray showed some improvement in the multifocal peripheral airspace opacities consistent with his known COVID illness. 07/30/2020 Continued poor oral intake. Urine output is better CRP increased from 15.1 to 15.7 Will hold discharge til we get procalcitonin level back tomorrow. 07/31/2020 Eating 50% of meals and 100% of supplements Urine output is better Vital signs -Blood pressure 114-163/65-97 -T max 98.2 -Heart rate 62-80 -91-94% on room air Lab results -Ddimer up from 0.66 to 0.68 -CRP down from 15.7 to 14.3 - Plan Plan:: PLAN: Failure to thrive Weakness Physical deconditioning -PT/OT to continue working with him -Encourage oral intake Hyponatremia-sodium 134 Volume depletion-resolved -Replace electrolytes as needed -Follow electrolytes Stage III chronic renal disease -GFR 57 -Renally dosed medications -Monitor kidney function -Monitory urine output Acute hypoxemic respiratory failure due to COVID-19 Pneumonia due to COVID-19 virus COVID-19 -Dexamethasone discontinued secondary to increased confusion. - no longer one-on-one nursing care. -Completed remdesivir -Incentive spirometry -Continuous pulse discontinued due to patient removing pulse ox. -Monitor for hypoxemia -Repeat pro calcitonin and CRP tomorrow. White count remains normal. Repeat lab work in the morning. Hypertension -PRN Hydralazine PROPHYLAXIS DVT-Lovenox CODE STATUS: FULL CODE DISPOSITION: Awaiting fpc placement.
[2020-07-31] MEDS: Polyethylene Glycol 3350 Powder 17 GM Packet PO PRN (18:39)
[2020-08-01] MEDS ORDERED: Potassium Chloride 20 MEQ Tab.ER PO ONE (07:24)
--- NOTE | 2020-08-01 07:43 | PCM.PN ---
- General Info Date of Service: 08/01/20 Admission Dx/Problem (Free Text): Admission Diagnosis/Problem Admission Diagnosis/Problem Failure to thrive Functional Status: Reports: Pain Controlled, Tolerating Diet, Ambulating (minimally ), Urinating (peña ), Incentive Spirometry. Denies: New Symptoms - Review of Systems General: Reports: No Symptoms, Weakness, Fatigue, Malaise. Denies: Fever, Chills HEENT: Reports: No Symptoms. Denies: Headaches, Sore Throat Pulmonary: Reports: No Symptoms. Denies: Shortness of Breath, Cough, Sputum, Wheezing Cardiovascular: Reports: No Symptoms. Denies: Chest Pain, Palpitations Gastrointestinal: Reports: No Symptoms. Denies: Abdominal Pain, Constipation, Diarrhea, Nausea, Vomiting Genitourinary: Reports: No Symptoms. Denies: Pain Musculoskeletal: Reports: No Symptoms Skin: Reports: Rash (groin ). Denies: Cyanosis Neurological: Reports: No Symptoms, Confusion, Difficulty Walking, Weakness, Gait Disturbance. Denies: Numbness, Tingling Psychiatric: Reports: No Symptoms - Patient Data Vitals - Most Recent: Last Vital Signs Temp 97.9 F 08/01/20 05:18 Pulse 68 08/01/20 05:18 Resp 18 08/01/20 05:18 BP 140/90 08/01/20 05:18 Pulse Ox 92 L 08/01/20 05:18 Weight - Most Recent: 174 lb 6 oz I&O - Last 24 Hours: Intake & Output 07/31/20 08/01/20 08/01/20 22:59 06:59 14:59 Intake Total 1842 200 Output Total 900 1450 Balance 942 -1250 Lab Results Last 24 Hours: Laboratory Results - last 24 hr 07/31/20 Range/Units 05:17 D-Dimer, Quantitative 0.68 H (0.19-0.50) mg/L Med Orders - Current: Current Medications Acetaminophen (Tylenol) 650 mg PO Q4H PRN PRN Reason: Pain (Mild 1-3)/fever Last Admin: 07/31/20 08:34 Dose: 650 mg Documented by: Artificial Tears (Refresh Liquigel 1%) 0 ml EYERT BID [facility] Last Admin: 07/31/20 21:56 Dose: 1 drop Documented by: Brimonidine Tartrate (Alphagan 0.2% Ophth Soln) 0 ml EYERT BID [facility] Last Admin: 07/31/20 21:55 Dose: 1 drop Documented by: Cholecalciferol (Vitamin D3) 5,000 unit PO DAILY [facility] Last Admin: 07/31/20 08:43 Dose: 5,000 unit Documented by: Enoxaparin Sodium (Lovenox) 40 mg SUBCUT DAILY [facility] Last Admin: 07/31/20 08:41 Dose: 40 mg Documented by: Gabapentin (Neurontin) 100 mg PO DAILY [facility] Last Admin: 07/31/20 08:42 Dose: 100 mg Documented by: Gabapentin (Neurontin) 100 mg PO BEDTIME PRN PRN Reason: Pain Lactulose (Cephulac) 20 gm PO DAILY [facility] Last Admin: 07/31/20 08:40 Dose: 20 gm Documented by: Nystatin (Nystop) 0 gm TOP TID [facility] Last Admin: 07/31/20 21:58 Dose: 15 gm Documented by: Ondansetron HCl (Zofran) 4 mg IV Q4H PRN PRN Reason: Nausea/Vomiting Polyethylene Glycol (Miralax) 17 gm PO DAILY PRN PRN Reason: Constipation Last Admin: 07/31/20 18:39 Dose: 17 gm Documented by: Sodium Chloride (Saline Flush) 10 ml FLUSH ASDIRECTED PRN PRN Reason: Keep Vein Open Last Admin: 07/23/20 12:40 Dose: 10 ml Documented by: Sodium Chloride (Saline Flush) 10 ml FLUSH ASDIRECTED PRN PRN Reason: Keep Vein Open Timolol Maleate (Timoptic 0.5% Ophth Soln) 0 ml EYERT BID [facility] Last Admin: 07/31/20 21:56 Dose: 1 drop Documented by: Discontinued Medications Bisacodyl (Dulcolax) 10 mg RECTAL ONETIME ONE Stop: 07/24/20 18:31 Last Admin: 07/24/20 18:27 Dose: 10 mg Documented by: Bisacodyl (Dulcolax) 10 mg RECTAL ONETIME ONE Stop: 07/29/20 09:20 Last Admin: 07/29/20 09:45 Dose: 10 mg Documented by: Cholecalciferol (Vitamin D3) 5,000 unit PO DAILY [facility] Last Admin: 07/27/20 09:02 Dose: 5,000 unit Documented by: Dexamethasone (Dexamethasone) 4 mg IVPUSH ONETIME ONE Stop: 07/23/20 12:07 Last Admin: 07/23/20 12:41 Dose: 4 mg Documented by: Dexamethasone (Dexamethasone) 6 mg PO DAILY [facility] Stop: 08/01/20 09:01 Last Admin: 07/26/20 08:22 Dose: 6 mg Documented by: Haloperidol Lactate (Haldol) 2.5 mg IVPUSH ONETIME ONE Stop: 07/26/20 10:10 Last Admin: 07/26/20 10:21 Dose: 2.5 mg Documented by: Sodium Chloride (Normal Saline) 1,000 mls @ 125 mls/hr IV ASDIRECTED [facility] Last Admin: 07/24/20 07:34 Dose: 125 mls/hr Documented by: Remdesivir 200 mg/ Sodium (Chloride) 250 mls @ 250 mls/hr IV ONETIME ONE Stop: 07/24/20 01:29 Last Admin: 07/24/20 00:29 Dose: 250 mls/hr Documented by: Remdesivir 100 mg/ Sodium (Chloride) 100 mls @ 100 mls/hr IV Q24H [facility] Stop: 07/27/20 23:59 Last Admin: 07/27/20 23:38 Dose: 100 mls/hr Documented by: Magnesium Sulfate (Magnesium Sulfate In Water Premix) 2 gm in 50 mls @ 25 mls/hr IV ONETIME ONE Stop: 07/26/20 09:44 Last Admin: 07/26/20 08:22 Dose: 25 mls/hr Documented by: Sodium Chloride (Normal Saline) 1,000 mls @ 100 mls/hr IV ASDIRECTED [facility] Last Admin: 07/29/20 09:45 Dose: 100 mls/hr Documented by: Sodium Chloride (Normal Saline) 1,000 mls @ 100 mls/hr IV ASDIRECTED [facility] Last Admin: 07/31/20 01:42 Dose: 100 mls/hr Documented by: Magnesium Sulfate (Magnesium Sulfate In Water Premix) 2 gm in 50 mls @ 25 mls/hr IV ONETIME ONE Stop: 07/30/20 14:16 Last Admin: 07/30/20 12:52 Dose: 25 mls/hr Documented by: Influenza Virus Vaccine (Fluzone High-Dose Quad ) 240 mcg IM .ONCE ONE Stop: 10/01/20 13:16 Magnesium Hydroxide (Milk Of Magnesia) 30 ml PO ONETIME ONE Stop: 07/24/20 09:01 Last Admin: 07/24/20 08:41 Dose: 30 ml Documented by: Magnesium Hydroxide (Milk Of Magnesia) 30 ml PO ONETIME ONE Stop: 07/28/20 13:56 Last Admin: 07/28/20 15:26 Dose: 30 ml Documented by: Potassium Chloride (Klor-Con M20) 40 meq PO ONETIME ONE Stop: 08/01/20 07:25 - Exam Quality Assessment: Urine Catheter, DVT Prophylaxis. No: Supplemental Oxygen General: Alert, Cooperative, No Acute Distress. No: Oriented HEENT: Pupils Equal, Pupils Reactive, Mucous Membr. Moist/[place] Neck: Supple, Trachea Midline Lungs: Normal Respiratory Effort, Decreased Breath Sounds Cardiovascular: Regular Rhythm, Irregular Rhythm GI/Abdominal Exam: Normal Bowel Sounds, Soft, Non-Tender, No Distention (Male) Exam: Scrotal Swelling Extremities: Non-Tender, No Pedal Edema, Limited Range of Motion Skin: Warm, Dry, Intact Neurological: No New Focal Deficit Psy/Mental Status: Alert Sepsis Event Note - Evaluation Sepsis Screening Result: No Definite Risk - Problem List & Annotations (1) Acute hypoxemic respiratory failure due to COVID-19 SNOMED Code(s): 762661244 Code(s): U07.1 - COVID-19; J96.01 - ACUTE RESPIRATORY FAILURE WITH HYPOXIA Status: Acute Priority: High Current Visit: Yes (2) Acute kidney injury SNOMED Code(s): 89697721, 90848458 Code(s): N17.9 - ACUTE KIDNEY FAILURE, UNSPECIFIED Status: Resolved Priority: High Current Visit: Yes (3) Failure to thrive SNOMED Code(s): 04949270 Code(s): JSJ8969 - Status: Acute Priority: High Current Visit: Yes (4) Generalized weakness SNOMED Code(s): 22763103 Code(s): R53.1 - WEAKNESS Status: Acute Current Visit: Yes (5) Hypertension SNOMED Code(s): 91065573 Code(s): I10 - ESSENTIAL (PRIMARY) HYPERTENSION Status: Chronic Priority: High Current Visit: Yes Qualifiers: Hypertension type: unspecified Qualified Code(s): I10 - Essential (primary) hypertension (6) Hypochloremia SNOMED Code(s): 79673576 Code(s): E87.8 - OTH DISORDERS OF ELECTROLYTE AND FLUID BALANCE, NEC Status: Resolved Priority: High Current Visit: Yes (7) Hyponatremia SNOMED Code(s): 15727811 Code(s): E87.1 - HYPO-OSMOLALITY AND HYPONATREMIA Status: Resolved Priority: High Current Visit: Yes (8) Physical deconditioning SNOMED Code(s): 89411986323793 Code(s): R53.81 - OTHER MALAISE Status: Acute Priority: High Current Visit: Yes (9) Pneumonia due to COVID-19 virus SNOMED Code(s): 306991454873839563 Code(s): U07.1 - COVID-19; J12.89 - OTHER VIRAL PNEUMONIA Status: Acute Priority: High Current Visit: Yes (10) Volume depletion SNOMED Code(s): 523908903 Code(s): E86.9 - VOLUME DEPLETION, UNSPECIFIED Status: Resolved Priority: High Current Visit: Yes (11) COVID-19 SNOMED Code(s): 648633936 Code(s): U07.1 - COVID-19 Status: Acute Priority: High Current Visit: No - Problem List Review Problem List Initiated/Reviewed/Updated: Yes - Assessment Assessment:: 07/23/2020 10 day history of positive COVID diagnosis Has been seen in the ED three times in the last 8 days. History of UTI recently treated with rocephin and omnicef Lives in [place] Pulse ox on admission was 88-89% Decreased appetite and po intake. Chest xray reveals increased density within the left lung base suspicious for small area of pneumonia. Lab results: -WBC 6.11 -Plt 106 -Ddimer 0.76 -UA negative -Na 127 -Chl 94 -BUN 17 -CRE 1.4 -GFR 48 -Ferritin 938 -LDH 190 -CRP 9.9 ABGs on room air -pH 7.45 -pCO2 30.2 -pO2 70.0 -HCO3 20.5 PLAN -Start Remdesivir -Start dexamethasone -Normal Saline @ 100ml/hr -Monitor for hypoxemia -Monitor urine output -Renally dosed medications -Repeat labs and replace electrolytes as needed -PT/OT to eval and treat -Medical Records Coordinator consult for supplements -Incentive spirometry 07/24/20 Still requires 2 liters of O2 Hematuria noted in peña catheter today. UA/UC ordered Day 2 of dexamethasone and remdesivir IV fluids stopped-pt taking po well Encourage IS Lab results: -WBC down from 6.11-4.03 -Na up from 127-134 -BUN down from 17-15 -CRE down from 1.4-1.1 -GFR up from 48->60 PLAN -Day 2 of Remdesivir and dexamethasone -Saline lock IVF -Monitor for hypoxemia -Monitor urine output -Renally dosed medications -Repeat labs and replace electrolytes as needed -PT/OT to eval and treat -Medical Records Coordinator consult for supplements -Incentive spirometry -Nystantin to groin -UA/UC 07/25/20 On room air Day 3 of dexamethasone and remdesivir Encourage IS Yeast to groin. Vitals: BP 128-166/79-96 Tmax 98.4 Heart rate 62-72 91-91% on room air Lab results: -WBC 7.19 from 4.03 -Ddimer 1.07 from 0.76 -BUN from 16.6 to 17 -CRE up from 1.1 to 1.3 -GFR down from >60 to 52 -CRP down from 9.9 to 6.5 PLAN -Day 3 of Remdesivir and dexamethasone -Monitor for hypoxemia -Monitor urine output -Renally dosed medications -Repeat labs and replace electrolytes as needed -PT/OT to eval and treat -Incentive spirometry -Nystantin to groin 07/26/20 Extremely confused and agitated today. Per the family, he has had this reaction to dexamethasone in the past. Day 4 of dexamethasone and remdesivir Encourage IS Yeast to groin. Vitals: BP 126-166/74-93 Tmax 97.6 Heart rate 60-74 90-95% on room air Lab results: -BUN from 20-26 -CRE down from 1.3-1.2 -GFR up from 52 to 57 -Mg down from 1.9 to 1.7 PLAN -Day 4 of Remdesivir and dexamethasone -discontinue dexamethasone due to increased confusion and agitation. Pt given haldol x 1 dose due to dexamethasone effects. -Monitor for hypoxemia -Monitor urine output -Renally dosed medications -Repeat labs and replace electrolytes as needed -PT/OT to eval and treat -Pt continues to pull at peña and dig in his groin per nursing staff and then complains of back pain. UA ordered. -Nystantin to groin 07/27/20 Remains confused but is much more alert and less agitated. Day 5 of Remdesivir Encourage IS Yeast to groin. Vitals: BP 126-147-165/72-103 Tmax 97.9 Heart rate 71-76 92% on room air Lab results: -WBC up from 7.66 to 9.92 -BUN up from 26 to 28 -CRE 1.2 -GFR 57 -CRP down to 2.7 to 6.5 PLAN -Day 5 of Remdesivir -Monitor for hypoxemia -Monitor urine output -Renally dosed medications -Repeat labs and replace electrolytes as needed -PT/OT to eval and treat -UA unremarkable -Nystantin to groin 07/28/2020 Continues improving, but still poor oral intake. Stop dexamethasone because of delirium. Completed remdesivir. No labs today. 91 to 93% on room air. Vital signs stable. Afebrile. 07/29/2020 Continued poor oral intake. Decreased urine output secondary to poor oral intake. CRP increased dramatically to 15.1. WBC stable at 9.1, d-dimer 0.95. Procalcitonin done yesterday was less than 0.05. Renal function is stable with GFR 57. Albumin is low at 2.7. This reflects his poor oral intake. Chest x-ray showed some improvement in the multifocal peripheral airspace opacities consistent with his known COVID illness. 07/30/2020 Continued poor oral intake. Urine output is better CRP increased from 15.1 to 15.7 Will hold discharge til we get procalcitonin level back tomorrow. 07/31/2020 Eating 50% of meals and 100% of supplements Urine output is better Vital signs -Blood pressure 114-163/65-97 -T max 98.2 -Heart rate 62-80 -91-94% on room air Lab results -Ddimer up from 0.66 to 0.68 -CRP down from 15.7 to 14.3 08/01/2020 Remains clinically stable Continues to have poor appetite Urine output remains adequate Vital signs remain stable No labs obtained today Pending placement COVID-19 Re-test required by SNF remains positive as expected. Continues to work with PT and OT who recommend SNF placement - Plan Plan:: Failure to thrive Weakness Physical deconditioning -PT/OT to continue working with him -Encourage oral intake -Medical Records Coordinator consult -CM/SW consult for placement Hyponatremia-resolved Volume depletion-resolved -Replace electrolytes as needed -Follow electrolytes Stage III chronic renal disease, stable -Renally dosed medications -Monitor kidney function -Monitory urine output Acute hypoxemic respiratory failure due to COVID-19 Pneumonia due to COVID-19 virus COVID-19 -Dexamethasone discontinued secondary to increased confusion. -No longer one-on-one nursing care -Completed remdesivir -Incentive spirometry -Continuous pulse discontinued due to patient removing pulse ox. -Monitor for hypoxemia Hypertension -PRN Hydralazine PROPHYLAXIS DVT-Lovenox CODE STATUS: FULL CODE DISPOSITION: Awaiting half-way placement.
[2020-08-01] MEDS: Cholecalciferol (Vitamin D3) 5,000 UNIT Cap PO SCH (08:02)
[2020-08-01] MEDS: Enoxaparin 40 MG/0.4 ML Syringe SUBCUT SCH (08:02)
[2020-08-01] MEDS: Gabapentin 100 MG Cap PO SCH (08:02)
[2020-08-01] MEDS: Lactulose Soln 10 GM/15 ML 30 ML UD Cup PO SCH (08:03)
[2020-08-01] MEDS: Carboxymethylcellulose Sodium 1% Ophth Gel 15 ML Bottle EYERT SCH ×2 (08:10→22:03)
[2020-08-01] MEDS: Brimonidine 0.2% Ophth Soln 5 ML Bottle EYERT SCH ×2 (08:16→20:36)
[2020-08-01] MEDS: Timolol Maleate 0.5% Ophth Soln 5 ML Bottle EYERT SCH ×2 (08:19→20:54)
[2020-08-01] MEDS: Acetaminophen 325 MG Tab PO PRN (12:26)
[2020-08-01] MEDS: Nystatin Topical Powder 15 GM Bottle TOP SCH ×3 (12:26→20:37)
--- NOTE | 2020-08-02 08:38 | PCM.PN ---
- General Info Date of Service: 08/02/20 Admission Dx/Problem (Free Text): Admission Diagnosis/Problem Admission Diagnosis/Problem Failure to thrive Functional Status: Reports: Pain Controlled, Tolerating Diet, Urinating. Denies: Ambulating, New Symptoms - Review of Systems General: Reports: Weakness, Fatigue, Malaise. Denies: Fever, Chills HEENT: Reports: No Symptoms. Denies: Headaches, Sore Throat Pulmonary: Reports: Cough. Denies: Shortness of Breath, Sputum, Wheezing Cardiovascular: Reports: Dyspnea on Exertion. Denies: Chest Pain Gastrointestinal: Reports: No Symptoms. Denies: Abdominal Pain, Constipation, Diarrhea, Nausea, Vomiting Genitourinary: Reports: No Symptoms Musculoskeletal: Reports: No Symptoms Skin: Reports: No Symptoms Neurological: Reports: Confusion, Difficulty Walking, Weakness, Gait Disturbance - Patient Data Vitals - Most Recent: Last Vital Signs Temp 98.4 F 08/02/20 04:24 Pulse 72 08/02/20 04:24 Resp 18 08/02/20 04:24 BP 130/90 08/02/20 04:24 Pulse Ox 94 L 08/02/20 04:24 Weight - Most Recent: 173 lb 12.8 oz I&O - Last 24 Hours: Intake & Output 08/01/20 08/02/20 08/02/20 22:59 06:59 14:59 Intake Total 280 50 Output Total 400 450 Balance -120 -400 Lab Results Last 24 Hours: Laboratory Results - last 24 hr 07/31/20 08/02/20 08/02/20 Range/Units 11:40 06:35 06:35 WBC 6.16 (4.23-9.07) K/mm3 RBC 4.43 L (4.63-6.08) M/mm3 Hgb 13.9 (13.7-17.5) gm/dl Hct 40.2 (40.1-51.0) % MCV 90.7 (79.0-92.2) fl MCH 31.4 (25.7-32.2) pg MCHC 34.6 (32.2-35.5) g/dl RDW Std Deviation 46.5 H (35.1-43.9) fL Plt Count 135 L (163-337) K/mm3 MPV 10.3 (9.4-12.3) fl Neut % (Auto) 57.8 (34.0-67.9) % Lymph % (Auto) 17.5 L (21.8-53.1) % [place] % (Auto) 19.2 H (5.3-12.2) % Eos % (Auto) 5.0 (0.8-7.0) Baso % (Auto) 0.3 (0.1-1.2) % Neut # (Auto) 3.56 (1.78-5.38) K/mm3 Lymph # (Auto) 1.08 L (1.32-3.57) K/mm3 [place] # (Auto) 1.18 H (0.30-0.82) K/mm3 Eos # (Auto) 0.31 (0.04-0.54) K/mm3 Baso # (Auto) 0.02 (0.01-0.08) K/mm3 Manual Slide Review Abnormal smear D-Dimer, Quantitative 1.15 H (0.19-0.50) mg/L Sodium (136-145) mEq/L Potassium (3.5-5.1) mEq/L Chloride (98-107) mEq/L Carbon Dioxide (21-32) mEq/L Anion Gap (5-15) BUN (7-18) mg/dL Creatinine (0.7-1.3) mg/dL Est Cr Clr Drug Dosing mL/min Estimated GFR (MDRD) (>60) mL/min BUN/Creatinine Ratio (14-18) Glucose (83-115) mg/dL Calcium (8.5-10.1) mg/dL Magnesium (1.8-2.4) mg/dl Total Bilirubin (0.2-1.0) mg/dL AST (15-37) U/L ALT (16-63) U/L Alkaline Phosphatase (46-116) U/L C-Reactive Protein (<1.0) mg/dL Total Protein (6.4-8.2) g/dl Albumin (3.4-5.0) g/dl Globulin gm/dL Albumin/Globulin Ratio (1-2) SARS-CoV-2 RNA (CLAUDIA) Positive H (NEGATIVE) 08/02/20 Range/Units 06:35 WBC (4.23-9.07) K/mm3 RBC (4.63-6.08) M/mm3 Hgb (13.7-17.5) gm/dl Hct (40.1-51.0) % MCV (79.0-92.2) fl MCH (25.7-32.2) pg MCHC (32.2-35.5) g/dl RDW Std Deviation (35.1-43.9) fL Plt Count (163-337) K/mm3 MPV (9.4-12.3) fl Neut % (Auto) (34.0-67.9) % Lymph % (Auto) (21.8-53.1) % [place] % (Auto) (5.3-12.2) % Eos % (Auto) (0.8-7.0) Baso % (Auto) (0.1-1.2) % Neut # (Auto) (1.78-5.38) K/mm3 Lymph # (Auto) (1.32-3.57) K/mm3 [place] # (Auto) (0.30-0.82) K/mm3 Eos # (Auto) (0.04-0.54) K/mm3 Baso # (Auto) (0.01-0.08) K/mm3 Manual Slide Review D-Dimer, Quantitative (0.19-0.50) mg/L Sodium 137 (136-145) mEq/L Potassium 4.0 (3.5-5.1) mEq/L Chloride 103 (98-107) mEq/L Carbon Dioxide 23 (21-32) mEq/L Anion Gap 15.0 (5-15) BUN 18 (7-18) mg/dL Creatinine 0.9 (0.7-1.3) mg/dL Est Cr Clr Drug Dosing 46.91 mL/min Estimated GFR (MDRD) > 60 (>60) mL/min BUN/Creatinine Ratio 20.0 H (14-18) Glucose 118 H (83-115) mg/dL Calcium 8.6 (8.5-10.1) mg/dL Magnesium 1.9 (1.8-2.4) mg/dl Total Bilirubin 1.0 (0.2-1.0) mg/dL AST 22 (15-37) U/L ALT 24 (16-63) U/L Alkaline Phosphatase 77 (46-116) U/L C-Reactive Protein 10.6 H* (<1.0) mg/dL Total Protein 6.1 L (6.4-8.2) g/dl Albumin 2.4 L (3.4-5.0) g/dl Globulin 3.7 gm/dL Albumin/Globulin Ratio 0.7 L (1-2) SARS-CoV-2 RNA (CLAUDIA) (NEGATIVE) Med Orders - Current: Current Medications Acetaminophen (Tylenol) 650 mg PO Q4H PRN PRN Reason: Pain (Mild 1-3)/fever Last Admin: 08/01/20 12:26 Dose: 650 mg Documented by: Artificial Tears (Refresh Liquigel 1%) 0 ml EYERT BID [facility] Last Admin: 08/01/20 22:03 Dose: 1 drop Documented by: Brimonidine Tartrate (Alphagan 0.2% Oph Sol) 0 ml EYERT BID [facility] Last Admin: 08/01/20 20:36 Dose: 1 drop Documented by: Cholecalciferol (Vitamin D3) 5,000 unit PO DAILY [facility] Last Admin: 08/01/20 08:02 Dose: 5,000 unit Documented by: Enoxaparin Sodium (Lovenox) 40 mg SUBCUT DAILY [facility] Last Admin: 08/01/20 08:02 Dose: 40 mg Documented by: Gabapentin (Neurontin) 100 mg PO DAILY [facility] Last Admin: 08/01/20 08:02 Dose: 100 mg Documented by: Gabapentin (Neurontin) 100 mg PO BEDTIME PRN PRN Reason: Pain Lactulose (Cephulac) 20 gm PO DAILY [facility] Last Admin: 08/01/20 08:03 Dose: 20 gm Documented by: Nystatin (Nystop) 0 gm TOP TID [facility] Last Admin: 08/01/20 20:37 Dose: 1 gm Documented by: Ondansetron HCl (Zofran) 4 mg IV Q4H PRN PRN Reason: Nausea/Vomiting Polyethylene Glycol (Miralax) 17 gm PO DAILY PRN PRN Reason: Constipation Last Admin: 07/31/20 18:39 Dose: 17 gm Documented by: Sodium Chloride (Saline Flush) 10 ml FLUSH ASDIRECTED PRN PRN Reason: Keep Vein Open Last Admin: 07/23/20 12:40 Dose: 10 ml Documented by: Sodium Chloride (Saline Flush) 10 ml FLUSH ASDIRECTED PRN PRN Reason: Keep Vein Open Timolol Maleate (Timoptic 0.5% Ophth Soln) 0 ml EYERT BID [facility] Last Admin: 08/01/20 20:54 Dose: 1 drop Documented by: Discontinued Medications Bisacodyl (Dulcolax) 10 mg RECTAL ONETIME ONE Stop: 07/24/20 18:31 Last Admin: 07/24/20 18:27 Dose: 10 mg Documented by: Bisacodyl (Dulcolax) 10 mg RECTAL ONETIME ONE Stop: 07/29/20 09:20 Last Admin: 07/29/20 09:45 Dose: 10 mg Documented by: Cholecalciferol (Vitamin D3) 5,000 unit PO DAILY [facility] Last Admin: 07/27/20 09:02 Dose: 5,000 unit Documented by: Dexamethasone (Dexamethasone) 4 mg IVPUSH ONETIME ONE Stop: 07/23/20 12:07 Last Admin: 07/23/20 12:41 Dose: 4 mg Documented by: Dexamethasone (Dexamethasone) 6 mg PO DAILY [facility] Stop: 08/01/20 09:01 Last Admin: 07/26/20 08:22 Dose: 6 mg Documented by: Haloperidol Lactate (Haldol) 2.5 mg IVPUSH ONETIME ONE Stop: 07/26/20 10:10 Last Admin: 07/26/20 10:21 Dose: 2.5 mg Documented by: Sodium Chloride (Normal Saline) 1,000 mls @ 125 mls/hr IV ASDIRECTED [facility] Last Admin: 07/24/20 07:34 Dose: 125 mls/hr Documented by: Remdesivir 200 mg/ Sodium (Chloride) 250 mls @ 250 mls/hr IV ONETIME ONE Stop: 07/24/20 01:29 Last Admin: 07/24/20 00:29 Dose: 250 mls/hr Documented by: Remdesivir 100 mg/ Sodium (Chloride) 100 mls @ 100 mls/hr IV Q24H [facility] Stop: 07/27/20 23:59 Last Admin: 07/27/20 23:38 Dose: 100 mls/hr Documented by: Magnesium Sulfate (Magnesium Sulfate In Water Premix) 2 gm in 50 mls @ 25 mls/hr IV ONETIME ONE Stop: 07/26/20 09:44 Last Admin: 07/26/20 08:22 Dose: 25 mls/hr Documented by: Sodium Chloride (Normal Saline) 1,000 mls @ 100 mls/hr IV ASDIRECTED [facility] Last Admin: 07/29/20 09:45 Dose: 100 mls/hr Documented by: Sodium Chloride (Normal Saline) 1,000 mls @ 100 mls/hr IV ASDIRECTED [facility] Last Admin: 07/31/20 01:42 Dose: 100 mls/hr Documented by: Magnesium Sulfate (Magnesium Sulfate In Water Premix) 2 gm in 50 mls @ 25 mls/hr IV ONETIME ONE Stop: 07/30/20 14:16 Last Admin: 07/30/20 12:52 Dose: 25 mls/hr Documented by: Influenza Virus Vaccine (Fluzone High-Dose Quad ) 240 mcg IM .ONCE ONE Stop: 07/26/20 13:16 Magnesium Hydroxide (Milk Of Magnesia) 30 ml PO ONETIME ONE Stop: 07/24/20 09:01 Last Admin: 07/24/20 08:41 Dose: 30 ml Documented by: Magnesium Hydroxide (Milk Of Magnesia) 30 ml PO ONETIME ONE Stop: 07/28/20 13:56 Last Admin: 07/28/20 15:26 Dose: 30 ml Documented by: Potassium Chloride (Klor-Con M20) 40 meq PO ONETIME ONE Stop: 08/01/20 07:25 Last Admin: 08/01/20 08:02 Dose: 40 meq Documented by: - Exam Quality Assessment: Urine Catheter (chronic ), DVT Prophylaxis. No: Supplemental Oxygen General: Alert, Cooperative, No Acute Distress. No: Oriented HEENT: Pupils Equal, Pupils Reactive, Mucous Membr. Moist/[place] Neck: Supple, Trachea Midline Lungs: Clear to Auscultation, Normal Respiratory Effort, Decreased Breath Sounds Cardiovascular: Regular Rate, Regular Rhythm GI/Abdominal Exam: Normal Bowel Sounds, Soft, Non-Tender, No Distention (Male) Exam: Deferred Extremities: Normal Inspection, Normal Range of Motion, Non-Tender, No Pedal Edema Skin: Warm, Dry, Intact Neurological: No New Focal Deficit Sepsis Event Note - Evaluation Sepsis Screening Result: No Definite Risk - Problem List & Annotations (1) Acute hypoxemic respiratory failure due to COVID-19 SNOMED Code(s): 619875274 Code(s): U07.1 - COVID-19; J96.01 - ACUTE RESPIRATORY FAILURE WITH HYPOXIA Status: Acute Priority: High Current Visit: Yes (2) Acute kidney injury SNOMED Code(s): 44736076, 06548741 Code(s): N17.9 - ACUTE KIDNEY FAILURE, UNSPECIFIED Status: Resolved Priority: High Current Visit: Yes (3) Failure to thrive SNOMED Code(s): 76007482 Code(s): QXZ8434 - Status: Acute Priority: High Current Visit: Yes (4) Generalized weakness SNOMED Code(s): 71441667 Code(s): R53.1 - WEAKNESS Status: Acute Current Visit: Yes (5) Hypertension SNOMED Code(s): 74419792 Code(s): I10 - ESSENTIAL (PRIMARY) HYPERTENSION Status: Chronic Priority: High Current Visit: Yes Qualifiers: Hypertension type: unspecified Qualified Code(s): I10 - Essential (primary) hypertension (6) Hypochloremia SNOMED Code(s): 85583245 Code(s): E87.8 - OTH DISORDERS OF ELECTROLYTE AND FLUID BALANCE, NEC Status: Resolved Priority: High Current Visit: Yes (7) Hyponatremia SNOMED Code(s): 98014444 Code(s): E87.1 - HYPO-OSMOLALITY AND HYPONATREMIA Status: Resolved Priority: High Current Visit: Yes (8) Physical deconditioning SNOMED Code(s): 98880645867651 Code(s): R53.81 - OTHER MALAISE Status: Acute Priority: High Current Visit: Yes (9) Pneumonia due to COVID-19 virus SNOMED Code(s): 538703867422086555 Code(s): U07.1 - COVID-19; J12.89 - OTHER VIRAL PNEUMONIA Status: Acute Priority: High Current Visit: Yes (10) Volume depletion SNOMED Code(s): 108865091 Code(s): E86.9 - VOLUME DEPLETION, UNSPECIFIED Status: Resolved Priority: High Current Visit: Yes (11) COVID-19 SNOMED Code(s): 869365981 Code(s): U07.1 - COVID-19 Status: Acute Priority: High Current Visit: No (12) Hypotension SNOMED Code(s): 19671146 Code(s): I95.9 - HYPOTENSION, UNSPECIFIED Status: Acute Priority: High Current Visit: Yes Qualifiers: Hypotension type: unspecified hypotension type Qualified Code(s): I95.9 - Hypotension, unspecified - Problem List Review Problem List Initiated/Reviewed/Updated: Yes - My Orders Last 24 Hours: My Active Orders 08/01/20 Lunch Thickened Liquids [DIET] 08/01/20 15:08 TOBACCO WEIGHER Eval and Treat [TOBACCO WEIGHER Evaluation and Treatment] [CONS] Routine - Assessment Assessment:: 07/23/2020 10 day history of positive COVID diagnosis Has been seen in the ED three times in the last 8 days. History of UTI recently treated with rocephin and omnicef Lives in [place] Pulse ox on admission was 88-89% Decreased appetite and po intake. Chest xray reveals increased density within the left lung base suspicious for small area of pneumonia. Lab results: -WBC 6.11 -Plt 106 -Ddimer 0.76 -UA negative -Na 127 -Chl 94 -BUN 17 -CRE 1.4 -GFR 48 -Ferritin 938 -LDH 190 -CRP 9.9 ABGs on room air -pH 7.45 -pCO2 30.2 -pO2 70.0 -HCO3 20.5 PLAN -Start Remdesivir -Start dexamethasone -Normal Saline @ 100ml/hr -Monitor for hypoxemia -Monitor urine output -Renally dosed medications -Repeat labs and replace electrolytes as needed -PT/OT to eval and treat -Verifying Specialist consult for supplements -Incentive spirometry 07/24/20 Still requires 2 liters of O2 Hematuria noted in peña catheter today. UA/UC ordered Day 2 of dexamethasone and remdesivir IV fluids stopped-pt taking po well Encourage IS Lab results: -WBC down from 6.11-4.03 -Na up from 127-134 -BUN down from 17-15 -CRE down from 1.4-1.1 -GFR up from 48->60 PLAN -Day 2 of Remdesivir and dexamethasone -Saline lock IVF -Monitor for hypoxemia -Monitor urine output -Renally dosed medications -Repeat labs and replace electrolytes as needed -PT/OT to eval and treat -Verifying Specialist consult for supplements -Incentive spirometry -Nystantin to groin -UA/UC 07/25/20 On room air Day 3 of dexamethasone and remdesivir Encourage IS Yeast to groin. Vitals: BP 128-166/79-96 Tmax 98.4 Heart rate 62-72 91-91% on room air Lab results: -WBC 7.19 from 4.03 -Ddimer 1.07 from 0.76 -BUN from 16.6 to 17 -CRE up from 1.1 to 1.3 -GFR down from >60 to 52 -CRP down from 9.9 to 6.5 PLAN -Day 3 of Remdesivir and dexamethasone -Monitor for hypoxemia -Monitor urine output -Renally dosed medications -Repeat labs and replace electrolytes as needed -PT/OT to eval and treat -Incentive spirometry -Nystantin to groin 07/26/20 Extremely confused and agitated today. Per the family, he has had this reaction to dexamethasone in the past. Day 4 of dexamethasone and remdesivir Encourage IS Yeast to groin. Vitals: BP 126-166/74-93 Tmax 97.6 Heart rate 60-74 90-95% on room air Lab results: -BUN from 20-26 -CRE down from 1.3-1.2 -GFR up from 52 to 57 -Mg down from 1.9 to 1.7 PLAN -Day 4 of Remdesivir and dexamethasone -discontinue dexamethasone due to increased confusion and agitation. Pt given haldol x 1 dose due to dexamethasone effects. -Monitor for hypoxemia -Monitor urine output -Renally dosed medications -Repeat labs and replace electrolytes as needed -PT/OT to eval and treat -Pt continues to pull at peña and dig in his groin per nursing staff and then complains of back pain. UA ordered. -Nystantin to groin 07/27/20 Remains confused but is much more alert and less agitated. Day 5 of Remdesivir Encourage IS Yeast to groin. Vitals: BP 126-147-165/72-103 Tmax 97.9 Heart rate 71-76 92% on room air Lab results: -WBC up from 7.66 to 9.92 -BUN up from 26 to 28 -CRE 1.2 -GFR 57 -CRP down to 2.7 to 6.5 PLAN -Day 5 of Remdesivir -Monitor for hypoxemia -Monitor urine output -Renally dosed medications -Repeat labs and replace electrolytes as needed -PT/OT to eval and treat -UA unremarkable -Nystantin to groin 07/28/2020 Continues improving, but still poor oral intake. Stop dexamethasone because of delirium. Completed remdesivir. No labs today. 91 to 93% on room air. Vital signs stable. Afebrile. 07/29/2020 Continued poor oral intake. Decreased urine output secondary to poor oral intake. CRP increased dramatically to 15.1. WBC stable at 9.1, d-dimer 0.95. Procalcitonin done yesterday was less than 0.05. Renal function is stable with GFR 57. Albumin is low at 2.7. This reflects his poor oral intake. Chest x-ray showed some improvement in the multifocal peripheral airspace opacities consistent with his known COVID illness. 07/30/2020 Continued poor oral intake. Urine output is better CRP increased from 15.1 to 15.7 Will hold discharge til we get procalcitonin level back tomorrow. 07/31/2020 Eating 50% of meals and 100% of supplements Urine output is better Vital signs -Blood pressure 114-163/65-97 -T max 98.2 -Heart rate 62-80 -91-94% on room air Lab results -Ddimer up from 0.66 to 0.68 -CRP down from 15.7 to 14.3 08/01/2020 Remains clinically stable Continues to have poor appetite Urine output remains adequate Vital signs remain stable No labs obtained today Pending placement COVID-19 Re-test required by SNF remains positive as expected. Continues to work with PT and OT who recommend SNF placement 08/02/2020 A bit more confused today Continues to have poor appetite Urine output remains adequate Hypotensive today - given 500mL fluid bolus with good results, now stable vital signs. A bit more tired and difficult to understand today Labs today stable with D-dimer slightly elevated at 1.15 from 0.68 Discussed code status with son in room. Son will discuss with mother and report back. Pending placement. - Plan Plan:: Failure to thrive Weakness Physical deconditioning -PT/OT to continue working with him -Encourage oral intake -Verifying Specialist consult -CM/SW consult for placement Hypotension -500 mL fluid bolus -Monitor urine output -Monitor vital signs Hyponatremia-resolved Volume depletion-resolved -Replace electrolytes as needed -Follow electrolytes Stage III chronic renal disease, stable -Renally dosed medications -Monitor kidney function -Monitory urine output Acute hypoxemic respiratory failure due to COVID-19 Pneumonia due to COVID-19 virus COVID-19 -Dexamethasone discontinued secondary to increased confusion. -No longer one-on-one nursing care -Completed remdesivir -Incentive spirometry -Continuous pulse discontinued due to patient removing pulse ox. -Monitor for hypoxemia Hypertension -PRN Hydralazine PROPHYLAXIS DVT-Lovenox CODE STATUS: FULL CODE DISPOSITION: Awaiting half-way placement.
[2020-08-02] MEDS: Lactulose Soln 10 GM/15 ML 30 ML UD Cup PO SCH (08:49)
[2020-08-02] MEDS: Brimonidine 0.2% Ophth Soln 5 ML Bottle EYERT SCH ×2 (08:50→20:26)
[2020-08-02] MEDS: Polyethylene Glycol 3350 Powder 17 GM Packet PO PRN (08:51)
[2020-08-02] MEDS: Timolol Maleate 0.5% Ophth Soln 5 ML Bottle EYERT SCH ×2 (08:54→20:27)
[2020-08-02] MEDS: Acetaminophen 325 MG Tab PO PRN (08:56)
[2020-08-02] MEDS: Cholecalciferol (Vitamin D3) 5,000 UNIT Cap PO SCH (08:58)
[2020-08-02] MEDS: Gabapentin 100 MG Cap PO SCH (08:59)
[2020-08-02] MEDS: Enoxaparin 40 MG/0.4 ML Syringe SUBCUT SCH (09:04)
[2020-08-02] MEDS ORDERED: Sodium Chloride 0.9% 1,000 ML ONE (09:34)
[2020-08-02] MEDS: Nystatin Topical Powder 15 GM Bottle TOP SCH ×3 (09:35→20:26)
[2020-08-02] MEDS ORDERED: Sodium Chloride 0.9% 500 ML IV ONE (09:37)
[2020-08-02] MEDS: Carboxymethylcellulose Sodium 1% Ophth Gel 15 ML Bottle EYERT SCH ×2 (09:52→20:27)
--- NOTE | 2020-08-03 08:19 | PCM.PN ---
- General Info Date of Service: 08/03/20 Admission Dx/Problem (Free Text): Admission Diagnosis/Problem Admission Diagnosis/Problem Failure to thrive Functional Status: Reports: Pain Controlled, Tolerating Diet, Ambulating, Urinating, Incentive Spirometry. Denies: New Symptoms - Review of Systems General: Reports: Weakness, Fatigue. Denies: Fever, Malaise, Chills HEENT: Reports: No Symptoms. Denies: Headaches, Sore Throat Pulmonary: Reports: Cough. Denies: Shortness of Breath, Sputum, Wheezing Cardiovascular: Reports: No Symptoms, Dyspnea on Exertion. Denies: Chest Pain, Palpitations Gastrointestinal: Reports: No Symptoms. Denies: Abdominal Pain, Constipation, Diarrhea, Nausea, Vomiting Genitourinary: Reports: No Symptoms. Denies: Pain Musculoskeletal: Reports: No Symptoms Skin: Reports: No Symptoms. Denies: Cyanosis Neurological: Reports: Confusion, Difficulty Walking, Weakness, Gait Disturbance Psychiatric: Reports: No Symptoms - Patient Data Vitals - Most Recent: Last Vital Signs Temp 98.2 F 08/02/20 20:24 Pulse 72 08/03/20 07:52 Resp 20 08/03/20 07:52 BP 142/96 H 08/03/20 07:52 Pulse Ox 94 L 08/03/20 07:52 Weight - Most Recent: 174 lb 1.6 oz I&O - Last 24 Hours: Intake & Output 08/02/20 08/03/20 08/03/20 22:59 06:59 14:59 Intake Total 760 300 Output Total 500 375 Balance 260 -75 Lab Results Last 24 Hours: Laboratory Results - last 24 hr 08/03/20 08/03/20 Range/Units 05:20 05:20 D-Dimer, Quantitative 1.51 H (0.19-0.50) mg/L Sodium 137 (136-145) mEq/L Potassium 4.1 (3.5-5.1) mEq/L Chloride 103 (98-107) mEq/L Carbon Dioxide 24 (21-32) mEq/L Anion Gap 14.1 (5-15) BUN 18 (7-18) mg/dL Creatinine 1.0 (0.7-1.3) mg/dL Est Cr Clr Drug Dosing 42.22 mL/min Estimated GFR (MDRD) > 60 (>60) mL/min BUN/Creatinine Ratio 18.0 (14-18) Glucose 110 (83-115) mg/dL Calcium 8.5 (8.5-10.1) mg/dL Magnesium 1.8 (1.8-2.4) mg/dl Med Orders - Current: Current Medications Acetaminophen (Tylenol) 650 mg PO Q4H PRN PRN Reason: Pain (Mild 1-3)/fever Last Admin: 08/02/20 08:56 Dose: 650 mg Documented by: Artificial Tears (Refresh Liquigel 1%) 0 ml EYERT BID [facility] Last Admin: 08/02/20 20:27 Dose: 1 drop Documented by: Brimonidine Tartrate (Alphagan 0.2% Ophth Soln) 0 ml EYERT BID [facility] Last Admin: 08/02/20 20:26 Dose: 1 drop Documented by: Cholecalciferol (Vitamin D3) 5,000 unit PO DAILY [facility] Last Admin: 08/02/20 08:58 Dose: 5,000 unit Documented by: Enoxaparin Sodium (Lovenox) 40 mg SUBCUT DAILY [facility] Last Admin: 08/02/20 09:04 Dose: 40 mg Documented by: Gabapentin (Neurontin) 100 mg PO DAILY [facility] Last Admin: 08/02/20 08:59 Dose: 100 mg Documented by: Gabapentin (Neurontin) 100 mg PO BEDTIME PRN PRN Reason: Pain Lactulose (Cephulac) 20 gm PO DAILY [facility] Last Admin: 08/02/20 08:49 Dose: 20 gm Documented by: Nystatin (Nystop) 0 gm TOP TID [facility] Last Admin: 08/02/20 20:26 Dose: 15 gm Documented by: Ondansetron HCl (Zofran) 4 mg IV Q4H PRN PRN Reason: Nausea/Vomiting Polyethylene Glycol (Miralax) 17 gm PO DAILY PRN PRN Reason: Constipation Last Admin: 08/02/20 08:51 Dose: 17 gm Documented by: Sodium Chloride (Saline Flush) 10 ml FLUSH ASDIRECTED PRN PRN Reason: Keep Vein Open Last Admin: 07/23/20 12:40 Dose: 10 ml Documented by: Sodium Chloride (Saline Flush) 10 ml FLUSH ASDIRECTED PRN PRN Reason: Keep Vein Open Timolol Maleate (Timoptic 0.5% Ophth Soln) 0 ml EYERT BID [facility] Last Admin: 08/02/20 20:27 Dose: 1 drop Documented by: Discontinued Medications Bisacodyl (Dulcolax) 10 mg RECTAL ONETIME ONE Stop: 07/24/20 18:31 Last Admin: 07/24/20 18:27 Dose: 10 mg Documented by: Bisacodyl (Dulcolax) 10 mg RECTAL ONETIME ONE Stop: 07/29/20 09:20 Last Admin: 07/29/20 09:45 Dose: 10 mg Documented by: Cholecalciferol (Vitamin D3) 5,000 unit PO DAILY [facility] Last Admin: 07/27/20 09:02 Dose: 5,000 unit Documented by: Dexamethasone (Dexamethasone) 4 mg IVPUSH ONETIME ONE Stop: 07/23/20 12:07 Last Admin: 07/23/20 12:41 Dose: 4 mg Documented by: Dexamethasone (Dexamethasone) 6 mg PO DAILY [facility] Stop: 08/01/20 09:01 Last Admin: 07/26/20 08:22 Dose: 6 mg Documented by: Haloperidol Lactate (Haldol) 2.5 mg IVPUSH ONETIME ONE Stop: 07/26/20 10:10 Last Admin: 07/26/20 10:21 Dose: 2.5 mg Documented by: Sodium Chloride (Normal Saline) 1,000 mls @ 125 mls/hr IV ASDIRECTED [facility] Last Admin: 07/24/20 07:34 Dose: 125 mls/hr Documented by: Remdesivir 200 mg/ Sodium (Chloride) 250 mls @ 250 mls/hr IV ONETIME ONE Stop: 07/24/20 01:29 Last Admin: 07/24/20 00:29 Dose: 250 mls/hr Documented by: Remdesivir 100 mg/ Sodium (Chloride) 100 mls @ 100 mls/hr IV Q24H [facility] Stop: 07/27/20 23:59 Last Admin: 07/27/20 23:38 Dose: 100 mls/hr Documented by: Magnesium Sulfate (Magnesium Sulfate In Water Premix) 2 gm in 50 mls @ 25 mls/hr IV ONETIME ONE Stop: 07/26/20 09:44 Last Admin: 07/26/20 08:22 Dose: 25 mls/hr Documented by: Sodium Chloride (Normal Saline) 1,000 mls @ 100 mls/hr IV ASDIRECTED [facility] Last Admin: 07/29/20 09:45 Dose: 100 mls/hr Documented by: Sodium Chloride (Normal Saline) 1,000 mls @ 100 mls/hr IV ASDIRECTED [facility] Last Admin: 07/31/20 01:42 Dose: 100 mls/hr Documented by: Magnesium Sulfate (Magnesium Sulfate In Water Premix) 2 gm in 50 mls @ 25 mls/hr IV ONETIME ONE Stop: 07/30/20 14:16 Last Admin: 07/30/20 12:52 Dose: 25 mls/hr Documented by: Sodium Chloride (Normal Saline) Confirm Administered Dose 1,000 mls @ as directed .ROUTE .STK-MED ONE Stop: 08/02/20 09:35 Last Admin: 08/02/20 09:51 Dose: Not Given Documented by: Sodium Chloride (Normal Saline) 500 mls @ 999 mls/hr IV .BOLUS ONE Stop: 08/02/20 10:07 Last Admin: 08/02/20 09:51 Dose: 999 mls/hr Documented by: Influenza Virus Vaccine (Fluzone High-Dose Quad ) 240 mcg IM .ONCE ONE Stop: 07/26/20 13:16 Magnesium Hydroxide (Milk Of Magnesia) 30 ml PO ONETIME ONE Stop: 07/24/20 09:01 Last Admin: 07/24/20 08:41 Dose: 30 ml Documented by: Magnesium Hydroxide (Milk Of Magnesia) 30 ml PO ONETIME ONE Stop: 07/28/20 13:56 Last Admin: 07/28/20 15:26 Dose: 30 ml Documented by: Potassium Chloride (Klor-Con M20) 40 meq PO ONETIME ONE Stop: 08/01/20 07:25 Last Admin: 08/01/20 08:02 Dose: 40 meq Documented by: - Exam Quality Assessment: Urine Catheter, DVT Prophylaxis. No: Supplemental Oxygen General: Alert, Cooperative, No Acute Distress. No: Oriented HEENT: Pupils Equal, Pupils Reactive, Mucous Membr. Moist/[place] Neck: Supple, Trachea Midline Lungs: Clear to Auscultation, Normal Respiratory Effort, Decreased Breath Sounds Cardiovascular: Regular Rate, Regular Rhythm GI/Abdominal Exam: Normal Bowel Sounds, Soft, Non-Tender, No Distention (Male) Exam: Deferred Back Exam: Normal Inspection, Decreased Range of Motion Extremities: Normal Inspection, Normal Range of Motion, Non-Tender Skin: Warm, Dry, Intact Neurological: No New Focal Deficit Psy/Mental Status: Alert Sepsis Event Note - Evaluation Sepsis Screening Result: No Definite Risk - Problem List & Annotations (1) Acute hypoxemic respiratory failure due to COVID-19 SNOMED Code(s): 055134448 Code(s): U07.1 - COVID-19; J96.01 - ACUTE RESPIRATORY FAILURE WITH HYPOXIA Status: Acute Priority: High Current Visit: Yes (2) Acute kidney injury SNOMED Code(s): 72526597, 67786286 Code(s): N17.9 - ACUTE KIDNEY FAILURE, UNSPECIFIED Status: Resolved Priority: High Current Visit: Yes (3) Failure to thrive SNOMED Code(s): 58391181 Code(s): VXY6981 - Status: Acute Priority: High Current Visit: Yes (4) Generalized weakness SNOMED Code(s): 23861875 Code(s): R53.1 - WEAKNESS Status: Acute Current Visit: Yes (5) Hypertension SNOMED Code(s): 06617231 Code(s): I10 - ESSENTIAL (PRIMARY) HYPERTENSION Status: Chronic Priority: High Current Visit: Yes Qualifiers: Hypertension type: unspecified Qualified Code(s): I10 - Essential (primary) hypertension (6) Hypochloremia SNOMED Code(s): 71787167 Code(s): E87.8 - OTH DISORDERS OF ELECTROLYTE AND FLUID BALANCE, NEC Status: Resolved Priority: High Current Visit: Yes (7) Hyponatremia SNOMED Code(s): 54047382 Code(s): E87.1 - HYPO-OSMOLALITY AND HYPONATREMIA Status: Resolved Priority: High Current Visit: Yes (8) Physical deconditioning SNOMED Code(s): 58621273156003 Code(s): R53.81 - OTHER MALAISE Status: Acute Priority: High Current Visit: Yes (9) Pneumonia due to COVID-19 virus SNOMED Code(s): 150284897721988804 Code(s): U07.1 - COVID-19; J12.89 - OTHER VIRAL PNEUMONIA Status: Acute Priority: High Current Visit: Yes (10) Volume depletion SNOMED Code(s): 517721841 Code(s): E86.9 - VOLUME DEPLETION, UNSPECIFIED Status: Resolved Priority: High Current Visit: Yes (11) COVID-19 SNOMED Code(s): 519628285 Code(s): U07.1 - COVID-19 Status: Acute Priority: High Current Visit: No (12) Hypotension SNOMED Code(s): 57524788 Code(s): I95.9 - HYPOTENSION, UNSPECIFIED Status: Acute Priority: High Current Visit: Yes Qualifiers: Hypotension type: unspecified hypotension type Qualified Code(s): I95.9 - Hypotension, unspecified - Problem List Review Problem List Initiated/Reviewed/Updated: Yes - My Orders Last 24 Hours: My Active Orders 08/03/20 Breakfast Pureed Diet [DIET] Thickened Liquids [DIET] 08/04/20 05:11 DD [D-DIMER QUANTITATIVE] [COAG] AM - Assessment Assessment:: 07/23/2020 10 day history of positive COVID diagnosis Has been seen in the ED three times in the last 8 days. History of UTI recently treated with rocephin and omnicef Lives in [place] Pulse ox on admission was 88-89% Decreased appetite and po intake. Chest xray reveals increased density within the left lung base suspicious for small area of pneumonia. Lab results: -WBC 6.11 -Plt 106 -Ddimer 0.76 -UA negative -Na 127 -Chl 94 -BUN 17 -CRE 1.4 -GFR 48 -Ferritin 938 -LDH 190 -CRP 9.9 ABGs on room air -pH 7.45 -pCO2 30.2 -pO2 70.0 -HCO3 20.5 PLAN -Start Remdesivir -Start dexamethasone -Normal Saline @ 100ml/hr -Monitor for hypoxemia -Monitor urine output -Renally dosed medications -Repeat labs and replace electrolytes as needed -PT/OT to eval and treat -Neighborhood Worker consult for supplements -Incentive spirometry 07/24/20 Still requires 2 liters of O2 Hematuria noted in peña catheter today. UA/UC ordered Day 2 of dexamethasone and remdesivir IV fluids stopped-pt taking po well Encourage IS Lab results: -WBC down from 6.11-4.03 -Na up from 127-134 -BUN down from 17-15 -CRE down from 1.4-1.1 -GFR up from 48->60 PLAN -Day 2 of Remdesivir and dexamethasone -Saline lock IVF -Monitor for hypoxemia -Monitor urine output -Renally dosed medications -Repeat labs and replace electrolytes as needed -PT/OT to eval and treat -Neighborhood Worker consult for supplements -Incentive spirometry -Nystantin to groin -UA/UC 07/25/20 On room air Day 3 of dexamethasone and remdesivir Encourage IS Yeast to groin. Vitals: BP 128-166/79-96 Tmax 98.4 Heart rate 62-72 91-91% on room air Lab results: -WBC 7.19 from 4.03 -Ddimer 1.07 from 0.76 -BUN from 16.6 to 17 -CRE up from 1.1 to 1.3 -GFR down from >60 to 52 -CRP down from 9.9 to 6.5 PLAN -Day 3 of Remdesivir and dexamethasone -Monitor for hypoxemia -Monitor urine output -Renally dosed medications -Repeat labs and replace electrolytes as needed -PT/OT to eval and treat -Incentive spirometry -Nystantin to groin 07/26/20 Extremely confused and agitated today. Per the family, he has had this reaction to dexamethasone in the past. Day 4 of dexamethasone and remdesivir Encourage IS Yeast to groin. Vitals: BP 126-166/74-93 Tmax 97.6 Heart rate 60-74 90-95% on room air Lab results: -BUN from 20-26 -CRE down from 1.3-1.2 -GFR up from 52 to 57 -Mg down from 1.9 to 1.7 PLAN -Day 4 of Remdesivir and dexamethasone -discontinue dexamethasone due to increased confusion and agitation. Pt given haldol x 1 dose due to dexamethasone effects. -Monitor for hypoxemia -Monitor urine output -Renally dosed medications -Repeat labs and replace electrolytes as needed -PT/OT to eval and treat -Pt continues to pull at peña and dig in his groin per nursing staff and then complains of back pain. UA ordered. -Nystantin to groin 07/27/20 Remains confused but is much more alert and less agitated. Day 5 of Remdesivir Encourage IS Yeast to groin. Vitals: BP 126-147-165/72-103 Tmax 97.9 Heart rate 71-76 92% on room air Lab results: -WBC up from 7.66 to 9.92 -BUN up from 26 to 28 -CRE 1.2 -GFR 57 -CRP down to 2.7 to 6.5 PLAN -Day 5 of Remdesivir -Monitor for hypoxemia -Monitor urine output -Renally dosed medications -Repeat labs and replace electrolytes as needed -PT/OT to eval and treat -UA unremarkable -Nystantin to groin 07/28/2020 Continues improving, but still poor oral intake. Stop dexamethasone because of delirium. Completed remdesivir. No labs today. 91 to 93% on room air. Vital signs stable. Afebrile. 07/29/2020 Continued poor oral intake. Decreased urine output secondary to poor oral intake. CRP increased dramatically to 15.1. WBC stable at 9.1, d-dimer 0.95. Procalcitonin done yesterday was less than 0.05. Renal function is stable with GFR 57. Albumin is low at 2.7. This reflects his poor oral intake. Chest x-ray showed some improvement in the multifocal peripheral airspace opacities consistent with his known COVID illness. 07/30/2020 Continued poor oral intake. Urine output is better CRP increased from 15.1 to 15.7 Will hold discharge til we get procalcitonin level back tomorrow. 07/31/2020 Eating 50% of meals and 100% of supplements Urine output is better Vital signs -Blood pressure 114-163/65-97 -T max 98.2 -Heart rate 62-80 -91-94% on room air Lab results -Ddimer up from 0.66 to 0.68 -CRP down from 15.7 to 14.3 08/01/2020 Remains clinically stable Continues to have poor appetite Urine output remains adequate Vital signs remain stable No labs obtained today Pending placement COVID-19 Re-test required by SNF remains positive as expected. Continues to work with PT and OT who recommend SNF placement 08/02/2020 A bit more confused today Continues to have poor appetite Urine output remains adequate Hypotensive today - given 500mL fluid bolus with good results, now stable vital signs. A bit more tired and difficult to understand today Labs today stable with D-dimer slightly elevated at 1.15 from 0.68 Discussed code status with son in room. Son will discuss with mother and report back. Pending placement. 08/03/2020 More interactive today but quite sleepy Nursing reports patient was awake most of the night Vital signs stable today Not requiring oxygen D-Dimer up from 1.16 to 1.51. Discussed with Dr. H[place]. Will monitor Re-check D-Dimer, CMP, CBC, Magnesium in AM Awaiting to discuss code status with son further Last BM 08/02/2020 Pending placement. - Plan Plan:: Failure to thrive Weakness Physical deconditioning -PT/OT to continue working with him -Encourage oral intake -Neighborhood Worker consult -CM/SW consult for placement Hypotension- resolved -Monitor vital signs Hyponatremia-resolved Volume depletion-resolved -Replace electrolytes as needed -Follow electrolytes Stage III chronic renal disease, stable -Renally dosed medications -Monitor kidney function -Monitory urine output Acute hypoxemic respiratory failure due to COVID-19 Pneumonia due to COVID-19 virus COVID-19 -Dexamethasone discontinued secondary to increased confusion. -No longer one-on-one nursing care -Completed remdesivir -Incentive spirometry Hypertension -PRN Hydralazine PROPHYLAXIS DVT-Lovenox CODE STATUS: FULL CODE DISPOSITION: [facility]. LOS > 96HRS pending placement
[2020-08-03] MEDS: Brimonidine 0.2% Ophth Soln 5 ML Bottle EYERT SCH ×2 (08:58→20:09)
[2020-08-03] MEDS: Nystatin Topical Powder 15 GM Bottle TOP SCH ×3 (09:00→20:09)
[2020-08-03] MEDS: Cholecalciferol (Vitamin D3) 5,000 UNIT Cap PO SCH (09:00)
[2020-08-03] MEDS: Gabapentin 100 MG Cap PO SCH (09:00)
[2020-08-03] MEDS: Timolol Maleate 0.5% Ophth Soln 5 ML Bottle EYERT SCH ×2 (09:04→20:09)
[2020-08-03] MEDS: Carboxymethylcellulose Sodium 1% Ophth Gel 15 ML Bottle EYERT SCH ×2 (09:05→20:10)
[2020-08-03] MEDS: Lactulose Soln 10 GM/15 ML 30 ML UD Cup PO SCH (09:05)
[2020-08-03] MEDS: Enoxaparin 40 MG/0.4 ML Syringe SUBCUT SCH (09:06)
[2020-08-03] MEDS: Acetaminophen 325 MG Tab PO SCH (20:10)
--- NOTE | 2020-08-04 08:37 | PCM.PN ---
- General Info Date of Service: 08/04/20 Admission Dx/Problem (Free Text): Admission Diagnosis/Problem Admission Diagnosis/Problem Failure to thrive Subjective Update: Patient was originally admitted on July 23, 2020 for COVID-19 and failure to thrive.The patient has been sleeping. He is somewhat hard to arouse. The patient also is hard of hearing. He has denied any pain. Patient has had a poor appetite. Functional Status: Reports: Pain Controlled - Review of Systems General: Reports: Weakness HEENT: Reports: No Symptoms Pulmonary: Reports: No Symptoms Cardiovascular: Reports: No Symptoms Gastrointestinal: Reports: No Symptoms Genitourinary: Reports: No Symptoms Musculoskeletal: Reports: No Symptoms Skin: Reports: No Symptoms Neurological: Reports: No Symptoms Psychiatric: Reports: No Symptoms - Patient Data Vitals - Most Recent: Last Vital Signs Temp 36.4 C 08/03/20 14:00 Pulse 76 08/04/20 03:07 Resp 18 08/04/20 03:07 BP 125/80 08/04/20 03:07 Pulse Ox 92 L 08/04/20 03:07 Weight - Most Recent: 79.696 kg I&O - Last 24 Hours: Intake & Output 08/03/20 08/04/20 08/04/20 22:59 06:59 14:59 Intake Total 340 120 Output Total 300 300 Balance 40 -180 Lab Results Last 24 Hours: Laboratory Results - last 24 hr 08/04/20 08/04/20 08/04/20 Range/Units 05:09 05:09 05:09 WBC 6.06 (4.23-9.07) K/mm3 RBC 4.16 L (4.63-6.08) M/mm3 Hgb 12.9 L (13.7-17.5) gm/dl Hct 38.5 L (40.1-51.0) % MCV 92.5 H (79.0-92.2) fl MCH 31.0 (25.7-32.2) pg MCHC 33.5 (32.2-35.5) g/dl RDW Std Deviation 47.4 H (35.1-43.9) fL Plt Count 146 L (163-337) K/mm3 MPV 10.4 (9.4-12.3) fl Neut % (Auto) 58.4 (34.0-67.9) % Lymph % (Auto) 19.5 L (21.8-53.1) % Garland % (Auto) 17.7 H (5.3-12.2) % Eos % (Auto) 4.0 (0.8-7.0) Baso % (Auto) 0.2 (0.1-1.2) % Neut # (Auto) 3.55 (1.78-5.38) K/mm3 Lymph # (Auto) 1.18 L (1.32-3.57) K/mm3 Garland # (Auto) 1.07 H (0.30-0.82) K/mm3 Eos # (Auto) 0.24 (0.04-0.54) K/mm3 Baso # (Auto) 0.01 (0.01-0.08) K/mm3 Manual Slide Review Abnormal smear D-Dimer, Quantitative 1.05 H (0.19-0.50) mg/L Sodium 137 (136-145) mEq/L Potassium 3.8 (3.5-5.1) mEq/L Chloride 103 (98-107) mEq/L Carbon Dioxide 24 (21-32) mEq/L Anion Gap 13.8 (5-15) BUN 19 H (7-18) mg/dL Creatinine 0.9 (0.7-1.3) mg/dL Est Cr Clr Drug Dosing 46.91 mL/min Estimated GFR (MDRD) > 60 (>60) mL/min BUN/Creatinine Ratio 21.1 H (14-18) Glucose 117 H (83-115) mg/dL Calcium 8.7 (8.5-10.1) mg/dL Magnesium 1.9 (1.8-2.4) mg/dl Total Bilirubin 0.9 (0.2-1.0) mg/dL AST 31 (15-37) U/L ALT 38 (16-63) U/L Alkaline Phosphatase 81 (46-116) U/L Total Protein 6.0 L (6.4-8.2) g/dl Albumin 2.3 L (3.4-5.0) g/dl Globulin 3.7 gm/dL Albumin/Globulin Ratio 0.6 L (1-2) Med Orders - Current: Current Medications Acetaminophen (Tylenol) 650 mg PO Q4H PRN PRN Reason: Pain (Mild 1-3)/fever Last Admin: 08/02/20 08:56 Dose: 650 mg Documented by: Acetaminophen (Tylenol) 650 mg PO BID REPLACED BY [facility] Last Admin: 08/03/20 20:10 Dose: 650 mg Documented by: Artificial Tears (Refresh Liquigel 1%) 0 ml EYERT BID REPLACED BY [facility] Last Admin: 08/03/20 20:10 Dose: 1 drop Documented by: Brimonidine Tartrate (Alphagan 0.2% Oph Sol) 0 ml EYERT BID REPLACED BY [facility] Last Admin: 08/03/20 20:09 Dose: 1 drop Documented by: Cholecalciferol (Vitamin D3) 5,000 unit PO DAILY REPLACED BY [facility] Last Admin: 08/03/20 09:00 Dose: 5,000 unit Documented by: Enoxaparin Sodium (Lovenox) 40 mg SUBCUT DAILY REPLACED BY [facility] Last Admin: 08/03/20 09:06 Dose: 40 mg Documented by: Gabapentin (Neurontin) 100 mg PO DAILY REPLACED BY [facility] Last Admin: 08/03/20 09:00 Dose: 100 mg Documented by: Gabapentin (Neurontin) 100 mg PO BEDTIME PRN PRN Reason: Pain Lactulose (Cephulac) 20 gm PO DAILY REPLACED BY [facility] Last Admin: 08/03/20 09:05 Dose: 20 gm Documented by: Nystatin (Nystop) 0 gm TOP TID REPLACED BY [facility] Last Admin: 08/03/20 20:09 Dose: 1 gm Documented by: Ondansetron HCl (Zofran) 4 mg IV Q4H PRN PRN Reason: Nausea/Vomiting Polyethylene Glycol (Miralax) 17 gm PO DAILY PRN PRN Reason: Constipation Last Admin: 08/02/20 08:51 Dose: 17 gm Documented by: Sodium Chloride (Saline Flush) 10 ml FLUSH ASDIRECTED PRN PRN Reason: Keep Vein Open Last Admin: 07/23/20 12:40 Dose: 10 ml Documented by: Sodium Chloride (Saline Flush) 10 ml FLUSH ASDIRECTED PRN PRN Reason: Keep Vein Open Timolol Maleate (Timoptic 0.5% Oph Soln) 0 ml EYERT BID REPLACED BY [facility] Last Admin: 08/03/20 20:09 Dose: 1 drop Documented by: Discontinued Medications Bisacodyl (Dulcolax) 10 mg RECTAL ONETIME ONE Stop: 07/24/20 18:31 Last Admin: 07/24/20 18:27 Dose: 10 mg Documented by: Bisacodyl (Dulcolax) 10 mg RECTAL ONETIME ONE Stop: 07/29/20 09:20 Last Admin: 07/29/20 09:45 Dose: 10 mg Documented by: Cholecalciferol (Vitamin D3) 5,000 unit PO DAILY REPLACED BY [facility] Last Admin: 07/27/20 09:02 Dose: 5,000 unit Documented by: Dexamethasone (Dexamethasone) 4 mg IVPUSH ONETIME ONE Stop: 07/23/20 12:07 Last Admin: 07/23/20 12:41 Dose: 4 mg Documented by: Dexamethasone (Dexamethasone) 6 mg PO DAILY REPLACED BY [facility] Stop: 08/01/20 09:01 Last Admin: 07/26/20 08:22 Dose: 6 mg Documented by: Haloperidol Lactate (Haldol) 2.5 mg IVPUSH ONETIME ONE Stop: 07/26/20 10:10 Last Admin: 07/26/20 10:21 Dose: 2.5 mg Documented by: Sodium Chloride (Normal Saline) 1,000 mls @ 125 mls/hr IV ASDIRECTED REPLACED BY [facility] Last Admin: 07/24/20 07:34 Dose: 125 mls/hr Documented by: Remdesivir 200 mg/ Sodium (Chloride) 250 mls @ 250 mls/hr IV ONETIME ONE Stop: 07/24/20 01:29 Last Admin: 07/24/20 00:29 Dose: 250 mls/hr Documented by: Remdesivir 100 mg/ Sodium (Chloride) 100 mls @ 100 mls/hr IV Q24H REPLACED BY [facility] Stop: 07/27/20 23:59 Last Admin: 07/27/20 23:38 Dose: 100 mls/hr Documented by: Magnesium Sulfate (Magnesium Sulfate In Water Premix) 2 gm in 50 mls @ 25 mls/hr IV ONETIME ONE Stop: 07/26/20 09:44 Last Admin: 07/26/20 08:22 Dose: 25 mls/hr Documented by: Sodium Chloride (Normal Saline) 1,000 mls @ 100 mls/hr IV ASDIRECTED REPLACED BY [facility] Last Admin: 07/29/20 09:45 Dose: 100 mls/hr Documented by: Sodium Chloride (Normal Saline) 1,000 mls @ 100 mls/hr IV ASDIRECTED REPLACED BY [facility] Last Admin: 07/31/20 01:42 Dose: 100 mls/hr Documented by: Magnesium Sulfate (Magnesium Sulfate In Water Premix) 2 gm in 50 mls @ 25 mls /hr IV ONETIME ONE Stop: 07/30/20 14:16 Last Admin: 07/30/20 12:52 Dose: 25 mls/hr Documented by: Sodium Chloride (Normal Saline) Confirm Administered Dose 1,000 mls @ as directed .ROUTE .STK-MED ONE Stop: 08/02/20 09:35 Last Admin: 08/02/20 09:51 Dose: Not Given Documented by: Sodium Chloride (Normal Saline) 500 mls @ 999 mls/hr IV .BOLUS ONE Stop: 08/02/20 10:07 Last Admin: 08/02/20 09:51 Dose: 999 mls/hr Documented by: Influenza Virus Vaccine (Fluzone High-Dose Quad ) 240 mcg IM .ONCE ONE Stop: 07/26/20 13:16 Magnesium Hydroxide (Milk Of Magnesia) 30 ml PO ONETIME ONE Stop: 07/24/20 09:01 Last Admin: 07/24/20 08:41 Dose: 30 ml Documented by: Magnesium Hydroxide (Milk Of Magnesia) 30 ml PO ONETIME ONE Stop: 07/28/20 13:56 Last Admin: 07/28/20 15:26 Dose: 30 ml Documented by: Potassium Chloride (Klor-Con M20) 40 meq PO ONETIME ONE Stop: 08/01/20 07:25 Last Admin: 08/01/20 08:02 Dose: 40 meq Documented by: - Exam Quality Assessment: No: Supplemental Oxygen General: Alert, No Acute Distress HEENT: No: Pupils Equal (Blind right eye) Neck: Supple Lungs: Clear to Auscultation, Normal Respiratory Effort Cardiovascular: Regular Rate, Regular Rhythm GI/Abdominal Exam: Normal Bowel Sounds, Soft, No Distention (Male) Exam: Deferred Back Exam: Normal Inspection. No: Full Range of Motion (Age-appropriate) Extremities: Normal Inspection, No Pedal Edema Skin: Warm, Dry, Intact Neurological: No New Focal Deficit Psy/Mental Status: Alert, Normal Affect Sepsis Event Note - Evaluation Sepsis Screening Result: No Definite Risk - Focused Exam Vital Signs: Vital Signs Pulse Resp BP Pulse Ox 08/04/20 03:07 76 18 125/80 92 L - Problem List & Annotations (1) Urinary tract infection SNOMED Code(s): 43674564 Code(s): N39.0 - URINARY TRACT INFECTION, SITE NOT SPECIFIED Status: Acute Current Visit: No Qualifiers: Urinary tract infection type: catheter-associated UTI Indwelling urinary catheter type: indwelling urethral catheter Encounter type: initial encounter Qualified Code(s): T83.511A - Infection and inflammatory reaction due to indwelling urethral catheter, initial encounter; N39.0 - Urinary tract infection, site not specified (2) Increased weakness when ambulating SNOMED Code(s): 165795112, 262077722 Code(s): R53.1 - WEAKNESS Status: Acute Current Visit: No (3) Generalized weakness SNOMED Code(s): 73524954 Code(s): R53.1 - WEAKNESS Status: Acute Current Visit: Yes (4) Failure to thrive SNOMED Code(s): 33656520 Code(s): GCL7408 - Status: Acute Priority: High Current Visit: Yes Qualifiers: Failure to thrive age range: in adult Qualified Code(s): R62.7 - Adult failure to thrive - Problem List Review Problem List Initiated/Reviewed/Updated: Yes - Assessment Assessment:: 07/23/2020 10 day history of positive COVID diagnosis Has been seen in the ED three times in the last 8 days. History of UTI recently treated with rocephin and omnicef Lives in [place] Pulse ox on admission was 88-89% Decreased appetite and po intake. Chest xray reveals increased density within the left lung base suspicious for small area of pneumonia. Lab results: -WBC 6.11 -Plt 106 -Ddimer 0.76 -UA negative -Na 127 -Chl 94 -BUN 17 -CRE 1.4 -GFR 48 -Ferritin 938 -LDH 190 -CRP 9.9 ABGs on room air -pH 7.45 -pCO2 30.2 -pO2 70.0 -HCO3 20.5 PLAN -Start Remdesivir -Start dexamethasone -Normal Saline @ 100ml/hr -Monitor for hypoxemia -Monitor urine output -Renally dosed medications -Repeat labs and replace electrolytes as needed -PT/OT to eval and treat -Technical Sales Associate consult for supplements -Incentive spirometry 07/24/20 Still requires 2 liters of O2 Hematuria noted in peña catheter today. UA/UC ordered Day 2 of dexamethasone and remdesivir IV fluids stopped-pt taking po well Encourage IS Lab results: -WBC down from 6.11-4.03 -Na up from 127-134 -BUN down from 17-15 -CRE down from 1.4-1.1 -GFR up from 48->60 PLAN -Day 2 of Remdesivir and dexamethasone -Saline lock IVF -Monitor for hypoxemia -Monitor urine output -Renally dosed medications -Repeat labs and replace electrolytes as needed -PT/OT to eval and treat -Technical Sales Associate consult for supplements -Incentive spirometry -Nystantin to groin -UA/UC 07/25/20 On room air Day 3 of dexamethasone and remdesivir Encourage IS Yeast to groin. Vitals: BP 128-166/79-96 Tmax 98.4 Heart rate 62-72 91-91% on room air Lab results: -WBC 7.19 from 4.03 -Ddimer 1.07 from 0.76 -BUN from 16.6 to 17 -CRE up from 1.1 to 1.3 -GFR down from >60 to 52 -CRP down from 9.9 to 6.5 PLAN -Day 3 of Remdesivir and dexamethasone -Monitor for hypoxemia -Monitor urine output -Renally dosed medications -Repeat labs and replace electrolytes as needed -PT/OT to eval and treat -Incentive spirometry -Nystantin to groin 07/26/20 Extremely confused and agitated today. Per the family, he has had this reaction to dexamethasone in the past. Day 4 of dexamethasone and remdesivir Encourage IS Yeast to groin. Vitals: BP 126-166/74-93 Tmax 97.6 Heart rate 60-74 90-95% on room air Lab results: -BUN from 20-26 -CRE down from 1.3-1.2 -GFR up from 52 to 57 -Mg down from 1.9 to 1.7 PLAN -Day 4 of Remdesivir and dexamethasone -discontinue dexamethasone due to increased confusion and agitation. Pt given haldol x 1 dose due to dexamethasone effects. -Monitor for hypoxemia -Monitor urine output -Renally dosed medications -Repeat labs and replace electrolytes as needed -PT/OT to eval and treat -Pt continues to pull at peña and dig in his groin per nursing staff and then complains of back pain. UA ordered. -Nystantin to groin 07/27/20 Remains confused but is much more alert and less agitated. Day 5 of Remdesivir Encourage IS Yeast to groin. Vitals: BP 126-147-165/72-103 Tmax 97.9 Heart rate 71-76 92% on room air Lab results: -WBC up from 7.66 to 9.92 -BUN up from 26 to 28 -CRE 1.2 -GFR 57 -CRP down to 2.7 to 6.5 PLAN -Day 5 of Remdesivir -Monitor for hypoxemia -Monitor urine output -Renally dosed medications -Repeat labs and replace electrolytes as needed -PT/OT to eval and treat -UA unremarkable -Nystantin to groin 07/28/2020 Continues improving, but still poor oral intake. Stop dexamethasone because of delirium. Completed remdesivir. No labs today. 91 to 93% on room air. Vital signs stable. Afebrile. 07/29/2020 Continued poor oral intake. Decreased urine output secondary to poor oral intake. CRP increased dramatically to 15.1. WBC stable at 9.1, d-dimer 0.95. Procalcitonin done yesterday was less than 0.05. Renal function is stable with GFR 57. Albumin is low at 2.7. This reflects his poor oral intake. Chest x-ray showed some improvement in the multifocal peripheral airspace opacities consistent with his known COVID illness. 07/30/2020 Continued poor oral intake. Urine output is better CRP increased from 15.1 to 15.7 Will hold discharge til we get procalcitonin level back tomorrow. 07/31/2020 Eating 50% of meals and 100% of supplements Urine output is better Vital signs -Blood pressure 114-163/65-97 -T max 98.2 -Heart rate 62-80 -91-94% on room air Lab results -Ddimer up from 0.66 to 0.68 -CRP down from 15.7 to 14.3 08/01/2020 Remains clinically stable Continues to have poor appetite Urine output remains adequate Vital signs remain stable No labs obtained today Pending placement COVID-19 Re-test required by SNF remains positive as expected. Continues to work with PT and OT who recommend SNF placement 08/02/2020 A bit more confused today Continues to have poor appetite Urine output remains adequate Hypotensive today - given 500mL fluid bolus with good results, now stable vital signs. A bit more tired and difficult to understand today Labs today stable with D-dimer slightly elevated at 1.15 from 0.68 Discussed code status with son in room. Son will discuss with mother and report back. Pending placement. 08/03/2020 More interactive today but quite sleepy Nursing reports patient was awake most of the night Vital signs stable today Not requiring oxygen D-Dimer up from 1.16 to 1.51. Discussed with Dr. Hogue. Will monitor Re-check D-Dimer, CMP, CBC, Magnesium in AM Awaiting to discuss code status with son further Last BM 08/02/2020 Pending placement. - Plan Plan:: Failure to thrive Weakness Physical deconditioning -PT/OT to continue working with him -Encourage oral intake -Technical Sales Associate consult -CM/SW consult for placement Hypotension- resolved -Monitor vital signs Hyponatremia-resolved Volume depletion-resolved -Replace electrolytes as needed -Follow electrolytes Stage III chronic renal disease, stable -Renally dosed medications -Monitor kidney function -Monitory urine output Acute hypoxemic respiratory failure due to COVID-19 Pneumonia due to COVID-19 virus COVID-19 -Dexamethasone discontinued secondary to increased confusion. -No longer one-on-one nursing care -Completed remdesivir -Incentive spirometry Hypertension -PRN Hydralazine PROPHYLAXIS DVT-Lovenox CODE STATUS: FULL CODE DISPOSITION: Awaiting [facility] placement. LOS > 96HRS pending placement 08/04/2020 The patient's hypoxemia has resolved. He is currently on room air. Patient's vital signs will be monitored and if he becomes hypoxic will restart oxygen. The patient's medications will be renally dosed. PT OT is evaluating the patient. Encouraged the patient to set up. Repeat laboratory studies have been ordered. He is currently awaiting placement. We will continue the patient's diet as tolerated.
[2020-08-04] MEDS: Nystatin Topical Powder 15 GM Bottle TOP SCH ×4 (08:45→21:05)
[2020-08-04] MEDS: Brimonidine 0.2% Ophth Soln 5 ML Bottle EYERT SCH ×2 (08:45→21:03)
[2020-08-04] MEDS: Enoxaparin 40 MG/0.4 ML Syringe SUBCUT SCH (08:45)
[2020-08-04] MEDS: Timolol Maleate 0.5% Ophth Soln 5 ML Bottle EYERT SCH ×2 (08:46→21:10)
[2020-08-04] MEDS: Carboxymethylcellulose Sodium 1% Ophth Gel 15 ML Bottle EYERT SCH ×2 (08:46→21:05)
[2020-08-04] MEDS: Gabapentin 100 MG Cap PO SCH (08:46)
[2020-08-04] MEDS: Cholecalciferol (Vitamin D3) 5,000 UNIT Cap PO SCH (08:46)
[2020-08-04] MEDS: Lactulose Soln 10 GM/15 ML 30 ML UD Cup PO SCH (08:46)
[2020-08-04] MEDS: Acetaminophen 325 MG Tab PO SCH ×2 (08:46→21:01)
[2020-08-05] MEDS: Acetaminophen 325 MG Tab PO SCH ×2 (09:28→20:37)
[2020-08-05] MEDS: Brimonidine 0.2% Ophth Soln 5 ML Bottle EYERT SCH ×2 (09:29→20:41)
[2020-08-05] MEDS: Nystatin Topical Powder 15 GM Bottle TOP SCH ×3 (09:29→20:44)
[2020-08-05] MEDS: Cholecalciferol (Vitamin D3) 5,000 UNIT Cap PO SCH (09:29)
[2020-08-05] MEDS: Enoxaparin 40 MG/0.4 ML Syringe SUBCUT SCH (09:29)
[2020-08-05] MEDS: Lactulose Soln 10 GM/15 ML 30 ML UD Cup PO SCH (09:29)
[2020-08-05] MEDS: Carboxymethylcellulose Sodium 1% Ophth Gel 15 ML Bottle EYERT SCH ×2 (09:29→20:52)
[2020-08-05] MEDS: Gabapentin 100 MG Cap PO SCH (09:29)
[2020-08-05] MEDS: Timolol Maleate 0.5% Ophth Soln 5 ML Bottle EYERT SCH ×2 (09:30→21:08)
--- NOTE | 2020-08-05 11:02 | PCM.PN ---
- General Info Date of Service: 08/05/20 Admission Dx/Problem (Free Text): Admission Diagnosis/Problem Admission Diagnosis/Problem Failure to thrive Subjective Update: Patient was originally admitted on July 23, 2020 for COVID-19 and failure to thrive.The patient has been sleeping. The patient is currently awaiting placement. He is doing better today. Patient has denied any pain. Functional Status: Reports: Pain Controlled - Review of Systems General: Reports: Weakness, Fatigue HEENT: Reports: No Symptoms Pulmonary: Reports: No Symptoms Cardiovascular: Reports: No Symptoms Gastrointestinal: Reports: No Symptoms Genitourinary: Reports: No Symptoms Musculoskeletal: Reports: No Symptoms Skin: Reports: No Symptoms Neurological: Reports: No Symptoms Psychiatric: Reports: No Symptoms - Patient Data Vitals - Most Recent: Last Vital Signs Temp 36.4 C 08/05/20 07:48 Pulse 65 08/05/20 07:48 Resp 16 08/05/20 07:48 BP 101/61 08/05/20 09:22 Pulse Ox 92 L 08/05/20 07:48 Weight - Most Recent: 79.288 kg I&O - Last 24 Hours: Intake & Output 08/04/20 08/05/20 08/05/20 22:59 06:59 14:59 Intake Total 960 240 Output Total 300 300 Balance 660 -60 Lab Results Last 24 Hours: Laboratory Results - last 24 hr 08/05/20 08/05/20 08/05/20 Range/Units 08:30 08:30 08:30 WBC 7.02 (4.23-9.07) K/mm3 RBC 4.06 L (4.63-6.08) M/mm3 Hgb 12.8 L (13.7-17.5) gm/dl Hct 37.8 L (40.1-51.0) % MCV 93.1 H (79.0-92.2) fl MCH 31.5 (25.7-32.2) pg MCHC 33.9 (32.2-35.5) g/dl RDW Std Deviation 47.2 H (35.1-43.9) fL Plt Count 164 (163-337) K/mm3 MPV 9.5 (9.4-12.3) fl Neut % (Auto) 64.5 (34.0-67.9) % Lymph % (Auto) 17.9 L (21.8-53.1) % Dewitt % (Auto) 14.1 H (5.3-12.2) % Eos % (Auto) 3.1 (0.8-7.0) Baso % (Auto) 0.3 (0.1-1.2) % Neut # (Auto) 4.52 (1.78-5.38) K/mm3 Lymph # (Auto) 1.26 L (1.32-3.57) K/mm3 Dewitt # (Auto) 0.99 H (0.30-0.82) K/mm3 Eos # (Auto) 0.22 (0.04-0.54) K/mm3 Baso # (Auto) 0.02 (0.01-0.08) K/mm3 D-Dimer, Quantitative 0.72 H (0.19-0.50) mg/L Sodium 137 (136-145) mEq/L Potassium 3.8 (3.5-5.1) mEq/L Chloride 101 (98-107) mEq/L Carbon Dioxide 26 (21-32) mEq/L Anion Gap 13.8 (5-15) BUN 21 H (7-18) mg/dL Creatinine 1.0 (0.7-1.3) mg/dL Est Cr Clr Drug Dosing 42.22 mL/min Estimated GFR (MDRD) > 60 (>60) mL/min BUN/Creatinine Ratio 21.0 H (14-18) Glucose 129 H (83-115) mg/dL Calcium 8.7 (8.5-10.1) mg/dL C-Reactive Protein 8.7 H* (<1.0) mg/dL Med Orders - Current: Current Medications Acetaminophen (Tylenol) 650 mg PO Q4H PRN PRN Reason: Pain (Mild 1-3)/fever Last Admin: 08/02/20 08:56 Dose: 650 mg Documented by: Acetaminophen (Tylenol) 650 mg PO BID [facility] Last Admin: 08/05/20 09:28 Dose: 650 mg Documented by: Artificial Tears (Refresh Liquigel 1%) 0 ml EYERT BID [facility] Last Admin: 08/05/20 09:29 Dose: 1 drop Documented by: Brimonidine Tartrate (Alphagan 0.2% Oph Sol) 0 ml EYERT BID [facility] Last Admin: 08/05/20 09:29 Dose: 1 drop Documented by: Cholecalciferol (Vitamin D3) 5,000 unit PO DAILY [facility] Last Admin: 08/05/20 09:29 Dose: 5,000 unit Documented by: Enoxaparin Sodium (Lovenox) 40 mg SUBCUT DAILY [facility] Last Admin: 08/05/20 09:29 Dose: 40 mg Documented by: Gabapentin (Neurontin) 100 mg PO DAILY [facility] Last Admin: 08/05/20 09:29 Dose: 100 mg Documented by: Gabapentin (Neurontin) 100 mg PO BEDTIME PRN PRN Reason: Pain Lactulose (Cephulac) 20 gm PO DAILY [facility] Last Admin: 08/05/20 09:29 Dose: 20 gm Documented by: Nystatin (Nystop) 0 gm TOP TID [facility] Last Admin: 08/05/20 09:29 Dose: 15 gm Documented by: Ondansetron HCl (Zofran) 4 mg IV Q4H PRN PRN Reason: Nausea/Vomiting Polyethylene Glycol (Miralax) 17 gm PO DAILY PRN PRN Reason: Constipation Last Admin: 08/02/20 08:51 Dose: 17 gm Documented by: Sodium Chloride (Saline Flush) 10 ml FLUSH ASDIRECTED PRN PRN Reason: Keep Vein Open Last Admin: 07/23/20 12:40 Dose: 10 ml Documented by: Timolol Maleate (Timoptic 0.5% Oph Soln) 0 ml EYERT BID [facility] Last Admin: 08/05/20 09:30 Dose: 1 drop Documented by: Discontinued Medications Bisacodyl (Dulcolax) 10 mg RECTAL ONETIME ONE Stop: 07/24/20 18:31 Last Admin: 07/24/20 18:27 Dose: 10 mg Documented by: Bisacodyl (Dulcolax) 10 mg RECTAL ONETIME ONE Stop: 07/29/20 09:20 Last Admin: 07/29/20 09:45 Dose: 10 mg Documented by: Cholecalciferol (Vitamin D3) 5,000 unit PO DAILY [facility] Last Admin: 07/27/20 09:02 Dose: 5,000 unit Documented by: Dexamethasone (Dexamethasone) 4 mg IVPUSH ONETIME ONE Stop: 07/23/20 12:07 Last Admin: 07/23/20 12:41 Dose: 4 mg Documented by: Dexamethasone (Dexamethasone) 6 mg PO DAILY [facility] Stop: 08/01/20 09:01 Last Admin: 07/26/20 08:22 Dose: 6 mg Documented by: Haloperidol Lactate (Haldol) 2.5 mg IVPUSH ONETIME ONE Stop: 07/26/20 10:10 Last Admin: 07/26/20 10:21 Dose: 2.5 mg Documented by: Sodium Chloride (Normal Saline) 1,000 mls @ 125 mls/hr IV ASDIRECTED [facility] Last Admin: 07/24/20 07:34 Dose: 125 mls/hr Documented by: Remdesivir 200 mg/ Sodium (Chloride) 250 mls @ 250 mls/hr IV ONETIME ONE Stop: 07/24/20 01:29 Last Admin: 07/24/20 00:29 Dose: 250 mls/hr Documented by: Remdesivir 100 mg/ Sodium (Chloride) 100 mls @ 100 mls/hr IV Q24H [facility] Stop: 07/27/20 23:59 Last Admin: 07/27/20 23:38 Dose: 100 mls/hr Documented by: Magnesium Sulfate (Magnesium Sulfate In Water Premix) 2 gm in 50 mls @ 25 mls/hr IV ONETIME ONE Stop: 07/26/20 09:44 Last Admin: 07/26/20 08:22 Dose: 25 mls/hr Documented by: Sodium Chloride (Normal Saline) 1,000 mls [facility] Last Admin: 07/29/20 09:45 Dose: 100 mls/hr Documented by: Sodium Chloride (Normal Saline) 1,000 mls @ 100 mls[facility] Last Admin: 07/31/20 01:42 Dose: 100 mls/hr Documented by: Magnesium Sulfate (Magnesium Sulfate In Water Premix) 2 gm in 50 mls @ 25 mls/hr IV ONETIME ONE Stop: 07/30/20 14:16 Last Admin: 07/30/20 12:52 Dose: 25 mls/hr Documented by: Sodium Chloride (Normal Saline) Confirm Administered Dose 1,000 mls @ as directed .ROUTE .STK-MED ONE Stop: 08/02/20 09:35 Last Admin: 08/02/20 09:51 Dose: Not Given Documented by: Sodium Chloride (Normal Saline) 500 mls @ 999 mls/hr IV .BOLUS ONE Stop: 08/02/20 10:07 Last Admin: 08/02/20 09:51 Dose: 999 mls/hr Documented by: Influenza Virus Vaccine (Fluzone High-Dose Quad ) 240 mcg IM .ONCE ONE Stop: 07/26/20 13:16 Magnesium Hydroxide (Milk Of Magnesia) 30 ml PO ONETIME ONE Stop: 07/24/20 09:01 Last Admin: 07/24/20 08:41 Dose: 30 ml Documented by: Magnesium Hydroxide (Milk Of Magnesia) 30 ml PO ONETIME ONE Stop: 07/28/20 13:56 Last Admin: 07/28/20 15:26 Dose: 30 ml Documented by: Potassium Chloride (Klor-Con M20) 40 meq PO ONETIME ONE Stop: 08/01/20 07:25 Last Admin: 08/01/20 08:02 Dose: 40 meq Documented by: Sodium Chloride (Saline Flush) 10 ml FLUSH ASDIRECTED PRN PRN Reason: Keep Vein Open - Exam Quality Assessment: No: Supplemental Oxygen General: Alert. No: Oriented HEENT: No: Pupils Equal (Blind right eye) Neck: Supple, Trachea Midline Lungs: Clear to Auscultation, Normal Respiratory Effort Cardiovascular: Regular Rate, Regular Rhythm GI/Abdominal Exam: Normal Bowel Sounds, Soft, No Distention (Male) Exam: Deferred Back Exam: Normal Inspection, Full Range of Motion Extremities: Normal Inspection, No Pedal Edema Skin: Warm, Dry, Intact Neurological: No New Focal Deficit Psy/Mental Status: Alert, Normal Affect Sepsis Event Note - Evaluation Sepsis Screening Result: No Definite Risk - Focused Exam Vital Signs: Vital Signs Temp Pulse Resp BP Pulse Ox 08/05/20 09:22 101/61 08/05/20 07:48 36.4 C 65 16 92 L 08/05/20 04:01 36.8 C 76 18 145/86 H 90 L 08/04/20 23:45 36.4 C 67 20 131/77 92 L - Problem List & Annotations (1) Urinary tract infection SNOMED Code(s): 13601887 Code(s): N39.0 - URINARY TRACT INFECTION, SITE NOT SPECIFIED Status: Acute Current Visit: No Qualifiers: Urinary tract infection type: catheter-associated UTI Indwelling urinary catheter type: indwelling urethral catheter Encounter type: initial encounter Qualified Code(s): T83.511A - Infection and inflammatory reaction due to i ndwelling urethral catheter, initial encounter; N39.0 - Urinary tract infection, site not specified (2) Generalized weakness SNOMED Code(s): 00885864 Code(s): R53.1 - WEAKNESS Status: Acute Current Visit: Yes (3) Failure to thrive SNOMED Code(s): 85535780 Code(s): THA5767 - Status: Acute Priority: High Current Visit: Yes Qualifiers: Failure to thrive age range: in adult Qualified Code(s): R62.7 - Adult failure to thrive - Problem List Review Problem List Initiated/Reviewed/Updated: Yes - Assessment Assessment:: 07/23/2020 10 day history of positive COVID diagnosis Has been seen in the ED three times in the last 8 days. History of UTI recently treated with rocephin and omnicef Lives in [place] Pulse ox on admission was 88-89% Decreased appetite and po intake. Chest xray reveals increased density within the left lung base suspicious for small area of pneumonia. Lab results: -WBC 6.11 -Plt 106 -Ddimer 0.76 -UA negative -Na 127 -Chl 94 -BUN 17 -CRE 1.4 -GFR 48 -Ferritin 938 -LDH 190 -CRP 9.9 ABGs on room air -pH 7.45 -pCO2 30.2 -pO2 70.0 -HCO3 20.5 PLAN -Start Remdesivir -Start dexamethasone -Normal Saline @ 100ml/hr -Monitor for hypoxemia -Monitor urine output -Renally dosed medications -Repeat labs and replace electrolytes as needed -PT/OT to eval and treat -Rn Occupational Health consult for supplements -Incentive spirometry 07/24/20 Still requires 2 liters of O2 Hematuria noted in peña catheter today. UA/UC ordered Day 2 of dexamethasone and remdesivir IV fluids stopped-pt taking po well Encourage IS Lab results: -WBC down from 6.11-4.03 -Na up from 127-134 -BUN down from 17-15 -CRE down from 1.4-1.1 -GFR up from 48->60 PLAN -Day 2 of Remdesivir and dexamethasone -Saline lock IVF -Monitor for hypoxemia -Monitor urine output -Renally dosed medications -Repeat labs and replace electrolytes as needed -PT/OT to eval and treat -Rn Occupational Health consult for supplements -Incentive spirometry -Nystantin to groin -UA/UC 07/25/20 On room air Day 3 of dexamethasone and remdesivir Encourage IS Yeast to groin. Vitals: BP 128-166/79-96 Tmax 98.4 Heart rate 62-72 91-91% on room air Lab results: -WBC 7.19 from 4.03 -Ddimer 1.07 from 0.76 -BUN from 16.6 to 17 -CRE up from 1.1 to 1.3 -GFR down from >60 to 52 -CRP down from 9.9 to 6.5 PLAN -Day 3 of Remdesivir and dexamethasone -Monitor for hypoxemia -Monitor urine output -Renally dosed medications -Repeat labs and replace electrolytes as needed -PT/OT to eval and treat -Incentive spirometry -Nystantin to groin 07/26/20 Extremely confused and agitated today. Per the family, he has had this reaction to dexamethasone in the past. Day 4 of dexamethasone and remdesivir Encourage IS Yeast to groin. Vitals: BP 126-166/74-93 Tmax 97.6 Heart rate 60-74 90-95% on room air Lab results: -BUN from 20-26 -CRE down from 1.3-1.2 -GFR up from 52 to 57 -Mg down from 1.9 to 1.7 PLAN -Day 4 of Remdesivir and dexamethasone -discontinue dexamethasone due to increased confusion and agitation. Pt given haldol x 1 dose due to dexamethasone effects. -Monitor for hypoxemia -Monitor urine output -Renally dosed medications -Repeat labs and replace electrolytes as needed -PT/OT to eval and treat -Pt continues to pull at peña and dig in his groin per nursing staff and then c bess of back pain. UA ordered. -Nystantin to groin 07/27/20 Remains confused but is much more alert and less agitated. Day 5 of Remdesivir Encourage IS Yeast to groin. Vitals: BP 126-147-165/72-103 Tmax 97.9 Heart rate 71-76 92% on room air Lab results: -WBC up from 7.66 to 9.92 -BUN up from 26 to 28 -CRE 1.2 -GFR 57 -CRP down to 2.7 to 6.5 PLAN -Day 5 of Remdesivir -Monitor for hypoxemia -Monitor urine output -Renally dosed medications -Repeat labs and replace electrolytes as needed -PT/OT to eval and treat -UA unremarkable -Nystantin to groin 07/28/2020 Continues improving, but still poor oral intake. Stop dexamethasone because of delirium. Completed remdesivir. No labs today. 91 to 93% on room air. Vital signs stable. Afebrile. 07/29/2020 Continued poor oral intake. Decreased urine output secondary to poor oral intake. CRP increased dramatically to 15.1. WBC stable at 9.1, d-dimer 0.95. Procalcitonin done yesterday was less than 0.05. Renal function is stable with GFR 57. Albumin is low at 2.7. This reflects his poor oral intake. Chest x-ray showed some improvement in the multifocal peripheral airspace opacities consistent with his known COVID illness. 07/30/2020 Continued poor oral intake. Urine output is better CRP increased from 15.1 to 15.7 Will hold discharge til we get procalcitonin level back tomorrow. 07/31/2020 Eating 50% of meals and 100% of supplements Urine output is better Vital signs -Blood pressure 114-163/65-97 -T max 98.2 -Heart rate 62-80 -91-94% on room air Lab results -Ddimer up from 0.66 to 0.68 -CRP down from 15.7 to 14.3 08/01/2020 Remains clinically stable Continues to have poor appetite Urine output remains adequate Vital signs remain stable No labs obtained today Pending placement COVID-19 Re-test required by SNF remains positive as expected. Continues to work with PT and OT who recommend SNF placement 08/02/2020 A bit more confused today Continues to have poor appetite Urine output remains adequate Hypotensive today - given 500mL fluid bolus with good results, now stable vital signs. A bit more tired and difficult to understand today Labs today stable with D-dimer slightly elevated at 1.15 from 0.68 Discussed code status with son in room. Son will discuss with mother and report back. Pending placement. 08/03/2020 More interactive today but quite sleepy Nursing reports patient was awake most of the night Vital signs stable today Not requiring oxygen D-Dimer up from 1.16 to 1.51. Discussed with Dr. Hogue. Will monitor Re-check D-Dimer, CMP, CBC, Magnesium in AM Awaiting to discuss code status with son further Last BM 08/02/2020 Pending placement. - Plan Plan:: Failure to thrive Weakness Physical deconditioning -PT/OT to continue working with him -Encourage oral intake -Rn Occupational Health consult -CM/SW consult for placement Hypotension- resolved -Monitor vital signs Hyponatremia-resolved Volume depletion-resolved -Replace electrolytes as needed -Follow electrolytes Stage III chronic renal disease, stable -Renally dosed medications -Monitor kidney function -Monitory urine output Acute hypoxemic respiratory failure due to COVID-19 Pneumonia due to COVID-19 virus COVID-19 -Dexamethasone discontinued secondary to increased confusion. -No longer one-on-one nursing care -Completed remdesivir -Incentive spirometry Hypertension -PRN Hydralazine PROPHYLAXIS DVT-Lovenox CODE STATUS: FULL CODE DISPOSITION: Awaiting [facility] placement. LOS > 96HRS pending placement 08/04/2020 The patient's hypoxemia has resolved. He is currently on room air. Patient's vital signs will be monitored and if he becomes hypoxic will restart oxygen. The patient's medications will be renally dosed. PT OT is evaluating the patient. Encouraged the patient to set up. Repeat laboratory studies have been ordered. He is currently awaiting placement. We will continue the patient's diet as tolerated. 08/05/2020 The patient is currently awaiting placement. The patient's medications will be renally dosed. Patient's vital signs to be monitored and if required will restart the patient's oxygen. PT OT will continue for the patient. Continue with his normal diet as tolerated. The patient has been encouraged to ambulate. Repeat laboratory studies will be ordered as needed for placement.
[2020-08-06] MEDS: Lactulose Soln 10 GM/15 ML 30 ML UD Cup PO SCH (09:32)
[2020-08-06] MEDS: Enoxaparin 40 MG/0.4 ML Syringe SUBCUT SCH (09:33)
[2020-08-06] MEDS: Acetaminophen 325 MG Tab PO SCH ×2 (09:33→21:55)
[2020-08-06] MEDS: Nystatin Topical Powder 15 GM Bottle TOP SCH ×3 (09:34→21:20)
[2020-08-06] MEDS: Cholecalciferol (Vitamin D3) 5,000 UNIT Cap PO SCH (09:34)
[2020-08-06] MEDS: Carboxymethylcellulose Sodium 1% Ophth Gel 15 ML Bottle EYERT SCH ×2 (09:35→22:29)
[2020-08-06] MEDS: Gabapentin 100 MG Cap PO SCH (09:35)
[2020-08-06] MEDS: Brimonidine 0.2% Ophth Soln 5 ML Bottle EYERT SCH ×2 (09:35→21:52)
[2020-08-06] MEDS: Timolol Maleate 0.5% Ophth Soln 5 ML Bottle EYERT SCH ×2 (09:36→22:01)
[2020-08-06] MEDS ORDERED: Sodium Chloride 0.9% 500 ML IV ONE (10:57)
--- NOTE | 2020-08-06 14:11 | PCM.PN ---
<Beulah Jasso M - Last Filed: 08/06/20 14:15> - General Info Date of Service: 08/06/20 Admission Dx/Problem (Free Text): Admission Diagnosis/Problem Admission Diagnosis/Problem Failure to thrive Subjective Update: Remains the same. Waiting placement. Functional Status: Reports: Urinating. Denies: Incentive Spirometry - Review of Systems General: Reports: No Symptoms HEENT: Reports: No Symptoms Pulmonary: Reports: No Symptoms Cardiovascular: Reports: No Symptoms Gastrointestinal: Reports: Decreased Appetite Genitourinary: Reports: No Symptoms Musculoskeletal: Reports: No Symptoms Skin: Reports: No Symptoms Neurological: Reports: Confusion Psychiatric: Reports: Confusion - Patient Data Vitals - Most Recent: Last Vital Signs Temp 97.3 F 08/06/20 07:40 Pulse 60 08/06/20 11:22 Resp 20 08/06/20 10:57 BP 95/55 L 08/06/20 11:17 Pulse Ox 91 L 08/06/20 11:22 Weight - Most Recent: 74.843 kg I&O - Last 24 Hours: Intake & Output 08/05/20 08/06/20 08/06/20 22:59 06:59 14:59 Intake Total 240 220 0 Output Total 300 325 Balance -60 -105 0 Lab Results Last 24 Hours: Laboratory Results - last 24 hr 08/06/20 08/06/20 08/06/20 Range/Units 05:01 05:01 05:01 WBC 7.17 (4.23-9.07) K/mm3 RBC 3.93 L (4.63-6.08) M/mm3 Hgb 12.4 L (13.7-17.5) gm/dl Hct 36.6 L (40.1-51.0) % MCV 93.1 H (79.0-92.2) fl MCH 31.6 (25.7-32.2) pg MCHC 33.9 (32.2-35.5) g/dl RDW Std Deviation 46.9 H (35.1-43.9) fL Plt Count 156 L (163-337) K/mm3 MPV 9.7 (9.4-12.3) fl Neut % (Auto) 62.3 (34.0-67.9) % Lymph % (Auto) 18.4 L (21.8-53.1) % [place] % (Auto) 14.2 H (5.3-12.2) % Eos % (Auto) 4.5 (0.8-7.0) Baso % (Auto) 0.3 (0.1-1.2) % Neut # (Auto) 4.47 (1.78-5.38) K/mm3 Lymph # (Auto) 1.32 (1.32-3.57) K/mm3 [place] # (Auto) 1.02 H (0.30-0.82) K/mm3 Eos # (Auto) 0.32 (0.04-0.54) K/mm3 Baso # (Auto) 0.02 (0.01-0.08) K/mm3 D-Dimer, Quantitative 0.74 H (0.19-0.50) mg/L Sodium 138 (136-145) mEq/L Potassium 3.9 (3.5-5.1) mEq/L Chloride 103 (98-107) mEq/L Carbon Dioxide 27 (21-32) mEq/L Anion Gap 11.9 (5-15) BUN 21 H (7-18) mg/dL Creatinine 1.0 (0.7-1.3) mg/dL Est Cr Clr Drug Dosing 42.22 mL/min Estimated GFR (MDRD) > 60 (>60) mL/min BUN/Creatinine Ratio 21.0 H (14-18) Glucose 120 H (83-115) mg/dL Calcium 8.7 (8.5-10.1) mg/dL C-Reactive Protein 7.8 H* (<1.0) mg/dL Med Orders - Current: Current Medications Acetaminophen (Tylenol) 650 mg PO Q4H PRN PRN Reason: Pain (Mild 1-3)/fever Last Admin: 08/02/20 08:56 Dose: 650 mg Documented by: Acetaminophen (Tylenol) 650 mg PO BID [facility] Last Admin: 08/06/20 09:33 Dose: 650 mg Documented by: Artificial Tears (Refresh Liquigel 1%) 0 ml EYERT BID [facility] Last Admin: 08/06/20 09:35 Dose: 1 drop Documented by: Brimonidine Tartrate (Alphagan 0.2% Ophth Soln) 0 ml EYERT BID [facility] Last Admin: 08/06/20 09:35 Dose: 1 drop Documented by: Cholecalciferol (Vitamin D3) 5,000 unit PO DAILY [facility] Last Admin: 08/06/20 09:34 Dose: 5,000 unit Documented by: Enoxaparin Sodium (Lovenox) 40 mg SUBCUT DAILY [facility] Last Admin: 08/06/20 09:33 Dose: 40 mg Documented by: Gabapentin (Neurontin) 100 mg PO DAILY [facility] Last Admin: 08/06/20 09:35 Dose: 100 mg Documented by: Gabapentin (Neurontin) 100 mg PO BEDTIME PRN PRN Reason: Pain Lactulose (Cephulac) 20 gm PO DAILY [facility] Last Admin: 08/06/20 09:32 Dose: 20 gm Documented by: Nystatin (Nystop) 0 gm TOP TID [facility] Last Admin: 08/06/20 13:59 Dose: 1 applic Documented by: Ondansetron HCl (Zofran) 4 mg IV Q4H PRN PRN Reason: Nausea/Vomiting Polyethylene Glycol (Miralax) 17 gm PO DAILY PRN PRN Reason: Constipation Last Admin: 08/02/20 08:51 Dose: 17 gm Documented by: Sodium Chloride (Saline Flush) 10 ml FLUSH ASDIRECTED PRN PRN Reason: Keep Vein Open Last Admin: 07/23/20 12:40 Dose: 10 ml Documented by: Timolol Maleate (Timoptic 0.5% [facility]) 0 ml EYERT BID [facility] Last Admin: 08/06/20 09:36 Dose: 1 drop Documented by: Discontinued Medications Bisacodyl (Dulcolax) 10 mg RECTAL ONETIME ONE Stop: 07/24/20 18:31 Last Admin: 07/24/20 18:27 Dose: 10 mg Documented by: Bisacodyl (Dulcolax) 10 mg RECTAL ONETIME ONE Stop: 07/29/20 09:20 Last Admin: 07/29/20 09:45 Dose: 10 mg Documented by: Cholecalciferol (Vitamin D3) 5,000 unit PO DAILY [facility] Last Admin: 07/27/20 09:02 Dose: 5,000 unit Documented by: Dexamethasone (Dexamethasone) 4 mg IVPUSH ONETIME ONE Stop: 07/23/20 12:07 Last Admin: 07/23/20 12:41 Dose: 4 mg Documented by: Dexamethasone (Dexamethasone) 6 mg PO DAILY [facility] Stop: 08/01/20 09:01 Last Admin: 07/26/20 08:22 Dose: 6 mg Documented by: Haloperidol Lactate (Haldol) 2.5 mg IVPUSH ONETIME ONE Stop: 07/26/20 10:10 Last Admin: 07/26/20 10:21 Dose: 2.5 mg Documented by: Sodium Chloride (Normal Saline) 1,000 mls @ 125 [facility]ls[facility] Last Admin: 07/24/20 07:34 Dose: 125 mls/hr Documented by: Remdesivir 200 mg/ Sodium (Chloride) 250 mls @ 250 mls/hr IV ONETIME ONE Stop: 07/24/20 01:29 Last Admin: 07/24/20 00:29 Dose: 250 mls/hr Documented by: Remdesivir 100 mg/ Sodium (Chloride) 100 mls @ 100 mls/hr IV Q24H [facility] Stop: 07/27/20 23:59 Last Admin: 07/27/20 23:38 Dose: 100 mls/hr Documented by: Magnesium Sulfate (Magnesium Sulfate In Water Premix) 2 gm in 50 mls @ 25 mls/hr IV ONETIME ONE Stop: 07/26/20 09:44 Last Admin: 07/26/20 08:22 Dose: 25 mls/hr Documented by: Sodium Chloride (Normal Saline) 1,000 mls @ 100 [facility]ls[facility] Last Admin: 07/29/20 09:45 Dose: 100 mls/hr Documented by: Sodium Chloride (Normal Saline) 1,000 mls @ 100 mls[facility]hr [facility] Last Admin: 07/31/20 01:42 Dose: 100 mls/hr Documented by: Magnesium Sulfate (Magnesium Sulfate In Water Premix) 2 gm in 50 mls @ 25 mls/hr IV ONETIME ONE Stop: 07/30/20 14:16 Last Admin: 07/30/20 12:52 Dose: 25 mls/hr Documented by: Sodium Chloride (Normal Saline) Confirm Administered Dose 1,000 mls @ as directed .ROUTE .STK-MED ONE Stop: 08/02/20 09:35 Last Admin: 08/02/20 09:51 Dose: Not Given Documented by: Sodium Chloride (Normal Saline) 500 mls @ 999 mls/hr IV .BOLUS ONE Stop: 08/02/20 10:07 Last Admin: 08/02/20 09:51 Dose: 999 mls/hr Documented by: Sodium Chloride (Normal Saline) 500 mls @ 500 mls/hr IV .BOLUS ONE Stop: 08/06/20 11:56 Last Admin: 08/06/20 11:11 Dose: 500 mls/hr Documented by: Influenza Virus Vaccine (Fluzone High-Dose Quad 2020-21) 240 mcg IM .ONCE ONE Stop: 07/26/20 13:16 Magnesium Hydroxide (Milk Of Magnesia) 30 ml PO ONETIME ONE Stop: 07/24/20 09:01 Last Admin: 07/24/20 08:41 Dose: 30 ml Documented by: Magnesium Hydroxide (Milk Of Magnesia) 30 ml PO ONETIME ONE Stop: 07/28/20 13:56 Last Admin: 07/28/20 15:26 Dose: 30 ml Documented by: Potassium Chloride (Klor-Con M20) 40 meq PO ONETIME ONE Stop: 08/01/20 07:25 Last Admin: 08/01/20 08:02 Dose: 40 meq Documented by: Sodium Chloride (Saline Flush) 10 ml FLUSH ASDIRECTED PRN PRN Reason: Keep Vein Open - Exam Quality Assessment: Urine Catheter, DVT Prophylaxis (lovenox). No: Supplemental Oxygen General: Alert, Cooperative, No Acute Distress HEENT: Pupils Equal. No: Mucous Membr. Moist/[place] (dry) Neck: Supple, Trachea Midline. No: Lymphadenopathy Lungs: Decreased Breath Sounds Cardiovascular: Regular Rate, Regular Rhythm GI/Abdominal Exam: Normal Bowel Sounds, Soft, Non-Tender, No Distention (Male) Exam: Deferred Back Exam: Normal Inspection, Full Range of Motion Extremities: Normal Inspection, Normal Range of Motion, Non-Tender, No Pedal Edema, Normal Capillary Refill Peripheral Pulses: 2+: Radial (L), Radial (R), Dorsalis Pedis (L), Dorsalis Pedis (R) Skin: Warm, Dry, Intact Neurological: No New Focal Deficit Psy/Mental Status: Alert, Normal Affect, Normal Mood Sepsis Event Note - Evaluation Sepsis Screening Result: No Definite Risk - Focused Exam Vital Signs: Vital Signs Temp Pulse Resp BP Pulse Ox 08/06/20 11:22 60 91 L 08/06/20 11:17 62 95/55 L 95 08/06/20 10:57 50 L 20 78/60 L 92 L 08/06/20 07:40 97.3 F 65 16 141/69 H 90 L 08/06/20 04:18 97.7 F 72 16 157/86 H 93 L - Problem List & Annotations (1) Failure to thrive SNOMED Code(s): 91825130 Code(s): PCW3082 - Status: Acute Priority: High Current Visit: Yes Qualifiers: Failure to thrive age range: in adult Qualified Code(s): R62.7 - Adult failure to thrive (2) Weakness SNOMED Code(s): 52056724 Code(s): R53.1 - WEAKNESS Status: Acute Priority: High Current Visit: Yes (3) Physical deconditioning SNOMED Code(s): 73699641452826 Code(s): R53.81 - OTHER MALAISE Status: Acute Priority: High Current Visit: Yes (4) Hypochloremia SNOMED Code(s): 94900445 Code(s): E87.8 - OTH DISORDERS OF ELECTROLYTE AND FLUID BALANCE, NEC Status: Resolved Priority: High Current Visit: Yes (5) Hyponatremia SNOMED Code(s): 44513732 Code(s): E87.1 - HYPO-OSMOLALITY AND HYPONATREMIA Status: Resolved Priority: High Current Visit: Yes (6) Volume depletion SNOMED Code(s): 351625660 Code(s): E86.9 - VOLUME DEPLETION, UNSPECIFIED Status: Resolved Priority: High Current Visit: Yes (7) Acute kidney injury SNOMED Code(s): 79627993, 18479522 Code(s): N17.9 - ACUTE KIDNEY FAILURE, UNSPECIFIED Status: Resolved Priority: High Current Visit: Yes (8) Acute hypoxemic respiratory failure due to COVID-19 SNOMED Code(s): 338947547 Code(s): U07.1 - COVID-19; J96.01 - ACUTE RESPIRATORY FAILURE WITH HYPOXIA Status: Acute Priority: High Current Visit: Yes (9) Hypertension SNOMED Code(s): 38049021 Code(s): I10 - ESSENTIAL (PRIMARY) HYPERTENSION Status: Chronic Priority: High Current Visit: Yes Qualifiers: Hypertension type: unspecified Qualified Code(s): I10 - Essential (primary) hypertension (10) Pneumonia due to COVID-19 virus SNOMED Code(s): 963340389487488856 Code(s): U07.1 - COVID-19; J12.89 - OTHER VIRAL PNEUMONIA Status: Acute Priority: High Current Visit: Yes (11) COVID-19 SNOMED Code(s): 629494138 Code(s): U07.1 - COVID-19 Status: Acute Priority: High Current Visit: No - Problem List Review Problem List Initiated/Reviewed/Updated: Yes - Assessment Assessment:: 07/23/2020 10 day history of positive COVID diagnosis Has been seen in the ED three times in the last 8 days. History of UTI recently treated with rocephin and omnicef Lives in [place] Pulse ox on admission was 88-89% Decreased appetite and po intake. Chest xray reveals increased density within the left lung base suspicious for small area of pneumonia. Lab results: -WBC 6.11 -Plt 106 -Ddimer 0.76 -UA negative -Na 127 -Chl 94 -BUN 17 -CRE 1.4 -GFR 48 -Ferritin 938 -LDH 190 -CRP 9.9 ABGs on room air -pH 7.45 -pCO2 30.2 -pO2 70.0 -HCO3 20.5 PLAN -Start Remdesivir -Start dexamethasone -Normal Saline @ 100ml/hr -Monitor for hypoxemia -Monitor urine output -Renally dosed medications -Repeat labs and replace electrolytes as needed -PT/OT to eval and treat -Docket Specialist consult for supplements -Incentive spirometry 07/24/20 Still requires 2 liters of O2 Hematuria noted in peña catheter today. UA/UC ordered Day 2 of dexamethasone and remdesivir IV fluids stopped-pt taking po well Encourage IS Lab results: -WBC down from 6.11-4.03 -Na up from 127-134 -BUN down from 17-15 -CRE down from 1.4-1.1 -GFR up from 48->60 PLAN -Day 2 of Remdesivir and dexamethasone -Saline lock IVF -Monitor for hypoxemia -Monitor urine output -Renally dosed medications -Repeat labs and replace electrolytes as needed -PT/OT to eval and treat -Docket Specialist consult for supplements -Incentive spirometry -Nystantin to groin -UA/UC 07/25/20 On room air Day 3 of dexamethasone and remdesivir Encourage IS Yeast to groin. Vitals: BP 128-166/79-96 Tmax 98.4 Heart rate 62-72 91-91% on room air Lab results: -WBC 7.19 from 4.03 -Ddimer 1.07 from 0.76 -BUN from 16.6 to 17 -CRE up from 1.1 to 1.3 -GFR down from >60 to 52 -CRP down from 9.9 to 6.5 PLAN -Day 3 of Remdesivir and dexamethasone -Monitor for hypoxemia -Monitor urine output -Renally dosed medications -Repeat labs and replace electrolytes as needed -PT/OT to eval and treat -Incentive spirometry -Nystantin to groin 07/26/20 Extremely confused and agitated today. Per the family, he has had this reaction to dexamethasone in the past. Day 4 of dexamethasone and remdesivir Encourage IS Yeast to groin. Vitals: BP 126-166/74-93 Tmax 97.6 Heart rate 60-74 90-95% on room air Lab results: -BUN from 20-26 -CRE down from 1.3-1.2 -GFR up from 52 to 57 -Mg down from 1.9 to 1.7 PLAN -Day 4 of Remdesivir and dexamethasone -discontinue dexamethasone due to increased confusion and agitation. Pt given haldol x 1 dose due to dexamethasone effects. -Monitor for hypoxemia -Monitor urine output -Renally dosed medications -Repeat labs and replace electrolytes as needed -PT/OT to eval and treat -Pt continues to pull at peña and dig in his groin per nursing staff and then complains of back pain. UA ordered. -Nystantin to groin 07/27/20 Remains confused but is much more alert and less agitated. Day 5 of Remdesivir Encourage IS Yeast to groin. Vitals: BP 126-147-165/72-103 Tmax 97.9 Heart rate 71-76 92% on room air Lab results: -WBC up from 7.66 to 9.92 -BUN up from 26 to 28 -CRE 1.2 -GFR 57 -CRP down to 2.7 to 6.5 PLAN -Day 5 of Remdesivir -Monitor for hypoxemia -Monitor urine output -Renally dosed medications -Repeat labs and replace electrolytes as needed -PT/OT to eval and treat -UA unremarkable -Nystantin to groin 07/28/2020 Continues improving, but still poor oral intake. Stop dexamethasone because of delirium. Completed remdesivir. No labs today. 91 to 93% on room air. Vital signs stable. Afebrile. 07/29/2020 Continued poor oral intake. Decreased urine output secondary to poor oral intake. CRP increased dramatically to 15.1. WBC stable at 9.1, d-dimer 0.95. Procalcitonin done yesterday was less than 0.05. Renal function is stable with GFR 57. Albumin is low at 2.7. This reflects his poor oral intake. Chest x-ray showed some improvement in the multifocal peripheral airspace opacities consistent with his known COVID illness. 07/30/2020 Continued poor oral intake. Urine output is better CRP increased from 15.1 to 15.7 Will hold discharge til we get procalcitonin level back tomorrow. 07/31/2020 Eating 50% of meals and 100% of supplements Urine output is better Vital signs -Blood pressure 114-163/65-97 -T max 98.2 -Heart rate 62-80 -91-94% on room air Lab results -Ddimer up from 0.66 to 0.68 -CRP down from 15.7 to 14.3 08/01/2020 Remains clinically stable Continues to have poor appetite Urine output remains adequate Vital signs remain stable No labs obtained today Pending placement COVID-19 Re-test required by SNF remains positive as expected. Continues to work with PT and OT who recommend SNF placement 08/02/2020 A bit more confused today Continues to have poor appetite Urine output remains adequate Hypotensive today - given 500mL fluid bolus with good results, now stable vital signs. A bit more tired and difficult to understand today Labs today stable with D-dimer slightly elevated at 1.15 from 0.68 Discussed code status with son in room. Son will discuss with mother and report back. Pending placement. 08/03/2020 More interactive today but quite sleepy Nursing reports patient was awake most of the night Vital signs stable today Not requiring oxygen D-Dimer up from 1.16 to 1.51. Discussed with Dr. Hogue. Will monitor Re-check D-Dimer, CMP, CBC, Magnesium in AM Awaiting to discuss code status with son further Last BM 08/02/2020 Pending placement. 08/04/2020 The patient's hypoxemia has resolved. He is currently on room air. Patient's vital signs will be monitored and if he becomes hypoxic will restart oxygen. The patient's medications will be renally dosed. PT OT is evaluating the patient. Encouraged the patient to set up. Repeat laboratory studies have been ordered. He is currently awaiting placement. We will continue the patient's diet as tolerated. 08/05/2020 The patient is currently awaiting placement. The patient's medications will be renally dosed. Patient's vital signs to be monitored and if required will restart the patient's oxygen. PT OT will continue for the patient. Continue with his normal diet as tolerated. The patient has been encouraged to ambulate. Repeat laboratory studies will be ordered as needed for placement. 08/06/20 Patient did have an episode of hypotension today. Similar to the episode that he had on August 02. D-dimer is 0.74 today. C-reactive protein is down to 7.8. The patient did receive a 500 mL fluid fluid bolus with good results and vital signs are now stable. He is currently awaiting residential placement. The tentative plan is to [facility] on August 09, 2020. - Plan Plan:: Failure to thrive Weakness Physical deconditioning -PT/OT to continue working with him -Encourage oral intake -Docket Specialist consult -CM/SW consult for placement Hypotension- resolved -Monitor vital signs Hyponatremia-resolved Volume depletion-resolved -Replace electrolytes as needed -Follow electrolytes Stage III chronic renal disease, stable -Renally dosed medications -Monitor kidney function -Monitory urine output Acute hypoxemic respiratory failure due to COVID-19 Pneumonia due to COVID-19 virus COVID-19 -Dexamethasone discontinued secondary to increased confusion. -No longer one-on-one nursing care -Completed remdesivir -Incentive spirometry Hypertension -PRN Hydralazine PROPHYLAXIS DVT-Lovenox CODE STATUS: FULL CODE DISPOSITION: Awaiting residential placement. LOS > 96HRS pending placement 08/04/2020 The patient's hypoxemia has resolved. He is currently on room air. Patient's vital signs will be monitored and if he becomes hypoxic will restart oxygen. The patient's medications will be renally dosed. PT OT is evaluating the patient. Encouraged the patient to set up. Repeat laboratory studies have been ordered. He is currently awaiting placement. We will continue the patient's diet as tolerated. 08/05/2020 The patient is currently awaiting placement. The patient's medications will be renally dosed. Patient's vital signs to be monitored and if required will restart the patient's oxygen. PT OT will continue for the patient. Continue with his normal diet as tolerated. The patient has been encouraged to ambulate. Repeat laboratory studies will be ordered as needed for placement. 08/06/20 Awaiting nursing residential placement. We will continue to monitor vital signs and intake and output. Continue to monitor lab work and replace electrolytes as needed. PT and OT will continue to work with the patient. Plan for discharge to [facility] on August 09, 2020. <Vincent Alford - Last Filed: 08/06/20 14:33> - Patient Data Vitals - Most Recent: Last Vital Signs Temp 36.3 C 08/06/20 07:40 Pulse 59 L 08/06/20 12:12 Resp 10 L 08/06/20 12:12 BP 116/50 L 08/06/20 12:12 Pulse Ox 92 L 08/06/20 12:12 I&O - Last 24 Hours: Intake & Output 08/05/20 08/06/20 08/06/20 22:59 06:59 14:59 Intake Total 240 220 0 Output Total 300 325 Balance -60 -105 0 Lab Results Last 24 Hours: Laboratory Results - last 24 hr 08/06/20 08/06/20 08/06/20 Range/Units 05:01 05:01 05:01 WBC 7.17 (4.23-9.07) K/mm3 RBC 3.93 L (4.63-6.08) M/mm3 Hgb 12.4 L (13.7-17.5) gm/dl Hct 36.6 L (40.1-51.0) % MCV 93.1 H (79.0-92.2) fl MCH 31.6 (25.7-32.2) pg MCHC 33.9 (32.2-35.5) g/dl RDW Std Deviation 46.9 H (35.1-43.9) fL Plt Count 156 L (163-337) K/mm3 MPV 9.7 (9.4-12.3) fl Neut % (Auto) 62.3 (34.0-67.9) % Lymph % (Auto) 18.4 L (21.8-53.1) % [place] % (Auto) 14.2 H (5.3-12.2) % Eos % (Auto) 4.5 (0.8-7.0) Baso % (Auto) 0.3 (0.1-1.2) % Neut # (Auto) 4.47 (1.78-5.38) K/mm3 Lymph # (Auto) 1.32 (1.32-3.57) K/mm3 [place] # (Auto) 1.02 H (0.30-0.82) K/mm3 Eos # (Auto) 0.32 (0.04-0.54) K/mm3 Baso # (Auto) 0.02 (0.01-0.08) K/mm3 D-Dimer, Quantitative 0.74 H (0.19-0.50) mg/L Sodium 138 (136-145) mEq/L Potassium 3.9 (3.5-5.1) mEq/L Chloride 103 (98-107) mEq/L Carbon Dioxide 27 (21-32) mEq/L Anion Gap 11.9 (5-15) BUN 21 H (7-18) mg/dL Creatinine 1.0 (0.7-1.3) mg/dL Est Cr Clr Drug Dosing 42.22 mL/min Estimated GFR (MDRD) > 60 (>60) mL/min BUN/Creatinine Ratio 21.0 H (14-18) Glucose 120 H (83-115) mg/dL Calcium 8.7 (8.5-10.1) mg/dL C-Reactive Protein 7.8 H* (<1.0) mg/dL Med Orders - Current: Current Medications Acetaminophen (Tylenol) 650 mg PO Q4H PRN PRN Reason: Pain (Mild 1-3)/fever Last Admin: 08/02/20 08:56 Dose: 650 mg Documented by: Acetaminophen (Tylenol) 650 mg PO BID [facility] Last Admin: 08/06/20 09:33 Dose: 650 mg Documented by: Artificial Tears (Refresh Liquigel 1%) 0 ml EYERT BID [facility] Last Admin: 08/06/20 09:35 Dose: 1 drop Documented by: Brimonidine Tartrate (Alphagan 0.2% Ophth Soln) 0 ml EYERT BID [facility] Last Admin: 08/06/20 09:35 Dose: 1 drop Documented by: Cholecalciferol (Vitamin D3) 5,000 unit PO DAILY [facility] Last Admin: 08/06/20 09:34 Dose: 5,000 unit Documented by: Enoxaparin Sodium (Lovenox) 40 mg SUBCUT DAILY [facility] Last Admin: 08/06/20 09:33 Dose: 40 mg Documented by: Gabapentin (Neurontin) 100 mg PO DAILY [facility] Last Admin: 08/06/20 09:35 Dose: 100 mg Documented by: Gabapentin (Neurontin) 100 mg PO BEDTIME PRN PRN Reason: Pain Lactulose (Cephulac) 20 gm PO DAILY [facility] Last Admin: 08/06/20 09:32 Dose: 20 gm Documented by: Nystatin (Nystop) 0 gm TOP TID [facility] Last Admin: 08/06/20 13:59 Dose: 1 applic Documented by: Ondansetron HCl (Zofran) 4 mg IV Q4H PRN PRN Reason: Nausea/Vomiting Polyethylene Glycol (Miralax) 17 gm PO DAILY PRN PRN Reason: Constipation Last Admin: 08/02/20 08:51 Dose: 17 gm Documented by: Sodium Chloride (Saline Flush) 10 ml FLUSH ASDIRECTED PRN PRN Reason: Keep Vein Open Last Admin: 07/23/20 12:40 Dose: 10 ml Documented by: Timolol Maleate (Timoptic 0.5% [facility]) 0 ml EYERT BID [facility] Last Admin: 08/06/20 09:36 Dose: 1 drop Documented by: Discontinued Medications Bisacodyl (Dulcolax) 10 mg RECTAL ONETIME ONE Stop: 07/24/20 18:31 Last Admin: 07/24/20 18:27 Dose: 10 mg Documented by: Bisacodyl (Dulcolax) 10 mg RECTAL ONETIME ONE Stop: 07/29/20 09:20 Last Admin: 07/29/20 09:45 Dose: 10 mg Documented by: Cholecalciferol (Vitamin D3) 5,000 unit PO DAILY [facility] Last Admin: 07/27/20 09:02 Dose: 5,000 unit Documented by: Dexamethasone (Dexamethasone) 4 mg IVPUSH ONETIME ONE Stop: 07/23/20 12:07 Last Admin: 07/23/20 12:41 Dose: 4 mg Documented by: Dexamethasone (Dexamethasone) 6 mg PO DAILY [facility] Stop: 08/01/20 09:01 Last Admin: 07/26/20 08:22 Dose: 6 mg Documented by: Haloperidol Lactate (Haldol) 2.5 mg IVPUSH ONETIME ONE Stop: 07/26/20 10:10 Last Admin: 07/26/20 10:21 Dose: 2.5 mg Documented by: Sodium Chloride (Normal Saline) 1,000 mls @ 125 [facility]ls[facility] Last Admin: 07/24/20 07:34 Dose: 125 mls/hr Documented by: Remdesivir 200 mg/ Sodium (Chloride) 250 mls @ 250 mls/hr IV ONETIME ONE Stop: 07/24/20 01:29 Last Admin: 07/24/20 00:29 Dose: 250 mls/hr Documented by: Remdesivir 100 mg/ Sodium (Chloride) 100 mls @ 100 mls/hr IV Q24H [facility] Stop: 07/27/20 23:59 Last Admin: 07/27/20 23:38 Dose: 100 mls/hr Documented by: Magnesium Sulfate (Magnesium Sulfate In Water Premix) 2 gm in 50 mls @ 25 mls/hr IV ONETIME ONE Stop: 07/26/20 09:44 Last Admin: 07/26/20 08:22 Dose: 25 mls/hr Documented by: Sodium Chloride (Normal Saline) 1,000 mls @ 100 [facility]ls[facility] Last Admin: 07/29/20 09:45 Dose: 100 mls/hr Documented by: Sodium Chloride (Normal Saline) 1,000 mls @ 100 mls[facility] Last Admin: 07/31/20 01:42 Dose: 100 mls/hr Documented by: Magnesium Sulfate (Magnesium Sulfate In Water Premix) 2 gm in 50 mls @ 25 mls/hr IV ONETIME ONE Stop: 07/30/20 14:16 Last Admin: 07/30/20 12:52 Dose: 25 mls/hr Documented by: Sodium Chloride (Normal Saline) Confirm Administered Dose 1,000 mls @ as directed .ROUTE .STK-MED ONE Stop: 08/02/20 09:35 Last Admin: 08/02/20 09:51 Dose: Not Given Documented by: Sodium Chloride (Normal Saline) 500 mls @ 999 mls/hr IV .BOLUS ONE Stop: 08/02/20 10:07 Last Admin: 08/02/20 09:51 Dose: 999 mls/hr Documented by: Sodium Chloride (Normal Saline) 500 mls @ 500 mls/hr IV .BOLUS ONE Stop: 08/06/20 11:56 Last Admin: 08/06/20 11:11 Dose: 500 mls/hr Documented by: Influenza Virus Vaccine (Fluzone High-Dose Quad 2020-21) 240 mcg IM .ONCE ONE Stop: 07/26/20 13:16 Magnesium Hydroxide (Milk Of Magnesia) 30 ml PO ONETIME ONE Stop: 07/24/20 09:01 Last Admin: 07/24/20 08:41 Dose: 30 ml Documented by: Magnesium Hydroxide (Milk Of Magnesia) 30 ml PO ONETIME ONE Stop: 07/28/20 13:56 Last Admin: 07/28/20 15:26 Dose: 30 ml Documented by: Potassium Chloride (Klor-Con M20) 40 meq PO ONETIME ONE Stop: 08/01/20 07:25 Last Admin: 08/01/20 08:02 Dose: 40 meq Documented by: Sodium Chloride (Saline Flush) 10 ml FLUSH ASDIRECTED PRN PRN Reason: Keep Vein Open Sepsis Event Note - Focused Exam Vital Signs: Vital Signs Temp Pulse Resp BP Pulse Ox 08/06/20 12:12 59 L 10 L 116/50 L 92 L 08/06/20 11:22 60 91 L 08/06/20 11:17 62 95/55 L 95 08/06/20 10:57 50 L 20 78/60 L 92 L 08/06/20 07:40 36.3 C 65 16 141/69 H 90 L 08/06/20 04:18 36.5 C 72 16 157/86 H 93 L - Problem List & Annotations (1) Urinary tract infection SNOMED Code(s): 06742941 Code(s): N39.0 - URINARY TRACT INFECTION, SITE NOT SPECIFIED Status: Acute Current Visit: No Qualifiers: Urinary tract infection type: catheter-associated UTI Indwelling urinary catheter type: indwelling urethral catheter Encounter type: initial encounter Qualified Code(s): T83.511A - Infection and inflammatory reaction due to indw elling urethral catheter, initial encounter; N39.0 - Urinary tract infection, site not specified (2) Generalized weakness SNOMED Code(s): 05358677 Code(s): R53.1 - WEAKNESS Status: Acute Current Visit: Yes (3) Failure to thrive SNOMED Code(s): 08211795 Code(s): [id number] - Status: Acute Priority: High Current Visit: Yes Qualifiers: Failure to thrive age range: in adult Qualified Code(s): R62.7 - Adult failure to thrive - Plan Plan:: I have seen valuated the patient independently of Beulah Jasso, Nurse Practitioner, and have discussed the case with her. I have reviewed and agree with the orders placed by her. Please see orders.
[2020-08-07] MEDS ORDERED: Magnesium Hydroxide 400 MG/5 ML Susp 30 ML Cup PO ONE (05:35)
[2020-08-07] MEDS: Nystatin Topical Powder 15 GM Bottle TOP SCH ×3 (08:27→22:24)
[2020-08-07] MEDS: Timolol Maleate 0.5% Ophth Soln 5 ML Bottle EYERT SCH ×2 (08:28→22:21)
[2020-08-07] MEDS: Brimonidine 0.2% Ophth Soln 5 ML Bottle EYERT SCH ×2 (08:28→20:57)
[2020-08-07] MEDS: Carboxymethylcellulose Sodium 1% Ophth Gel 15 ML Bottle EYERT SCH ×2 (08:28→20:19)
[2020-08-07] MEDS: Lactulose Soln 10 GM/15 ML 30 ML UD Cup PO SCH (08:29)
[2020-08-07] MEDS: Acetaminophen 325 MG Tab PO SCH ×2 (08:29→22:21)
[2020-08-07] MEDS: Enoxaparin 40 MG/0.4 ML Syringe SUBCUT SCH (08:29)
[2020-08-07] MEDS: Gabapentin 100 MG Cap PO SCH (08:30)
[2020-08-07] MEDS: Cholecalciferol (Vitamin D3) 5,000 UNIT Cap PO SCH (08:30)
[2020-08-07] MEDS ORDERED: Magnesium Sulfate/Water 2 GM/50 ML BAG IV ONE (09:33)
[2020-08-07] MEDS ORDERED: Sodium Chloride 0.9% 500 ML IV ONE (09:33)
--- NOTE | 2020-08-07 13:45 | PCM.PN ---
<Beulah Jasso M - Last Filed: 08/07/20 13:46> - General Info Date of Service: 08/07/20 Admission Dx/Problem (Free Text): Admission Diagnosis/Problem Admission Diagnosis/Problem Failure to thrive Subjective Update: More alert today. More oriented today. Is able to converse and understand me. Functional Status: Reports: Pain Controlled, Ambulating (With physical therapy), Urinating (Chronic Peña catheter). Denies: Tolerating Diet (Tight remains poor. Dietitian sending protein supplements.) - Review of Systems General: Denies: Appetite (Pains poor) HEENT: Reports: No Symptoms Pulmonary: Reports: No Symptoms Cardiovascular: Reports: No Symptoms Gastrointestinal: Reports: No Symptoms Genitourinary: Reports: Other (Chronic Peña catheter) Musculoskeletal: Reports: No Symptoms Skin: Reports: No Symptoms Neurological: Reports: No Symptoms Psychiatric: Reports: No Symptoms - Patient Data Vitals - Most Recent: Last Vital Signs Temp 97.9 F 08/07/20 02:18 Pulse 72 08/07/20 02:18 Resp 19 08/07/20 02:18 BP 119/83 08/07/20 02:18 Pulse Ox 91 L 08/07/20 02:18 Weight - Most Recent: 73.074 kg I&O - Last 24 Hours: Intake & Output 08/06/20 08/07/20 08/07/20 22:59 06:59 14:59 Intake Total 860 200 240 Output Total 225 225 Balance 635 -25 240 Lab Results Last 24 Hours: Laboratory Results - last 24 hr 08/07/20 08/07/20 Range/Units 06:35 06:35 WBC 6.42 (4.23-9.07) K/mm3 RBC 3.99 L (4.63-6.08) M/mm3 Hgb 12.4 L (13.7-17.5) gm/dl Hct 37.0 L (40.1-51.0) % MCV 92.7 H (79.0-92.2) fl MCH 31.1 (25.7-32.2) pg MCHC 33.5 (32.2-35.5) g/dl RDW Std Deviation 47.2 H (35.1-43.9) fL Plt Count 161 L (163-337) K/mm3 MPV 9.8 (9.4-12.3) fl Neut % (Auto) 60.2 (34.0-67.9) % Lymph % (Auto) 20.9 L (21.8-53.1) % [place] % (Auto) 13.4 H (5.3-12.2) % Eos % (Auto) 5.0 (0.8-7.0) Baso % (Auto) 0.3 (0.1-1.2) % Neut # (Auto) 3.87 (1.78-5.38) K/mm3 Lymph # (Auto) 1.34 (1.32-3.57) K/mm3 [place] # (Auto) 0.86 H (0.30-0.82) K/mm3 Eos # (Auto) 0.32 (0.04-0.54) K/mm3 Baso # (Auto) 0.02 (0.01-0.08) K/mm3 Manual Slide Review Normal smear Sodium 138 (136-145) mEq/L Potassium 3.8 (3.5-5.1) mEq/L Chloride 103 (98-107) mEq/L Carbon Dioxide 23 (21-32) mEq/L Anion Gap 15.8 H (5-15) BUN 20 H (7-18) mg/dL Creatinine 1.0 (0.7-1.3) mg/dL Est Cr Clr Drug Dosing 42.22 mL/min Estimated GFR (MDRD) > 60 (>60) mL/min BUN/Creatinine Ratio 20.0 H (14-18) Glucose 112 (83-115) mg/dL Calcium 8.5 (8.5-10.1) mg/dL Magnesium 1.7 L (1.8-2.4) mg/dl C-Reactive Protein 9.7 H* (<1.0) mg/dL Med Orders - Current: Current Medications Acetaminophen (Tylenol) 650 mg PO Q4H PRN PRN Reason: Pain (Mild 1-3)/fever Last Admin: 08/02/20 08:56 Dose: 650 mg Documented by: Acetaminophen (Tylenol) 650 mg PO BID [facility] Last Admin: 08/07/20 08:29 Dose: 650 mg Documented by: Artificial Tears (Refresh Liquigel 1%) 0 ml EYERT BID [facility] Last Admin: 08/07/20 08:28 Dose: 1 drop Documented by: Brimonidine Tartrate (Alphagan 0.2% Ophth Soln) 0 ml EYERT BID [facility] Last Admin: 08/07/20 08:28 Dose: 1 drop Documented by: Cholecalciferol (Vitamin D3) 5,000 unit PO DAILY [facility] Last Admin: 08/07/20 08:30 Dose: 5,000 unit Documented by: Enoxaparin Sodium (Lovenox) 40 mg SUBCUT DAILY [facility] Last Admin: 08/07/20 08:29 Dose: 40 mg Documented by: Gabapentin (Neurontin) 100 mg PO DAILY [facility] Last Admin: 08/07/20 08:30 Dose: 100 mg Documented by: Gabapentin (Neurontin) 100 mg PO BEDTIME PRN PRN Reason: Pain Lactulose (Cephulac) 20 gm PO DAILY [facility] Last Admin: 08/07/20 08:29 Dose: 20 gm Documented by: Nystatin (Nystop) 0 gm TOP TID [facility] Last Admin: 08/07/20 08:27 Dose: 1 applic Documented by: Ondansetron HCl (Zofran) 4 mg IV Q4H PRN PRN Reason: Nausea/Vomiting Polyethylene Glycol (Miralax) 17 gm PO DAILY PRN PRN Reason: Constipation Last Admin: 08/02/20 08:51 Dose: 17 gm Documented by: Sodium Chloride (Saline Flush) 10 ml FLUSH ASDIRECTED PRN PRN Reason: Keep Vein Open Last Admin: 07/23/20 12:40 Dose: 10 ml Documented by: Timolol Maleate (Timoptic 0.5% Ophth Soln) 0 ml EYERT BID [facility] Last Admin: 08/07/20 08:28 Dose: 1 drop Documented by: Discontinued Medications Bisacodyl (Dulcolax) 10 mg RECTAL ONETIME ONE Stop: 07/24/20 18:31 Last Admin: 07/24/20 18:27 Dose: 10 mg Documented by: Bisacodyl (Dulcolax) 10 mg RECTAL ONETIME ONE Stop: 07/29/20 09:20 Last Admin: 07/29/20 09:45 Dose: 10 mg Documented by: Cholecalciferol (Vitamin D3) 5,000 unit PO DAILY [facility] Last Admin: 07/27/20 09:02 Dose: 5,000 unit Documented by: Dexamethasone (Dexamethasone) 4 mg IVPUSH ONETIME ONE Stop: 07/23/20 12:07 Last Admin: 07/23/20 12:41 Dose: 4 mg Documented by: Dexamethasone (Dexamethasone) 6 mg PO DAILY [facility] Stop: 08/01/20 09:01 Last Admin: 07/26/20 08:22 Dose: 6 mg Documented by: Haloperidol Lactate (Haldol) 2.5 mg IVPUSH ONETIME ONE Stop: 07/26/20 10:10 Last Admin: 07/26/20 10:21 Dose: 2.5 mg Documented by: Sodium Chloride (Normal Saline) 1,000 mls @ 125 mls/hr IV ASDIRECTED [facility] Last Admin: 07/24/20 07:34 Dose: 125 mls/hr Documented by: Remdesivir 200 mg/ Sodium (Chloride) 250 mls @ 250 mls/hr IV ONETIME ONE Stop: 07/24/20 01:29 Last Admin: 07/24/20 00:29 Dose: 250 mls/hr Documented by: Remdesivir 100 mg/ Sodium (Chloride) 100 mls @ 100 mls/hr IV Q24H [facility] Stop: 07/27/20 23:59 Last Admin: 07/27/20 23:38 Dose: 100 mls/hr Documented by: Magnesium Sulfate (Magnesium Sulfate In Water Premix) 2 gm in 50 mls @ 25 mls/hr IV ONETIME ONE Stop: 07/26/20 09:44 Last Admin: 07/26/20 08:22 Dose: 25 mls/hr Documented by: Sodium Chloride (Normal Saline) 1,000 mls @ 100 mls/hr IV ASDIRECTED [facility] Last Admin: 07/29/20 09:45 Dose: 100 mls/hr Documented by: Sodium Chloride (Normal Saline) 1,000 mls @ 100 mls/hr IV ASDIRECTED [facility] Last Admin: 07/31/20 01:42 Dose: 100 mls/hr Documented by: Magnesium Sulfate (Magnesium Sulfate In Water Premix) 2 gm in 50 mls @ 25 mls/hr IV ONETIME ONE Stop: 07/30/20 14:16 Last Admin: 07/30/20 12:52 Dose: 25 mls/hr Documented by: Sodium Chloride (Normal Saline) Confirm Administered Dose 1,000 mls @ as directed .ROUTE .STK-MED ONE Stop: 08/02/20 09:35 Last Admin: 08/02/20 09:51 Dose: Not Given Documented by: Sodium Chloride (Normal Saline) 500 mls @ 999 mls/hr IV .BOLUS ONE Stop: 08/02/20 10:07 Last Admin: 08/02/20 09:51 Dose: 999 mls/hr Documented by: Sodium Chloride (Normal Saline) 500 mls @ 500 mls/hr IV .BOLUS ONE Stop: 08/06/20 11:56 Last Admin: 08/06/20 11:11 Dose: 500 mls/hr Documented by: Magnesium Sulfate (Magnesium Sulfate In Water Premix) 2 gm in 50 mls @ 25 mls/hr IV ONETIME ONE Stop: 08/07/20 11:32 Last Admin: 08/07/20 09:50 Dose: 25 mls/hr Documented by: Sodium Chloride (Normal Saline) 500 mls @ 500 mls/hr IV .BOLUS ONE Stop: 08/07/20 10:32 Last Admin: 08/07/20 09:49 Dose: 500 mls/hr Documented by: Influenza Virus Vaccine (Fluzone High-Dose Quad ) 240 mcg IM .ONCE ONE Stop: 07/26/20 13:16 Magnesium Hydroxide (Milk Of Magnesia) 30 ml PO ONETIME ONE Stop: 07/24/20 09:01 Last Admin: 07/24/20 08:41 Dose: 30 ml Documented by: Magnesium Hydroxide (Milk Of Magnesia) 30 ml PO ONETIME ONE Stop: 07/28/20 13:56 Last Admin: 07/28/20 15:26 Dose: 30 ml Documented by: Magnesium Hydroxide (Milk Of Magnesia) 30 ml PO ONETIME ONE Stop: 08/07/20 05:36 Last Admin: 08/07/20 06:20 Dose: 30 ml Documented by: Potassium Chloride (Klor-Con M20) 40 meq PO ONETIME ONE Stop: 08/01/20 07:25 Last Admin: 08/01/20 08:02 Dose: 40 meq Documented by: Sodium Chloride (Saline Flush) 10 ml FLUSH ASDIRECTED PRN PRN Reason: Keep Vein Open - Exam Quality Assessment: Urine Catheter (Chronic), DVT Prophylaxis (Lovenox). No: Supplemental Oxygen General: Alert, Cooperative, No Acute Distress. No: Oriented (To person and place only) HEENT: Pupils Equal, Pupils Reactive, Mucous Membr. Moist/[place] Neck: Supple, Trachea Midline. No: Lymphadenopathy Lungs: Clear to Auscultation, Decreased Breath Sounds Cardiovascular: Regular Rate, Regular Rhythm, No Murmurs GI/Abdominal Exam: Normal Bowel Sounds, Soft, Non-Tender, No Distention (Male) Exam: Deferred Back Exam: Normal Inspection, Full Range of Motion Extremities: Normal Inspection, Normal Range of Motion, Non-Tender, No Pedal Edema, Normal Capillary Refill Peripheral Pulses: 2+: Radial (L), Radial (R), Dorsalis Pedis (L), Dorsalis Pedis (R) Skin: Warm, Dry, Intact Neurological: No New Focal Deficit Psy/Mental Status: Alert, Normal Affect, Normal Mood Sepsis Event Note - Evaluation Sepsis Screening Result: No Definite Risk - Focused Exam Vital Signs: Vital Signs Temp Pulse Resp BP Pulse Ox 08/07/20 02:18 97.9 F 72 19 119/83 91 L - Problem List & Annotations (1) Failure to thrive SNOMED Code(s): 08997530 Code(s): PAM3249 - Status: Acute Priority: High Current Visit: Yes Qualifiers: Failure to thrive age range: in adult Qualified Code(s): R62.7 - Adult failure to thrive (2) Weakness SNOMED Code(s): 53450184 Code(s): R53.1 - WEAKNESS Status: Acute Priority: High Current Visit: Yes (3) Physical deconditioning SNOMED Code(s): 80837572060994 Code(s): R53.81 - OTHER MALAISE Status: Acute Priority: High Current Visit: Yes (4) Hypochloremia SNOMED Code(s): 00936638 Code(s): E87.8 - OTH DISORDERS OF ELECTROLYTE AND FLUID BALANCE, NEC Status: Resolved Priority: High Current Visit: Yes (5) Hyponatremia SNOMED Code(s): 08927887 Code(s): E87.1 - HYPO-OSMOLALITY AND HYPONATREMIA Status: Resolved Priority: High Current Visit: Yes (6) Volume depletion SNOMED Code(s): 708009398 Code(s): E86.9 - VOLUME DEPLETION, UNSPECIFIED Status: Resolved Priority: High Current Visit: Yes (7) Acute kidney injury SNOMED Code(s): 98049218, 97208831 Code(s): N17.9 - ACUTE KIDNEY FAILURE, UNSPECIFIED Status: Resolved Priority: High Current Visit: Yes (8) Acute hypoxemic respiratory failure due to COVID-19 SNOMED Code(s): 296475672 Code(s): U07.1 - COVID-19; J96.01 - ACUTE RESPIRATORY FAILURE WITH HYPOXIA Status: Acute Priority: High Current Visit: Yes (9) Hypertension SNOMED Code(s): 57977275 Code(s): I10 - ESSENTIAL (PRIMARY) HYPERTENSION Status: Chronic Priority: High Current Visit: Yes Qualifiers: Hypertension type: unspecified Qualified Code(s): I10 - Essential (primary) hypertension (10) Pneumonia due to COVID-19 virus SNOMED Code(s): 935403710597746349 Code(s): U07.1 - COVID-19; J12.89 - OTHER VIRAL PNEUMONIA Status: Acute Priority: High Current Visit: Yes (11) COVID-19 SNOMED Code(s): 640325126 Code(s): U07.1 - COVID-19 Status: Acute Priority: High Current Visit: No - Problem List Review Problem List Initiated/Reviewed/Updated: Yes - Assessment Assessment:: 07/23/2020 10 day history of positive COVID diagnosis Has been seen in the ED three times in the last 8 days. History of UTI recently treated with rocephin and omnicef Lives in [place] Pulse ox on admission was 88-89% Decreased appetite and po intake. Chest xray reveals increased density within the left lung base suspicious for small area of pneumonia. Lab results: -WBC 6.11 -Plt 106 -Ddimer 0.76 -UA negative -Na 127 -Chl 94 -BUN 17 -CRE 1.4 -GFR 48 -Ferritin 938 -LDH 190 -CRP 9.9 ABGs on room air -pH 7.45 -pCO2 30.2 -pO2 70.0 -HCO3 20.5 PLAN -Start Remdesivir -Start dexamethasone -Normal Saline @ 100ml/hr -Monitor for hypoxemia -Monitor urine output -Renally dosed medications -Repeat labs and replace electrolytes as needed -PT/OT to eval and treat -Supervisor Sandblaster consult for supplements -Incentive spirometry 07/24/20 Still requires 2 liters of O2 Hematuria noted in peña catheter today. UA/UC ordered Day 2 of dexamethasone and remdesivir IV fluids stopped-pt taking po well Encourage IS Lab results: -WBC down from 6.11-4.03 -Na up from 127-134 -BUN down from 17-15 -CRE down from 1.4-1.1 -GFR up from 48->60 PLAN -Day 2 of Remdesivir and dexamethasone -Saline lock IVF -Monitor for hypoxemia -Monitor urine output -Renally dosed medications -Repeat labs and replace electrolytes as needed -PT/OT to eval and treat -Supervisor Sandblaster consult for supplements -Incentive spirometry -Nystantin to groin -UA/UC 07/25/20 On room air Day 3 of dexamethasone and remdesivir Encourage IS Yeast to groin. Vitals: BP 128-166/79-96 Tmax 98.4 Heart rate 62-72 91-91% on room air Lab results: -WBC 7.19 from 4.03 -Ddimer 1.07 from 0.76 -BUN from 16.6 to 17 -CRE up from 1.1 to 1.3 -GFR down from >60 to 52 -CRP down from 9.9 to 6.5 PLAN -Day 3 of Remdesivir and dexamethasone -Monitor for hypoxemia -Monitor urine output -Renally dosed medications -Repeat labs and replace electrolytes as needed -PT/OT to eval and treat -Incentive spirometry -Nystantin to groin 07/26/20 Extremely confused and agitated today. Per the family, he has had this reaction to dexamethasone in the past. Day 4 of dexamethasone and remdesivir Encourage IS Yeast to groin. Vitals: BP 126-166/74-93 Tmax 97.6 Heart rate 60-74 90-95% on room air Lab results: -BUN from 20-26 -CRE down from 1.3-1.2 -GFR up from 52 to 57 -Mg down from 1.9 to 1.7 PLAN -Day 4 of Remdesivir and dexamethasone -discontinue dexamethasone due to increased confusion and agitation. Pt given haldol x 1 dose due to dexamethasone effects. -Monitor for hypoxemia -Monitor urine output -Renally dosed medications -Repeat labs and replace electrolytes as needed -PT/OT to eval and treat -Pt continues to pull at peña and dig in his groin per nursing staff and then complains of back pain. UA ordered. -Nystantin to groin 07/27/20 Remains confused but is much more alert and less agitated. Day 5 of Remdesivir Encourage IS Yeast to groin. Vitals: BP 126-147-165/72-103 Tmax 97.9 Heart rate 71-76 92% on room air Lab results: -WBC up from 7.66 to 9.92 -BUN up from 26 to 28 -CRE 1.2 -GFR 57 -CRP down to 2.7 to 6.5 PLAN -Day 5 of Remdesivir -Monitor for hypoxemia -Monitor urine output -Renally dosed medications -Repeat labs and replace electrolytes as needed -PT/OT to eval and treat -UA unremarkable -Nystantin to groin 07/28/2020 Continues improving, but still poor oral intake. Stop dexamethasone because of delirium. Completed remdesivir. No labs today. 91 to 93% on room air. Vital signs stable. Afebrile. 07/29/2020 Continued poor oral intake. Decreased urine output secondary to poor oral intake. CRP increased dramatically to 15.1. WBC stable at 9.1, d-dimer 0.95. Procalcitonin done yesterday was less than 0.05. Renal function is stable with GFR 57. Albumin is low at 2.7. This reflects his poor oral intake. Chest x-ray showed some improvement in the multifocal peripheral airspace opacities consistent with his known COVID illness. 07/30/2020 Continued poor oral intake. Urine output is better CRP increased from 15.1 to 15.7 Will hold discharge til we get procalcitonin level back tomorrow. 07/31/2020 Eating 50% of meals and 100% of supplements Urine output is better Vital signs -Blood pressure 114-163/65-97 -T max 98.2 -Heart rate 62-80 -91-94% on room air Lab results -Ddimer up from 0.66 to 0.68 -CRP down from 15.7 to 14.3 08/01/2020 Remains clinically stable Continues to have poor appetite Urine output remains adequate Vital signs remain stable No labs obtained today Pending placement COVID-19 Re-test required by SNF remains positive as expected. Continues to work with PT and OT who recommend SNF placement 08/02/2020 A bit more confused today Continues to have poor appetite Urine output remains adequate Hypotensive today - given 500mL fluid bolus with good results, now stable vital signs. A bit more tired and difficult to understand today Labs today stable with D-dimer slightly elevated at 1.15 from 0.68 Discussed code status with son in room. Son will discuss with mother and report back. Pending placement. 08/03/2020 More interactive today but quite sleepy Nursing reports patient was awake most of the night Vital signs stable today Not requiring oxygen D-Dimer up from 1.16 to 1.51. Discussed with Dr. Hogue. Will monitor Re-check D-Dimer, CMP, CBC, Magnesium in AM Awaiting to discuss code status with son further Last BM 08/02/2020 Pending placement. 08/04/2020 The patient's hypoxemia has resolved. He is currently on room air. Patient's vital signs will be monitored and if he becomes hypoxic will restart oxygen. The patient's medications will be renally dosed. PT OT is evaluating the patient. Encouraged the patient to set up. Repeat laboratory studies have been ordered. He is currently awaiting placement. We will continue the patient's diet as tolerated. 08/05/2020 The patient is currently awaiting placement. The patient's medications will be renally dosed. Patient's vital signs to be monitored and if required will restart the patient's oxygen. PT OT will continue for the patient. Continue with his normal diet as tolerated. The patient has been encouraged to ambulate. Repeat laboratory studies will be ordered as needed for placement. 08/06/20 Patient did have an episode of hypotension today. Similar to the episode that he had on August 02. D-dimer is 0.74 today. C-reactive protein is down to 7.8. The patient did receive a 500 mL fluid fluid bolus with good results and vital signs are now stable. He is currently awaiting halfway placement. The tentative plan is to [facility] on August 09, 2020. 08/07/20 The patient was doing well this morning when I saw him on rounds. He is much more alert and talkative and happy. His son was at his bedside visiting with him. Shortly after I rounded on the patient physical therapy went into work with him. They stood him up and he had a vasovagal response. Blood pressures were in the 70s systolically. The son was quite upset with the situation, and requested for the patient to have some IV fluids. Even though the lab work does not reveal that the patient is dehydrated, I did order for him to have 500 mL's of normal saline. I did have a lengthy discussion with the patient's son regarding that the patient will likely continue to have a vasovagal response if he gets up from the chair too quickly to ambulate. Reassured him that the patient should still be able to go to [facility] bed tomorrow as planned and that we would communicate with their staff the need to get him up slowly. Magnesium was 1.7 today which is down from 2.0. He will receive 2 g of mag sulfate IV today. It does remain poor. - Plan Plan:: I have seen valuated the patient independently of Beulah Jasso, Nurse Practitioner, and have discussed the case with her. I have reviewed and agree with the orders placed by her. Please see orders. 08/07/20 Labs in the a.m. Plan is to discharge to [facility] unit tomorrow at 10 AM. The patient's family will be transporting him there. <Vincent Alford M - Last Filed: 08/07/20 16:03> - Patient Data Vitals - Most Recent: Last Vital Signs Temp 36.6 C 08/07/20 02:18 Pulse 72 08/07/20 02:18 Resp 19 08/07/20 02:18 BP 119/83 08/07/20 02:18 Pulse Ox 91 L 08/07/20 02:18 I&O - Last 24 Hours: Intake & Output 08/07/20 08/07/20 08/07/20 06:59 14:59 22:59 Intake Total 200 240 Output Total 225 Balance -25 240 Lab Results Last 24 Hours: Laboratory Results - last 24 hr 08/07/20 08/07/20 Range/Units 06:35 06:35 WBC 6.42 (4.23-9.07) K/mm3 RBC 3.99 L (4.63-6.08) M/mm3 Hgb 12.4 L (13.7-17.5) gm/dl Hct 37.0 L (40.1-51.0) % MCV 92.7 H (79.0-92.2) fl MCH 31.1 (25.7-32.2) pg MCHC 33.5 (32.2-35.5) g/dl RDW Std Deviation 47.2 H (35.1-43.9) fL Plt Count 161 L (163-337) K/mm3 MPV 9.8 (9.4-12.3) fl Neut % (Auto) 60.2 (34.0-67.9) % Lymph % (Auto) 20.9 L (21.8-53.1) % [place] % (Auto) 13.4 H (5.3-12.2) % Eos % (Auto) 5.0 (0.8-7.0) Baso % (Auto) 0.3 (0.1-1.2) % Neut # (Auto) 3.87 (1.78-5.38) K/mm3 Lymph # (Auto) 1.34 (1.32-3.57) K/mm3 [place] # (Auto) 0.86 H (0.30-0.82) K/mm3 Eos # (Auto) 0.32 (0.04-0.54) K/mm3 Baso # (Auto) 0.02 (0.01-0.08) K/mm3 Manual Slide Review Normal smear Sodium 138 (136-145) mEq/L Potassium 3.8 (3.5-5.1) mEq/L Chloride 103 (98-107) mEq/L Carbon Dioxide 23 (21-32) mEq/L Anion Gap 15.8 H (5-15) BUN 20 H (7-18) mg/dL Creatinine 1.0 (0.7-1.3) mg/dL Est Cr Clr Drug Dosing 42.22 mL/min Estimated GFR (MDRD) > 60 (>60) mL/min BUN/Creatinine Ratio 20.0 H (14-18) Glucose 112 (83-115) mg/dL Calcium 8.5 (8.5-10.1) mg/dL Magnesium 1.7 L (1.8-2.4) mg/dl C-Reactive Protein 9.7 H* (<1.0) mg/dL Med Orders - Current: Current Medications Acetaminophen (Tylenol) 650 mg PO Q4H PRN PRN Reason: Pain (Mild 1-3)/fever Last Admin: 08/02/20 08:56 Dose: 650 mg Documented by: Acetaminophen (Tylenol) 650 mg PO BID [facility] Last Admin: 08/07/20 08:29 Dose: 650 mg Documented by: Artificial Tears (Refresh Liquigel 1%) 0 ml EYERT BID [facility] Last Admin: 08/07/20 08:28 Dose: 1 drop Documented by: Brimonidine Tartrate (Alphagan 0.2% [facility] Sol) 0 ml EYERT BID [facility] Last Admin: 08/07/20 08:28 Dose: 1 drop Documented by: Cholecalciferol (Vitamin D3) 5,000 unit PO DAILY [facility] Last Admin: 08/07/20 08:30 Dose: 5,000 unit Documented by: Enoxaparin Sodium (Lovenox) 40 mg SUBCUT DAILY [facility] Last Admin: 08/07/20 08:29 Dose: 40 mg Documented by: Gabapentin (Neurontin) 100 mg PO DAILY [facility] Last Admin: 08/07/20 08:30 Dose: 100 mg Documented by: Gabapentin (Neurontin) 100 mg PO BEDTIME PRN PRN Reason: Pain Lactulose (Cephulac) 20 gm PO DAILY [facility] Last Admin: 08/07/20 08:29 Dose: 20 gm Documented by: Nystatin (Nystop) 0 gm TOP TID [facility] Last Admin: 08/07/20 14:33 Dose: 1 applic Documented by: Ondansetron HCl (Zofran) 4 mg IV Q4H PRN PRN Reason: Nausea/Vomiting Polyethylene Glycol (Miralax) 17 gm PO DAILY PRN PRN Reason: Constipation Last Admin: 08/02/20 08:51 Dose: 17 gm Documented by: Sodium Chloride (Saline Flush) 10 ml FLUSH ASDIRECTED PRN PRN Reason: Keep Vein Open Last Admin: 07/23/20 12:40 Dose: 10 ml Documented by: Timolol Maleate (Timoptic 0.5% [facility] Soln) 0 ml EYERT BID [facility] Last Admin: 08/07/20 08:28 Dose: 1 drop Documented by: Discontinued Medications Bisacodyl (Dulcolax) 10 mg RECTAL ONETIME ONE Stop: 07/24/20 18:31 Last Admin: 07/24/20 18:27 Dose: 10 mg Documented by: Bisacodyl (Dulcolax) 10 mg RECTAL ONETIME ONE Stop: 07/29/20 09:20 Last Admin: 07/29/20 09:45 Dose: 10 mg Documented by: Cholecalciferol (Vitamin D3) 5,000 unit PO DAILY [facility] Last Admin: 07/27/20 09:02 Dose: 5,000 unit Documented by: Dexamethasone (Dexamethasone) 4 mg IVPUSH ONETIME ONE Stop: 07/23/20 12:07 Last Admin: 07/23/20 12:41 Dose: 4 mg Documented by: Dexamethasone (Dexamethasone) 6 mg PO DAILY [facility] Stop: 08/01/20 09:01 Last Admin: 07/26/20 08:22 Dose: 6 mg Documented by: Haloperidol Lactate (Haldol) 2.5 mg IVPUSH ONETIME ONE Stop: 07/26/20 10:10 Last Admin: 07/26/20 10:21 Dose: 2.5 mg Documented by: Sodium Chloride (Normal Saline) 1,000 mls @ 125 mls/hr IV ASDIRECTED [facility] Last Admin: 07/24/20 07:34 Dose: 125 mls/hr Documented by: Remdesivir 200 mg/ Sodium (Chloride) 250 mls @ 250 mls/hr IV ONETIME ONE Stop: 07/24/20 01:29 Last Admin: 07/24/20 00:29 Dose: 250 mls/hr Documented by: Remdesivir 100 mg/ Sodium (Chloride) 100 mls @ 100 mls/hr IV Q24H [facility] Stop: 07/27/20 23:59 Last Admin: 07/27/20 23:38 Dose: 100 mls/hr Documented by: Magnesium Sulfate (Magnesium Sulfate In Water Premix) 2 gm in 50 mls @ 25 mls/hr IV ONETIME ONE Stop: 07/26/20 09:44 Last Admin: 07/26/20 08:22 Dose: 25 mls/hr Documented by: Sodium Chloride (Normal Saline) 1,000 mls @ 100 mls/hr IV ASDIRECTED [facility] Last Admin: 07/29/20 09:45 Dose: 100 mls/hr Documented by: Sodium Chloride (Normal Saline) 1,000 mls @ 100 mls/hr IV ASDIRECTED [facility] Last Admin: 07/31/20 01:42 Dose: 100 mls/hr Documented by: Magnesium Sulfate (Magnesium Sulfate In Water Premix) 2 gm in 50 mls @ 25 mls/hr IV ONETIME ONE Stop: 07/30/20 14:16 Last Admin: 07/30/20 12:52 Dose: 25 mls/hr Documented by: Sodium Chloride (Normal Saline) Confirm Administered Dose 1,000 mls @ as directed .ROUTE .STK-MED ONE Stop: 08/02/20 09:35 Last Admin: 08/02/20 09:51 Dose: Not Given Documented by: Sodium Chloride (Normal Saline) 500 mls @ 999 mls/hr IV .BOLUS ONE Stop: 08/02/20 10:07 Last Admin: 08/02/20 09:51 Dose: 999 mls/hr Documented by: Sodium Chloride (Normal Saline) 500 mls @ 500 mls/hr IV .BOLUS ONE Stop: 08/06/20 11:56 Last Admin: 08/06/20 11:11 Dose: 500 mls/hr Documented by: Magnesium Sulfate (Magnesium Sulfate In Water Premix) 2 gm in 50 mls @ 25 mls/hr IV ONETIME ONE Stop: 08/07/20 11:32 Last Admin: 08/07/20 09:50 Dose: 25 mls/hr Documented by: Sodium Chloride (Normal Saline) 500 mls @ 500 mls/hr IV .BOLUS ONE Stop: 08/07/20 10:32 Last Admin: 08/07/20 09:49 Dose: 500 mls/hr Documented by: Influenza Virus Vaccine (Fluzone High-Dose Quad 2020-) 240 mcg IM .ONCE ONE Stop: 07/26/20 13:16 Magnesium Hydroxide (Milk Of Magnesia) 30 ml PO ONETIME ONE Stop: 07/24/20 09:01 Last Admin: 07/24/20 08:41 Dose: 30 ml Documented by: Magnesium Hydroxide (Milk Of Magnesia) 30 ml PO ONETIME ONE Stop: 07/28/20 13:56 Last Admin: 07/28/20 15:26 Dose: 30 ml Documented by: Magnesium Hydroxide (Milk Of Magnesia) 30 ml PO ONETIME ONE Stop: 08/07/20 05:36 Last Admin: 08/07/20 06:20 Dose: 30 ml Documented by: Potassium Chloride (Klor-Con M20) 40 meq PO ONETIME ONE Stop: 08/01/20 07:25 Last Admin: 08/01/20 08:02 Dose: 40 meq Documented by: Sodium Chloride (Saline Flush) 10 ml FLUSH ASDIRECTED PRN PRN Reason: Keep Vein Open - Problem List & Annotations (1) Urinary tract infection SNOMED Code(s): 53813829 Code(s): N39.0 - URINARY TRACT INFECTION, SITE NOT SPECIFIED Status: Acute Current Visit: No Qualifiers: Urinary tract infection type: catheter-associated UTI Indwelling urinary catheter type: indwelling urethral catheter Encounter type: initial encounter Qualified Code(s): T83.511A - Infection and inflammatory reaction due to indwelling urethral catheter, initial encounter; N39.0 - Urinary tract infection, site not specified (2) Generalized weakness SNOMED Code(s): 43411806 Code(s): R53.1 - WEAKNESS Status: Acute Current Visit: Yes (3) Failure to thrive SNOMED Code(s): 72116521 Code(s): [id number] - Status: Acute Priority: High Current Visit: Yes Qualifiers: Failure to thrive age range: in adult Qualified Code(s): R62.7 - Adult failure to thrive - Plan Plan:: I have seen and examined the patient independent of nurse practitioner Beulah Jasso and I have discussed the case with her. I have reviewed and agree with the assessment and plan as outlined for this patient by her. Please see orders.
[2020-08-08] MEDS: Brimonidine 0.2% Ophth Soln 5 ML Bottle EYERT SCH ×2 (10:14→21:11)
[2020-08-08] MEDS: Carboxymethylcellulose Sodium 1% Ophth Gel 15 ML Bottle EYERT SCH ×2 (10:14→21:10)
[2020-08-08] MEDS: Timolol Maleate 0.5% Ophth Soln 5 ML Bottle EYERT SCH ×2 (10:15→21:12)
[2020-08-08] MEDS: Lactulose Soln 10 GM/15 ML 30 ML UD Cup PO SCH (10:15)
[2020-08-08] MEDS: Nystatin Topical Powder 15 GM Bottle TOP SCH ×3 (10:15→21:11)
[2020-08-08] MEDS: Acetaminophen 325 MG Tab PO SCH ×2 (10:16→20:58)
[2020-08-08] MEDS: Gabapentin 100 MG Cap PO SCH (10:16)
[2020-08-08] MEDS: Cholecalciferol (Vitamin D3) 5,000 UNIT Cap PO SCH (10:16)
[2020-08-08] MEDS: Enoxaparin 40 MG/0.4 ML Syringe SUBCUT SCH (10:16)
--- NOTE | 2020-08-08 14:35 | PCM.PN ---
<Jasso,DeAnn M - Last Filed: 08/08/20 14:36> - General Info Date of Service: 08/08/20 Admission Dx/Problem (Free Text): Admission Diagnosis/Problem Admission Diagnosis/Problem Failure to thrive Subjective Update: Doing about the same. Alert but remains confused. Functional Status: Reports: Pain Controlled, Urinating (Chronic Peña catheter). Denies: Tolerating Diet (Poor appetite) - Review of Systems General: Reports: No Symptoms HEENT: Reports: No Symptoms Pulmonary: Reports: No Symptoms Cardiovascular: Reports: No Symptoms Gastrointestinal: Reports: No Symptoms Genitourinary: Reports: No Symptoms Musculoskeletal: Reports: No Symptoms Skin: Reports: No Symptoms Neurological: Reports: Confusion Psychiatric: Reports: Confusion - Patient Data Vitals - Most Recent: Last Vital Signs Temp 98.1 F 08/08/20 14:16 Pulse 62 08/08/20 14:16 Resp 16 08/08/20 14:16 BP 125/77 08/08/20 14:16 Pulse Ox 93 L 08/08/20 14:16 Weight - Most Recent: 72.121 kg I&O - Last 24 Hours: Intake & Output 08/07/20 08/08/20 08/08/20 22:59 06:59 14:59 Intake Total 920 200 Output Total 350 350 Balance 570 -150 Lab Results Last 24 Hours: Laboratory Results - last 24 hr 08/08/20 08/08/20 Range/Units 06:25 06:25 WBC 6.89 (4.23-9.07) K/mm3 RBC 3.98 L (4.63-6.08) M/mm3 Hgb 12.4 L (13.7-17.5) gm/dl Hct 37.2 L (40.1-51.0) % MCV 93.5 H (79.0-92.2) fl MCH 31.2 (25.7-32.2) pg MCHC 33.3 (32.2-35.5) g/dl RDW Std Deviation 47.2 H (35.1-43.9) fL Plt Count 157 L (163-337) K/mm3 MPV 9.8 (9.4-12.3) fl Neut % (Auto) 60.4 (34.0-67.9) % Lymph % (Auto) 19.3 L (21.8-53.1) % Humphreys % (Auto) 14.8 H (5.3-12.2) % Eos % (Auto) 5.1 (0.8-7.0) Baso % (Auto) 0.3 (0.1-1.2) % Neut # (Auto) 4.16 (1.78-5.38) K/mm3 Lymph # (Auto) 1.33 (1.32-3.57) K/mm3 Humphreys # (Auto) 1.02 H (0.30-0.82) K/mm3 Eos # (Auto) 0.35 (0.04-0.54) K/mm3 Baso # (Auto) 0.02 (0.01-0.08) K/mm3 Sodium 138 (136-145) mEq/L Potassium 3.9 (3.5-5.1) mEq/L Chloride 104 (98-107) mEq/L Carbon Dioxide 25 (21-32) mEq/L Anion Gap 12.9 (5-15) BUN 20 H (7-18) mg/dL Creatinine 1.0 (0.7-1.3) mg/dL Est Cr Clr Drug Dosing 42.22 mL/min Estimated GFR (MDRD) > 60 (>60) mL/min BUN/Creatinine Ratio 20.0 H (14-18) Glucose 126 H (83-115) mg/dL Calcium 8.4 L (8.5-10.1) mg/dL Magnesium 2.0 (1.8-2.4) mg/dl Total Bilirubin 0.5 (0.2-1.0) mg/dL AST 19 (15-37) U/L ALT 26 (16-63) U/L Alkaline Phosphatase 90 (46-116) U/L Total Protein 6.0 L (6.4-8.2) g/dl Albumin 2.2 L (3.4-5.0) g/dl Globulin 3.8 gm/dL Albumin/Globulin Ratio 0.6 L (1-2) Med Orders - Current: Current Medications Acetaminophen (Tylenol) 650 mg PO Q4H PRN PRN Reason: Pain (Mild 1-3)/fever Last Admin: 08/02/20 08:56 Dose: 650 mg Documented by: Acetaminophen (Tylenol) 650 mg PO BID [facility] Last Admin: 08/08/20 10:16 Dose: 650 mg Documented by: Artificial Tears (Refresh Liquigel 1%) 0 ml EYERT BID [facility] Last Admin: 08/08/20 10:14 Dose: 1 drop Documented by: Brimonidine Tartrate (Alphagan 0.2% [facility] Sol) 0 ml EYERT BID [facility] Last Admin: 08/08/20 10:14 Dose: 1 drop Documented by: Cholecalciferol (Vitamin D3) 5,000 unit PO DAILY [facility] Last Admin: 08/08/20 10:16 Dose: 5,000 unit Documented by: Enoxaparin Sodium (Lovenox) 40 mg SUBCUT DAILY [facility] Last Admin: 08/08/20 10:16 Dose: 40 mg Documented by: Gabapentin (Neurontin) 100 mg PO DAILY [facility] Last Admin: 08/08/20 10:16 Dose: 100 mg Documented by: Gabapentin (Neurontin) 100 mg PO BEDTIME PRN PRN Reason: Pain Lactulose (Cephulac) 20 gm PO DAILY [facility] Last Admin: 08/08/20 10:15 Dose: 20 gm Documented by: Nystatin (Nystop) 0 gm TOP TID [facility] Last Admin: 08/08/20 14:18 Dose: 1 applic Documented by: Ondansetron HCl (Zofran) 4 mg IV Q4H PRN PRN Reason: Nausea/Vomiting Polyethylene Glycol (Miralax) 17 gm PO DAILY PRN PRN Reason: Constipation Last Admin: 08/02/20 08:51 Dose: 17 gm Documented by: Sodium Chloride (Saline Flush) 10 ml FLUSH ASDIRECTED PRN PRN Reason: Keep Vein Open Last Admin: 07/23/20 12:40 Dose: 10 ml Documented by: Timolol Maleate (Timoptic 0.5% [facility] Soln) 0 ml EYERT BID [facility] Last Admin: 08/08/20 10:15 Dose: 1 drop Documented by: Discontinued Medications Bisacodyl (Dulcolax) 10 mg RECTAL ONETIME ONE Stop: 07/24/20 18:31 Last Admin: 07/24/20 18:27 Dose: 10 mg Documented by: Bisacodyl (Dulcolax) 10 mg RECTAL ONETIME ONE Stop: 07/29/20 09:20 Last Admin: 07/29/20 09:45 Dose: 10 mg Documented by: Cholecalciferol (Vitamin D3) 5,000 unit PO DAILY [facility] Last Admin: 07/27/20 09:02 Dose: 5,000 unit Documented by: Dexamethasone (Dexamethasone) 4 mg IVPUSH ONETIME ONE Stop: 07/23/20 12:07 Last Admin: 07/23/20 12:41 Dose: 4 mg Documented by: Dexamethasone (Dexamethasone) 6 mg PO DAILY [facility] Stop: 08/01/20 09:01 Last Admin: 07/26/20 08:22 Dose: 6 mg Documented by: Haloperidol Lactate (Haldol) 2.5 mg IVPUSH ONETIME ONE Stop: 07/26/20 10:10 Last Admin: 07/26/20 10:21 Dose: 2.5 mg Documented by: Sodium Chloride (Normal Saline) 1,000 mls @ 125 mls/hr IV ASDIRECTED [facility] Last Admin: 07/24/20 07:34 Dose: 125 mls/hr Documented by: Remdesivir 200 mg/ Sodium (Chloride) 250 mls @ 250 mls/hr IV ONETIME ONE Stop: 07/24/20 01:29 Last Admin: 07/24/20 00:29 Dose: 250 mls/hr Documented by: Remdesivir 100 mg/ Sodium (Chloride) 100 mls @ 100 mls/hr IV Q24H [facility] Stop: 07/27/20 23:59 Last Admin: 07/27/20 23:38 Dose: 100 mls/hr Documented by: Magnesium Sulfate (Magnesium Sulfate In Water Premix) 2 gm in 50 mls @ 25 mls/hr IV ONETIME ONE Stop: 07/26/20 09:44 Last Admin: 07/26/20 08:22 Dose: 25 mls/hr Documented by: Sodium Chloride (Normal Saline) 1,000 mls @ 100 mls/hr IV ASDIRECTED [facility] Last Admin: 07/29/20 09:45 Dose: 100 mls/hr Documented by: Sodium Chloride (Normal Saline) 1,000 mls @ 100 mls/hr IV ASDIRECTED [facility] Last Admin: 07/31/20 01:42 Dose: 100 mls/hr Documented by: Magnesium Sulfate (Magnesium Sulfate In Water Premix) 2 gm in 50 mls @ 25 mls/hr IV ONETIME ONE Stop: 07/30/20 14:16 Last Admin: 07/30/20 12:52 Dose: 25 mls/hr Documented by: Sodium Chloride (Normal Saline) Confirm Administered Dose 1,000 mls @ as directed .ROUTE .STK-MED ONE Stop: 08/02/20 09:35 Last Admin: 08/02/20 09:51 Dose: Not Given Documented by: Sodium Chloride (Normal Saline) 500 mls @ 999 mls/hr IV .BOLUS ONE Stop: 08/02/20 10:07 Last Admin: 08/02/20 09:51 Dose: 999 mls/hr Documented by: Sodium Chloride (Normal Saline) 500 mls @ 500 mls/hr IV .BOLUS ONE Stop: 08/06/20 11:56 Last Admin: 08/06/20 11:11 Dose: 500 mls/hr Documented by: Magnesium Sulfate (Magnesium Sulfate In Water Premix) 2 gm in 50 mls @ 25 mls/hr IV ONETIME ONE Stop: 08/07/20 11:32 Last Admin: 08/07/20 09:50 Dose: 25 mls/hr Documented by: Sodium Chloride (Normal Saline) 500 mls @ 500 mls/hr IV .BOLUS ONE Stop: 08/07/20 10:32 Last Admin: 08/07/20 09:49 Dose: 500 mls/hr Documented by: Influenza Virus Vaccine (Fluzone High-Dose Quad 2020-) 240 mcg IM .ONCE ONE Stop: 07/26/20 13:16 Magnesium Hydroxide (Milk Of Magnesia) 30 ml PO ONETIME ONE Stop: 07/24/20 09:01 Last Admin: 07/24/20 08:41 Dose: 30 ml Documented by: Magnesium Hydroxide (Milk Of Magnesia) 30 ml PO ONETIME ONE Stop: 07/28/20 13:56 Last Admin: 07/28/20 15:26 Dose: 30 ml Documented by: Magnesium Hydroxide (Milk Of Magnesia) 30 ml PO ONETIME ONE Stop: 08/07/20 05:36 Last Admin: 08/07/20 06:20 Dose: 30 ml Documented by: Potassium Chloride (Klor-Con M20) 40 meq PO ONETIME ONE Stop: 08/01/20 07:25 Last Admin: 08/01/20 08:02 Dose: 40 meq Documented by: Sodium Chloride (Saline Flush) 10 ml FLUSH ASDIRECTED PRN PRN Reason: Keep Vein Open - Exam Quality Assessment: DVT Prophylaxis (Lovenox). No: Supplemental Oxygen General: Alert, Cooperative, No Acute Distress HEENT: Pupils Equal, Pupils Reactive, Mucous Membr. Moist/[place] Neck: Supple, Trachea Midline. No: Lymphadenopathy Lungs: Normal Respiratory Effort, Crackles (Fine crackles in the bases) Cardiovascular: Regular Rate, Regular Rhythm, No Murmurs GI/Abdominal Exam: Normal Bowel Sounds, Soft, Non-Tender, No Distention (Male) Exam: Deferred Back Exam: Normal Inspection, Full Range of Motion Extremities: Normal Inspection, Normal Range of Motion, Non-Tender, No Pedal Edema, Normal Capillary Refill Peripheral Pulses: 2+: Brachial (L), Brachial (R), Dorsalis Pedis (L), Dorsalis Pedis (R) Skin: Warm, Dry, Intact Neurological: No New Focal Deficit Psy/Mental Status: Alert, Normal Affect, Normal Mood Sepsis Event Note - Evaluation Sepsis Screening Result: No Definite Risk - Focused Exam Vital Signs: Vital Signs Temp Pulse Resp BP Pulse Ox 08/08/20 14:16 98.1 F 62 16 125/77 93 L 08/08/20 07:08 97.7 F 68 20 140/55 L 94 L 08/08/20 04:23 97.7 F 69 18 128/79 89 L - Problem List & Annotations (1) Failure to thrive SNOMED Code(s): 81653044 Code(s): NTD4877 - Status: Acute Priority: High Current Visit: Yes Qualifiers: Failure to thrive age range: in adult Qualified Code(s): R62.7 - Adult failure to thrive (2) Weakness SNOMED Code(s): 94859947 Code(s): R53.1 - WEAKNESS Status: Acute Priority: High Current Visit: Yes (3) Physical deconditioning SNOMED Code(s): 88139034225184 Code(s): R53.81 - OTHER MALAISE Status: Acute Priority: High Current Visit: Yes (4) Hypochloremia SNOMED Code(s): 61634670 Code(s): E87.8 - OTH DISORDERS OF ELECTROLYTE AND FLUID BALANCE, NEC Status: Resolved Priority: High Current Visit: Yes (5) Hyponatremia SNOMED Code(s): 59997045 Code(s): E87.1 - HYPO-OSMOLALITY AND HYPONATREMIA Status: Resolved Priority: High Current Visit: Yes (6) Volume depletion SNOMED Code(s): 379856819 Code(s): E86.9 - VOLUME DEPLETION, UNSPECIFIED Status: Resolved Priority: High Current Visit: Yes (7) Acute kidney injury SNOMED Code(s): 63377401, 76330975 Code(s): N17.9 - ACUTE KIDNEY FAILURE, UNSPECIFIED Status: Resolved Priority: High Current Visit: Yes (8) Acute hypoxemic respiratory failure due to COVID-19 SNOMED Code(s): 369817416 Code(s): U07.1 - COVID-19; J96.01 - ACUTE RESPIRATORY FAILURE WITH HYPOXIA Status: Acute Priority: High Current Visit: Yes (9) Hypertension SNOMED Code(s): 36064174 Code(s): I10 - ESSENTIAL (PRIMARY) HYPERTENSION Status: Chronic Priority: High Current Visit: Yes Qualifiers: Hypertension type: unspecified Qualified Code(s): I10 - Essential (primary) hypertension (10) Pneumonia due to COVID-19 virus SNOMED Code(s): 536882747799175433 Code(s): U07.1 - COVID-19; J12.89 - OTHER VIRAL PNEUMONIA Status: Acute Priority: High Current Visit: Yes (11) COVID-19 SNOMED Code(s): 562989567 Code(s): U07.1 - COVID-19 Status: Acute Priority: High Current Visit: No - Problem List Review Problem List Initiated/Reviewed/Updated: Yes - Assessment Assessment:: 07/23/2020 10 day history of positive COVID diagnosis Has been seen in the ED three times in the last 8 days. History of UTI recently treated with rocephin and omnicef Lives in [place] Pulse ox on admission was 88-89% Decreased appetite and po intake. Chest xray reveals increased density within the left lung base suspicious for small area of pneumonia. Lab results: -WBC 6.11 -Plt 106 -Ddimer 0.76 -UA negative -Na 127 -Chl 94 -BUN 17 -CRE 1.4 -GFR 48 -Ferritin 938 -LDH 190 -CRP 9.9 ABGs on room air -pH 7.45 -pCO2 30.2 -pO2 70.0 -HCO3 20.5 PLAN -Start Remdesivir -Start dexamethasone -Normal Saline @ 100ml/hr -Monitor for hypoxemia -Monitor urine output -Renally dosed medications -Repeat labs and replace electrolytes as needed -PT/OT to eval and treat -Radiator Fitter consult for supplements -Incentive spirometry 07/24/20 Still requires 2 liters of O2 Hematuria noted in peña catheter today. UA/ ordered Day 2 of dexamethasone and remdesivir IV fluids stopped-pt taking po well Encourage IS Lab results: -WBC down from 6.11-4.03 -Na up from 127-134 -BUN down from 17-15 -CRE down from 1.4-1.1 -GFR up from 48->60 PLAN -Day 2 of Remdesivir and dexamethasone -Saline lock IVF -Monitor for hypoxemia -Monitor urine output -Renally dosed medications -Repeat labs and replace electrolytes as needed -PT/OT to eval and treat -Radiator Fitter consult for supplements -Incentive spirometry -Nystantin to groin -UA/UC 07/25/20 On room air Day 3 of dexamethasone and remdesivir Encourage IS Yeast to groin. Vitals: BP 128-166/79-96 Tmax 98.4 Heart rate 62-72 91-91% on room air Lab results: -WBC 7.19 from 4.03 -Ddimer 1.07 from 0.76 -BUN from 16.6 to 17 -CRE up from 1.1 to 1.3 -GFR down from >60 to 52 -CRP down from 9.9 to 6.5 PLAN -Day 3 of Remdesivir and dexamethasone -Monitor for hypoxemia -Monitor urine output -Renally dosed medications -Repeat labs and replace electrolytes as needed -PT/OT to eval and treat -Incentive spirometry -Nystantin to groin 07/26/20 Extremely confused and agitated today. Per the family, he has had this reaction to dexamethasone in the past. Day 4 of dexamethasone and remdesivir Encourage IS Yeast to groin. Vitals: BP 126-166/74-93 Tmax 97.6 Heart rate 60-74 90-95% on room air Lab results: -BUN from 20-26 -CRE down from 1.3-1.2 -GFR up from 52 to 57 -Mg down from 1.9 to 1.7 PLAN -Day 4 of Remdesivir and dexamethasone -discontinue dexamethasone due to increased confusion and agitation. Pt given haldol x 1 dose due to dexamethasone effects. -Monitor for hypoxemia -Monitor urine output -Renally dosed medications -Repeat labs and replace electrolytes as needed -PT/OT to eval and treat -Pt continues to pull at peña and dig in his groin per nursing staff and then complains of back pain. UA ordered. -Nystantin to groin 07/27/20 Remains confused but is much more alert and less agitated. Day 5 of Remdesivir Encourage IS Yeast to groin. Vitals: BP 126-147-165/72-103 Tmax 97.9 Heart rate 71-76 92% on room air Lab results: -WBC up from 7.66 to 9.92 -BUN up from 26 to 28 -CRE 1.2 -GFR 57 -CRP down to 2.7 to 6.5 PLAN -Day 5 of Remdesivir -Monitor for hypoxemia -Monitor urine output -Renally dosed medications -Repeat labs and replace electrolytes as needed -PT/OT to eval and treat -UA unremarkable -Nystantin to groin 07/28/2020 Continues improving, but still poor oral intake. Stop dexamethasone because of delirium. Completed remdesivir. No labs today. 91 to 93% on room air. Vital signs stable. Afebrile. 07/29/2020 Continued poor oral intake. Decreased urine output secondary to poor oral intake. CRP increased dramatically to 15.1. WBC stable at 9.1, d-dimer 0.95. Procalcitonin done yesterday was less than 0.05. Renal function is stable with GFR 57. Albumin is low at 2.7. This reflects his poor oral intake. Chest x-ray showed some improvement in the multifocal peripheral airspace opacities consistent with his known COVID illness. 07/30/2020 Continued poor oral intake. Urine output is better CRP increased from 15.1 to 15.7 Will hold discharge til we get procalcitonin level back tomorrow. 07/31/2020 Eating 50% of meals and 100% of supplements Urine output is better Vital signs -Blood pressure 114-163/65-97 -T max 98.2 -Heart rate 62-80 -91-94% on room air Lab results -Ddimer up from 0.66 to 0.68 -CRP down from 15.7 to 14.3 08/01/2020 Remains clinically stable Continues to have poor appetite Urine output remains adequate Vital signs remain stable No labs obtained today Pending placement COVID-19 Re-test required by SNF remains positive as expected. Continues to work with PT and OT who recommend SNF placement 08/02/2020 A bit more confused today Continues to have poor appetite Urine output remains adequate Hypotensive today - given 500mL fluid bolus with good results, now stable vital signs. A bit more tired and difficult to understand today Labs today stable with D-dimer slightly elevated at 1.15 from 0.68 Discussed code status with son in room. Son will discuss with mother and report back. Pending placement. 08/03/2020 More interactive today but quite sleepy Nursing reports patient was awake most of the night Vital signs stable today Not requiring oxygen D-Dimer up from 1.16 to 1.51. Discussed with Dr. Hogue. Will monitor Re-check D-Dimer, CMP, CBC, Magnesium in AM Awaiting to discuss code status with son further Last BM 08/02/2020 Pending placement. 08/04/2020 The patient's hypoxemia has resolved. He is currently on room air. Patient's vital signs will be monitored and if he becomes hypoxic will restart oxygen. The patient's medications will be renally dosed. PT OT is evaluating the patient. Encouraged the patient to set up. Repeat laboratory studies have been ordered. He is currently awaiting placement. We will continue the patient's diet as tolerated. 08/05/2020 The patient is currently awaiting placement. The patient's medications will be renally dosed. Patient's vital signs to be monitored and if required will restart the patient's oxygen. PT OT will continue for the patient. Continue with his normal diet as tolerated. The patient has been encouraged to ambulate. Repeat laboratory studies will be ordered as needed for placement. 08/06/20 Patient did have an episode of hypotension today. Similar to the episode that he had on August 02. D-dimer is 0.74 today. C-reactive protein is down to 7.8. The patient did receive a 500 mL fluid fluid bolus with good results and vital signs are now stable. He is currently awaiting assisted placement. The tentative plan is to [facility] on August 09, 2020. 08/07/20 The patient was doing well this morning when I saw him on rounds. He is much more alert and talkative and happy. His son was at his bedside visiting with him. Shortly after I rounded on the patient physical therapy went into work with him. They stood him up and he had a vasovagal response. Blood pressures were in the 70s systolically. The son was quite upset with the situation, and requested for the patient to have some IV fluids. Even though the lab work does not reveal that the patient is dehydrated, I did order for him to have 500 mL's of normal saline. I did have a lengthy discussion with the patient's son regarding that the patient will likely continue to have a vasovagal response if he gets up from the chair too quickly to ambulate. Reassured him that the patient should still be able to go to [facility] tomorrow as planned and that we would communicate with their staff the need to get him up slowly. Magnesium was 1.7 today which is down from 2.0. He will receive 2 g of mag sulfate IV today. It does remain poor. 08/08/20 Patient was to be discharged to [facility] unit today. However, they have had an outbreak of COVID and are not taking new admits. Patient remains stable at this time. Labs are unremarkable. Vital signs are stable. Continues to have a poor appetite. Drinking protein supplements. Awaiting assisted placement. - Plan Plan:: I have seen and examined the patient independent of nurse practitioner Beulah Jasso and I have discussed the case with her. I have reviewed and agree with the assessment and plan as outlined for this patient by her. Please see orders. 08/08/20 director of women's services and case management working on discharge placement. I will not recheck any lab work at this time due to the patient remaining fairly stable we will give him the day off. We will continue to monitor intake and output and his vital signs. Physical therapy and Occupational Therapy will continue to work with patient until discharge. Will encourage nursing staff to increase/encourage p.o. intake. <Vincent Alford - Last Filed: 08/08/20 15:34> - Patient Data Vitals - Most Recent: Last Vital Signs Temp 36.7 C 08/08/20 14:16 Pulse 62 08/08/20 14:16 Resp 16 08/08/20 14:16 BP 125/77 08/08/20 14:16 Pulse Ox 93 L 08/08/20 14:16 I&O - Last 24 Hours: Intake & Output 08/08/20 08/08/20 08/08/20 06:59 14:59 22:59 Intake Total 200 300 Output Total 350 360 Balance -150 -60 Lab Results Last 24 Hours: Laboratory Results - last 24 hr 08/08/20 08/08/20 Range/Units 06:25 06:25 WBC 6.89 (4.23-9.07) K/mm3 RBC 3.98 L (4.63-6.08) M/mm3 Hgb 12.4 L (13.7-17.5) gm/dl Hct 37.2 L (40.1-51.0) % MCV 93.5 H (79.0-92.2) fl MCH 31.2 (25.7-32.2) pg MCHC 33.3 (32.2-35.5) g/dl RDW Std Deviation 47.2 H (35.1-43.9) fL Plt Count 157 L (163-337) K/mm3 MPV 9.8 (9.4-12.3) fl Neut % (Auto) 60.4 (34.0-67.9) % Lymph % (Auto) 19.3 L (21.8-53.1) % Humphreys % (Auto) 14.8 H (5.3-12.2) % Eos % (Auto) 5.1 (0.8-7.0) Baso % (Auto) 0.3 (0.1-1.2) % Neut # (Auto) 4.16 (1.78-5.38) K/mm3 Lymph # (Auto) 1.33 (1.32-3.57) K/mm3 Humphreys # (Auto) 1.02 H (0.30-0.82) K/mm3 Eos # (Auto) 0.35 (0.04-0.54) K/mm3 Baso # (Auto) 0.02 (0.01-0.08) K/mm3 Sodium 138 (136-145) mEq/L Potassium 3.9 (3.5-5.1) mEq/L Chloride 104 (98-107) mEq/L Carbon Dioxide 25 (21-32) mEq/L Anion Gap 12.9 (5-15) BUN 20 H (7-18) mg/dL Creatinine 1.0 (0.7-1.3) mg/dL Est Cr Clr Drug Dosing 42.22 mL/min Estimated GFR (MDRD) > 60 (>60) mL/min BUN/Creatinine Ratio 20.0 H (14-18) Glucose 126 H (83-115) mg/dL Calcium 8.4 L (8.5-10.1) mg/dL Magnesium 2.0 (1.8-2.4) mg/dl Total Bilirubin 0.5 (0.2-1.0) mg/dL AST 19 (15-37) U/L ALT 26 (16-63) U/L Alkaline Phosphatase 90 (46-116) U/L Total Protein 6.0 L (6.4-8.2) g/dl Albumin 2.2 L (3.4-5.0) g/dl Globulin 3.8 gm/dL Albumin/Globulin Ratio 0.6 L (1-2) Med Orders - Current: Current Medications Acetaminophen (Tylenol) 650 mg PO Q4H PRN PRN Reason: Pain (Mild 1-3)/fever Last Admin: 08/02/20 08:56 Dose: 650 mg Documented by: Acetaminophen (Tylenol) 650 mg PO BID [facility] Last Admin: 08/08/20 10:16 Dose: 650 mg Documented by: Artificial Tears (Refresh Liquigel 1%) 0 ml EYERT BID [facility] Last Admin: 08/08/20 10:14 Dose: 1 drop Documented by: Brimonidine Tartrate (Alphagan 0.2% [facility]) 0 ml EYERT BID [facility] Last Admin: 08/08/20 10:14 Dose: 1 drop Documented by: Cholecalciferol (Vitamin D3) 5,000 unit PO DAILY [facility] Last Admin: 08/08/20 10:16 Dose: 5,000 unit Documented by: Enoxaparin Sodium (Lovenox) 40 mg SUBCUT DAILY [facility] Last Admin: 08/08/20 10:16 Dose: 40 mg Documented by: Gabapentin (Neurontin) 100 mg PO DAILY [facility] Last Admin: 08/08/20 10:16 Dose: 100 mg Documented by: Gabapentin (Neurontin) 100 mg PO BEDTIME PRN PRN Reason: Pain Lactulose (Cephulac) 20 gm PO DAILY [facility] Last Admin: 08/08/20 10:15 Dose: 20 gm Documented by: Nystatin (Nystop) 0 gm TOP TID [facility] Last Admin: 08/08/20 14:18 Dose: 1 applic Documented by: Ondansetron HCl (Zofran) 4 mg IV Q4H PRN PRN Reason: Nausea/Vomiting Polyethylene Glycol (Miralax) 17 gm PO DAILY PRN PRN Reason: Constipation Last Admin: 08/02/20 08:51 Dose: 17 gm Documented by: Sodium Chloride (Saline Flush) 10 ml FLUSH ASDIRECTED PRN PRN Reason: Keep Vein Open Last Admin: 07/23/20 12:40 Dose: 10 ml Documented by: Timolol Maleate (Timoptic 0.5% [facility] Sol) 0 ml EYERT BID [facility] Last Admin: 08/08/20 10:15 Dose: 1 drop Documented by: Discontinued Medications Bisacodyl (Dulcolax) 10 mg RECTAL ONETIME ONE Stop: 07/24/20 18:31 Last Admin: 07/24/20 18:27 Dose: 10 mg Documented by: Bisacodyl (Dulcolax) 10 mg RECTAL ONETIME ONE Stop: 07/29/20 09:20 Last Admin: 07/29/20 09:45 Dose: 10 mg Documented by: Cholecalciferol (Vitamin D3) 5,000 unit PO DAILY [facility] Last Admin: 07/27/20 09:02 Dose: 5,000 unit Documented by: Dexamethasone (Dexamethasone) 4 mg IVPUSH ONETIME ONE Stop: 07/23/20 12:07 Last Admin: 07/23/20 12:41 Dose: 4 mg Documented by: Dexamethasone (Dexamethasone) 6 mg PO DAILY [facility] Stop: 08/01/20 09:01 Last Admin: 07/26/20 08:22 Dose: 6 mg Documented by: Haloperidol Lactate (Haldol) 2.5 mg IVPUSH ONETIME ONE Stop: 07/26/20 10:10 Last Admin: 07/26/20 10:21 Dose: 2.5 mg Documented by: Sodium Chloride (Normal Saline) 1,000 mls @ 125 mls/hr IV ASDIRECTED [facility] Last Admin: 07/24/20 07:34 Dose: 125 mls/hr Documented by: Remdesivir 200 mg/ Sodium (Chloride) 250 mls @ 250 mls/hr IV ONETIME ONE Stop: 07/24/20 01:29 Last Admin: 07/24/20 00:29 Dose: 250 mls/hr Documented by: Remdesivir 100 mg/ Sodium (Chloride) 100 mls @ 100 mls/hr IV Q24H [facility] Stop: 07/27/20 23:59 Last Admin: 07/27/20 23:38 Dose: 100 mls/hr Documented by: Magnesium Sulfate (Magnesium Sulfate In Water Premix) 2 gm in 50 mls @ 25 mls/hr IV ONETIME ONE Stop: 07/26/20 09:44 Last Admin: 07/26/20 08:22 Dose: 25 mls/hr Documented by: Sodium Chloride (Normal Saline) 1,000 mls @ 100 mls/hr IV ASDIRECTED [facility] Last Admin: 07/29/20 09:45 Dose: 100 mls/hr Documented by: Sodium Chloride (Normal Saline) 1,000 mls @ 100 mls/hr IV ASDIRECTED [facility] Last Admin: 07/31/20 01:42 Dose: 100 mls/hr Documented by: Magnesium Sulfate (Magnesium Sulfate In Water Premix) 2 gm in 50 mls @ 25 mls/hr IV ONETIME ONE Stop: 07/30/20 14:16 Last Admin: 07/30/20 12:52 Dose: 25 mls/hr Documented by: Sodium Chloride (Normal Saline) Confirm Administered Dose 1,000 mls @ as directed .ROUTE .STK-MED ONE Stop: 08/02/20 09:35 Last Admin: 08/02/20 09:51 Dose: Not Given Documented by: Sodium Chloride (Normal Saline) 500 mls @ 999 mls/hr IV .BOLUS ONE Stop: 08/02/20 10:07 Last Admin: 08/02/20 09:51 Dose: 999 mls/hr Documented by: Sodium Chloride (Normal Saline) 500 mls @ 500 mls/hr IV .BOLUS ONE Stop: 08/06/20 11:56 Last Admin: 08/06/20 11:11 Dose: 500 mls/hr Documented by: Magnesium Sulfate (Magnesium Sulfate In Water Premix) 2 gm in 50 mls @ 25 mls/hr IV ONETIME ONE Stop: 08/07/20 11:32 Last Admin: 08/07/20 09:50 Dose: 25 mls/hr Documented by: Sodium Chloride (Normal Saline) 500 mls @ 500 mls/hr IV .BOLUS ONE Stop: 08/07/20 10:32 Last Admin: 08/07/20 09:49 Dose: 500 mls/hr Documented by: Influenza Virus Vaccine (Fluzone High-Dose Quad ) 240 mcg IM .ONCE ONE Stop: 07/26/20 13:16 Magnesium Hydroxide (Milk Of Magnesia) 30 ml PO ONETIME ONE Stop: 07/24/20 09:01 Last Admin: 07/24/20 08:41 Dose: 30 ml Documented by: Magnesium Hydroxide (Milk Of Magnesia) 30 ml PO ONETIME ONE Stop: 07/28/20 13:56 Last Admin: 07/28/20 15:26 Dose: 30 ml Documented by: Magnesium Hydroxide (Milk Of Magnesia) 30 ml PO ONETIME ONE Stop: 08/07/20 05:36 Last Admin: 08/07/20 06:20 Dose: 30 ml Documented by: Potassium Chloride (Klor-Con M20) 40 meq PO ONETIME ONE Stop: 08/01/20 07:25 Last Admin: 08/01/20 08:02 Dose: 40 meq Documented by: Sodium Chloride (Saline Flush) 10 ml FLUSH ASDIRECTED PRN PRN Reason: Keep Vein Open Sepsis Event Note - Focused Exam Vital Signs: Vital Signs Temp Pulse Resp BP Pulse Ox 08/08/20 14:16 36.7 C 62 16 125/77 93 L 08/08/20 07:08 36.5 C 68 20 140/55 L 94 L 08/08/20 04:23 36.5 C 69 18 128/79 89 L - Problem List & Annotations (1) Urinary tract infection SNOMED Code(s): 13412049 Code(s): N39.0 - URINARY TRACT INFECTION, SITE NOT SPECIFIED Status: Acute Current Visit: No Qualifiers: Urinary tract infection type: catheter-associated UTI Indwelling urinary catheter type: indwelling urethral catheter Encounter type: initial encounter Qualified Code(s): T83.511A - Infection and inflammatory reaction due to indwelling urethral catheter, initial encounter; N39.0 - Urinary tract i nfection, site not specified (2) Generalized weakness SNOMED Code(s): 70826005 Code(s): R53.1 - WEAKNESS Status: Acute Current Visit: Yes (3) Failure to thrive SNOMED Code(s): 47289377 Code(s): FJT5714 - Status: Acute Priority: High Current Visit: Yes Qualifiers: Failure to thrive age range: in adult Qualified Code(s): R62.7 - Adult failure to thrive - Plan Plan:: I have seen and examined the patient independent of nurse practitioner Beulah Jasso and I have discussed the case with her. I have reviewed and agree with the assessment and plan as outlined for this patient by her. Please see orders.
[2020-08-09] MEDS: Brimonidine 0.2% Ophth Soln 5 ML Bottle EYERT SCH ×2 (08:27→21:01)
[2020-08-09] MEDS: Lactulose Soln 10 GM/15 ML 30 ML UD Cup PO SCH (08:55)
[2020-08-09] MEDS: Enoxaparin 40 MG/0.4 ML Syringe SUBCUT SCH (08:56)
[2020-08-09] MEDS: Carboxymethylcellulose Sodium 1% Ophth Gel 15 ML Bottle EYERT SCH ×2 (08:57→21:02)
[2020-08-09] MEDS: Gabapentin 100 MG Cap PO SCH (08:57)
[2020-08-09] MEDS: Timolol Maleate 0.5% Ophth Soln 5 ML Bottle EYERT SCH ×2 (08:58→21:01)
[2020-08-09] MEDS: Acetaminophen 325 MG Tab PO SCH ×2 (08:59→21:02)
--- NOTE | 2020-08-09 11:46 | PCM.PN ---
- General Info Date of Service: 08/09/20 Admission Dx/Problem (Free Text): Admission Diagnosis/Problem Admission Diagnosis/Problem Failure to thrive Subjective Update: Alert and oriented today. Reports feeling well. States he is upset that he is still in the hospital. Functional Status: Reports: Pain Controlled, Tolerating Diet, Urinating (Chronic Peña) - Review of Systems General: Reports: No Symptoms HEENT: Reports: Glasses Pulmonary: Reports: No Symptoms Cardiovascular: Reports: No Symptoms Gastrointestinal: Reports: No Symptoms Genitourinary: Reports: Other (Chronic Peña) Musculoskeletal: Reports: No Symptoms Skin: Reports: No Symptoms Neurological: Reports: No Symptoms Psychiatric: Reports: No Symptoms - Patient Data Vitals - Most Recent: Last Vital Signs Temp 97.5 F 08/09/20 03:38 Pulse 65 08/09/20 03:38 Resp 15 08/09/20 03:38 BP 104/69 08/09/20 03:38 Pulse Ox 92 L 08/09/20 03:38 Weight - Most Recent: 161 lb 14.4 oz I&O - Last 24 Hours: Intake & Output 08/08/20 08/09/20 08/09/20 22:59 06:59 14:59 Intake Total 180 400 120 Output Total 300 Balance 180 100 120 Med Orders - Current: Current Medications Acetaminophen (Tylenol) 650 mg PO Q4H PRN PRN Reason: Pain (Mild 1-3)/fever Last Admin: 08/02/20 08:56 Dose: 650 mg Documented by: Acetaminophen (Tylenol) 650 mg PO BID [facility] Last Admin: 08/09/20 08:59 Dose: 650 mg Documented by: Artificial Tears (Refresh Liquigel 1%) 0 ml EYERT BID [facility] Last Admin: 08/09/20 08:57 Dose: 1 drop Documented by: Brimonidine Tartrate (Alphagan 0.2% [facility]) 0 ml EYERT BID [facility] Last Admin: 08/09/20 08:27 Dose: 1 drop Documented by: Cholecalciferol (Vitamin D3) 5,000 unit PO DAILY [facility] Enoxaparin Sodium (Lovenox) 40 mg SUBCUT DAILY [facility] Last Admin: 08/09/20 08:56 Dose: 40 mg Documented by: Gabapentin (Neurontin) 100 mg PO DAILY [facility] Last Admin: 08/09/20 08:57 Dose: 100 mg Documented by: Gabapentin (Neurontin) 100 mg PO BEDTIME PRN PRN Reason: Pain Lactulose (Cephulac) 20 gm PO DAILY [facility] Last Admin: 08/09/20 08:55 Dose: 20 gm Documented by: Nystatin (Nystop) 0 gm TOP TID [facility] Last Admin: 08/08/20 21:11 Dose: 1 applic Documented by: Ondansetron HCl (Zofran) 4 mg IV Q4H PRN PRN Reason: Nausea/Vomiting Polyethylene Glycol (Miralax) 17 gm PO DAILY PRN PRN Reason: Constipation Last Admin: 08/02/20 08:51 Dose: 17 gm Documented by: Sodium Chloride (Saline Flush) 10 ml FLUSH ASDIRECTED PRN PRN Reason: Keep Vein Open Last Admin: 07/23/20 12:40 Dose: 10 ml Documented by: Timolol Maleate (Timoptic 0.5% Ophth Soln) 0 ml EYERT BID [facility] Last Admin: 08/09/20 08:58 Dose: 1 drop Documented by: Discontinued Medications Bisacodyl (Dulcolax) 10 mg RECTAL ONETIME ONE Stop: 07/24/20 18:31 Last Admin: 07/24/20 18:27 Dose: 10 mg Documented by: Bisacodyl (Dulcolax) 10 mg RECTAL ONETIME ONE Stop: 07/29/20 09:20 Last Admin: 07/29/20 09:45 Dose: 10 mg Documented by: Cholecalciferol (Vitamin D3) 5,000 unit PO DAILY [facility] Last Admin: 07/27/20 09:02 Dose: 5,000 unit Documented by: Cholecalciferol (Vitamin D3) 5,000 unit PO DAILY [facility] Last Admin: 08/08/20 10:16 Dose: 5,000 unit Documented by: Dexamethasone (Dexamethasone) 4 mg IVPUSH ONETIME ONE Stop: 07/23/20 12:07 Last Admin: 07/23/20 12:41 Dose: 4 mg Documented by: Dexamethasone (Dexamethasone) 6 mg PO DAILY [facility] Stop: 08/01/20 09:01 Last Admin: 07/26/20 08:22 Dose: 6 mg Documented by: Haloperidol Lactate (Haldol) 2.5 mg IVPUSH ONETIME ONE Stop: 07/26/20 10:10 Last Admin: 07/26/20 10:21 Dose: 2.5 mg Documented by: Sodium Chloride (Normal Saline) 1,000 mls @ 125 mls/hr IV ASDIRECTED [facility] Last Admin: 07/24/20 07:34 Dose: 125 mls/hr Documented by: Remdesivir 200 mg/ Sodium (Chloride) 250 mls @ 250 mls/hr IV ONETIME ONE Stop: 07/24/20 01:29 Last Admin: 07/24/20 00:29 Dose: 250 mls/hr Documented by: Remdesivir 100 mg/ Sodium (Chloride) 100 mls @ 100 mls/hr IV Q24H [facility] Stop: 07/27/20 23:59 Last Admin: 07/27/20 23:38 Dose: 100 mls/hr Documented by: Magnesium Sulfate (Magnesium Sulfate In Water Premix) 2 gm in 50 mls @ 25 mls/hr IV ONETIME ONE Stop: 07/26/20 09:44 Last Admin: 07/26/20 08:22 Dose: 25 mls/hr Documented by: Sodium Chloride (Normal Saline) 1,000 mls @ 100 [facility] Last Admin: 07/29/20 09:45 Dose: 100 mls/hr Documented by: Sodium Chloride (Normal Saline) 1,000 mls @ 100 [facility]ls[facility] Last Admin: 07/31/20 01:42 Dose: 100 mls/hr Documented by: Magnesium Sulfate (Magnesium Sulfate In Water Premix) 2 gm in 50 mls @ 25 mls/hr IV ONETIME ONE Stop: 07/30/20 14:16 Last Admin: 07/30/20 12:52 Dose: 25 mls/hr Documented by: Sodium Chloride (Normal Saline) Confirm Administered Dose 1,000 mls @ as directed .ROUTE .STK-MED ONE Stop: 08/02/20 09:35 Last Admin: 08/02/20 09:51 Dose: Not Given Documented by: Sodium Chloride (Normal Saline) 500 mls @ 999 mls/hr IV .BOLUS ONE Stop: 08/02/20 10:07 Last Admin: 08/02/20 09:51 Dose: 999 mls/hr Documented by: Sodium Chloride (Normal Saline) 500 mls @ 500 mls/hr IV .BOLUS ONE Stop: 08/06/20 11:56 Last Admin: 08/06/20 11:11 Dose: 500 mls/hr Documented by: Magnesium Sulfate (Magnesium Sulfate In Water Premix) 2 gm in 50 mls @ 25 mls/hr IV ONETIME ONE Stop: 08/07/20 11:32 Last Admin: 08/07/20 09:50 Dose: 25 mls/hr Documented by: Sodium Chloride (Normal Saline) 500 mls @ 500 mls/hr IV .BOLUS ONE Stop: 08/07/20 10:32 Last Admin: 08/07/20 09:49 Dose: 500 mls/hr Documented by: Influenza Virus Vaccine (Fluzone High-Dose Quad ) 240 mcg IM .ONCE ONE Stop: 07/26/20 13:16 Magnesium Hydroxide (Milk Of Magnesia) 30 ml PO ONETIME ONE Stop: 07/24/20 09:01 Last Admin: 07/24/20 08:41 Dose: 30 ml Documented by: Magnesium Hydroxide (Milk Of Magnesia) 30 ml PO ONETIME ONE Stop: 07/28/20 13:56 Last Admin: 07/28/20 15:26 Dose: 30 ml Documented by: Magnesium Hydroxide (Milk Of Magnesia) 30 ml PO ONETIME ONE Stop: 08/07/20 05:36 Last Admin: 08/07/20 06:20 Dose: 30 ml Documented by: Potassium Chloride (Klor-Con M20) 40 meq PO ONETIME ONE Stop: 08/01/20 07:25 Last Admin: 08/01/20 08:02 Dose: 40 meq Documented by: Sodium Chloride (Saline Flush) 10 ml FLUSH ASDIRECTED PRN PRN Reason: Keep Vein Open - Exam Quality Assessment: Urine Catheter (Chronic), DVT Prophylaxis (Lovenox). No: Supplemental Oxygen General: Alert, Oriented, Cooperative, No Acute Distress HEENT: Mucous Membr. Moist/[place] Neck: Supple, Trachea Midline. No: Lymphadenopathy Lungs: Normal Respiratory Effort, Decreased Breath Sounds Cardiovascular: Regular Rate, Regular Rhythm, No Murmurs GI/Abdominal Exam: Normal Bowel Sounds, Soft, Non-Tender, No Distention (Male) Exam: Deferred Back Exam: Normal Inspection, Full Range of Motion Extremities: Normal Inspection, Normal Range of Motion, Non-Tender, No Pedal Edema, Normal Capillary Refill Peripheral Pulses: 2+: Radial (L), Radial (R), Dorsalis Pedis (L), Dorsalis Pedis (R) Skin: Warm, Dry, Intact Wound/Incisions: Healing Well Neurological: No New Focal Deficit Psy/Mental Status: Alert, Normal Affect, Normal Mood Sepsis Event Note - Evaluation Sepsis Screening Result: No Definite Risk - Focused Exam Vital Signs: Vital Signs Temp Pulse Resp BP Pulse Ox 08/09/20 03:38 97.5 F 65 15 104/69 92 L 08/08/20 23:55 97.3 F 72 20 147/86 H 92 L - Problem List & Annotations (1) Failure to thrive SNOMED Code(s): 40116808 Code(s): ONN1521 - Status: Acute Priority: High Current Visit: Yes Qualifiers: Failure to thrive age range: in adult Qualified Code(s): R62.7 - Adult failure to thrive (2) Weakness SNOMED Code(s): 15459906 Code(s): R53.1 - WEAKNESS Status: Acute Priority: High Current Visit: Yes (3) Physical deconditioning SNOMED Code(s): 01799467485210 Code(s): R53.81 - OTHER MALAISE Status: Acute Priority: High Current Visit: Yes (4) Hypochloremia SNOMED Code(s): 24862451 Code(s): E87.8 - OTH DISORDERS OF ELECTROLYTE AND FLUID BALANCE, NEC Status: Resolved Priority: High Current Visit: Yes (5) Hyponatremia SNOMED Code(s): 05606814 Code(s): E87.1 - HYPO-OSMOLALITY AND HYPONATREMIA Status: Resolved Priority: High Current Visit: Yes (6) Volume depletion SNOMED Code(s): 034687667 Code(s): E86.9 - VOLUME DEPLETION, UNSPECIFIED Status: Resolved Priority: High Current Visit: Yes (7) Acute kidney injury SNOMED Code(s): 00739065, 97737888 Code(s): N17.9 - ACUTE KIDNEY FAILURE, UNSPECIFIED Status: Resolved Priority: High Current Visit: Yes (8) Acute hypoxemic respiratory failure due to COVID-19 SNOMED Code(s): 392418295 Code(s): U07.1 - COVID-19; J96.01 - ACUTE RESPIRATORY FAILURE WITH HYPOXIA Status: Resolved Priority: High Current Visit: Yes (9) Hypertension SNOMED Code(s): 37443403 Code(s): I10 - ESSENTIAL (PRIMARY) HYPERTENSION Status: Chronic Priority: High Current Visit: Yes Qualifiers: Hypertension type: unspecified Qualified Code(s): I10 - Essential (primary) hypertension (10) Pneumonia due to COVID-19 virus SNOMED Code(s): 081866489704431728 Code(s): U07.1 - COVID-19; J12.89 - OTHER VIRAL PNEUMONIA Status: Resolved Priority: High Current Visit: Yes (11) COVID-19 SNOMED Code(s): 583575955 Code(s): U07.1 - COVID-19 Status: Resolved Priority: High Current Vi sit: No - Problem List Review Problem List Initiated/Reviewed/Updated: Yes - My Orders Last 24 Hours: My Active Orders 08/09/20 10:15 Cholecalciferol (Vitamin D3) [Vitamin D3] 5,000 unit PO DAILY - Assessment Assessment:: 07/23/2020 10 day history of positive COVID diagnosis Has been seen in the ED three times in the last 8 days. History of UTI recently treated with rocephin and omnicef Lives in [place] Pulse ox on admission was 88-89% Decreased appetite and po intake. Chest xray reveals increased density within the left lung base suspicious for small area of pneumonia. Lab results: -WBC 6.11 -Plt 106 -Ddimer 0.76 -UA negative -Na 127 -Chl 94 -BUN 17 -CRE 1.4 -GFR 48 -Ferritin 938 -LDH 190 -CRP 9.9 ABGs on room air -pH 7.45 -pCO2 30.2 -pO2 70.0 -HCO3 20.5 PLAN -Start Remdesivir -Start dexamethasone -Normal Saline @ 100ml/hr -Monitor for hypoxemia -Monitor urine output -Renally dosed medications -Repeat labs and replace electrolytes as needed -PT/OT to eval and treat -Tunnel Kiln Operator consult for supplements -Incentive spirometry 07/24/20 Still requires 2 liters of O2 Hematuria noted in peña catheter today. UA/UC ordered Day 2 of dexamethasone and remdesivir IV fluids stopped-pt taking po well Encourage IS Lab results: -WBC down from 6.11-4.03 -Na up from 127-134 -BUN down from 17-15 -CRE down from 1.4-1.1 -GFR up from 48->60 PLAN -Day 2 of Remdesivir and dexamethasone -Saline lock IVF -Monitor for hypoxemia -Monitor urine output -Renally dosed medications -Repeat labs and replace electrolytes as needed -PT/OT to eval and treat -Tunnel Kiln Operator consult for supplements -Incentive spirometry -Nystantin to groin -UA/UC 07/25/20 On room air Day 3 of dexamethasone and remdesivir Encourage IS Yeast to groin. Vitals: BP 128-166/79-96 Tmax 98.4 Heart rate 62-72 91-91% on room air Lab results: -WBC 7.19 from 4.03 -Ddimer 1.07 from 0.76 -BUN from 16.6 to 17 -CRE up from 1.1 to 1.3 -GFR down from >60 to 52 -CRP down from 9.9 to 6.5 PLAN -Day 3 of Remdesivir and dexamethasone -Monitor for hypoxemia -Monitor urine output -Renally dosed medications -Repeat labs and replace electrolytes as needed -PT/OT to eval and treat -Incentive spirometry -Nystantin to groin 07/26/20 Extremely confused and agitated today. Per the family, he has had this reaction to dexamethasone in the past. Day 4 of dexamethasone and remdesivir Encourage IS Yeast to groin. Vitals: BP 126-166/74-93 Tmax 97.6 Heart rate 60-74 90-95% on room air Lab results: -BUN from 20-26 -CRE down from 1.3-1.2 -GFR up from 52 to 57 -Mg down from 1.9 to 1.7 PLAN -Day 4 of Remdesivir and dexamethasone -discontinue dexamethasone due to increased confusion and agitation. Pt given haldol x 1 dose due to dexamethasone effects. -Monitor for hypoxemia -Monitor urine output -Renally dosed medications -Repeat labs and replace electrolytes as needed -PT/OT to eval and treat -Pt continues to pull at peña and dig in his groin per nursing staff and then complains of back pain. UA ordered. -Nystantin to groin 07/27/20 Remains confused but is much more alert and less agitated. Day 5 of Remdesivir Encourage IS Yeast to groin. Vitals: BP 126-147-165/72-103 Tmax 97.9 Heart rate 71-76 92% on room air Lab results: -WBC up from 7.66 to 9.92 -BUN up from 26 to 28 -CRE 1.2 -GFR 57 -CRP down to 2.7 to 6.5 PLAN -Day 5 of Remdesivir -Monitor for hypoxemia -Monitor urine output -Renally dosed medications -Repeat labs and replace electrolytes as needed -PT/OT to eval and treat -UA unremarkable -Nystantin to groin 07/28/2020 Continues improving, but still poor oral intake. Stop dexamethasone because of delirium. Completed remdesivir. No labs today. 91 to 93% on room air. Vital signs stable. Afebrile. 07/29/2020 Continued poor oral intake. Decreased urine output secondary to poor oral intake. CRP increased dramatically to 15.1. WBC stable at 9.1, d-dimer 0.95. Procalcitonin done yesterday was less than 0.05. Renal function is stable with GFR 57. Albumin is low at 2.7. This reflects his poor oral intake. Chest x-ray showed some improvement in the multifocal peripheral airspace opacities consistent with his known COVID illness. 07/30/2020 Continued poor oral intake. Urine output is better CRP increased from 15.1 to 15.7 Will hold discharge til we get procalcitonin level back tomorrow. 07/31/2020 Eating 50% of meals and 100% of supplements Urine output is better Vital signs -Blood pressure 114-163/65-97 -T max 98.2 -Heart rate 62-80 -91-94% on room air Lab results -Ddimer up from 0.66 to 0.68 -CRP down from 15.7 to 14.3 08/01/2020 Remains clinically stable Continues to have poor appetite Urine output remains adequate Vital signs remain stable No labs obtained today Pending placement COVID-19 Re-test required by SNF remains positive as expected. Continues to work with PT and OT who recommend SNF placement 08/02/2020 A bit more confused today Continues to have poor appetite Urine output remains adequate Hypotensive today - given 500mL fluid bolus with good results, now stable vital signs. A bit more tired and difficult to understand today Labs today stable with D-dimer slightly elevated at 1.15 from 0.68 Discussed code status with son in room. Son will discuss with mother and report back. Pending placement. 08/03/2020 More interactive today but quite sleepy Nursing reports patient was awake most of the night Vital signs stable today Not requiring oxygen D-Dimer up from 1.16 to 1.51. Discussed with Dr. Hogue. Will monitor Re-check D-Dimer, CMP, CBC, Magnesium in AM Awaiting to discuss code status with son further Last BM 08/02/2020 Pending placement. 08/04/2020 The patient's hypoxemia has resolved. He is currently on room air. Patient's vital signs will be monitored and if he becomes hypoxic will restart oxygen. The patient's medications will be renally dosed. PT OT is evaluating the patient. Encouraged the patient to set up. Repeat laboratory studies have been ordered. He is currently awaiting placement. We will continue the patient's diet as tolerated. 08/05/2020 The patient is currently awaiting placement. The patient's medications will be renally dosed. Patient's vital signs to be monitored and if required will restart the patient's oxygen. PT OT will continue for the patient. Continue with his normal diet as tolerated. The patient has been encouraged to ambulate. Repeat laboratory studies will be ordered as needed for placement. 08/06/20 Patient did have an episode of hypotension today. Similar to the episode that he had on August 02. D-dimer is 0.74 today. C-reactive protein is down to 7.8. The patient did receive a 500 mL fluid fluid bolus with good results and vital signs are now stable. He is currently awaiting fdc placement. The tentative plan is to [facility] on August 09, 2020. 08/07/20 The patient was doing well this morning when I saw him on rounds. He is much more alert and talkative and happy. His son was at his bedside visiting with him. Shortly after I rounded on the patient physical therapy went into work with him. They stood him up and he had a vasovagal response. Blood pressures were in the 70s systolically. The son was quite upset with the situation, and requested for the patient to have some IV fluids. Even though the lab work does not reveal that the patient is dehydrated, I did order for him to have 500 mL's of normal saline. I did have a lengthy discussion with the patient's son regarding that the patient will likely continue to have a vasovagal response if he gets up from the chair too quickly to ambulate. Reassured him that the patient should still be able to go to [facility] tomorrow as planned and that we would communicate with their staff the need to get him up slowly. Magnesium was 1.7 today which is down from 2.0. He will receive 2 g of mag sulfate IV today. It does remain poor. 08/08/20 Patient was to be discharged to [facility] unit today. However, they have had an outbreak of COVID and are not taking new admits. Patient remains stable at this time. Labs are unremarkable. Vital signs are stable. Continues to have a poor appetite. Drinking protein supplements. Awaiting fdc placement. 08/09/20 The patient is doing well this morning. He is sitting up in the chair eating breakfast with his son at the bedside. He states that he is annoyed that he is still in the hospital and is awaiting fdc placement. I did not draw l abs on him today as these have been stable. Vital signs are stable. No new orders. Awaiting acceptance to [facility] for Thursday. - Plan Plan:: I have seen and examined the patient independent of nurse practitioner Beulah Jasso and I have discussed the case with her. I have reviewed and agree with the assessment and plan as outlined for this patient by her. Please see orders. 08/09/20 human services supervisor and case management working on discharge placement. Awaiting acceptance to [facility] for Thursday. I will not recheck any lab work at time. We will continue to monitor intake and output and his vital signs. Physical therapy and Occupational Therapy will continue to work with patient until discharge. Will encourage nursing staff to increase/encourage p.o. intake.
[2020-08-09] MEDS: Cholecalciferol (Vitamin D3) 5,000 UNIT Cap PO SCH (12:07)
[2020-08-09] MEDS: Nystatin Topical Powder 15 GM Bottle TOP SCH ×3 (14:51→21:02)
[2020-08-10] MEDS: Cholecalciferol (Vitamin D3) 5,000 UNIT Cap PO SCH ×2 (07:31→08:14)
[2020-08-10] MEDS: Nystatin Topical Powder 15 GM Bottle TOP SCH ×3 (08:12→20:36)
[2020-08-10] MEDS: Carboxymethylcellulose Sodium 1% Ophth Gel 15 ML Bottle EYERT SCH ×2 (08:12→20:39)
[2020-08-10] MEDS: Acetaminophen 325 MG Tab PO SCH ×2 (08:13→20:35)
[2020-08-10] MEDS: Enoxaparin 40 MG/0.4 ML Syringe SUBCUT SCH (08:13)
[2020-08-10] MEDS: Gabapentin 100 MG Cap PO SCH (08:14)
[2020-08-10] MEDS: Lactulose Soln 10 GM/15 ML 30 ML UD Cup PO SCH (08:16)
[2020-08-10] MEDS: Timolol Maleate 0.5% Ophth Soln 5 ML Bottle EYERT SCH ×2 (08:22→20:42)
[2020-08-10] MEDS: Brimonidine 0.2% Ophth Soln 5 ML Bottle EYERT SCH ×2 (08:33→20:38)
--- NOTE | 2020-08-10 12:56 | PCM.PN ---
- General Info Date of Service: 08/10/20 Admission Dx/Problem (Free Text): Admission Diagnosis/Problem Admission Diagnosis/Problem Failure to thrive Subjective Update: Doing about the same. Is a little more sleepy today. Appetite is still fair needs a lot of encouragement to eat. Functional Status: Reports: Pain Controlled, Tolerating Diet (appetite is fair), Ambulating, Urinating (chronic peña) - Review of Systems General: Reports: No Symptoms HEENT: Reports: Glasses Pulmonary: Reports: No Symptoms Cardiovascular: Reports: No Symptoms Gastrointestinal: Reports: No Symptoms Genitourinary: Reports: Other (chronic peña) Musculoskeletal: Reports: No Symptoms Skin: Reports: Rash (groin) Neurological: Reports: Confusion Psychiatric: Reports: Confusion - Patient Data Vitals - Most Recent: Last Vital Signs Temp 97.7 F 08/10/20 09:00 Pulse 63 08/10/20 09:00 Resp 20 08/10/20 09:00 BP 81/67 L 08/10/20 09:00 Pulse Ox 88 L 08/10/20 09:00 Weight - Most Recent: 160 lb I&O - Last 24 Hours: Intake & Output 08/09/20 08/10/20 08/10/20 22:59 06:59 14:59 Intake Total 0 100 120 Output Total 325 325 Balance -325 -225 120 Med Orders - Current: Current Medications Acetaminophen (Tylenol) 650 mg PO Q4H PRN PRN Reason: Pain (Mild 1-3)/fever Last Admin: 08/02/20 08:56 Dose: 650 mg Documented by: Acetaminophen (Tylenol) 650 mg PO BID [facility] Last Admin: 08/10/20 08:13 Dose: 650 mg Documented by: Artificial Tears (Refresh Liquigel 1%) 0 ml EYERT BID [facility] Last Admin: 08/10/20 08:12 Dose: 1 drop Documented by: Brimonidine Tartrate ([facility]phagan 0.2% [facility] 0 ml EYERT BID [facility] Last Admin: 08/10/20 08:33 Dose: 1 drop Documented by: Cholecalciferol (Vitamin D3) 5,000 unit PO DAILY [facility] Last Admin: 08/10/20 08:14 Dose: 5,000 unit Documented by: Enoxaparin Sodium (Lovenox) 40 mg SUBCUT DAILY [facility] Last Admin: 08/10/20 08:13 Dose: 40 mg Documented by: Gabapentin (Neurontin) 100 mg PO DAILY [facility] Last Admin: 08/10/20 08:14 Dose: 100 mg Documented by: Gabapentin (Neurontin) 100 mg PO BEDTIME PRN PRN Reason: Pain Lactulose (Cephulac) 20 gm PO DAILY [facility] Last Admin: 08/10/20 08:16 Dose: 20 gm Documented by: Nystatin (Nystop) 0 gm TOP TID [facility] Last Admin: 08/10/20 08:12 Dose: 1 applic Documented by: Ondansetron HCl (Zofran) 4 mg IV Q4H PRN PRN Reason: Nausea/Vomiting Polyethylene Glycol (Miralax) 17 gm PO DAILY PRN PRN Reason: Constipation Last Admin: 08/02/20 08:51 Dose: 17 gm Documented by: Sodium Chloride (Saline Flush) 10 ml FLUSH ASDIRECTED PRN PRN Reason: Keep Vein Open Last Admin: 07/23/20 12:40 Dose: 10 ml Documented by: Timolol Maleate (Timoptic 0.5% [facility]) 0 ml EYERT BID [facility] Last Admin: 08/10/20 08:22 Dose: 1 drop Documented by: Discontinued Medications Bisacodyl (Dulcolax) 10 mg RECTAL ONETIME ONE Stop: 07/24/20 18:31 Last Admin: 07/24/20 18:27 Dose: 10 mg Documented by: Bisacodyl (Dulcolax) 10 mg RECTAL ONETIME ONE Stop: 07/29/20 09:20 Last Admin: 07/29/20 09:45 Dose: 10 mg Documented by: Cholecalciferol (Vitamin D3) 5,000 unit PO DAILY [facility] Last Admin: 07/27/20 09:02 Dose: 5,000 unit Documented by: Cholecalciferol (Vitamin D3) 5,000 unit PO DAILY [facility] Last Admin: 08/10/20 07:31 Dose: Not Given Documented by: Dexamethasone (Dexamethasone) 4 mg IVPUSH ONETIME ONE Stop: 07/23/20 12:07 Last Admin: 07/23/20 12:41 Dose: 4 mg Documented by: Dexamethasone (Dexamethasone) 6 mg PO DAILY [facility] Stop: 08/01/20 09:01 Last Admin: 07/26/20 08:22 Dose: 6 mg Documented by: Haloperidol Lactate (Haldol) 2.5 mg IVPUSH ONETIME ONE Stop: 07/26/20 10:10 Last Admin: 07/26/20 10:21 Dose: 2.5 mg Documented by: Sodium Chloride (Normal Saline) 1,000 mls @ 125 mls/hr IV ASDIRECTED [facility] Last Admin: 07/24/20 07:34 Dose: 125 mls/hr Documented by: Remdesivir 200 mg/ Sodium (Chloride) 250 mls @ 250 mls/hr IV ONETIME ONE Stop: 07/24/20 01:29 Last Admin: 07/24/20 00:29 Dose: 250 mls/hr Documented by: Remdesivir 100 mg/ Sodium (Chloride) 100 mls @ 100 mls/hr IV Q24H [facility] Stop: 07/27/20 23:59 Last Admin: 07/27/20 23:38 Dose: 100 mls/hr Documented by: Magnesium Sulfate (Magnesium Sulfate In Water Premix) 2 gm in 50 mls @ 25 mls/hr IV ONETIME ONE Stop: 07/26/20 09:44 Last Admin: 07/26/20 08:22 Dose: 25 mls/hr Documented by: Sodium Chloride (Normal Saline) 1,000 mls [facility] Admin: 07/29/20 09:45 Dose: 100 mls/hr Documented by: Sodium Chloride (Normal Saline) 1,000 mls @ 100 [facility]ls[facility] Last Admin: 07/31/20 01:42 Dose: 100 mls/hr Documented by: Magnesium Sulfate (Magnesium Sulfate In Water Premix) 2 gm in 50 mls @ 25 mls/hr IV ONETIME ONE Stop: 07/30/20 14:16 Last Admin: 07/30/20 12:52 Dose: 25 mls/hr Documented by: Sodium Chloride (Normal Saline) Confirm Administered Dose 1,000 mls @ as directed .ROUTE .STK-MED ONE Stop: 08/02/20 09:35 Last Admin: 08/02/20 09:51 Dose: Not Given Documented by: Sodium Chloride (Normal Saline) 500 mls @ 999 mls/hr IV .BOLUS ONE Stop: 08/02/20 10:07 Last Admin: 08/02/20 09:51 Dose: 999 mls/hr Documented by: Sodium Chloride (Normal Saline) 500 mls @ 500 mls/hr IV .BOLUS ONE Stop: 08/06/20 11:56 Last Admin: 08/06/20 11:11 Dose: 500 mls/hr Documented by: Magnesium Sulfate (Magnesium Sulfate In Water Premix) 2 gm in 50 mls @ 25 mls/hr IV ONETIME ONE Stop: 08/07/20 11:32 Last Admin: 08/07/20 09:50 Dose: 25 mls/hr Documented by: Sodium Chloride (Normal Saline) 500 mls @ 500 mls/hr IV .BOLUS ONE Stop: 08/07/20 10:32 Last Admin: 08/07/20 09:49 Dose: 500 mls/hr Documented by: Influenza Virus Vaccine (Fluzone High-Dose Quad ) 240 mcg IM .ONCE ONE Stop: 07/26/20 13:16 Magnesium Hydroxide (Milk Of Magnesia) 30 ml PO ONETIME ONE Stop: 07/24/20 09:01 Last Admin: 07/24/20 08:41 Dose: 30 ml Documented by: Magnesium Hydroxide (Milk Of Magnesia) 30 ml PO ONETIME ONE Stop: 07/28/20 13:56 Last Admin: 07/28/20 15:26 Dose: 30 ml Documented by: Magnesium Hydroxide (Milk Of Magnesia) 30 ml PO ONETIME ONE Stop: 08/07/20 05:36 Last Admin: 08/07/20 06:20 Dose: 30 ml Documented by: Potassium Chloride (Klor-Con M20) 40 meq PO ONETIME ONE Stop: 08/01/20 07:25 Last Admin: 08/01/20 08:02 Dose: 40 meq Documented by: Sodium Chloride (Saline Flush) 10 ml FLUSH ASDIRECTED PRN PRN Reason: Keep Vein Open - Exam Quality Assessment: Urine Catheter (chronic), DVT Prophylaxis (lovenox). No: Supplemental Oxygen General: Oriented, Cooperative, No Acute Distress HEENT: Pupils Equal, Pupils Reactive, Mucous Membr. Moist/[place] Neck: Supple, Trachea Midline. No: Lymphadenopathy Lungs: Normal Respiratory Effort, Decreased Breath Sounds Cardiovascular: Regular Rate, Regular Rhythm, No Murmurs GI/Abdominal Exam: Normal Bowel Sounds, Soft, Non-Tender, No Distention (Male) Exam: Rash (groin) Back Exam: Normal Inspection, Full Range of Motion Extremities: Normal Inspection, Normal Range of Motion, Non-Tender, No Pedal Edema, Normal Capillary Refill Peripheral Pulses: 2+: Radial (L), Radial (R), Dorsalis Pedis (L), Dorsalis Pedis (R) Skin: Warm, Dry Neurological: No New Focal Deficit Psy/Mental Status: Alert, Normal Affect, Normal Mood Sepsis Event Note - Evaluation Sepsis Screening Result: No Definite Risk - Focused Exam Vital Signs: Vital Signs Temp Pulse Resp BP Pulse Ox 08/10/20 09:00 97.7 F 63 20 81/67 L 88 L 08/10/20 08:25 98.1 F 70 20 112/66 93 L 08/10/20 03:45 97.9 F 69 18 134/88 90 L - Problem List & Annotations (1) Failure to thrive SNOMED Code(s): 21905541 Code(s): PFG0240 - Status: Acute Priority: High Current Visit: Yes Qualifiers: Failure to thrive age range: in adult Qualified Code(s): R62.7 - Adult failure to thrive (2) Weakness SNOMED Code(s): 99204385 Code(s): R53.1 - WEAKNESS Status: Acute Priority: High Current Visit: Yes (3) Physical deconditioning SNOMED Code(s): 10599233931214 Code(s): R53.81 - OTHER MALAISE Status: Acute Priority: High Current Visit: Yes (4) Hypochloremia SNOMED Code(s): 37222951 Code(s): E87.8 - OTH DISORDERS OF ELECTROLYTE AND FLUID BALANCE, NEC Status: Resolved Priority: High Current Visit: Yes (5) Hyponatremia SNOMED Code(s): 69095317 Code(s): E87.1 - HYPO-OSMOLALITY AND HYPONATREMIA Status: Resolved Priority: High Current Visit: Yes (6) Volume depletion SNOMED Code(s): 895687854 Code(s): E86.9 - VOLUME DEPLETION, UNSPECIFIED Status: Resolved Priority: High Current Visit: Yes (7) Acute kidney injury SNOMED Code(s): 82682626, 68642826 Code(s): N17.9 - ACUTE KIDNEY FAILURE, UNSPECIFIED Status: Resolved Priority: High Current Visit: Yes (8) Acute hypoxemic respiratory failure due to COVID-19 SNOMED Code(s): 376778556 Code(s): U07.1 - COVID-19; J96.01 - ACUTE RESPIRATORY FAILURE WITH HYPOXIA Status: Resolved Priority: High Current Visit: Yes (9) Hypertension SNOMED Code(s): 02734197 Code(s): I10 - ESSENTIAL (PRIMARY) HYPERTENSION Status: Chronic Priority: High Current Visit: Yes Qualifiers: Hypertension type: unspecified Qualified Code(s): I10 - Essential (primary) hypertension (10) Pneumonia due to COVID-19 virus SNOMED Code(s): 798090186763282315 Code(s): U07.1 - COVID-19; J12.89 - OTHER VIRAL PNEUMONIA Status: Resolved Priority: High Current Visit: Yes (11) COVID-19 SNOMED Code(s): 678173299 Code(s): U07.1 - COVID-19 Status: Resolved Priority: High Current Visit: No - Problem List Review Problem List Initiated/Reviewed/Updated: Yes - My Orders Last 24 Hours: My Active Orders 08/10/20 10:38 Communication Order [RC] ASDIRECTED 08/11/20 05:11 CBC WITH AUTO DIFF [HEME] AM COMPREHENSIVE METABOLIC PN,CMP [CHEM] AM MAGNESIUM [CHEM] AM - Assessment Assessment:: 07/23/2020 10 day history of positive COVID diagnosis Has been seen in the ED three times in the last 8 days. History of UTI recently treated with rocephin and omnicef Lives in [place] Pulse ox on admission was 88-89% Decreased appetite and po intake. Chest xray reveals increased density within the left lung base suspicious for small area of pneumonia. Lab results: -WBC 6.11 -Plt 106 -Ddimer 0.76 -UA negative -Na 127 -Chl 94 -BUN 17 -CRE 1.4 -GFR 48 -Ferritin 938 -LDH 190 -CRP 9.9 ABGs on room air -pH 7.45 -pCO2 30.2 -pO2 70.0 -HCO3 20.5 PLAN -Start Remdesivir -Start dexamethasone -Normal Saline @ 100ml/hr -Monitor for hypoxemia -Monitor urine output -Renally dosed medications -Repeat labs and replace electrolytes as needed -PT/OT to eval and treat -Rayon Coner consult for supplements -Incentive spirometry 07/24/20 Still requires 2 liters of O2 Hematuria noted in peña catheter today. UA/UC ordered Day 2 of dexamethasone and remdesivir IV fluids stopped-pt taking po well Encourage IS Lab results: -WBC down from 6.11-4.03 -Na up from 127-134 -BUN down from 17-15 -CRE down from 1.4-1.1 -GFR up from 48->60 PLAN -Day 2 of Remdesivir and dexamethasone -Saline lock IVF -Monitor for hypoxemia -Monitor urine output -Renally dosed medications -Repeat labs and replace electrolytes as needed -PT/OT to eval and treat -Rayon Coner consult for supplements -Incentive spirometry -Nystantin to groin -UA/UC 07/25/20 On room air Day 3 of dexamethasone and remdesivir Encourage IS Yeast to groin. Vitals: BP 128-166/79-96 Tmax 98.4 Heart rate 62-72 91-91% on room air Lab results: -WBC 7.19 from 4.03 -Ddimer 1.07 from 0.76 -BUN from 16.6 to 17 -CRE up from 1.1 to 1.3 -GFR down from >60 to 52 -CRP down from 9.9 to 6.5 PLAN -Day 3 of Remdesivir and dexamethasone -Monitor for hypoxemia -Monitor urine output -Renally dosed medications -Repeat labs and replace electrolytes as needed -PT/OT to eval and treat -Incentive spirometry -Nystantin to groin 07/26/20 Extremely confused and agitated today. Per the family, he has had this reaction to dexamethasone in the past. Day 4 of dexamethasone and remdesivir Encourage IS Yeast to groin. Vitals: BP 126-166/74-93 Tmax 97.6 Heart rate 60-74 90-95% on room air Lab results: -BUN from 20-26 -CRE down from 1.3-1.2 -GFR up from 52 to 57 -Mg down from 1.9 to 1.7 PLAN -Day 4 of Remdesivir and dexamethasone -discontinue dexamethasone due to increased confusion and agitation. Pt given haldol x 1 dose due to dexamethasone effects. -Monitor for hypoxemia -Monitor urine output -Renally dosed medications -Repeat labs and replace electrolytes as needed -PT/OT to eval and treat -Pt continues to pull at peña and dig in his groin per nursing staff and then complains of back pain. UA ordered. -Nystantin to groin 07/27/20 Remains confused but is much more alert and less agitated. Day 5 of Remdesivir Encourage IS Yeast to groin. Vitals: BP 126-147-165/72-103 Tmax 97.9 Heart rate 71-76 92% on room air Lab results: -WBC up from 7.66 to 9.92 -BUN up from 26 to 28 -CRE 1.2 -GFR 57 -CRP down to 2.7 to 6.5 PLAN -Day 5 of Remdesivir -Monitor for hypoxemia -Monitor urine output -Renally dosed medications -Repeat labs and replace electrolytes as needed -PT/OT to eval and treat -UA unremarkable -Nystantin to groin 07/28/2020 Continues improving, but still poor oral intake. Stop dexamethasone because of delirium. Completed remdesivir. No labs today. 91 to 93% on room air. Vital signs stable. Afebrile. 07/29/2020 Continued poor oral intake. Decreased urine output secondary to poor oral intake. CRP increased dramatically to 15.1. WBC stable at 9.1, d-dimer 0.95. Procalcitonin done yesterday was less than 0.05. Renal function is stable with GFR 57. Albumin is low at 2.7. This reflects his poor oral intake. Chest x-ray showed some improvement in the multifocal peripheral airspace opacities consistent with his known COVID illness. 07/30/2020 Continued poor oral intake. Urine output is better CRP increased from 15.1 to 15.7 Will hold discharge til we get procalcitonin level back tomorrow. 07/31/2020 Eating 50% of meals and 100% of supplements Urine output is better Vital signs -Blood pressure 114-163/65-97 -T max 98.2 -Heart rate 62-80 -91-94% on room air Lab results -Ddimer up from 0.66 to 0.68 -CRP down from 15.7 to 14.3 08/01/2020 Remains clinically stable Continues to have poor appetite Urine output remains adequate Vital signs remain stable No labs obtained today Pending placement COVID-19 Re-test required by SNF remains positive as expected. Continues to work with PT and OT who recommend SNF placement 08/02/2020 A bit more confused today Continues to have poor appetite Urine output remains adequate Hypotensive today - given 500mL fluid bolus with good results, now stable vital signs. A bit more tired and difficult to understand today Labs today stable with D-dimer slightly elevated at 1.15 from 0.68 Discussed code status with son in room. Son will discuss with mother and report back. Pending placement. 08/03/2020 More interactive today but quite sleepy Nursing reports patient was awake most of the night Vital signs stable today Not requiring oxygen D-Dimer up from 1.16 to 1.51. Discussed with Dr. Hogue. Will monitor Re-check D-Dimer, CMP, CBC, Magnesium in AM Awaiting to discuss code status with son further Last BM 08/02/2020 Pending placement. 08/04/2020 The patient's hypoxemia has resolved. He is currently on room air. Patient's vital signs will be monitored and if he becomes hypoxic will restart oxygen. The patient's medications will be renally dosed. PT OT is evaluating the patient. Encouraged the patient to set up. Repeat laboratory studies have been ordered. He is currently awaiting placement. We will continue the patient's diet as tolerated. 08/05/2020 The patient is currently awaiting placement. The patient's medications will be renally dosed. Patient's vital signs to be monitored and if required will restart the patient's oxygen. PT OT will continue for the patient. Continue with his normal diet as tolerated. The patient has been encouraged to ambulate. Repeat laboratory studies will be ordered as needed for placement. 08/06/20 Patient did have an episode of hypotension today. Similar to the episode that he had on August 02. D-dimer is 0.74 today. C-reactive protein is down to 7.8. The patient did receive a 500 mL fluid fluid bolus with good results and vital signs are now stable. He is currently awaiting snf placement. The tentative plan is to [facility] on August 09, 2020. 08/07/20 The patient was doing well this morning when I saw him on rounds. He is much more alert and talkative and happy. His son was at his bedside visiting with him. Shortly after I rounded on the patient physical therapy went into work with him. They stood him up and he had a vasovagal response. Blood pressures were in the 70s systolically. The son was quite upset with the situation, and requested for the patient to have some IV fluids. Even though the lab work does not reveal that the patient is dehydrated, I did order for him to have 500 mL's of normal saline. I did have a lengthy discussion with the patient's son regarding that the patient will likely continue to have a vasovagal response if he gets up from the chair too quickly to ambulate. Reassured him that the patient should still be able to go to [facility] tomorrow as planned and that we would communicate with their staff the need to get him up slowly. Magnesium was 1.7 today which is down from 2.0. He will receive 2 g of mag sulfate IV today. It does remain poor. 08/08/20 Patient was to be discharged to [facility] unit today. However, they have had an outbreak of COVID and are not taking new admits. Patient remains stable at this time. Labs are unremarkable. Vital signs are stable. Continues to have a poor appetite. Drinking protein supplements. Awaiting snf placement. 08/09/20 The patient is doing well this morning. He is sitting up in the chair eating breakfast with his son at the bedside. He states that he is annoyed that he is still in the hospital and is awaiting snf placement. I did not draw labs on him today as these have been stable. Vital signs are stable. No new orders. Awaiting acceptance to [facility] for Thursday. 08/10/20 Doing the same. Has no complaints. Seems a little more tired today. VSS. Will recheck labs in the am. Tentative transfer to [facility] on Thursday, Aug 13, 2020 with his family transporting him. - Plan Plan:: I have seen and examined the patient independent of nurse practitioner Beulah Jasso and I have discussed the case with her. I have reviewed and agree with the assessment and plan as outlined for this patient by her. Please see orders. 08/09/20 director of business services and case management working on discharge placement. Awaiting acceptance to [facility] for Thursday. I will not recheck any lab work at time. We will continue to monitor intake and output and his vital signs. Physical therapy and Occupational Therapy will continue to work with patient until discharge. Will encourage nursing staff to increase/encourage p.o. intake. 08/10/20 Discharged to [facility] on Thursday with patient's family ponce sporting him there. Will recheck labs in the morning. Therapies to continue working with the patient. Nursing staff to continue to encourage patient to eat and drink.
[2020-08-11] MEDS: Cholecalciferol (Vitamin D3) 5,000 UNIT Cap PO SCH (08:19)
[2020-08-11] MEDS: Gabapentin 100 MG Cap PO SCH (08:19)
[2020-08-11] MEDS: Acetaminophen 325 MG Tab PO SCH ×2 (08:19→20:47)
[2020-08-11] MEDS: Enoxaparin 40 MG/0.4 ML Syringe SUBCUT SCH (08:19)
[2020-08-11] MEDS: Lactulose Soln 10 GM/15 ML 30 ML UD Cup PO SCH (08:19)
[2020-08-11] MEDS: Brimonidine 0.2% Ophth Soln 5 ML Bottle EYERT SCH ×2 (08:19→20:46)
[2020-08-11] MEDS: Nystatin Topical Powder 15 GM Bottle TOP SCH ×3 (08:20→20:45)
[2020-08-11] MEDS: Timolol Maleate 0.5% Ophth Soln 5 ML Bottle EYERT SCH ×2 (08:29→20:46)
[2020-08-11] MEDS: Carboxymethylcellulose Sodium 1% Ophth Gel 15 ML Bottle EYERT SCH ×2 (08:39→20:46)
--- NOTE | 2020-08-11 09:11 | PCM.PN ---
- General Info Date of Service: 08/11/20 Admission Dx/Problem (Free Text): Admission Diagnosis/Problem Admission Diagnosis/Problem Failure to thrive Subjective Update: The patient is an 89-year-old gentleman who was admitted for COVID-19. The patient is mumbling. Currently awaiting placement. The patient is scheduled for transportation to care facility Thursday. Functional Status: Reports: Pain Controlled, Tolerating Diet - Review of Systems Systems Review Comment:: Confused, review of systems not obtainable - Patient Data Vitals - Most Recent: Last Vital Signs Temp 36.6 C 08/11/20 07:35 Pulse 66 08/11/20 07:35 Resp 20 08/11/20 07:35 BP 122/88 08/11/20 07:35 Pulse Ox 91 L 08/11/20 07:35 Weight - Most Recent: 72.847 kg I&O - Last 24 Hours: Intake & Output 08/10/20 08/11/20 08/11/20 22:59 06:59 14:59 Intake Total 290 120 60 Output Total 375 250 Balance -85 -130 60 Lab Results Last 24 Hours: Laboratory Results - last 24 hr 08/11/20 08/11/20 Range/Units 05:21 05:21 WBC 6.51 (4.23-9.07) K/mm3 RBC 3.96 L (4.63-6.08) M/mm3 Hgb 12.4 L (13.7-17.5) gm/dl Hct 37.7 L (40.1-51.0) % MCV 95.2 H (79.0-92.2) fl MCH 31.3 (25.7-32.2) pg MCHC 32.9 (32.2-35.5) g/dl RDW Std Deviation 48.6 H (35.1-43.9) fL Plt Count 213 (163-337) K/mm3 MPV 9.5 (9.4-12.3) fl Neut % (Auto) 53.4 (34.0-67.9) % Lymph % (Auto) 25.0 (21.8-53.1) % [place] % (Auto) 13.7 H (5.3-12.2) % Eos % (Auto) 7.2 H (0.8-7.0) Baso % (Auto) 0.5 (0.1-1.2) % Neut # (Auto) 3.48 (1.78-5.38) K/mm3 Lymph # (Auto) 1.63 (1.32-3.57) K/mm3 [place] # (Auto) 0.89 H (0.30-0.82) K/mm3 Eos # (Auto) 0.47 (0.04-0.54) K/mm3 Baso # (Auto) 0.03 (0.01-0.08) K/mm3 Manual Slide Review Normal smear Sodium 140 (136-145) mEq/L Potassium 4.1 (3.5-5.1) mEq/L Chloride 104 (98-107) mEq/L Carbon Dioxide 27 (21-32) mEq/L Anion Gap 13.1 (5-15) BUN 26 H (7-18) mg/dL Creatinine 1.0 (0.7-1.3) mg/dL Est Cr Clr Drug Dosing 42.22 mL/min Estimated GFR (MDRD) > 60 (>60) mL/min BUN/Creatinine Ratio 26.0 H (14-18) Glucose 126 H (83-115) mg/dL Calcium 8.7 (8.5-10.1) mg/dL Magnesium 2.0 (1.8-2.4) mg/dl Total Bilirubin 0.6 (0.2-1.0) mg/dL AST 16 (15-37) U/L ALT 26 (16-63) U/L Alkaline Phosphatase 90 (46-116) U/L Total Protein 6.5 (6.4-8.2) g/dl Albumin 2.3 L (3.4-5.0) g/dl Globulin 4.2 gm/dL Albumin/Globulin Ratio 0.6 L (1-2) Med Orders - Current: Current Medications Acetaminophen (Tylenol) 650 mg PO Q4H PRN PRN Reason: Pain (Mild 1-3)/fever Last Admin: 08/02/20 08:56 Dose: 650 mg Documented by: Acetaminophen (Tylenol) 650 mg PO BID [facility] Last Admin: 08/11/20 08:19 Dose: 650 mg Documented by: Artificial Tears (Refresh Liquigel 1%) 0 ml EYERT BID [facility] Last Admin: 08/11/20 08:39 Dose: 1 drop Documented by: Brimonidine Tartrate (Alphagan 0.2% Ophth Soln) 0 ml EYERT BID [facility] Last Admin: 08/11/20 08:19 Dose: 1 drop Documented by: Cholecalciferol (Vitamin D3) 5,000 unit PO DAILY [facility] Last Admin: 08/11/20 08:19 Dose: 5,000 unit Documented by: Enoxaparin Sodium (Lovenox) 40 mg SUBCUT DAILY [facility] Last Admin: 08/11/20 08:19 Dose: 40 mg Documented by: Gabapentin (Neurontin) 100 mg PO DAILY [facility] Last Admin: 08/11/20 08:19 Dose: 100 mg Documented by: Gabapentin (Neurontin) 100 mg PO BEDTIME PRN PRN Reason: Pain Lactulose (Cephulac) 20 gm PO DAILY [facility] Last Admin: 08/11/20 08:19 Dose: 20 gm Documented by: Nystatin (Nystop) 0 gm TOP TID [facility] Last Admin: 08/11/20 08:20 Dose: 1 applic Documented by: Ondansetron HCl (Zofran) 4 mg IV Q4H PRN PRN Reason: Nausea/Vomiting Polyethylene Glycol (Miralax) 17 gm PO DAILY PRN PRN Reason: Constipation Last Admin: 08/02/20 08:51 Dose: 17 gm Documented by: Sodium Chloride (Saline Flush) 10 ml FLUSH ASDIRECTED PRN PRN Reason: Keep Vein Open Last Admin: 07/23/20 12:40 Dose: 10 ml Documented by: Timolol Maleate (Timoptic 0.5% Ophth Soln) 0 ml EYERT BID [facility] Last Admin: 08/11/20 08:29 Dose: 1 drop Documented by: Discontinued Medications Bisacodyl (Dulcolax) 10 mg RECTAL ONETIME ONE Stop: 07/24/20 18:31 Last Admin: 07/24/20 18:27 Dose: 10 mg Documented by: Bisacodyl (Dulcolax) 10 mg RECTAL ONETIME ONE Stop: 07/29/20 09:20 Last Admin: 07/29/20 09:45 Dose: 10 mg Documented by: Cholecalciferol (Vitamin D3) 5,000 unit PO DAILY [facility] Last Admin: 07/27/20 09:02 Dose: 5,000 unit Documented by: Cholecalciferol (Vitamin D3) 5,000 unit PO DAILY [facility] Last Admin: 08/10/20 07:31 Dose: Not Given Documented by: Dexamethasone (Dexamethasone) 4 mg IVPUSH ONETIME ONE Stop: 07/23/20 12:07 Last Admin: 07/23/20 12:41 Dose: 4 mg Documented by: Dexamethasone (Dexamethasone) 6 mg PO DAILY [facility] Stop: 08/01/20 09:01 Last Admin: 07/26/20 08:22 Dose: 6 mg Documented by: Haloperidol Lactate (Haldol) 2.5 mg IVPUSH ONETIME ONE Stop: 07/26/20 10:10 Last Admin: 07/26/20 10:21 Dose: 2.5 mg Documented by: Sodium Chloride (Normal Saline) 1,000 mls [facility] Admin: 07/24/20 07:34 Dose: 125 mls/hr Documented by: Remdesivir 200 mg/ Sodium (Chloride) 250 mls @ 250 mls/hr IV ONETIME ONE Stop: 07/24/20 01:29 Last Admin: 07/24/20 00:29 Dose: 250 mls/hr Documented by: Remdesivir 100 mg/ Sodium (Chloride) 100 mls @ 100 mls/hr IV Q24H [facility] Stop: 07/27/20 23:59 Last Admin: 07/27/20 23:38 Dose: 100 mls/hr Documented by: Magnesium Sulfate (Magnesium Sulfate In Water Premix) 2 gm in 50 mls @ 25 mls/hr IV ONETIME ONE Stop: 07/26/20 09:44 Last Admin: 07/26/20 08:22 Dose: 25 mls/hr Documented by: Sodium Chloride (Normal Saline) 1,000 mls [facility] Last Admin: 07/29/20 09:45 Dose: 100 mls/hr Documented by: Sodium Chloride (Normal Saline) 1,000 mls @ 100 [facility] Last Admin: 07/31/20 01:42 Dose: 100 mls/hr Documented by: Magnesium Sulfate (Magnesium Sulfate In Water Premix) 2 gm in 50 mls @ 25 mls/hr IV ONETIME ONE Stop: 07/30/20 14:16 Last Admin: 07/30/20 12:52 Dose: 25 mls/hr Documented by: Sodium Chloride (Normal Saline) Confirm Administered Dose 1,000 mls @ as directed .ROUTE .STK-MED ONE Stop: 08/02/20 09:35 Last Admin: 08/02/20 09:51 Dose: Not Given Documented by: Sodium Chloride (Normal Saline) 500 mls @ 999 mls/hr IV .BOLUS ONE Stop: 08/02/20 10:07 Last Admin: 08/02/20 09:51 Dose: 999 mls/hr Documented by: Sodium Chloride (Normal Saline) 500 mls @ 500 mls/hr IV .BOLUS ONE Stop: 08/06/20 11:56 Last Admin: 08/06/20 11:11 Dose: 500 mls/hr Documented by: Magnesium Sulfate (Magnesium Sulfate In Water Premix) 2 gm in 50 mls @ 25 mls/hr IV ONETIME ONE Stop: 08/07/20 11:32 Last Admin: 08/07/20 09:50 Dose: 25 mls/hr Documented by: Sodium Chloride (Normal Saline) 500 mls @ 500 mls/hr IV .BOLUS ONE Stop: 08/07/20 10:32 Last Admin: 08/07/20 09:49 Dose: 500 mls/hr Documented by: Influenza Virus Vaccine (Fluzone High-Dose Quad 2019-) 240 mcg IM .ONCE ONE Stop: 07/26/20 13:16 Magnesium Hydroxide (Milk Of Magnesia) 30 ml PO ONETIME ONE Stop: 07/24/20 09:01 Last Admin: 07/24/20 08:41 Dose: 30 ml Documented by: Magnesium Hydroxide (Milk Of Magnesia) 30 ml PO ONETIME ONE Stop: 07/28/20 13:56 Last Admin: 07/28/20 15:26 Dose: 30 ml Documented by: Magnesium Hydroxide (Milk Of Magnesia) 30 ml PO ONETIME ONE Stop: 08/07/20 05:36 Last Admin: 08/07/20 06:20 Dose: 30 ml Documented by: Potassium Chloride (Klor-Con M20) 40 meq PO ONETIME ONE Stop: 08/01/20 07:25 Last Admin: 08/01/20 08:02 Dose: 40 meq Documented by: Sodium Chloride (Saline Flush) 10 ml FLUSH ASDIRECTED PRN PRN Reason: Keep Vein Open - Exam Quality Assessment: No: Supplemental Oxygen General: Alert. No: Oriented HEENT: Pupils Equal, Pupils Reactive. No: Mucous Membr. Moist/[place] (Dry) Neck: Supple, Trachea Midline Lungs: Normal Respiratory Effort, Decreased Breath Sounds Cardiovascular: Regular Rate, Irregular Rhythm GI/Abdominal Exam: Normal Bowel Sounds, Soft, No Distention (Male) Exam: Deferred Back Exam: Normal Inspection (Age-appropriate) Extremities: Normal Inspection, No Pedal Edema Skin: Warm, Dry, Intact Neurological: No New Focal Deficit. No: Normal Gait Psy/Mental Status: Alert Sepsis Event Note - Evaluation Sepsis Screening Result: No Definite Risk - Focused Exam Vital Signs: Vital Signs Temp Pulse Resp BP Pulse Ox 08/11/20 07:35 36.6 C 66 20 122/88 91 L 08/11/20 04:13 36.4 C 71 18 126/84 92 L 08/10/20 23:55 36.3 C 72 16 136/85 90 L - Problem List & Annotations (1) Urinary tract infection SNOMED Code(s): 01631704 Code(s): N39.0 - URINARY TRACT INFECTION, SITE NOT SPECIFIED Status: Acute Current Visit: No Qualifiers: Urinary tract infection type: catheter-associated UTI Indwelling urinary catheter type: indwelling urethral catheter Encounter type: initial encounter Qualified Code(s): T83.511A - Infection and inflammatory reaction due to indwelling urethral catheter, initial encounter; N39.0 - Urinary tract infection, site not specified (2) Generalized weakness SNOMED Code(s): 57500525 Code(s): R53.1 - WEAKNESS Status: Acute Current Visit: Yes (3) Failure to thrive SNOMED Code(s): 66690728 Code(s): VRH1695 - Status: Acute Priority: High Current Visit: Yes Qualifiers: Failure to thrive age range: in adult Qualified Code(s): R62.7 - Adult failure to thrive - Problem List Review Problem List Initiated/Reviewed/Updated: Yes - Assessment Assessment:: 07/23/2020 10 day history of positive COVID diagnosis Has been seen in the ED three times in the last 8 days. History of UTI recently treated with rocephin and omnicef Lives in [place] Pulse ox on admission was 88-89% Decreased appetite and po intake. Chest xray reveals increased density within the left lung base suspicious for small area of pneumonia. Lab results: -WBC 6.11 -Plt 106 -Ddimer 0.76 -UA negative -Na 127 -Chl 94 -BUN 17 -CRE 1.4 -GFR 48 -Ferritin 938 -LDH 190 -CRP 9.9 ABGs on room air -pH 7.45 -pCO2 30.2 -pO2 70.0 -HCO3 20.5 PLAN -Start Remdesivir -Start dexamethasone -Normal Saline @ 100ml/hr -Monitor for hypoxemia -Monitor urine output -Renally dosed medications -Repeat labs and replace electrolytes as needed -PT/OT to eval and treat -Dual Hose Cementer consult for supplements -Incentive spirometry 07/24/20 Still requires 2 liters of O2 Hematuria noted in peña catheter today. UA/UC ordered Day 2 of dexamethasone and remdesivir IV fluids stopped-pt taking po well Encourage IS Lab results: -WBC down from 6.11-4.03 -Na up from 127-134 -BUN down from 17-15 -CRE down from 1.4-1.1 -GFR up from 48->60 PLAN -Day 2 of Remdesivir and dexamethasone -Saline lock IVF -Monitor for hypoxemia -Monitor urine output -Renally dosed medications -Repeat labs and replace electrolytes as needed -PT/OT to eval and treat -Dual Hose Cementer consult for supplements -Incentive spirometry -Nystantin to groin -UA/UC 07/25/20 On room air Day 3 of dexamethasone and remdesivir Encourage IS Yeast to groin. Vitals: BP 128-166/79-96 Tmax 98.4 Heart rate 62-72 91-91% on room air Lab results: -WBC 7.19 from 4.03 -Ddimer 1.07 from 0.76 -BUN from 16.6 to 17 -CRE up from 1.1 to 1.3 -GFR down from >60 to 52 -CRP down from 9.9 to 6.5 PLAN -Day 3 of Remdesivir and dexamethasone -Monitor for hypoxemia -Monitor urine output -Renally dosed medications -Repeat labs and replace electrolytes as needed -PT/OT to eval and treat -Incentive spirometry -Nystantin to groin 07/26/20 Extremely confused and agitated today. Per the family, he has had this reaction to dexamethasone in the past. Day 4 of dexamethasone and remdesivir Encourage IS Yeast to groin. Vitals: BP 126-166/74-93 Tmax 97.6 Heart rate 60-74 90-95% on room air Lab results: -BUN from 20-26 -CRE down from 1.3-1.2 -GFR up from 52 to 57 -Mg down from 1.9 to 1.7 PLAN -Day 4 of Remdesivir and dexamethasone -discontinue dexamethasone due to increased confusion and agitation. Pt given haldol x 1 dose due to dexamethasone effects. -Monitor for hypoxemia -Monitor urine output -Renally dosed medications -Repeat labs and replace electrolytes as needed -PT/OT to eval and treat -Pt continues to pull at peña and dig in his groin per nursing staff and then complains of back pain. UA ordered. -Nystantin to groin 07/27/20 Remains confused but is much more alert and less agitated. Day 5 of Remdesivir Encourage IS Yeast to groin. Vitals: BP 126-147-165/72-103 Tmax 97.9 Heart rate 71-76 92% on room air Lab results: -WBC up from 7.66 to 9.92 -BUN up from 26 to 28 -CRE 1.2 -GFR 57 -CRP down to 2.7 to 6.5 PLAN -Day 5 of Remdesivir -Monitor for hypoxemia -Monitor urine output -Renally dosed medications -Repeat labs and replace electrolytes as needed -PT/OT to eval and treat -UA unremarkable -Nystantin to groin 07/28/2020 Continues improving, but still poor oral intake. Stop dexamethasone because of delirium. Completed remdesivir. No labs today. 91 to 93% on room air. Vital signs stable. Afebrile. 07/29/2020 Continued poor oral intake. Decreased urine output secondary to poor oral intake. CRP increased dramatically to 15.1. WBC stable at 9.1, d-dimer 0.95. Procalcitonin done yesterday was less than 0.05. Renal function is stable with GFR 57. Albumin is low at 2.7. This reflects his poor oral intake. Chest x-ray showed some improvement in the multifocal peripheral airspace opacities consistent with his known COVID illness. 07/30/2020 Continued poor oral intake. Urine output is better CRP increased from 15.1 to 15.7 Will hold discharge til we get procalcitonin level back tomorrow. 07/31/2020 Eating 50% of meals and 100% of supplements Urine output is better Vital signs -Blood pressure 114-163/65-97 -T max 98.2 -Heart rate 62-80 -91-94% on room air Lab results -Ddimer up from 0.66 to 0.68 -CRP down from 15.7 to 14.3 08/01/2020 Remains clinically stable Continues to have poor appetite Urine output remains adequate Vital signs remain stable No labs obtained today Pending placement COVID-19 Re-test required by SNF remains positive as expected. Continues to work with PT and OT who recommend SNF placement 08/02/2020 A bit more confused today Continues to have poor appetite Urine output remains adequate Hypotensive today - given 500mL fluid bolus with good results, now stable vital signs. A bit more tired and difficult to understand today Labs today stable with D-dimer slightly elevated at 1.15 from 0.68 Discussed code status with son in room. Son will discuss with mother and report back. Pending placement. 08/03/2020 More interactive today but quite sleepy Nursing reports patient was awake most of the night Vital signs stable today Not requiring oxygen D-Dimer up from 1.16 to 1.51. Discussed with Dr. Hogue. Will monitor Re-check D-Dimer, CMP, CBC, Magnesium in AM Awaiting to discuss code status with son further Last BM 08/02/2020 Pending placement. 08/04/2020 The patient's hypoxemia has resolved. He is currently on room air. Patient's vital signs will be monitored and if he becomes hypoxic will restart oxygen. The patient's medications will be renally dosed. PT OT is evaluating the patient. Encouraged the patient to set up. Repeat laboratory studies have been ordered. He is currently awaiting placement. We will continue the patient's diet as tolerated. 08/05/2020 The patient is currently awaiting placement. The patient's medications will be renally dosed. Patient's vital signs to be monitored and if required will restart the patient's oxygen. PT OT will continue for the patient. Continue with his normal diet as tolerated. The patient has been encouraged to ambulate. Repeat laboratory studies will be ordered as needed for placement. 08/06/20 Patient did have an episode of hypotension today. Similar to the episode that he had on August 02. D-dimer is 0.74 today. C-reactive protein is down to 7.8. The patient did receive a 500 mL fluid fluid bolus with good results and vital signs are now stable. He is currently awaiting assisted placement. The tentative plan is to [facility] on August 09, 2020. 08/07/20 The patient was doing well this morning when I saw him on rounds. He is much more alert and talkative and happy. His son was at his bedside visiting with him. Shortly after I rounded on the patient physical therapy went into work with him. They stood him up and he had a vasovagal response. Blood pressures were in the 70s systolically. The son was quite upset with the situation, and requested for the patient to have some IV fluids. Even though the lab work does not reveal that the patient is dehydrated, I did order for him to have 500 mL's of normal saline. I did have a lengthy discussion with the patient's son regarding that the patient will likely continue to have a vasovagal response if he gets up from the chair too quickly to ambulate. Reassured him that the patient should still be able to go to [facility] tomorrow as planned and that we would communicate with their staff the need to get him up slowly. Magnesium was 1.7 today which is down from 2.0. He will receive 2 g of mag sulfate IV today. It does remain poor. 08/08/20 Patient was to be discharged to [facility] unit today. However, they have had an outbreak of COVID and are not taking new admits. Patient remains stable at this time. Labs are unremarkable. Vital signs are stable. Continues to have a poor appetite. Drinking protein supplements. Awaiting assisted placement. 08/09/20 The patient is doing well this morning. He is sitting up in the chair eating breakfast with his son at the bedside. He states that he is annoyed that he is still in the hospital and is awaiting assisted placement. I did not draw labs on him today as these have been stable. Vital signs are stable. No new orders. Awaiting acceptance to [facility] for Thursday. 08/10/20 Doing the same. Has no complaints. Seems a little more tired today. VSS. Will recheck labs in the am. Tentative transfer to [facility] on Thursday, Aug 13, 2020 with his family transporting him. - Plan Plan:: I have seen and examined the patient independent of nurse practitioner Beulah Jasso and I have discussed the case with her. I have reviewed and agree with the assessment and plan as outlined for this patient by her. Please see orders. 08/09/20 radiology services manager and case management working on discharge placement. Awaiting acceptance to [facility] for Thursday. I will not recheck any lab work at time. We will continue to monitor intake and output and his vital signs. Physical therapy and Occupational Therapy will continue to work with patient until discharge. Will encourage nursing staff to increase/encourage p.o. intake. 08/10/20 Discharged to [facility] on Thursday with patient's family transporting him there. Will recheck labs in the morning. Therapies to continue working with the patient. Nursing staff to continue to encourage patient to eat and drink. 08/11/2020 The patient is currently awaiting placement. He is not on antibiotics at the present time. We will continue with DVT prophylaxis with the Lovenox. We will continue with PT OT. Diet as tolerated. Laboratory studies have been ordered before placement. Patient should kept up in chair at least 3 times a day.
--- NOTE | 2020-08-12 07:29 | PCM.PN ---
- General Info Date of Service: 08/12/20 Admission Dx/Problem (Free Text): Admission Diagnosis/Problem Admission Diagnosis/Problem Failure to thrive Subjective Update: The patient is an 89-year-old gentleman who was admitted for COVID-19. He is more awake and alert currently. The patient's son is with him. The patient had his urinary catheter changed the son has been very concerned about having a urinary tract infection every time this happens. Urinalysis had been obtained. The patient has denied any pain. The patient has been tolerating soft diet. Functional Status: Reports: Pain Controlled, Tolerating Diet - Review of Systems General: Reports: Weakness, Fatigue HEENT: Reports: No Symptoms Pulmonary: Reports: No Symptoms Cardiovascular: Reports: No Symptoms Gastrointestinal: Reports: No Symptoms Genitourinary: Reports: No Symptoms Musculoskeletal: Reports: No Symptoms Skin: Reports: No Symptoms Neurological: Reports: No Symptoms Psychiatric: Reports: Confusion - Patient Data Vitals - Most Recent: Last Vital Signs Temp 36.9 C 08/11/20 20:53 Pulse 69 08/11/20 20:53 Resp 20 08/11/20 20:53 BP 137/89 08/11/20 20:53 Pulse Ox 93 L 08/11/20 20:53 Weight - Most Recent: 72.348 kg I&O - Last 24 Hours: Intake & Output 08/11/20 08/12/20 08/12/20 22:59 06:59 14:59 Intake Total 470 100 Output Total 325 250 Balance 145 -150 Lab Results Last 24 Hours: Laboratory Results - last 24 hr 08/11/20 Range/Units 18:40 Urine Color Magy H (Yellow) Urine Appearance Cloudy H (Clear) Urine pH 6.0 (5.0-8.0) Ur Specific [place] > or = 1.030 (1.005-1.030) Urine Protein 3+ H (Negative) Urine Glucose (UA) Negative (Negative) Urine Ketones 1+ H (Negative) Urine Occult Blood 3+ H (Negative) Urine Nitrite Positive H (Negative) Urine Bilirubin 1+ H (Negative) Urine Urobilinogen 2.0 H (0.2-1.0) Ur Leukocyte Esterase 1+ H (Negative) Urine RBC >100 H (0-5) /hpf Urine WBC 20-30 H (0-5) /hpf Ur Squamous Epith Cells 0-5 (0-5) /hpf Urine Bacteria Moderate H (FEW) /hpf Urine Mucus Few (FEW) /hpf Med Orders - Current: Current Medications Acetaminophen (Tylenol) 650 mg PO Q4H PRN PRN Reason: Pain (Mild 1-3)/fever Last Admin: 08/02/20 08:56 Dose: 650 mg Documented by: Acetaminophen (Tylenol) 650 mg PO BID [facility] Last Admin: 08/11/20 20:47 Dose: 650 mg Documented by: Artificial Tears (Refresh Liquigel 1%) 0 ml EYERT BID [facility] Last Admin: 08/11/20 20:46 Dose: 1 drop Documented by: Brimonidine Tartrate (Alphagan 0.2% Ophth Soln) 0 ml EYERT BID [facility] Last Admin: 08/11/20 20:46 Dose: 1 drop Documented by: Cholecalciferol (Vitamin D3) 5,000 unit PO DAILY [facility] Last Admin: 08/11/20 08:19 Dose: 5,000 unit Documented by: Enoxaparin Sodium (Lovenox) 40 mg SUBCUT DAILY [facility] Last Admin: 08/11/20 08:19 Dose: 40 mg Documented by: Gabapentin (Neurontin) 100 mg PO DAILY [facility] Last Admin: 08/11/20 08:19 Dose: 100 mg Documented by: Gabapentin (Neurontin) 100 mg PO BEDTIME PRN PRN Reason: Pain Lactulose (Cephulac) 20 gm PO DAILY [facility] Last Admin: 08/11/20 08:19 Dose: 20 gm Documented by: Nystatin (Nystop) 0 gm TOP TID [facility] Last Admin: 08/11/20 20:45 Dose: 1 applic Documented by: Ondansetron HCl (Zofran) 4 mg IV Q4H PRN PRN Reason: Nausea/Vomiting Polyethylene Glycol (Miralax) 17 gm PO DAILY PRN PRN Reason: Constipation Last Admin: 08/02/20 08:51 Dose: 17 gm Documented by: Sodium Chloride (Saline Flush) 10 ml FLUSH ASDIRECTED PRN PRN Reason: Keep Vein Open Last Admin: 07/23/20 12:40 Dose: 10 ml Documented by: Timolol Maleate (Timoptic 0.5% Ophth Soln) 0 ml EYERT BID [facility] Last Admin: 08/11/20 20:46 Dose: 1 drop Documented by: Discontinued Medications Bisacodyl (Dulcolax) 10 mg RECTAL ONETIME ONE Stop: 07/24/20 18:31 Last Admin: 07/24/20 18:27 Dose: 10 mg Documented by: Bisacodyl (Dulcolax) 10 mg RECTAL ONETIME ONE Stop: 07/29/20 09:20 Last Admin: 07/29/20 09:45 Dose: 10 mg Documented by: Cholecalciferol (Vitamin D3) 5,000 unit PO DAILY [facility] Last Admin: 07/27/20 09:02 Dose: 5,000 unit Documented by: Cholecalciferol (Vitamin D3) 5,000 unit PO DAILY [facility] Last Admin: 08/10/20 07:31 Dose: Not Given Documented by: Dexamethasone (Dexamethasone) 4 mg IVPUSH ONETIME ONE Stop: 07/23/20 12:07 Last Admin: 07/23/20 12:41 Dose: 4 mg Documented by: Dexamethasone (Dexamethasone) 6 mg PO DAILY [facility] Stop: 08/01/20 09:01 Last Admin: 07/26/20 08:22 Dose: 6 mg Documented by: Haloperidol Lactate (Haldol) 2.5 mg IVPUSH ONETIME ONE Stop: 07/26/20 10:10 Last Admin: 07/26/20 10:21 Dose: 2.5 mg Documented by: Sodium Chloride (Normal Saline) 1,000 mls @ 125 mls/hr IV ASDIRECTED [facility] Last Admin: 07/24/20 07:34 Dose: 125 mls/hr Documented by: Remdesivir 200 mg/ Sodium (Chloride) 250 mls @ 250 mls/hr IV ONETIME ONE Stop: 07/24/20 01:29 Last Admin: 07/24/20 00:29 Dose: 250 mls/hr Documented by: Remdesivir 100 mg/ Sodium (Chloride) 100 mls @ 100 mls/hr IV Q24H [facility] Stop: 07/27/20 23:59 Last Admin: 07/27/20 23:38 Dose: 100 mls/hr Documented by: Magnesium Sulfate (Magnesium Sulfate In Water Premix) 2 gm in 50 mls @ 25 mls/hr IV ONETIME ONE Stop: 07/26/20 09:44 Last Admin: 07/26/20 08:22 Dose: 25 mls/hr Documented by: Sodium Chloride (Normal Saline) 1,000 mls @ 100 mls/hr IV ASDIRECTED [facility] Last Admin: 07/29/20 09:45 Dose: 100 mls/hr Documented by: Sodium Chloride (Normal Saline) 1,000 mls @ 100 mls/hr IV ASDIRECTED [facility] Last Admin: 07/31/20 01:42 Dose: 100 mls/hr Documented by: Magnesium Sulfate (Magnesium Sulfate In Water Premix) 2 gm in 50 mls @ 25 m ls/hr IV ONETIME ONE Stop: 07/30/20 14:16 Last Admin: 07/30/20 12:52 Dose: 25 mls/hr Documented by: Sodium Chloride (Normal Saline) Confirm Administered Dose 1,000 mls @ as directed .ROUTE .STK-MED ONE Stop: 08/02/20 09:35 Last Admin: 08/02/20 09:51 Dose: Not Given Documented by: Sodium Chloride (Normal Saline) 500 mls @ 999 mls/hr IV .BOLUS ONE Stop: 08/02/20 10:07 Last Admin: 08/02/20 09:51 Dose: 999 mls/hr Documented by: Sodium Chloride (Normal Saline) 500 mls @ 500 mls/hr IV .BOLUS ONE Stop: 08/06/20 11:56 Last Admin: 08/06/20 11:11 Dose: 500 mls/hr Documented by: Magnesium Sulfate (Magnesium Sulfate In Water Premix) 2 gm in 50 mls @ 25 mls/hr IV ONETIME ONE Stop: 08/07/20 11:32 Last Admin: 08/07/20 09:50 Dose: 25 mls/hr Documented by: Sodium Chloride (Normal Saline) 500 mls @ 500 mls/hr IV .BOLUS ONE Stop: 08/07/20 10:32 Last Admin: 08/07/20 09:49 Dose: 500 mls/hr Documented by: Influenza Virus Vaccine (Fluzone High-Dose Quad 2020-21) 240 mcg IM .ONCE ONE Stop: 07/26/20 13:16 Magnesium Hydroxide (Milk Of Magnesia) 30 ml PO ONETIME ONE Stop: 07/24/20 09:01 Last Admin: 07/24/20 08:41 Dose: 30 ml Documented by: Magnesium Hydroxide (Milk Of Magnesia) 30 ml PO ONETIME ONE Stop: 07/28/20 13:56 Last Admin: 07/28/20 15:26 Dose: 30 ml Documented by: Magnesium Hydroxide (Milk Of Magnesia) 30 ml PO ONETIME ONE Stop: 08/07/20 05:36 Last Admin: 08/07/20 06:20 Dose: 30 ml Documented by: Potassium Chloride (Klor-Con M20) 40 meq PO ONETIME ONE Stop: 08/01/20 07:25 Last Admin: 08/01/20 08:02 Dose: 40 meq Documented by: Sodium Chloride (Saline Flush) 10 ml FLUSH ASDIRECTED PRN PRN Reason: Keep Vein Open - Exam Quality Assessment: No: Supplemental Oxygen General: Alert, Oriented, Cooperative HEENT: Pupils Equal, Pupils Reactive. No: Mucous Membr. Moist/[place] (Dry) Neck: Supple, Trachea Midline Lungs: Clear to Auscultation, Normal Respiratory Effort Cardiovascular: Regular Rate, Regular Rhythm GI/Abdominal Exam: Normal Bowel Sounds, Soft, No Distention (Male) Exam: Deferred Back Exam: No: Normal Inspection (Age Appropriate) Extremities: Normal Inspection, No Pedal Edema Skin: Warm, Dry, Intact Neurological: No New Focal Deficit Psy/Mental Status: Alert Sepsis Event Note - Evaluation Sepsis Screening Result: No Definite Risk - Focused Exam Vital Signs: Vital Signs Temp Pulse Resp BP Pulse Ox 08/11/20 20:53 36.9 C 69 20 137/89 93 L - Problem List & Annotations (1) Urinary tract infection SNOMED Code(s): 57412452 Code(s): N39.0 - URINARY TRACT INFECTION, SITE NOT SPECIFIED Status: Acute Current Visit: No Qualifiers: Urinary tract infection type: catheter-associated UTI Indwelling urinary catheter type: indwelling urethral catheter Encounter type: initial encounter Qualified Code(s): T83.511A - Infection and inflammatory reaction due to indwelling urethral catheter, initial encounter; N39.0 - Urinary tract infection, site not specified (2) Generalized weakness SNOMED Code(s): 40861505 Code(s): R53.1 - WEAKNESS Status: Acute Current Visit: Yes (3) Failure to thrive SNOMED Code(s): 24525879 Code(s): FLM9234 - Status: Acute Priority: High Current Visit: Yes Qualifiers: Failure to thrive age range: in adult Qualified Code(s): R62.7 - Adult failure to thrive - Problem List Review Problem List Initiated/Reviewed/Updated: Yes - Assessment Assessment:: 07/23/2020 10 day history of positive COVID diagnosis Has been seen in the ED three times in the last 8 days. History of UTI recently treated with rocephin and omnicef Lives in [place] Pulse ox on admission was 88-89% Decreased appetite and po intake. Chest xray reveals increased density within the left lung base suspicious for small area of pneumonia. Lab results: -WBC 6.11 -Plt 106 -Ddimer 0.76 -UA negative -Na 127 -Chl 94 -BUN 17 -CRE 1.4 -GFR 48 -Ferritin 938 -LDH 190 -CRP 9.9 ABGs on room air -pH 7.45 -pCO2 30.2 -pO2 70.0 -HCO3 20.5 PLAN -Start Remdesivir -Start dexamethasone -Normal Saline @ 100ml/hr -Monitor for hypoxemia -Monitor urine output -Renally dosed medications -Repeat labs and replace electrolytes as needed -PT/OT to eval and treat -Vocational Horticulture Instructor consult for supplements -Incentive spirometry 07/24/20 Still requires 2 liters of O2 Hematuria noted in peña catheter today. UA/UC ordered Day 2 of dexamethasone and remdesivir IV fluids stopped-pt taking po well Encourage IS Lab results: -WBC down from 6.11-4.03 -Na up from 127-134 -BUN down from 17-15 -CRE down from 1.4-1.1 -GFR up from 48->60 PLAN -Day 2 of Remdesivir and dexamethasone -Saline lock IVF -Monitor for hypoxemia -Monitor urine output -Renally dosed medications -Repeat labs and replace electrolytes as needed -PT/OT to eval and treat -Vocational Horticulture Instructor consult for supplements -Incentive spirometry -Nystantin to groin -UA/UC 07/25/20 On room air Day 3 of dexamethasone and remdesivir Encourage IS Yeast to groin. Vitals: BP 128-166/79-96 Tmax 98.4 Heart rate 62-72 91-91% on room air Lab results: -WBC 7.19 from 4.03 -Ddimer 1.07 from 0.76 -BUN from 16.6 to 17 -CRE up from 1.1 to 1.3 -GFR down from >60 to 52 -CRP down from 9.9 to 6.5 PLAN -Day 3 of Remdesivir and dexamethasone -Monitor for hypoxemia -Monitor urine output -Renally dosed medications -Repeat labs and replace electrolytes as needed -PT/OT to eval and treat -Incentive spirometry -Nystantin to groin 07/26/20 Extremely confused and agitated today. Per the family, he has had this reaction to dexamethasone in the past. Day 4 of dexamethasone and remdesivir Encourage IS Yeast to groin. Vitals: BP 126-166/74-93 Tmax 97.6 Heart rate 60-74 90-95% on room air Lab results: -BUN from 20-26 -CRE down from 1.3-1.2 -GFR up from 52 to 57 -Mg down from 1.9 to 1.7 PLAN -Day 4 of Remdesivir and dexamethasone -discontinue dexamethasone due to increased confusion and agitation. Pt given haldol x 1 dose due to dexamethasone effects. -Monitor for hypoxemia -Monitor urine output -Renally dosed medications -Repeat labs and replace electrolytes as needed -PT/OT to eval and treat -Pt continues to pull at peña and dig in his groin per nursing staff and then complains of back pain. UA ordered. -Nystantin to groin 07/27/20 Remains confused but is much more alert and less agitated. Day 5 of Remdesivir Encourage IS Yeast to groin. Vitals: BP 126-147-165/72-103 Tmax 97.9 Heart rate 71-76 92% on room air Lab results: -WBC up from 7.66 to 9.92 -BUN up from 26 to 28 -CRE 1.2 -GFR 57 -CRP down to 2.7 to 6.5 PLAN -Day 5 of Remdesivir -Monitor for hypoxemia -Monitor urine output -Renally dosed medications -Repeat labs and replace electrolytes as needed -PT/OT to eval and treat -UA unremarkable -Nystantin to groin 07/28/2020 Continues improving, but still poor oral intake. Stop dexamethasone because of delirium. Completed remdesivir. No labs today. 91 to 93% on room air. Vital signs stable. Afebrile. 07/29/2020 Continued poor oral intake. Decreased urine output secondary to poor oral intake. CRP increased dramatically to 15.1. WBC stable at 9.1, d-dimer 0.95. Procalcitonin done yesterday was less than 0.05. Renal function is stable with GFR 57. Albumin is low at 2.7. This reflects his poor oral intake. Chest x-ray showed some improvement in the multifocal peripheral airspace opacities consistent with his known COVID illness. 07/30/2020 Continued poor oral intake. Urine output is better CRP increased from 15.1 to 15.7 Will hold discharge til we get procalcitonin level back tomorrow. 07/31/2020 Eating 50% of meals and 100% of supplements Urine output is better Vital signs -Blood pressure 114-163/65-97 -T max 98.2 -Heart rate 62-80 -91-94% on room air Lab results -Ddimer up from 0.66 to 0.68 -CRP down from 15.7 to 14.3 08/01/2020 Remains clinically stable Continues to have poor appetite Urine output remains adequate Vital signs remain stable No labs obtained today Pending placement COVID-19 Re-test required by SNF remains positive as expected. Continues to work with PT and OT who recommend SNF placement 08/02/2020 A bit more confused today Continues to have poor appetite Urine output remains adequate Hypotensive today - given 500mL fluid bolus with good results, now stable vital signs. A bit more tired and difficult to understand today Labs today stable with D-dimer slightly elevated at 1.15 from 0.68 Discussed code status with son in room. Son will discuss with mother and report back. Pending placement. 08/03/2020 More interactive today but quite sleepy Nursing reports patient was awake most of the night Vital signs stable today Not requiring oxygen D-Dimer up from 1.16 to 1.51. Discussed with Dr. Hogue. Will monitor Re-check D-Dimer, CMP, CBC, Magnesium in AM Awaiting to discuss code status with son further Last BM 08/02/2020 Pending placement. 08/04/2020 The patient's hypoxemia has resolved. He is currently on room air. Patient's vital signs will be monitored and if he becomes hypoxic will restart oxygen. The patient's medications will be renally dosed. PT OT is evaluating the patient. Encouraged the patient to set up. Repeat laboratory studies have been ordered. He is currently awaiting placement. We will continue the patient's diet as tolerated. 08/05/2020 The patient is currently awaiting placement. The patient's medications will be renally dosed. Patient's vital signs to be monitored and if required will restart the patient's oxygen. PT OT will continue for the patient. Continue with his normal diet as tolerated. The patient has been encouraged to ambulate. Repeat laboratory studies will be ordered as needed for placement. 08/06/20 Patient did have an episode of hypotension today. Similar to the episode that he had on August 02. D-dimer is 0.74 today. C-reactive protein is down to 7.8. The patient did receive a 500 mL fluid fluid bolus with good results and vital signs are now stable. He is currently awaiting fpc placement. The tentative plan is to [facility] on August 09, 2020. 08/07/20 The patient was doing well this morning when I saw him on rounds. He is much more alert and talkative and happy. His son was at his bedside visiting with him. Shortly after I rounded on the patient physical therapy went into work with him. They stood him up and he had a vasovagal response. Blood pressures were in the 70s systolically. The son was quite upset with the situation, and requested for the patient to have some IV fluids. Even though the lab work does not reveal that the patient is dehydrated, I did order for him to have 500 mL's of normal saline. I did have a lengthy discussion with the patient's son regarding that the patient will likely continue to have a vasovagal response if he gets up from the chair too quickly to ambulate. Reassured him that the patient should still be able to go to [facility] tomorrow as planned and that we would communicate with their staff the need to get him up slowly. Magnesium was 1.7 today which is down from 2.0. He will receive 2 g of mag sulfate IV today. It does remain poor. 08/08/20 Patient was to be discharged to [facility] unit today. However, they have had an outbreak of COVID and are not taking new admits. Patient remains stable at this time. Labs are unremarkable. Vital signs are stable. Continues to have a poor appetite. Drinking protein supplements. Awaiting fpc placement. 08/09/20 The patient is doing well this morning. He is sitting up in the chair eating breakfast with his son at the bedside. He states that he is annoyed that he is still in the hospital and is awaiting fpc placement. I did not draw labs on him today as these have been stable. Vital signs are stable. No new orders. Awaiting acceptance to [facility] for Thursday. 08/10/20 Doing the same. Has no complaints. Seems a little more tired today. VSS. Will recheck labs in the am. Tentative transfer to [facility] on Thursday, Aug 13, 2020 with his family transporting him. - Plan Plan:: I have seen and examined the patient independent of nurse practitioner Beulah Jasso and I have discussed the case with her. I have reviewed and agree with the assessment and plan as outlined for this patient by her. Please see orders. 08/09/20 agricultural services director and case management working on discharge placement. Awaiting acceptance to [facility] for Thursday. I will not recheck any lab work at time. We will continue to monitor intake and output and his vital signs. Physical therapy and Occupational Therapy will continue to work with patient until discharge. Will encourage nursing staff to increase/encourage p.o. intake. 08/10/20 Discharged to [facility] Thursday with patient's family transporting him there. Will recheck labs in the morning. Therapies to continue working with the patient. Nursing staff to continue to encourage patient to eat and drink. 08/11/2020 The patient is currently awaiting placement. He is not on antibiotics at the present time. We will continue with DVT prophylaxis with the Lovenox. We will continue with PT OT. Diet as tolerated. Laboratory studies have been ordered before placement. Patient should kept up in chair at least 3 times a day. 08/12/2020 The patient's catheter was changed secondary to urinalysis showing some evidence of urinary tract infection. The patient's son says that he always gets a urinary tract infection when his catheter is changed. The patient does not know what previous antibiotics he has been on. I have elected to place the patient on Bactrim 1 p.o. twice daily. The patient is currently awaiting placement. Laboratory studies have been ordered for the patient. DVT prophylaxis is completed with the use of Lovenox. We will continue with PT OT.
[2020-08-12] MEDS: Carboxymethylcellulose Sodium 1% Ophth Gel 15 ML Bottle EYERT SCH ×3 (08:55→21:32)
[2020-08-12] MEDS: Brimonidine 0.2% Ophth Soln 5 ML Bottle EYERT SCH ×2 (09:11→21:01)
[2020-08-12] MEDS: Lactulose Soln 10 GM/15 ML 30 ML UD Cup PO SCH (09:11)
[2020-08-12] MEDS: Cholecalciferol (Vitamin D3) 5,000 UNIT Cap PO SCH (09:12)
[2020-08-12] MEDS: Acetaminophen 325 MG Tab PO SCH ×2 (09:12→21:04)
[2020-08-12] MEDS: Gabapentin 100 MG Cap PO SCH (09:12)
[2020-08-12] MEDS: Enoxaparin 40 MG/0.4 ML Syringe SUBCUT SCH (09:13)
[2020-08-12] MEDS: Nystatin Topical Powder 15 GM Bottle TOP SCH ×3 (09:13→21:10)
[2020-08-12] MEDS: Timolol Maleate 0.5% Ophth Soln 5 ML Bottle EYERT SCH ×2 (09:22→21:14)
[2020-08-12] MEDS ORDERED: Levofloxacin 750 MG Tab PO SCH (13:00)
[2020-08-12] MEDS ORDERED: Sulfamethoxazole/Trimethoprim 800-160 MG Tab PO SCH (13:15)
[2020-08-12] MEDS: Sulfamethoxazole/Trimethoprim 800-160 MG Tab PO SCH ×2 (14:17→21:07)
[2020-08-13] MEDS: Lactulose Soln 10 GM/15 ML 30 ML UD Cup PO SCH (08:45)
[2020-08-13] MEDS: Enoxaparin 40 MG/0.4 ML Syringe SUBCUT SCH (08:45)
[2020-08-13] MEDS: Acetaminophen 325 MG Tab PO SCH ×2 (08:45→21:29)
[2020-08-13] MEDS: Cholecalciferol (Vitamin D3) 5,000 UNIT Cap PO SCH (08:45)
[2020-08-13] MEDS: Sulfamethoxazole/Trimethoprim 800-160 MG Tab PO SCH ×2 (08:45→21:30)
[2020-08-13] MEDS: Gabapentin 100 MG Cap PO SCH (08:45)
[2020-08-13] MEDS: Nystatin Topical Powder 15 GM Bottle TOP SCH ×3 (08:46→21:35)
[2020-08-13] MEDS: Brimonidine 0.2% Ophth Soln 5 ML Bottle EYERT SCH ×2 (09:13→21:29)
[2020-08-13] MEDS: Carboxymethylcellulose Sodium 1% Ophth Gel 15 ML Bottle EYERT SCH ×2 (09:13→21:33)
[2020-08-13] MEDS: Timolol Maleate 0.5% Ophth Soln 5 ML Bottle EYERT SCH ×2 (09:14→21:35)
--- NOTE | 2020-08-13 09:30 | PCM.DCSUM1 ---
Discharge Summary - Hospital Course HPI Initial Comments: The patient presents from [place] for generalized weakness. He is COVID 19 positive. He was diagnosed about 10 days ago. He was seen here on the and . On the he was found to have a UTI and he was given rocephin and put on omnicef. He was able to go back because he could walk around with a walker. He came back on the and had generalized weakness. There was no beds here or in [place] and arrangements were made to admit him to [place] and family was going to take him. The family did not take him and [place] took him back. He has more generalized weakness. He has a slight cough. His oxygen saturations are good. He denies any The patient does have an indwelling peña catheter. Diagnosis: Stroke: No - Discharge Data Discharge Disposition: DC/Tfer to SNF 03 Condition: Fair - Referral to Home Health Primary Care Physician: Marvin Santana MD - Discharge Diagnosis/Problem(s) (1) Failure to thrive SNOMED Code(s): 41195576 ICD Code: [id number] - Status: Acute Priority: High Current Visit: Yes Qualifiers: Failure to thrive age range: in adult Qualified Code(s): R62.7 - Adult failure to thrive (2) Weakness SNOMED Code(s): 68097076 ICD Code: R53.1 - WEAKNESS Status: Acute Priority: High Current Visit: Yes (3) Physical deconditioning SNOMED Code(s): 74064460875629 ICD Code: R53.81 - OTHER MALAISE Status: Acute Priority: High Current Visit: Yes (4) Hypochloremia SNOMED Code(s): 94066624 ICD Code: E87.8 - OTH DISORDERS OF ELECTROLYTE AND FLUID BALANCE, NEC Status: Resolved Priority: High Current Visit: Yes (5) Hyponatremia SNOMED Code(s): 30024311 ICD Code: E87.1 - HYPO-OSMOLALITY AND HYPONATREMIA Status: Resolved Priority: High Current Visit: Yes (6) Volume depletion SNOMED Code(s): 153976721 ICD Code: E86.9 - VOLUME DEPLETION, UNSPECIFIED Status: Resolved Priority: High Current Visit: Yes (7) Acute kidney injury SNOMED Code(s): 42770829, 77486413 ICD Code: N17.9 - ACUTE KIDNEY FAILURE, UNSPECIFIED Status: Resolved Priority: High Current Visit: Yes (8) Acute hypoxemic respiratory failure due to COVID-19 SNOMED Code(s): 799878754 ICD Code: U07.1 - COVID-19; J96.01 - ACUTE RESPIRATORY FAILURE WITH HYPOXIA Status: Resolved Priority: High Current Visit: Yes (9) Hypertension SNOMED Code(s): 20719477 ICD Code: I10 - ESSENTIAL (PRIMARY) HYPERTENSION Status: Chronic Priority: High Current Visit: Yes Qualifiers: Hypertension type: unspecified Qualified Code(s): I10 - Essential (primary) hypertension (10) Pneumonia due to COVID-19 virus SNOMED Code(s): 088446417004407510 ICD Code: U07.1 - COVID-19; J12.89 - OTHER VIRAL PNEUMONIA Status: Resolved Priority: High Current Visit: Yes - Patient Summary/Data Consults: Consultations 07/23/20 15:30 Consult to Exterior Interior Specialist [CONS] Routine Consult to Spiritual Care [CONS] Routine OT Evaluation and Treatment [CONS] Routine PT Evaluation and Treatment [CONS] Routine 08/01/20 15:08 APPLIED EXERCISE PHYSIOLOGIST Eval and Treat [APPLIED EXERCISE PHYSIOLOGIST Evaluation and Treatment] [CONS] Routine - Patient Instructions Diet: Regular Diet as Tolerated Activity: As Tolerated Other/Special Instructions: Discharge to [facility]. Family to transport patient. Follow up with primary care provider in 1 week. PT/OT to continue to work with patient. - Discharge Plan *PRESCRIPTION DRUG MONITORING PROGRAM REVIEWED*: No *COPY OF PRESCRIPTION DRUG MONITORING REPORT IN PATIENT KENDAL: No Prescriptions/Med Rec: Nystatin [Nystop] 1 gm TOP TID #1 bottle Home Medications: Home Meds Aspirin 325 mg PO DAILY 05/29/20 [History] Gabapentin [Neurontin] 100 mg PO DAILY 05/29/20 [History] Cholecalciferol (Vitamin D3) [Vitamin D3] 5,000 intnl unit PO DAILY 07/18/20 [History] Gabapentin [Neurontin] 100 mg PO BEDTIME PRN 07/18/20 [History] Lactulose 2 tbsp PO DAILY 07/18/20 [History] polyethylene glycoL 3350 [MiraLAX] 17 gm PO DAILY PRN 07/18/20 [History] Acetaminophen [Tylenol Extra Strength] 1,000 mg PO DAILY 07/19/20 [History] Brimonidine Tartrate [Brimonidine Tartrate 0.2% Ophth Soln] 1 drop EYERT BID 07/23/20 [History] Carboxymethylcellulose Sodium [Refresh Tears] 1 drop EYERT BID 07/23/20 [History] Cod Liver Oil 1 cap PO DAILY 07/23/20 [History] Selenomethionine [Selenium] 200 mcg PO DAILY 07/23/20 [History] Timolol Maleate 1 drop EYERT BID 07/23/20 [History] Nystatin [Nystop] 1 gm TOP TID #1 bottle 07/31/20 [Rx] Oxygen Therapy Mode: Room Air Patient Handouts: COVID-19, Sepsis, Diagnosis, Adult, COVID-19: How to Protect Yourself and Others - [facility] - Patient Data Vitals - Most Recent: Last Vital Signs Temp 98.2 F 08/13/20 03:24 Pulse 70 08/13/20 03:24 Resp 16 08/13/20 03:24 BP 129/84 08/13/20 03:24 Pulse Ox 92 L 08/13/20 03:24 Weight - Most Recent: 156 lb 1.6 oz I&O - Last 24 hours: Intake & Output 08/12/20 08/13/20 08/13/20 22:59 06:59 14:59 Intake Total 480 240 Output Total 275 200 Balance 205 40 Lab Results - Last 24 hrs: Laboratory Results - last 24 hr 08/13/20 08/13/20 08/13/20 Range/Units 05:40 05:40 07:20 WBC 6.77 (4.23-9.07) K/mm3 RBC 3.99 L (4.63-6.08) M/mm3 Hgb 12.4 L (13.7-17.5) gm/dl Hct 38.1 L (40.1-51.0) % MCV 95.5 H (79.0-92.2) fl MCH 31.1 (25.7-32.2) pg MCHC 32.5 (32.2-35.5) g/dl RDW Std Deviation 48.1 H (35.1-43.9) fL Plt Count 271 (163-337) K/mm3 MPV 9.2 L (9.4-12.3) fl Neut % (Auto) 55.7 (34.0-67.9) % Lymph % (Auto) 24.8 (21.8-53.1) % [place] % (Auto) 12.0 (5.3-12.2) % Eos % (Auto) 6.8 (0.8-7.0) Baso % (Auto) 0.6 (0.1-1.2) % Neut # (Auto) 3.77 (1.78-5.38) K/mm3 Lymph # (Auto) 1.68 (1.32-3.57) K/mm3 [place] # (Auto) 0.81 (0.30-0.82) K/mm3 Eos # (Auto) 0.46 (0.04-0.54) K/mm3 Baso # (Auto) 0.04 (0.01-0.08) K/mm3 Sodium 140 (136-145) mEq/L Potassium 4.3 (3.5-5.1) mEq/L Chloride 104 (98-107) mEq/L Carbon Dioxide 27 (21-32) mEq/L Anion Gap 13.3 (5-15) BUN 27 H (7-18) mg/dL Creatinine 1.2 (0.7-1.3) mg/dL Est Cr Clr Drug Dosing 35.18 mL/min Estimated GFR (MDRD) 57 (>60) mL/min BUN/Creatinine Ratio 22.5 H (14-18) Glucose 121 H (83-115) mg/dL Calcium 8.5 (8.5-10.1) mg/dL SARS-CoV-2 RNA (CLAUDIA) Positive H (NEGATIVE) Med Orders - Current: Current Medications Acetaminophen (Tylenol) 650 mg PO Q4H PRN PRN Reason: Pain (Mild 1-3)/fever Last Admin: 08/02/20 08:56 Dose: 650 mg Documented by: Acetaminophen (Tylenol) 650 mg PO BID [facility] Last Admin: 08/13/20 08:45 Dose: 650 mg Documented by: Artificial Tears (Refresh Liquigel 1%) 0 ml EYERT BID [facility] Last Admin: 08/13/20 09:13 Dose: 1 drop Documented by: Brimonidine Tartrate (Alphagan 0.2% Ophth Soln) 0 ml EYERT BID [facility] Last Admin: 08/13/20 09:13 Dose: 1 drop Documented by: Cholecalciferol (Vitamin D3) 5,000 unit PO DAILY [facility] Last Admin: 08/13/20 08:45 Dose: 5,000 unit Documented by: Enoxaparin Sodium (Lovenox) 40 mg SUBCUT DAILY [facility] Last Admin: 08/13/20 08:45 Dose: 40 mg Documented by: Gabapentin (Neurontin) 100 mg PO DAILY [facility] Last Admin: 08/13/20 08:45 Dose: 100 mg Documented by: Gabapentin (Neurontin) 100 mg PO BEDTIME PRN PRN Reason: Pain Lactulose (Cephulac) 20 gm PO DAILY [facility] Last Admin: 08/13/20 08:45 Dose: 20 gm Documented by: Nystatin (Nystop) 0 gm TOP TID [facility] Last Admin: 08/13/20 08:46 Dose: 1 applic Documented by: Ondansetron HCl (Zofran) 4 mg IV Q4H PRN PRN Reason: Nausea/Vomiting Polyethylene Glycol (Miralax) 17 gm PO DAILY PRN PRN Reason: Constipation Last Admin: 08/02/20 08:51 Dose: 17 gm Documented by: Sodium Chloride (Saline Flush) 10 ml FLUSH ASDIRECTED PRN PRN Reason: Keep Vein Open Last Admin: 07/23/20 12:40 Dose: 10 ml Documented by: Timolol Maleate (Timoptic 0.5% [facility]) 0 ml EYERT BID [facility] Last Admin: 08/13/20 09:14 Dose: 1 drop Documented by: Trimethoprim/Sulfamethoxazole (Septra Ds) 1 tab PO BID [facility] Last Admin: 08/13/20 08:45 Dose: 1 tab Documented by: Discontinued Medications Bisacodyl (Dulcolax) 10 mg RECTAL ONETIME ONE Stop: 07/24/20 18:31 Last Admin: 07/24/20 18:27 Dose: 10 mg Documented by: Bisacodyl (Dulcolax) 10 mg RECTAL ONETIME ONE Stop: 07/29/20 09:20 Last Admin: 07/29/20 09:45 Dose: 10 mg Documented by: Cholecalciferol (Vitamin D3) 5,000 unit PO DAILY [facility] Last Admin: 07/27/20 09:02 Dose: 5,000 unit Documented by: Cholecalciferol (Vitamin D3) 5,000 unit PO DAILY [facility] Last Admin: 08/10/20 07:31 Dose: Not Given Documented by: Dexamethasone (Dexamethasone) 4 mg IVPUSH ONETIME ONE Stop: 07/23/20 12:07 Last Admin: 07/23/20 12:41 Dose: 4 mg Documented by: Dexamethasone (Dexamethasone) 6 mg PO DAILY [facility] Stop: 08/01/20 09:01 Last Admin: 07/26/20 08:22 Dose: 6 mg Documented by: Haloperidol Lactate (Haldol) 2.5 mg IVPUSH ONETIME ONE Stop: 07/26/20 10:10 Last Admin: 07/26/20 10:21 Dose: 2.5 mg Documented by: Sodium Chloride (Normal Saline) 1,000 mls @ 125 mls/hr IV ASDIRECTED [facility] Last Admin: 07/24/20 07:34 Dose: 125 mls/hr Documented by: Remdesivir 200 mg/ Sodium (Chloride) 250 mls @ 250 mls/hr IV ONETIME ONE Stop: 07/24/20 01:29 Last Admin: 07/24/20 00:29 Dose: 250 mls/hr Documented by: Remdesivir 100 mg/ Sodium (Chloride) 100 mls @ 100 mls/hr IV Q24H [facility] Stop: 07/27/20 23:59 Last Admin: 07/27/20 23:38 Dose: 100 mls/hr Documented by: Magnesium Sulfate (Magnesium Sulfate In Water Premix) 2 gm in 50 mls @ 25 mls/hr IV ONETIME ONE Stop: 07/26/20 09:44 Last Admin: 07/26/20 08:22 Dose: 25 mls/hr Documented by: Sodium Chloride (Normal Saline) 1,000 mls @ 100 mls/hr IV ASDIRECTED [facility] Last Admin: 07/29/20 09:45 Dose: 100 mls/hr Documented by: Sodium Chloride (Normal Saline) 1,000 mls @ 100 mls/hr IV ASDIRECTED [facility] Last Admin: 07/31/20 01:42 Dose: 100 mls/hr Documented by: Magnesium Sulfate (Magnesium Sulfate In Water Premix) 2 gm in 50 mls @ 25 mls/hr IV ONETIME ONE Stop: 07/30/20 14:16 Last Admin: 07/30/20 12:52 Dose: 25 mls/hr Documented by: Sodium Chloride (Normal Saline) Confirm Administered Dose 1,000 mls @ as directed .ROUTE .STK-MED ONE Stop: 08/02/20 09:35 Last Admin: 08/02/20 09:51 Dose: Not Given Documented by: Sodium Chloride (Normal Saline) 500 mls @ 999 mls/hr IV .BOLUS ONE Stop: 08/02/20 10:07 Last Admin: 08/02/20 09:51 Dose: 999 mls/hr Documented by: Sodium Chloride (Normal Saline) 500 mls @ 500 mls/hr IV .BOLUS ONE Stop: 08/06/20 11:56 Last Admin: 08/06/20 11:11 Dose: 500 mls/hr Documented by: Magnesium Sulfate (Magnesium Sulfate In Water Premix) 2 gm in 50 mls @ 25 mls/hr IV ONETIME ONE Stop: 08/07/20 11:32 Last Admin: 08/07/20 09:50 Dose: 25 mls/hr Documented by: Sodium Chloride (Normal Saline) 500 mls @ 500 mls/hr IV .BOLUS ONE Stop: 08/07/20 10:32 Last Admin: 08/07/20 09:49 Dose: 500 mls/hr Documented by: Influenza Virus Vaccine (Fluzone High-Dose Quad 2020-) 240 mcg IM .ONCE ONE Stop: 07/26/20 13:16 Levofloxacin (Levaquin) 750 mg PO Q48H [facility] Last Admin: 08/12/20 14:14 Dose: Not Given Documented by: Magnesium Hydroxide (Milk Of Magnesia) 30 ml PO ONETIME ONE Stop: 07/24/20 09:01 Last Admin: 07/24/20 08:41 Dose: 30 ml Documented by: Magnesium Hydroxide (Milk Of Magnesia) 30 ml PO ONETIME ONE Stop: 07/28/20 13:56 Last Admin: 07/28/20 15:26 Dose: 30 ml Documented by: Magnesium Hydroxide (Milk Of Magnesia) 30 ml PO ONETIME ONE Stop: 08/07/20 05:36 Last Admin: 08/07/20 06:20 Dose: 30 ml Documented by: Potassium Chloride (Klor-Con M20) 40 meq PO ONETIME ONE Stop: 08/01/20 07:25 Last Admin: 08/01/20 08:02 Dose: 40 meq Documented by: Sodium Chloride (Saline Flush) 10 ml FLUSH ASDIRECTED PRN PRN Reason: Keep Vein Open Trimethoprim/Sulfamethoxazole (Septra Ds) 1 tab PO BID [facility] Last Admin: 08/12/20 14:13 Dose: Not Given Documented by:
--- NOTE | 2020-08-13 13:34 | PCM.PN ---
<RomeroBeulah M - Last Filed: 08/13/20 13:37> - General Info Date of Service: 08/13/20 Admission Dx/Problem (Free Text): Admission Diagnosis/Problem Admission Diagnosis/Problem Failure to thrive Subjective Update: Was ready for discharge, but had a vasovagal response when transferred into the wheelchair. Functional Status: Reports: Pain Controlled, Tolerating Diet (appetite remains poor.), Urinating (chronic peña) - Review of Systems General: Reports: Weakness HEENT: Reports: No Symptoms, Glasses Pulmonary: Reports: No Symptoms Cardiovascular: Reports: No Symptoms Gastrointestinal: Reports: No Symptoms Genitourinary: Reports: Other (chronic peña) Musculoskeletal: Reports: No Symptoms Skin: Reports: No Symptoms Neurological: Reports: Confusion Psychiatric: Reports: Confusion - Patient Data Vitals - Most Recent: Last Vital Signs Temp 97.5 F 08/13/20 08:50 Pulse 66 08/13/20 08:50 Resp 14 08/13/20 08:50 BP 111/75 08/13/20 08:50 Pulse Ox 92 L 08/13/20 08:50 Weight - Most Recent: 70.806 kg I&O - Last 24 Hours: Intake & Output 08/12/20 08/13/20 08/13/20 22:59 06:59 14:59 Intake Total 480 240 0 Output Total 275 200 Balance 205 40 0 Lab Results Last 24 Hours: Laboratory Results - last 24 hr 08/13/20 08/13/20 08/13/20 Range/Units 05:40 05:40 07:20 WBC 6.77 (4.23-9.07) K/mm3 RBC 3.99 L (4.63-6.08) M/mm3 Hgb 12.4 L (13.7-17.5) gm/dl Hct 38.1 L (40.1-51.0) % MCV 95.5 H (79.0-92.2) fl MCH 31.1 (25.7-32.2) pg MCHC 32.5 (32.2-35.5) g/dl RDW Std Deviation 48.1 H (35.1-43.9) fL Plt Count 271 (163-337) K/mm3 MPV 9.2 L (9.4-12.3) fl Neut % (Auto) 55.7 (34.0-67.9) % Lymph % (Auto) 24.8 (21.8-53.1) % Storey % (Auto) 12.0 (5.3-12.2) % Eos % (Auto) 6.8 (0.8-7.0) Baso % (Auto) 0.6 (0.1-1.2) % Neut # (Auto) 3.77 (1.78-5.38) K/mm3 Lymph # (Auto) 1.68 (1.32-3.57) K/mm3 Storey # (Auto) 0.81 (0.30-0.82) K/mm3 Eos # (Auto) 0.46 (0.04-0.54) K/mm3 Baso # (Auto) 0.04 (0.01-0.08) K/mm3 Sodium 140 (136-145) mEq/L Potassium 4.3 (3.5-5.1) mEq/L Chloride 104 (98-107) mEq/L Carbon Dioxide 27 (21-32) mEq/L Anion Gap 13.3 (5-15) BUN 27 H (7-18) mg/dL Creatinine 1.2 (0.7-1.3) mg/dL Est Cr Clr Drug Dosing 35.18 mL/min Estimated GFR (MDRD) 57 (>60) mL/min BUN/Creatinine Ratio 22.5 H (14-18) Glucose 121 H (83-115) mg/dL Calcium 8.5 (8.5-10.1) mg/dL SARS-CoV-2 RNA (CLAUDIA) Positive H (NEGATIVE) Med Orders - Current: Current Medications Acetaminophen (Tylenol) 650 mg PO Q4H PRN PRN Reason: Pain (Mild 1-3)/fever Last Admin: 08/02/20 08:56 Dose: 650 mg Documented by: Acetaminophen (Tylenol) 650 mg PO BID [facility] Last Admin: 08/13/20 08:45 Dose: 650 mg Documented by: Artificial Tears (Refresh Liquigel 1%) 0 ml EYERT BID [facility] Last Admin: 08/13/20 09:13 Dose: 1 drop Documented by: Brimonidine Tartrate (Alphagan 0.2% Ophth Soln) 0 ml EYERT BID [facility] Last Admin: 08/13/20 09:13 Dose: 1 drop Documented by: Cholecalciferol (Vitamin D3) 5,000 unit PO DAILY [facility] Last Admin: 08/13/20 08:45 Dose: 5,000 unit Documented by: Enoxaparin Sodium (Lovenox) 40 mg SUBCUT DAILY [facility] Last Admin: 08/13/20 08:45 Dose: 40 mg Documented by: Gabapentin (Neurontin) 100 mg PO DAILY [facility] Last Admin: 08/13/20 08:45 Dose: 100 mg Documented by: Gabapentin (Neurontin) 100 mg PO BEDTIME PRN PRN Reason: Pain Lactulose (Cephulac) 20 gm PO DAILY [facility] Last Admin: 08/13/20 08:45 Dose: 20 gm Documented by: Nystatin (Nystop) 0 gm TOP TID [facility] Last Admin: 08/13/20 08:46 Dose: 1 applic Documented by: Ondansetron HCl (Zofran) 4 mg IV Q4H PRN PRN Reason: Nausea/Vomiting Polyethylene Glycol (Miralax) 17 gm PO DAILY PRN PRN Reason: Constipation Last Admin: 08/02/20 08:51 Dose: 17 gm Documented by: Sodium Chloride (Saline Flush) 10 ml FLUSH ASDIRECTED PRN PRN Reason: Keep Vein Open Last Admin: 07/23/20 12:40 Dose: 10 ml Documented by: Timolol Maleate (Timoptic 0.5% [facility]) 0 ml EYERT BID [facility] Last Admin: 08/13/20 09:14 Dose: 1 drop Documented by: Trimethoprim/Sulfamethoxazole (Septra Ds) 1 tab PO BID [facility] Last Admin: 08/13/20 08:45 Dose: 1 tab Documented by: Discontinued Medications Bisacodyl (Dulcolax) 10 mg RECTAL ONETIME ONE Stop: 07/24/20 18:31 Last Admin: 07/24/20 18:27 Dose: 10 mg Documented by: Bisacodyl (Dulcolax) 10 mg RECTAL ONETIME ONE Stop: 07/29/20 09:20 Last Admin: 07/29/20 09:45 Dose: 10 mg Documented by: Cholecalciferol (Vitamin D3) 5,000 unit PO DAILY [facility] Last Admin: 07/27/20 09:02 Dose: 5,000 unit Documented by: Cholecalciferol (Vitamin D3) 5,000 unit PO DAILY [facility] Last Admin: 08/10/20 07:31 Dose: Not Given Documented by: Dexamethasone (Dexamethasone) 4 mg IVPUSH ONETIME ONE Stop: 07/23/20 12:07 Last Admin: 07/23/20 12:41 Dose: 4 mg Documented by: Dexamethasone (Dexamethasone) 6 mg PO DAILY [facility] Stop: 08/01/20 09:01 Last Admin: 07/26/20 08:22 Dose: 6 mg Documented by: Haloperidol Lactate (Haldol) 2.5 mg IVPUSH ONETIME ONE Stop: 07/26/20 10:10 Last Admin: 07/26/20 10:21 Dose: 2.5 mg Documented by: Sodium Chloride (Normal Saline) 1,000 mls @ 125 mls/hr IV ASDIRECTED [facility] Last Admin: 07/24/20 07:34 Dose: 125 mls/hr Documented by: Remdesivir 200 mg/ Sodium (Chloride) 250 mls @ 250 mls/hr IV ONETIME ONE Stop: 07/24/20 01:29 Last Admin: 07/24/20 00:29 Dose: 250 mls/hr Documented by: Remdesivir 100 mg/ Sodium (Chloride) 100 mls @ 100 mls/hr IV Q24H [facility] Stop: 07/27/20 23:59 Last Admin: 07/27/20 23:38 Dose: 100 mls/hr Documented by: Magnesium Sulfate (Magnesium Sulfate In Water Premix) 2 gm in 50 mls @ 25 mls/hr IV ONETIME ONE Stop: 07/26/20 09:44 Last Admin: 07/26/20 08:22 Dose: 25 mls/hr Documented by: Sodium Chloride (Normal Saline) 1,000 mls @ 100 mls/hr IV ASDIRECTED [facility] Last Admin: 07/29/20 09:45 Dose: 100 mls/hr Documented by: Sodium Chloride (Normal Saline) 1,000 mls @ 100 mls/hr IV ASDIRECTED [facility] Last Admin: 07/31/20 01:42 Dose: 100 mls/hr Documented by: Magnesium Sulfate (Magnesium Sulfate In Water Premix) 2 gm in 50 mls @ 25 mls/hr IV ONETIME ONE Stop: 07/30/20 14:16 Last Admin: 07/30/20 12:52 Dose: 25 mls/hr Documented by: Sodium Chloride (Normal Saline) Confirm Administered Dose 1,000 mls @ as directed .ROUTE .STK-MED ONE Stop: 08/02/20 09:35 Last Admin: 08/02/20 09:51 Dose: Not Given Documented by: Sodium Chloride (Normal Saline) 500 mls @ 999 mls/hr IV .BOLUS ONE Stop: 08/02/20 10:07 Last Admin: 08/02/20 09:51 Dose: 999 mls/hr Documented by: Sodium Chloride (Normal Saline) 500 mls @ 500 mls/hr IV .BOLUS ONE Stop: 08/06/20 11:56 Last Admin: 08/06/20 11:11 Dose: 500 mls/hr Documented by: Magnesium Sulfate (Magnesium Sulfate In Water Premix) 2 gm in 50 mls @ 25 mls/hr IV ONETIME ONE Stop: 08/07/20 11:32 Last Admin: 08/07/20 09:50 Dose: 25 mls/hr Documented by: Sodium Chloride (Normal Saline) 500 mls @ 500 mls/hr IV .BOLUS ONE Stop: 08/07/20 10:32 Last Admin: 08/07/20 09:49 Dose: 500 mls/hr Documented by: Influenza Virus Vaccine (Fluzone High-Dose Quad 2019-) 240 mcg IM .ONCE ONE Stop: 07/26/20 13:16 Levofloxacin (Levaquin) 750 mg PO Q48H [facility] Last Admin: 08/12/20 14:14 Dose: Not Given Documented by: Magnesium Hydroxide (Milk Of Magnesia) 30 ml PO ONETIME ONE Stop: 07/24/20 09:01 Last Admin: 07/24/20 08:41 Dose: 30 ml Documented by: Magnesium Hydroxide (Milk Of Magnesia) 30 ml PO ONETIME ONE Stop: 07/28/20 13:56 Last Admin: 07/28/20 15:26 Dose: 30 ml Documented by: Magnesium Hydroxide (Milk Of Magnesia) 30 ml PO ONETIME ONE Stop: 08/07/20 05:36 Last Admin: 08/07/20 06:20 Dose: 30 ml Documented by: Potassium Chloride (Klor-Con M20) 40 meq PO ONETIME ONE Stop: 08/01/20 07:25 Last Admin: 08/01/20 08:02 Dose: 40 meq Documented by: Sodium Chloride (Saline Flush) 10 ml FLUSH ASDIRECTED PRN PRN Reason: Keep Vein Open Trimethoprim/Sulfamethoxazole (Septra Ds) 1 tab PO BID [facility] Last Admin: 08/12/20 14:13 Dose: Not Given Documented by: - Exam Quality Assessment: Urine Catheter, DVT Prophylaxis (lovenox). No: Supplemental Oxygen General: Alert, Cooperative, No Acute Distress. No: Oriented (confused) HEENT: Mucous Membr. Moist/[place] Neck: Supple, Trachea Midline. No: Lymphadenopathy Lungs: Clear to Auscultation, Normal Respiratory Effort Cardiovascular: Regular Rate, Regular Rhythm, No Murmurs GI/Abdominal Exam: Normal Bowel Sounds, Soft, Non-Tender, No Distention (Male) Exam: Deferred Back Exam: Normal Inspection, Full Range of Motion Extremities: Normal Inspection, Normal Range of Motion, Non-Tender, No Pedal Edema, Normal Capillary Refill Peripheral Pulses: 2+: Radial (L), Radial (R), Dorsalis Pedis (L), Dorsalis Pedis (R) Skin: Warm, Dry, Intact Wound/Incisions: Healing Well, Other (miguel to groin) Neurological: No New Focal Deficit Psy/Mental Status: Alert, Normal Affect, Normal Mood Sepsis Event Note - Evaluation Sepsis Screening Result: No Definite Risk - Focused Exam Vital Signs: Vital Signs Temp Pulse Resp BP Pulse Ox 08/13/20 08:50 97.5 F 66 14 111/75 92 L 08/13/20 03:24 98.2 F 70 16 129/84 92 L - Problem List & Annotations (1) Failure to thrive SNOMED Code(s): 23512840 Code(s): FCB5595 - Status: Acute Priority: High Current Visit: Yes Qualifiers: Failure to thrive age range: in adult Qualified Code(s): R62.7 - Adult failure to thrive (2) Weakness SNOMED Code(s): 81572947 Code(s): R53.1 - WEAKNESS Status: Acute Priority: High Current Visit: Yes (3) Physical deconditioning SNOMED Code(s): 61286020988579 Code(s): R53.81 - OTHER MALAISE Status: Acute Priority: High Current Visit: Yes (4) Hypochloremia SNOMED Code(s): 82110120 Code(s): E87.8 - OTH DISORDERS OF ELECTROLYTE AND FLUID BALANCE, NEC Status: Resolved Priority: High Current Visit: Yes (5) Hyponatremia SNOMED Code(s): 98973434 Code(s): E87.1 - HYPO-OSMOLALITY AND HYPONATREMIA Status: Resolved Priority: High Current Visit: Yes (6) Volume depletion SNOMED Code(s): 525908436 Code(s): E86.9 - VOLUME DEPLETION, UNSPECIFIED Status: Resolved Priority: High Current Visit: Yes (7) Acute kidney injury SNOMED Code(s): 62587252, 58529435 Code(s): N17.9 - ACUTE KIDNEY FAILURE, UNSPECIFIED Status: Resolved Priority: High Current Visit: Yes (8) Acute hypoxemic respiratory failure due to COVID-19 SNOMED Code(s): 674151658 Code(s): U07.1 - COVID-19; J96.01 - ACUTE RESPIRATORY FAILURE WITH HYPOXIA Status: Resolved Priority: High Current Visit: Yes (9) Hypertension SNOMED Code(s): 01745872 Code(s): I10 - ESSENTIAL (PRIMARY) HYPERTENSION Status: Chronic Priority: High Current Visit: Yes Qualifiers: Hypertension type: unspecified Qualified Code(s): I10 - Essential (primary) hypertension (10) Pneumonia due to COVID-19 virus SNOMED Code(s): 064278153779325966 Code(s): U07.1 - COVID-19; J12.89 - OTHER VIRAL PNEUMONIA Status: Resolved Priority: High Current Visit: Yes - Problem List Review Problem List Initiated/Reviewed/Updated: Yes - My Orders Last 24 Hours: My Active Orders 08/13/20 08:13 Ready for Discharge [RC] PER UNIT ROUTINE - Assessment Assessment:: 07/23/2020 10 day history of positive COVID diagnosis Has been seen in the ED three times in the last 8 days. History of UTI recently treated with rocephin and omnicef Lives in [place] Pulse ox on admission was 88-89% Decreased appetite and po intake. Chest xray reveals increased density within the left lung base suspicious for small area of pneumonia. Lab results: -WBC 6.11 -Plt 106 -Ddimer 0.76 -UA negative -Na 127 -Chl 94 -BUN 17 -CRE 1.4 -GFR 48 -Ferritin 938 -LDH 190 -CRP 9.9 ABGs on room air -pH 7.45 -pCO2 30.2 -pO2 70.0 -HCO3 20.5 PLAN -Start Remdesivir -Start dexamethasone -Normal Saline @ 100ml/hr -Monitor for hypoxemia -Monitor urine output -Renally dosed medications -Repeat labs and replace electrolytes as needed -PT/OT to eval and treat -Tents Assembler consult for supplements -Incentive spirometry 07/24/20 Still requires 2 liters of O2 Hematuria noted in peña catheter today. UA/UC ordered Day 2 of dexamethasone and remdesivir IV fluids stopped-pt taking po well Encourage IS Lab results: -WBC down from 6.11-4.03 -Na up from 127-134 -BUN down from 17-15 -CRE down from 1.4-1.1 -GFR up from 48->60 PLAN -Day 2 of Remdesivir and dexamethasone -Saline lock IVF -Monitor for hypoxemia -Monitor urine output -Renally dosed medications -Repeat labs and replace electrolytes as needed -PT/OT to eval and treat -Tents Assembler consult for supplements -Incentive spirometry -Nystantin to groin -UA/UC 07/25/20 On room air Day 3 of dexamethasone and remdesivir Encourage IS Yeast to groin. Vitals: BP 128-166/79-96 Tmax 98.4 Heart rate 62-72 91-91% on room air Lab results: -WBC 7.19 from 4.03 -Ddimer 1.07 from 0.76 -BUN from 16.6 to 17 -CRE up from 1.1 to 1.3 -GFR down from >60 to 52 -CRP down from 9.9 to 6.5 PLAN -Day 3 of Remdesivir and dexamethasone -Monitor for hypoxemia -Monitor urine output -Renally dosed medications -Repeat labs and replace electrolytes as needed -PT/OT to eval and treat -Incentive spirometry -Nystantin to groin 07/26/20 Extremely confused and agitated today. Per the family, he has had this reaction to dexamethasone in the past. Day 4 of dexamethasone and remdesivir Encourage IS Yeast to groin. Vitals: BP 126-166/74-93 Tmax 97.6 Heart rate 60-74 90-95% on room air Lab results: -BUN from 20-26 -CRE down from 1.3-1.2 -GFR up from 52 to 57 -Mg down from 1.9 to 1.7 PLAN -Day 4 of Remdesivir and dexamethasone -discontinue dexamethasone due to increased confusion and agitation. Pt given haldol x 1 dose due to dexamethasone effects. -Monitor for hypoxemia -Monitor urine output -Renally dosed medications -Repeat labs and replace electrolytes as needed -PT/OT to eval and treat -Pt continues to pull at peña and dig in his groin per nursing staff and then complains of back pain. UA ordered. -Nystantin to groin 07/27/20 Remains confused but is much more alert and less agitated. Day 5 of Remdesivir Encourage IS Yeast to groin. Vitals: BP 126-147-165/72-103 Tmax 97.9 Heart rate 71-76 92% on room air Lab results: -WBC up from 7.66 to 9.92 -BUN up from 26 to 28 -CRE 1.2 -GFR 57 -CRP down to 2.7 to 6.5 PLAN -Day 5 of Remdesivir -Monitor for hypoxemia -Monitor urine output -Renally dosed medications -Repeat labs and replace electrolytes as needed -PT/OT to eval and treat -UA unremarkable -Nystantin to groin 07/28/2020 Continues improving, but still poor oral intake. Stop dexamethasone because of delirium. Completed remdesivir. No labs today. 91 to 93% on room air. Vital signs stable. Afebrile. 07/29/2020 Continued poor oral intake. Decreased urine output secondary to poor oral intake. CRP increased dramatically to 15.1. WBC stable at 9.1, d-dimer 0.95. Procalcitonin done yesterday was less than 0.05. Renal function is stable with GFR 57. Albumin is low at 2.7. This reflects his poor oral intake. Chest x-ray showed some improvement in the multifocal peripheral airspace opacities consistent with his known COVID illness. 07/30/2020 Continued poor oral intake. Urine output is better CRP increased from 15.1 to 15.7 Will hold discharge til we get procalcitonin level back tomorrow. 07/31/2020 Eating 50% of meals and 100% of supplements Urine output is better Vital signs -Blood pressure 114-163/65-97 -T max 98.2 -Heart rate 62-80 -91-94% on room air Lab results -Ddimer up from 0.66 to 0.68 -CRP down from 15.7 to 14.3 08/01/2020 Remains clinically stable Continues to have poor appetite Urine output remains adequate Vital signs remain stable No labs obtained today Pending placement COVID-19 Re-test required by SNF remains positive as expected. Continues to work with PT and OT who recommend SNF placement 08/02/2020 A bit more confused today Continues to have poor appetite Urine output remains adequate Hypotensive today - given 500mL fluid bolus with good results, now stable vital signs. A bit more tired and difficult to understand today Labs today stable with D-dimer slightly elevated at 1.15 from 0.68 Discussed code status with son in room. Son will discuss with mother and report back. Pending placement. 08/03/2020 More interactive today but quite sleepy Nursing reports patient was awake most of the night Vital signs stable today Not requiring oxygen D-Dimer up from 1.16 to 1.51. Discussed with Dr. Hogue. Will monitor Re-check D-Dimer, CMP, CBC, Magnesium in AM Awaiting to discuss code status with son further Last BM 08/02/2020 Pending placement. 08/04/2020 The patient's hypoxemia has resolved. He is currently on room air. Patient's vital signs will be monitored and if he becomes hypoxic will restart oxygen. The patient's medications will be renally dosed. PT OT is evaluating the patient. Encouraged the patient to set up. Repeat laboratory studies have been ordered. He is currently awaiting placement. We will continue the patient's diet as tolerated. 08/05/2020 The patient is currently awaiting placement. The patient's medications will be renally dosed. Patient's vital signs to be monitored and if required will restart the patient's oxygen. PT OT will continue for the patient. Continue with his normal diet as tolerated. The patient has been encouraged to ambulate. Repeat laboratory studies will be ordered as needed for placement. 08/06/20 Patient did have an episode of hypotension today. Similar to the episode that he had on August 02. D-dimer is 0.74 today. C-reactive protein is down to 7.8. The patient did receive a 500 mL fluid fluid bolus with good results and vital signs are now stable. He is [place] [facility]. The tentative plan is to [facility] on August 09, 2020. 08/07/20 The patient was doing well this morning when I saw him on rounds. He is much more alert and talkative and happy. His son was at his bedside visiting with him. Shortly after I rounded on the patient physical therapy went into work with him. They stood him up and he had a vasovagal response. Blood pressures were in the 70s systolically. The son was quite upset with the situation, and requested for the patient to have some IV fluids. Even though the lab work does not reveal that the patient is dehydrated, I did order for him to have 500 mL's of normal saline. I did have a lengthy discussion with the patient's son regarding that the patient will likely continue to have a vasovagal response if he gets up from the chair too quickly to ambulate. Reassured him that the patient should still be able to go to [facility] tomorrow as planned and that we would communicate with their staff the need to get him up slowly. Magnesium was 1.7 today which is down from 2.0. He will receive 2 g of mag sulfate IV today. It does remain poor. 08/08/20 Patient was to be discharged to [facility] unit today. However, they have had an outbreak of COVID and are not taking new admits. Patient remains stable at this time. Labs are unremarkable. Vital signs are stable. Continues to have a poor appetite. Drinking protein supplements. [facility] [facility]. 08/09/20 The patient is doing well this morning. He is sitting up in the chair eating breakfast with his son at the bedside. He states that he is annoyed that he is still in the hospital and is awaiting [facility] [facility]. I did not draw labs on him today as these have been stable. Vital signs are stable. No new orders. Awaiting acceptance to [facility] for Thursday. 08/10/20 Doing the same. Has no complaints. Seems a little more tired today. VSS. Will recheck labs in the am. Tentative transfer to [facility] on Thursday, Aug 13, 2020 with his family transporting him. 08/11/2020 The patient is currently awaiting placement. He is not on antibiotics at the present time. We will continue with DVT prophylaxis with the Lovenox. We will continue with PT OT. Diet as tolerated. Laboratory studies have been ordered before placement. Patient should kept up in chair at least 3 times a day. 08/12/2020 The patient's catheter was changed secondary to urinalysis showing some evidence of urinary tract infection. The patient's son says that he always gets a urinary tract infection when his catheter is changed. The patient does not know what previous antibiotics he has been on. I have elected to place the patient on Bactrim 1 p.o. twice daily. The patient is currently awaiting placement. Laboratory studies have been ordered for the patient. DVT prophylaxis is completed with the use of Lovenox. We will continue with PT OT. 08/13/20 The patient was supposed to be discharged to [place] [facility] today. Family was requesting to transport the patient themselves, however when attempting to get the patient into the wheelchair he had a vasovagal response. At this time the discharge will be put on hold. I will discuss, once again, that this will continue to be the patient's norm. Old age and lack of baroreceptor response will cause him to vasovagal when changing positions too quickly. Lab work today is completely unremarkable, so I do not feel that he needs IV fluids. The patient was transferred back to bed. Patient will be transferred to [facility] tomorrow via ambulance as I do not feel the patient will tolerate transfers or sitting up in a vehicle traveling to [place] as it is an hour drive. Will recheck lab work in the a.m. and plan for discharge - Plan Plan:: I have seen and examined the patient independent of nurse practitioner Beulah Jasso and I have discussed the case with her. I have reviewed and agree with the assessment and plan as outlined for this patient by her. Please see orders. 08/09/20 public services librarian and case management working on discharge placement. Awaiting acceptance to [facility] for Thursday. I will not recheck any lab work at time. We will continue to monitor intake and output and his vital signs. Physical therapy and Occupational Therapy will continue to work with patient until discharge. Will encourage nursing staff to increase/encourage p.o. intake. 08/10/20 [facility] Thursday with patient's family transporting him there. Will recheck labs in the morning. Therapies to continue working with the patient. Nursing staff to continue to encourage patient to eat and drink. 08/11/2020 The patient is currently awaiting placement. He is not on antibiotics at the present time. We will continue with DVT prophylaxis with the Lovenox. We will continue with PT OT. Diet as tolerated. Laboratory studies have been ordered before placement. Patient should kept up in chair at least 3 times a day. 08/12/2020 The patient's catheter was changed secondary to urinalysis showing some evidence of urinary tract infection. The patient's son says that he always gets a urinary tract infection when his catheter is changed. The patient does not know what previous antibiotics he has been on. I have elected to place the patient on Bactrim 1 p.o. twice daily. The patient is currently awaiting placement. Laboratory studies have been ordered for the patient. DVT prophylaxis is completed with the use of Lovenox. We will continue with PT OT. 08/13/20 Plan to discharge the patient [facility] tomorrow morning, pending lab work is unremarkable and vital signs remained stable. We will continue DVT prophylaxis with Lovenox. <Vincent Alford - Last Filed: 08/13/20 17:22> - Patient Data Vitals - Most Recent: Last Vital Signs Temp 36.5 C 08/13/20 16:13 Pulse 71 08/13/20 16:13 Resp 16 08/13/20 16:13 BP 130/74 08/13/20 16:13 Pulse Ox 91 L 08/13/20 16:13 I&O - Last 24 Hours: Intake & Output 08/13/20 08/13/20 08/13/20 06:59 14:59 22:59 Intake Total 240 0 300 Output Total 200 205 Balance 40 0 95 Lab Results Last 24 Hours: Laboratory Results - last 24 hr 08/13/20 08/13/20 08/13/20 Range/Units 05:40 05:40 07:20 WBC 6.77 (4.23-9.07) K/mm3 RBC 3.99 L (4.63-6.08) M/mm3 Hgb 12.4 L (13.7-17.5) gm/dl Hct 38.1 L (40.1-51.0) % MCV 95.5 H (79.0-92.2) fl MCH 31.1 (25.7-32.2) pg MCHC 32.5 (32.2-35.5) g/dl RDW Std Deviation 48.1 H (35.1-43.9) fL Plt Count 271 (163-337) K/mm3 MPV 9.2 L (9.4-12.3) fl Neut % (Auto) 55.7 (34.0-67.9) % Lymph % (Auto) 24.8 (21.8-53.1) % Storey % (Auto) 12.0 (5.3-12.2) % Eos % (Auto) 6.8 (0.8-7.0) Baso % (Auto) 0.6 (0.1-1.2) % Neut # (Auto) 3.77 (1.78-5.38) K/mm3 Lymph # (Auto) 1.68 (1.32-3.57) K/mm3 Storey # (Auto) 0.81 (0.30-0.82) K/mm3 Eos # (Auto) 0.46 (0.04-0.54) K/mm3 Baso # (Auto) 0.04 (0.01-0.08) K/mm3 Sodium 140 (136-145) mEq/L Potassium 4.3 (3.5-5.1) mEq/L Chloride 104 (98-107) mEq/L Carbon Dioxide 27 (21-32) mEq/L Anion Gap 13.3 (5-15) BUN 27 H (7-18) mg/dL Creatinine 1.2 (0.7-1.3) mg/dL Est Cr Clr Drug Dosing 35.18 mL/min Estimated GFR (MDRD) 57 (>60) mL/min BUN/Creatinine Ratio 22.5 H (14-18) Glucose 121 H (83-115) mg/dL Calcium 8.5 (8.5-10.1) mg/dL SARS-CoV-2 RNA (CLAUDIA) Positive H (NEGATIVE) Med Orders - Current: Current Medications Acetaminophen (Tylenol) 650 mg PO Q4H PRN PRN Reason: Pain (Mild 1-3)/fever Last Admin: 08/02/20 08:56 Dose: 650 mg Documented by: Acetaminophen (Tylenol) 650 mg PO BID [facility] Last Admin: 08/13/20 08:45 Dose: 650 mg Documented by: Artificial Tears (Refresh Liquigel 1%) 0 ml EYERT BID [facility] Last Admin: 08/13/20 09:13 Dose: 1 drop Documented by: Brimonidine Tartrate (Alphagan 0.2% Ophth Soln) 0 ml EYERT BID [facility] Last Admin: 08/13/20 09:13 Dose: 1 drop Documented by: Cholecalciferol (Vitamin D3) 5,000 unit PO DAILY [facility] Last Admin: 08/13/20 08:45 Dose: 5,000 unit Documented by: Enoxaparin Sodium (Lovenox) 40 mg SUBCUT DAILY [facility] Last Admin: 08/13/20 08:45 Dose: 40 mg Documented by: Gabapentin (Neurontin) 100 mg PO DAILY [facility] Last Admin: 08/13/20 08:45 Dose: 100 mg Documented by: Gabapentin (Neurontin) 100 mg PO BEDTIME PRN PRN Reason: Pain Lactulose (Cephulac) 20 gm PO DAILY [facility] Last Admin: 08/13/20 08:45 Dose: 20 gm Documented by: Nystatin (Nystop) 0 gm TOP TID [facility] Last Admin: 08/13/20 17:08 Dose: 1 applic Documented by: Ondansetron HCl (Zofran) 4 mg IV Q4H PRN PRN Reason: Nausea/Vomiting Polyethylene Glycol (Miralax) 17 gm PO DAILY PRN PRN Reason: Constipation Last Admin: 08/02/20 08:51 Dose: 17 gm Documented by: Sodium Chloride (Saline Flush) 10 ml FLUSH ASDIRECTED PRN PRN Reason: Keep Vein Open Last Admin: 07/23/20 12:40 Dose: 10 ml Documented by: Timolol Maleate (Timoptic 0.5% Ophth Soln) 0 ml EYERT BID [facility] Last Admin: 08/13/20 09:14 Dose: 1 drop Documented by: Trimethoprim/Sulfamethoxazole (Septra Ds) 1 tab PO BID [facility] Last Admin: 08/13/20 08:45 Dose: 1 tab Documented by: Discontinued Medications Bisacodyl (Dulcolax) 10 mg RECTAL ONETIME ONE Stop: 07/24/20 18:31 Last Admin: 07/24/20 18:27 Dose: 10 mg Documented by: Bisacodyl (Dulcolax) 10 mg RECTAL ONETIME ONE Stop: 07/29/20 09:20 Last Admin: 07/29/20 09:45 Dose: 10 mg Documented by: Cholecalciferol (Vitamin D3) 5,000 unit PO DAILY [facility] Last Admin: 07/27/20 09:02 Dose: 5,000 unit Documented by: Cholecalciferol (Vitamin D3) 5,000 unit PO DAILY [facility] Last Admin: 08/10/20 07:31 Dose: Not Given Documented by: Dexamethasone (Dexamethasone) 4 mg IVPUSH ONETIME ONE Stop: 07/23/20 12:07 Last Admin: 07/23/20 12:41 Dose: 4 mg Documented by: Dexamethasone (Dexamethasone) 6 mg PO DAILY [facility] Stop: 08/01/20 09:01 Last Admin: 07/26/20 08:22 Dose: 6 mg Documented by: Haloperidol Lactate (Haldol) 2.5 mg IVPUSH ONETIME ONE Stop: 07/26/20 10:10 Last Admin: 07/26/20 10:21 Dose: 2.5 mg Documented by: Sodium Chloride (Normal Saline) 1,000 mls @ 125 mls/hr IV ASDIRECTED [facility] Last Admin: 07/24/20 07:34 Dose: 125 mls/hr Documented by: Remdesivir 200 mg/ Sodium (Chloride) 250 mls @ 250 mls/hr IV ONETIME ONE Stop: 07/24/20 01:29 Last Admin: 07/24/20 00:29 Dose: 250 mls/hr Documented by: Remdesivir 100 mg/ Sodium (Chloride) 100 mls @ 100 mls/hr IV Q24H [facility] Stop: 07/27/20 23:59 Last Admin: 07/27/20 23:38 Dose: 100 mls/hr Documented by: Magnesium Sulfate (Magnesium Sulfate In Water Premix) 2 gm in 50 mls @ 25 mls/hr IV ONETIME ONE Stop: 07/26/20 09:44 Last Admin: 07/26/20 08:22 Dose: 25 mls/hr Documented by: Sodium Chloride (Normal Saline) 1,000 mls @ 100 mls/hr IV ASDIRECTED [facility] Last Admin: 07/29/20 09:45 Dose: 100 mls/hr Documented by: Sodium Chloride (Normal Saline) 1,000 mls @ 100 mls/hr IV ASDIRECTED [facility] Last Admin: 07/31/20 01:42 Dose: 100 mls/hr Documented by: Magnesium Sulfate (Magnesium Sulfate In Water Premix) 2 gm in 50 mls @ 25 mls/hr IV ONETIME ONE Stop: 07/30/20 14:16 Last Admin: 07/30/20 12:52 Dose: 25 mls/hr Documented by: Sodium Chloride (Normal Saline) Confirm Administered Dose 1,000 mls @ as directed .ROUTE .STK-MED ONE Stop: 08/02/20 09:35 Last Admin: 08/02/20 09:51 Dose: Not Given Documented by: Sodium Chloride (Normal Saline) 500 mls @ 999 mls/hr IV .BOLUS ONE Stop: 08/02/20 10:07 Last Admin: 08/02/20 09:51 Dose: 999 mls/hr Documented by: Sodium Chloride (Normal Saline) 500 mls @ 500 mls/hr IV .BOLUS ONE Stop: 08/06/20 11:56 Last Admin: 08/06/20 11:11 Dose: 500 mls/hr Documented by: Magnesium Sulfate (Magnesium Sulfate In Water Premix) 2 gm in 50 mls @ 25 mls/ hr IV ONETIME ONE Stop: 08/07/20 11:32 Last Admin: 08/07/20 09:50 Dose: 25 mls/hr Documented by: Sodium Chloride (Normal Saline) 500 mls @ 500 mls/hr IV .BOLUS ONE Stop: 08/07/20 10:32 Last Admin: 08/07/20 09:49 Dose: 500 mls/hr Documented by: Influenza Virus Vaccine (Fluzone High-Dose Quad 2019-) 240 mcg IM .ONCE ONE Stop: 07/26/20 13:16 Levofloxacin (Levaquin) 750 mg PO Q48H [facility] Last Admin: 08/12/20 14:14 Dose: Not Given Documented by: Magnesium Hydroxide (Milk Of Magnesia) 30 ml PO ONETIME ONE Stop: 07/24/20 09:01 Last Admin: 07/24/20 08:41 Dose: 30 ml Documented by: Magnesium Hydroxide (Milk Of Magnesia) 30 ml PO ONETIME ONE Stop: 07/28/20 13:56 Last Admin: 07/28/20 15:26 Dose: 30 ml Documented by: Magnesium Hydroxide (Milk Of Magnesia) 30 ml PO ONETIME ONE Stop: 08/07/20 05:36 Last Admin: 08/07/20 06:20 Dose: 30 ml Documented by: Potassium Chloride (Klor-Con M20) 40 meq PO ONETIME ONE Stop: 08/01/20 07:25 Last Admin: 08/01/20 08:02 Dose: 40 meq Documented by: Sodium Chloride (Saline Flush) 10 ml FLUSH ASDIRECTED PRN PRN Reason: Keep Vein Open Trimethoprim/Sulfamethoxazole (Septra Ds) 1 tab PO BID [facility] Last Admin: 08/12/20 14:13 Dose: Not Given Documented by: Sepsis Event Note - Focused Exam Vital Signs: Vital Signs Temp Pulse Resp BP Pulse Ox 08/13/20 16:13 36.5 C 71 16 130/74 91 L 08/13/20 08:50 36.4 C 66 14 111/75 92 L - Problem List & Annotations (1) Urinary tract infection SNOMED Code(s): 71485733 Code(s): N39.0 - URINARY TRACT INFECTION, SITE NOT SPECIFIED Status: Acute Current Visit: No Qualifiers: Urinary tract infection type: catheter-associated UTI Indwelling urinary catheter type: indwelling urethral catheter Encounter type: initial encounter Qualified Code(s): T83.511A - Infection and inflammatory reaction due to indwelling urethral catheter, initial encounter; N39.0 - Urinary tract infection, site not specified (2) Generalized weakness SNOMED Code(s): 50011178 Code(s): R53.1 - WEAKNESS Status: Acute Current Visit: Yes (3) Failure to thrive SNOMED Code(s): 28655521 Code(s): BHX4514 - Status: Acute Priority: High Current Visit: Yes Qualifiers: Failure to thrive age range: in adult Qualified Code(s): R62.7 - Adult failure to thrive - Assessment Assessment:: I have seen and examined the patient independent of nurse practitioner Beulah Jasso and I have discussed the case with her. I have reviewed and agree with the assessment and plan as outlined for this patient by her. Patient retained for one extra day to arrange safe transportation. Please see orders.
[2020-08-14] MEDS: Lactulose Soln 10 GM/15 ML 30 ML UD Cup PO SCH (09:22)
[2020-08-14] MEDS: Cholecalciferol (Vitamin D3) 5,000 UNIT Cap PO SCH (09:22)
[2020-08-14] MEDS: Enoxaparin 40 MG/0.4 ML Syringe SUBCUT SCH (09:22)
[2020-08-14] MEDS: Sulfamethoxazole/Trimethoprim 800-160 MG Tab PO SCH (09:23)
[2020-08-14] MEDS: Gabapentin 100 MG Cap PO SCH (09:23)
[2020-08-14] MEDS: Acetaminophen 325 MG Tab PO SCH (09:23)
[2020-08-14] MEDS: Brimonidine 0.2% Ophth Soln 5 ML Bottle EYERT SCH (09:24)
[2020-08-14] MEDS: Nystatin Topical Powder 15 GM Bottle TOP SCH (09:24)
[2020-08-14] MEDS: Carboxymethylcellulose Sodium 1% Ophth Gel 15 ML Bottle EYERT SCH (09:24)
[2020-08-14] MEDS: Timolol Maleate 0.5% Ophth Soln 5 ML Bottle EYERT SCH (09:25)
--- NOTE | 2020-08-14 12:24 | PCM.DCSUM1 ---
<Beulah Jasso - Last Filed: 08/14/20 12:26> Discharge Summary - Hospital Course HPI Initial Comments: The patient presents from [place] for generalized weakness. He is COVID 19 positive. He was diagnosed about 10 days ago. He was seen here on the and . On the he was found to have a UTI and he was given rocephin and put on omnicef. He was able to go back because he could walk around with a walker. He came back on the and had generalized weakness. There was no beds here or in [place] and arrangements were made to admit him to [facility] and family was going to take him. The family did not take him and [facility] [place] took him back. He has more generalized weakness. He has a slight cough. His oxygen saturations are good. He denies any The patient does have an indwelling peña catheter. Diagnosis: Stroke: No - Discharge Data Discharge Date: 08/14/20 (Admit date: 07/23/20) Discharge Disposition: DC/Tfer to SNF 03 Condition: Fair - Referral to Home Health Primary Care Physician: Marvin Santana MD - Discharge Diagnosis/Problem(s) (1) Failure to thrive SNOMED Code(s): 11342444 ICD Code: [id number] - Status: Acute Priority: High Qualifiers: Failure to thrive age range: in adult Qualified Code(s): R62.7 - Adult failure to thrive (2) Weakness SNOMED Code(s): 12431476 ICD Code: R53.1 - WEAKNESS Status: Acute Priority: High (3) Physical deconditioning SNOMED Code(s): 71101845302507 ICD Code: R53.81 - OTHER MALAISE Status: Acute Priority: High (4) Hypochloremia SNOMED Code(s): 71236407 ICD Code: E87.8 - OTH DISORDERS OF ELECTROLYTE AND FLUID BALANCE, NEC Status: Resolved Priority: High (5) Hyponatremia SNOMED Code(s): 07547550 ICD Code: E87.1 - HYPO-OSMOLALITY AND HYPONATREMIA Status: Resolved Priority: High (6) Volume depletion SNOMED Code(s): 470666416 ICD Code: E86.9 - VOLUME DEPLETION, UNSPECIFIED Status: Resolved Priority: High (7) Acute kidney injury SNOMED Code(s): 21812237, 20988455 ICD Code: N17.9 - ACUTE KIDNEY FAILURE, UNSPECIFIED Status: Resolved Priority: High (8) Acute hypoxemic respiratory failure due to COVID-19 SNOMED Code(s): 214439144 ICD Code: U07.1 - COVID-19; J96.01 - ACUTE RESPIRATORY FAILURE WITH HYPOXIA Status: Resolved Priority: High (9) Hypertension SNOMED Code(s): 17506192 ICD Code: I10 - ESSENTIAL (PRIMARY) HYPERTENSION Status: Chronic Priority: High Qualifiers: Hypertension type: unspecified Qualified Code(s): I10 - Essential (primary) hypertension (10) Pneumonia due to COVID-19 virus SNOMED Code(s): 407137949515664934 ICD Code: U07.1 - COVID-19; J12.89 - OTHER VIRAL PNEUMONIA Status: Resolved Priority: High - Patient Summary/Data Consults: Consultations 07/23/20 15:30 Consult to Fur Glazer [CONS] Routine Consult to Spiritual Care [CONS] Routine OT Evaluation and Treatment [CONS] Routine PT Evaluation and Treatment [CONS] Routine 08/01/20 15:08 [employer] Eval and Treat [[employer] Evaluation and Treatment] [CONS] Routine Hospital Course: 07/23/2020 10 day history of positive COVID diagnosis Has been seen in the ED three times in the last 8 days. History of UTI recently treated with rocephin and omnicef Lives in [place] Pulse ox on admission was 88-89% Decreased appetite and po intake. Chest xray reveals increased density within the left lung base suspicious for small area of pneumonia. Lab results: -WBC 6.11 -Plt 106 -Ddimer 0.76 -UA negative -Na 127 -Chl 94 -BUN 17 -CRE 1.4 -GFR 48 -Ferritin 938 -LDH 190 -CRP 9.9 ABGs on room air -pH 7.45 -pCO2 30.2 -pO2 70.0 -HCO3 20.5 PLAN -Start Remdesivir -Start dexamethasone -Normal Saline @ 100ml/hr -Monitor for hypoxemia -Monitor urine output -Renally dosed medications -Repeat labs and replace electrolytes as needed -PT/OT to eval and treat -Fur Glazer consult for supplements -Incentive spirometry 07/24/20 Still requires 2 liters of O2 Hematuria noted in peña catheter today. UA/UC ordered Day 2 of dexamethasone and remdesivir IV fluids stopped-pt taking po well Encourage IS Lab results: -WBC down from 6.11-4.03 -Na up from 127-134 -BUN down from 17-15 -CRE down from 1.4-1.1 -GFR up from 48->60 PLAN -Day 2 of Remdesivir and dexamethasone -Saline lock IVF -Monitor for hypoxemia -Monitor urine output -Renally dosed medications -Repeat labs and replace electrolytes as needed -PT/OT to eval and treat -Fur Glazer consult for supplements -Incentive spirometry -Nystantin to groin -UA/UC 07/25/20 On room air Day 3 of dexamethasone and remdesivir Encourage IS Yeast to groin. Vitals: BP 128-166/79-96 Tmax 98.4 Heart rate 62-72 91-91% on room air Lab results: -WBC 7.19 from 4.03 -Ddimer 1.07 from 0.76 -BUN from 16.6 to 17 -CRE up from 1.1 to 1.3 -GFR down from >60 to 52 -CRP down from 9.9 to 6.5 PLAN -Day 3 of Remdesivir and dexamethasone -Monitor for hypoxemia -Monitor urine output -Renally dosed medications -Repeat labs and replace electrolytes as needed -PT/OT to eval and treat -Incentive spirometry -Nystantin to groin 07/26/20 Extremely confused and agitated today. Per the family, he has had this reaction to dexamethasone in the past. Day 4 of dexamethasone and remdesivir Encourage IS Yeast to groin. Vitals: BP 126-166/74-93 Tmax 97.6 Heart rate 60-74 90-95% on room air Lab results: -BUN from 20-26 -CRE down from 1.3-1.2 -GFR up from 52 to 57 -Mg down from 1.9 to 1.7 PLAN -Day 4 of Remdesivir and dexamethasone -discontinue dexamethasone due to increased confusion and agitation. Pt given haldol x 1 dose due to dexamethasone effects. -Monitor for hypoxemia -Monitor urine output -Renally dosed medications -Repeat labs and replace electrolytes as needed -PT/OT to eval and treat -Pt continues to pull at peña and dig in his groin per nursing staff and then complains of back pain. UA ordered. -Nystantin to groin 07/27/20 Remains confused but is much more alert and less agitated. Day 5 of Remdesivir Encourage IS Yeast to groin. Vitals: BP 126-147-165/72-103 Tmax 97.9 Heart rate 71-76 92% on room air Lab results: -WBC up from 7.66 to 9.92 -BUN up from 26 to 28 -CRE 1.2 -GFR 57 -CRP down to 2.7 to 6.5 PLAN -Day 5 of Remdesivir -Monitor for hypoxemia -Monitor urine output -Renally dosed medications -Repeat labs and replace electrolytes as needed -PT/OT to eval and treat -UA unremarkable -Nystantin to groin 07/28/2020 Continues improving, but still poor oral intake. Stop dexamethasone because of delirium. Completed remdesivir. No labs today. 91 to 93% on room air. Vital signs stable. Afebrile. 07/29/2020 Continued poor oral intake. Decreased urine output secondary to poor oral intake. CRP increased dramatically to 15.1. WBC stable at 9.1, d-dimer 0.95. Procalcitonin done yesterday was less than 0.05. Renal function is stable with GFR 57. Albumin is low at 2.7. This reflects his poor oral intake. Chest x-ray showed some improvement in the multifocal peripheral airspace opacities consistent with his known COVID illness. 07/30/2020 Continued poor oral intake. Urine output is better CRP increased from 15.1 to 15.7 Will hold discharge til we get procalcitonin level back tomorrow. 07/31/2020 Eating 50% of meals and 100% of supplements Urine output is better Vital signs -Blood pressure 114-163/65-97 -T max 98.2 -Heart rate 62-80 -91-94% on room air Lab results -Ddimer up from 0.66 to 0.68 -CRP down from 15.7 to 14.3 08/01/2020 Remains clinically stable Continues to have poor appetite Urine output remains adequate Vital signs remain stable No labs obtained today Pending placement COVID-19 Re-test required by SNF remains positive as expected. Continues to work with PT and OT who recommend SNF placement 08/02/2020 A bit more confused today Continues to have poor appetite Urine output remains adequate Hypotensive today - given 500mL fluid bolus with good results, now stable vital signs. A bit more tired and difficult to understand today Labs today stable with D-dimer slightly elevated at 1.15 from 0.68 Discussed code status with son in room. Son will discuss with mother and report back. Pending placement. 08/03/2020 More interactive today but quite sleepy Nursing reports patient was awake most of the night Vital signs stable today Not requiring oxygen D-Dimer up from 1.16 to 1.51. Discussed with Dr. Hogue. Will monitor Re-check D-Dimer, CMP, CBC, Magnesium in AM Awaiting to discuss code status with son further Last BM 08/02/2020 Pending placement. 08/04/2020 The patient's hypoxemia has resolved. He is currently on room air. Patient's vital signs will be monitored and if he becomes hypoxic will restart oxygen. The patient's medications will be renally dosed. PT OT is evaluating the patient. Encouraged the patient to set up. Repeat laboratory studies have been ordered. He is currently awaiting placement. We will continue the patient's diet as tolerated. 08/05/2020 The patient is currently awaiting placement. The patient's medications will be renally dosed. Patient's vital signs to be monitored and if required will restart the patient's oxygen. PT OT will continue for the patient. Continue with his normal diet as tolerated. The patient has been encouraged to ambulate. Repeat laboratory studies will be ordered as needed for placement. 08/06/20 Patient did have an episode of hypotension today. Similar to the episode that he had on August 02. D-dimer is 0.74 today. C-reactive protein is down to 7.8. The patient did receive a 500 mL fluid fluid bolus with good results and vital signs are now stable. He is currently awaiting halfway placement. The tentative plan is to [facility] on August 09, 2020. 08/07/20 The patient was doing well this morning when I saw him on rounds. He is much more alert and talkative and happy. His son was at his bedside visiting with him. Shortly after I rounded on the patient physical therapy went into work with him. They stood him up and he had a vasovagal response. Blood pressures were in the 70s systolically. The son was quite upset with the situation, and requested for the patient to have some IV fluids. Even though the lab work does not reveal that the patient is dehydrated, I did order for him to have 500 mL's of normal saline. I did have a lengthy discussion with the patient's son regarding that the patient will likely continue to have a vasovagal response if he gets up from the chair too quickly to ambulate. Reassured him that the patient should still be able to go to [facility] tomorrow as planned and that we would communicate with their staff the need to get him up slowly. Magnesium was 1.7 today which is down from 2.0. He will receive 2 g of mag sulfate IV today. It does remain poor. 08/08/20 Patient was to be discharged to [facility] unit today. However, they have had an outbreak of COVID and are not taking new admits. Patient remains stable at this time. Labs are unremarkable. Vital signs are stable. Continues to have a poor appetite. Drinking protein supplements. Awaiting halfway placement. 08/09/20 The patient is doing well this morning. He is sitting up in the chair eating breakfast with his son at the bedside. He states that he is annoyed that he is still in the hospital and is awaiting halfway placement. I did not draw labs on him today as these have been stable. Vital signs are stable. No new orders. Awaiting acceptance to [facility] for Thursday. 08/10/20 Doing the same. Has no complaints. Seems a little more tired today. VSS. Will recheck labs in the am. Tentative transfer to [facility] on Thursday, Aug 13, 2020 with his family transporting him. 08/11/2020 The patient is currently awaiting placement. He is not on antibiotics at the present time. We will continue with DVT prophylaxis with the Lovenox. We will continue with PT OT. Diet as tolerated. Laboratory studies have been ordered before placement. Patient should kept up in chair at least 3 times a day. 08/12/2020 The patient's catheter was changed secondary to urinalysis showing some evidence of urinary tract infection. The patient's son says that he always gets a urinary tract infection when his catheter is changed. The patient does not know what previous antibiotics he has been on. I have elected to place the patient on Bactrim 1 p.o. twice daily. The patient is currently awaiting placement. Laboratory studies have been ordered for the patient. DVT prophylaxis is completed with the use of Lovenox. We will continue with PT OT. 08/13/20 The patient was supposed to be discharged to my halfway today. Family was requesting to transport the patient themselves, however when attempting to get the patient into the wheelchair he had a vasovagal response. At this time the discharge will be put on hold. I will discuss, once again, that this will continue to be the patient's norm. Old age and lack of baroreceptor response will cause him to vasovagal when changing positions too quickly. Lab work today is completely unremarkable, so I do not feel that he needs IV fluids. The patient was transferred back to bed. Patient will be transferred to [facility] tomorrow via ambulance as I do not feel the patient will tolerate transfers or sitting up in a vehicle traveling to [place] as it is an hour drive. Will recheck lab work in the a.m. and plan for discharge - Plan Plan:: I have seen and examined the patient independent of nurse practitioner Beulah Jasso and I have discussed the case with her. I have reviewed and agree with the assessment and plan as outlined for this patient by her. Please see orders. 08/09/20 guest services and case management working on discharge placement. Awaiting acceptance to [facility] for Thursday. I will not recheck any lab work at time. We will continue to monitor intake and output and his vital signs. Physical therapy and Occupational Therapy will continue to work with patient until discharge. Will encourage nursing staff to increase/encourage p.o. intake. 08/10/20 Discharged to [facility] and [facility] on Thursday with patient's family transporting him there. Will recheck labs in the morning. Therapies to continue working with the patient. Nursing staff to continue to encourage patient to eat and drink. 08/11/2020 The patient is currently awaiting placement. He is not on antibiotics at the present time. We will continue with DVT prophylaxis with the Lovenox. We will continue with PT OT. Diet as tolerated. Laboratory studies have been ordered before placement. Patient should kept up in chair at least 3 times a day. 08/12/2020 The patient's catheter was changed secondary to urinalysis showing some evidence of urinary tract infection. The patient's son says that he always gets a urinary tract infection when his catheter is changed. The patient does not know what previous antibiotics he has been on. I have elected to place the patient on Bactrim 1 p.o. twice daily. The patient is currently awaiting placement. Laboratory studies have been ordered for the patient. DVT prophylaxis is completed with the use of Lovenox. We will continue with PT OT. 08/13/20 Plan to discharge the patient to [facility] via ambulance tomorrow morning, pending lab work is unremarkable and vital signs remained stable. We will continue DVT prophylaxis with Lovenox. - Patient Instructions Diet: Regular Diet as Tolerated Diet, Other: push po fluids Activity: As Tolerated Other/Special Instructions: Discharge to [facility]. Family to transport patient. Please allow the patient's family to assist him with his meals. Follow up with primary care provider in 1 week. PT/OT to continue to work with patient. CLARK stockings on during the day and off at night. - Discharge Plan *PRESCRIPTION DRUG MONITORING PROGRAM REVIEWED*: No *COPY OF PRESCRIPTION DRUG MONITORING REPORT IN PATIENT KENDAL: No Prescriptions/Med Rec: Nystatin [Nystop] 1 gm TOP TID #1 bottle Sulfamethoxazole/Trimethoprim [Septra DS] 1 tab PO BID #7 tablet Home Medications: Home Meds Aspirin 325 mg PO DAILY 05/29/20 [History] Gabapentin [Neurontin] 100 mg PO DAILY 05/29/20 [History] Cholecalciferol (Vitamin D3) [Vitamin D3] 5,000 intnl unit PO DAILY 07/18/20 [History] Gabapentin [Neurontin] 100 mg PO BEDTIME PRN 07/18/20 [History] Lactulose 2 tbsp PO DAILY 07/18/20 [History] polyethylene glycoL 3350 [MiraLAX] 17 gm PO DAILY PRN 07/18/20 [History] Acetaminophen [Tylenol Extra Strength] 1,000 mg PO DAILY 07/19/20 [History] Brimonidine Tartrate [Brimonidine Tartrate 0.2% Ophth Soln] 1 drop EYERT BID 07/23/20 [History] Carboxymethylcellulose Sodium [Refresh Tears] 1 drop EYERT BID 07/23/20 [History] Cod Liver Oil 1 cap PO DAILY 07/23/20 [History] Selenomethionine [Selenium] 200 mcg PO DAILY 07/23/20 [History] Timolol Maleate 1 drop EYERT BID 07/23/20 [History] Nystatin [Nystop] 1 gm TOP TID #1 bottle 07/31/20 [Rx] Sulfamethoxazole/Trimethoprim [Septra DS] 1 tab PO BID #7 tablet 08/13/20 [Rx] Oxygen Therapy Mode: Room Air Patient Handouts: COVID-19, Sepsis, Diagnosis, Adult, COVID-19: How to Protect Yourself and Others - [facility] - Discharge Summary/Plan Comment DC Time >30 min.: Yes (for transfer by ambulance after cancelled discharge yesterday) - General Info Date of Service: 08/14/20 Admission Dx/Problem (Free Text: Admission Diagnosis/Problem Admission Diagnosis/Problem Failure to thrive Subjective Update: Alert. Transferring to [facility] today via ambulance. Functional Status: Reports: Pain Controlled, Tolerating Diet (appetite is poor/fair), Ambulating (with nursing or physical therapy), Urinating (chronic peña) - Review of Systems General: Reports: Appetite (fair/poor-needs encouragement to eat) HEENT: Reports: Glasses Pulmonary: Reports: No Symptoms Cardiovascular: Reports: No Symptoms Gastrointestinal: Reports: No Symptoms Genitourinary: Reports: No Symptoms, Other (chronic peña) Musculoskeletal: Reports: No Symptoms Skin: Reports: No Symptoms Neurological: Reports: Confusion Psychiatric: Reports: Confusion - Patient Data Vitals - Most Recent: Last Vital Signs Temp 97.3 F 08/14/20 09:08 Pulse 65 08/14/20 09:08 Resp 16 08/14/20 09:08 BP 125/87 08/14/20 09:08 Pulse Ox 93 L 08/14/20 09:08 Weight - Most Recent: 68.039 kg I&O - Last 24 hours: Intake & Output 08/13/20 08/14/20 08/14/20 22:59 06:59 14:59 Intake Total 300 100 120 Output Total 205 375 Balance 95 -275 120 Lab Results - Last 24 hrs: Laboratory Results - last 24 hr 08/14/20 Range/Units 05:31 Sodium 139 (136-145) mEq/L Potassium 4.2 (3.5-5.1) mEq/L Chloride 104 (98-107) mEq/L Carbon Dioxide 25 (21-32) mEq/L Anion Gap 14.2 (5-15) BUN 28 H (7-18) mg/dL Creatinine 1.4 H (0.7-1.3) mg/dL Est Cr Clr Drug Dosing 30.15 mL/min Estimated GFR (MDRD) 48 (>60) mL/min BUN/Creatinine Ratio 20.0 H (14-18) Glucose 123 H (83-115) mg/dL Calcium 8.9 (8.5-10.1) mg/dL Med Orders - Current: Current Medications Acetaminophen (Tylenol) 650 mg PO Q4H PRN PRN Reason: Pain (Mild 1-3)/fever Last Admin: 08/02/20 08:56 Dose: 650 mg Documented by: Acetaminophen (Tylenol) 650 mg PO BID [facility] Last Admin: 08/14/20 09:23 Dose: 650 mg Documented by: Artificial Tears (Refresh Liquigel 1%) 0 ml EYERT BID [facility] Last Admin: 08/14/20 09:24 Dose: 1 drop Documented by: Brimonidine Tartrate (Alphagan 0.2% Oph Sol) 0 ml EYERT BID [facility] Last Admin: 08/14/20 09:24 Dose: 1 drop Documented by: Cholecalciferol (Vitamin D3) 5,000 unit PO DAILY [facility] Last Admin: 08/14/20 09:22 Dose: 5,000 unit Documented by: Enoxaparin Sodium (Lovenox) 40 mg SUBCUT DAILY [facility] Last Admin: 08/14/20 09:22 Dose: 40 mg Documented by: Gabapentin (Neurontin) 100 mg PO DAILY [facility] Last Admin: 08/14/20 09:23 Dose: 100 mg Documented by: Gabapentin (Neurontin) 100 mg PO BEDTIME PRN PRN Reason: Pain Lactulose (Cephulac) 20 gm PO DAILY [facility] Last Admin: 08/14/20 09:22 Dose: 20 gm Documented by: Nystatin (Nystop) 0 gm TOP TID [facility] Last Admin: 08/14/20 09:24 Dose: 1 applic Documented by: Ondansetron HCl (Zofran) 4 mg IV Q4H PRN PRN Reason: Nausea/Vomiting Polyethylene Glycol (Miralax) 17 gm PO DAILY PRN PRN Reason: Constipation Last Admin: 08/02/20 08:51 Dose: 17 gm Documented by: Sodium Chloride (Saline Flush) 10 ml FLUSH ASDIRECTED PRN PRN Reason: Keep Vein Open Last Admin: 07/23/20 12:40 Dose: 10 ml Documented by: Timolol Maleate (Timoptic 0.5% Ophth Soln) 0 ml EYERT BID [facility] Last Admin: 08/14/20 09:25 Dose: 1 drop Documented by: Trimethoprim/Sulfamethoxazole (Septra Ds) 1 tab PO BID [facility] Last Admin: 08/14/20 09:23 Dose: 1 tab Documented by: Discontinued Medications Bisacodyl (Dulcolax) 10 mg RECTAL ONETIME ONE Stop: 07/24/20 18:31 Last Admin: 07/24/20 18:27 Dose: 10 mg Documented by: Bisacodyl (Dulcolax) 10 mg RECTAL ONETIME ONE Stop: 07/29/20 09:20 Last Admin: 07/29/20 09:45 Dose: 10 mg Documented by: Cholecalciferol (Vitamin D3) 5,000 unit PO DAILY [facility] Last Admin: 07/27/20 09:02 Dose: 5,000 unit Documented by: Cholecalciferol (Vitamin D3) 5,000 unit PO DAILY [facility] Last Admin: 08/10/20 07:31 Dose: Not Given Documented by: Dexamethasone (Dexamethasone) 4 mg IVPUSH ONETIME ONE Stop: 07/23/20 12:07 Last Admin: 07/23/20 12:41 Dose: 4 mg Documented by: Dexamethasone (Dexamethasone) 6 mg PO DAILY [facility] Stop: 08/01/20 09:01 Last Admin: 07/26/20 08:22 Dose: 6 mg Documented by: Haloperidol Lactate (Haldol) 2.5 mg IVPUSH ONETIME ONE Stop: 07/26/20 10:10 Last Admin: 07/26/20 10:21 Dose: 2.5 mg Documented by: Sodium Chloride (Normal Saline) 1,000 mls @ 125 mls/hr IV ASDIRECTED [facility] Last Admin: 07/24/20 07:34 Dose: 125 mls/hr Documented by: Remdesivir 200 mg/ Sodium (Chloride) 250 mls @ 250 mls/hr IV ONETIME ONE Stop: 07/24/20 01:29 Last Admin: 07/24/20 00:29 Dose: 250 mls/hr Documented by: Remdesivir 100 mg/ Sodium (Chloride) 100 mls @ 100 mls/hr IV Q24H [facility] Stop: 07/27/20 23:59 Last Admin: 07/27/20 23:38 Dose: 100 mls/hr Documented by: Magnesium Sulfate (Magnesium Sulfate In Water Premix) 2 gm in 50 mls @ 25 mls/hr IV ONETIME ONE Stop: 07/26/20 09:44 Last Admin: 07/26/20 08:22 Dose: 25 mls/hr Documented by: Sodium Chloride (Normal Saline) 1,000 mls @ 100 mls/hr IV ASDIRECTED [facility] Last Admin: 07/29/20 09:45 Dose: 100 mls/hr Documented by: Sodium Chloride (Normal Saline) 1,000 mls @ 100 mls/hr IV ASDIRECTED [facility] Last Admin: 07/31/20 01:42 Dose: 100 mls/hr Documented by: Magnesium Sulfate (Magnesium Sulfate In Water Premix) 2 gm in 50 mls @ 25 mls/hr IV ONETIME ONE Stop: 07/30/20 14:16 Last Admin: 07/30/20 12:52 Dose: 25 mls/hr Documented by: Sodium Chloride (Normal Saline) Confirm Administered Dose 1,000 mls @ as directed .ROUTE .STK-MED ONE Stop: 08/02/20 09:35 Last Admin: 08/02/20 09:51 Dose: Not Given Documented by: Sodium Chloride (Normal Saline) 500 mls @ 999 mls/hr IV .BOLUS ONE Stop: 08/02/20 10:07 Last Admin: 08/02/20 09:51 Dose: 999 mls/hr Documented by: Sodium Chloride (Normal Saline) 500 mls @ 500 mls/hr IV .BOLUS ONE Stop: 08/06/20 11:56 Last Admin: 08/06/20 11:11 Dose: 500 mls/hr Documented by: Magnesium Sulfate (Magnesium Sulfate In Water Premix) 2 gm in 50 mls @ 25 mls/hr IV ONETIME ONE Stop: 08/07/20 11:32 Last Admin: 08/07/20 09:50 Dose: 25 mls/hr Documented by: Sodium Chloride (Normal Saline) 500 mls @ 500 mls/hr IV .BOLUS ONE Stop: 08/07/20 10:32 Last Admin: 08/07/20 09:49 Dose: 500 mls/hr Documented by: Influenza Virus Vaccine (Fluzone High-Dose Quad ) 240 mcg IM .ONCE ONE Stop: 07/26/20 13:16 Levofloxacin (Levaquin) 750 mg PO Q48H [facility] Last Admin: 08/12/20 14:14 Dose: Not Given Documented by: Magnesium Hydroxide (Milk Of Magnesia) 30 ml PO ONETIME ONE Stop: 07/24/20 09:01 Last Admin: 07/24/20 08:41 Dose: 30 ml Documented by: Magnesium Hydroxide (Milk Of Magnesia) 30 ml PO ONETIME ONE Stop: 07/28/20 13:56 Last Admin: 07/28/20 15:26 Dose: 30 ml Documented by: Magnesium Hydroxide (Milk Of Magnesia) 30 ml PO ONETIME ONE Stop: 08/07/20 05:36 Last Admin: 08/07/20 06:20 Dose: 30 ml Documented by: Potassium Chloride (Klor-Con M20) 40 meq PO ONETIME ONE Stop: 08/01/20 07:25 Last Admin: 08/01/20 08:02 Dose: 40 meq Documented by: Sodium Chloride (Saline Flush) 10 ml FLUSH ASDIRECTED PRN PRN Reason: Keep Vein Open Trimethoprim/Sulfamethoxazole (Septra Ds) 1 tab PO BID [facility] Last Admin: 08/12/20 14:13 Dose: Not Given Documented by: - Exam Quality Assessment: Reports: Urine Catheter (chronic). Denies: Supplemental Oxygen General: Reports: Alert, Cooperative, No Acute Distress HEENT: Reports: Mucous Membr. Moist/[place] Neck: Reports: Supple, Trachea Midline. Denies: Lymphadenopathy Lungs: Reports: Clear to Auscultation, Normal Respiratory Effort, Decreased Breath Sounds Cardiovascular: Reports: Regular Rate, Regular Rhythm, No Murmurs GI/Abdominal Exam: Normal Bowel Sounds, Soft, Non-Tender, No Distention (Male) Exam: Deferred Rectal (Males) Exam: Deferred Back Exam: Reports: Normal Inspection, Full Range of Motion Extremities: Normal Inspection, Normal Range of Motion, Non-Tender, No Pedal Edema, Normal Capillary Refill Skin: Reports: Warm, Dry, Intact Neurological: Reports: No New Focal Deficit Psy/Mental Status: Reports: Alert, Normal Affect, Normal Mood <Vincent Alford - Last Filed: 08/14/20 15:27> Discharge Summary - Referral to Home Health Primary Care Physician: Marvin Santana MD - Discharge Diagnosis/Problem(s) (1) Urinary tract infection SNOMED Code(s): 36731952 ICD Code: N39.0 - URINARY TRACT INFECTION, SITE NOT SPECIFIED Status: Acute Qualifiers: Urinary tract infection type: catheter-associated UTI Indwelling urinary catheter type: indwelling urethral catheter Encounter type: initial encounter Qualified Code(s): T83.511A - Infection and inflammatory reaction due to indwelling urethral catheter, initial encounter; N39.0 - Urinary tract infection, site not specified (2) Generalized weakness SNOMED Code(s): 36351862 ICD Code: R53.1 - WEAKNESS Status: Acute (3) Failure to thrive SNOMED Code(s): 02676881 ICD Code: [id number] - Status: Acute Priority: High Qualifiers: Failure to thrive age range: in adult Qualified Code(s): R62.7 - Adult failure to thrive - Patient Summary/Data Consults: Consultations 07/23/20 15:30 Consult to Fur Glazer [CONS] Routine Consult to Spiritual Care [CONS] Routine OT Evaluation and Treatment [CONS] Routine PT Evaluation and Treatment [CONS] Routine 08/01/20 15:08 [employer] Eval and Treat [[employer] Evaluation and Treatment] [CONS] Routine Hospital Course: I have seen and examined the patient independent of nurse practitioner Beulah Jasso and I have discussed the case with her. I have reviewed and agree with the assessment and plan as outlined for this patient by her. Please see orders. - Patient Data Vitals - Most Recent: Last Vital Signs Temp 36.3 C 08/14/20 09:08 Pulse 65 08/14/20 09:08 Resp 16 08/14/20 09:08 BP 125/87 08/14/20 09:08 Pulse Ox 93 L 08/14/20 09:08 I&O - Last 24 hours: Intake & Output 08/14/20 08/14/20 08/14/20 06:59 14:59 22:59 Intake Total 100 120 Output Total 375 Balance -275 120 Lab Results - Last 24 hrs: Laboratory Results - last 24 hr 08/14/20 Range/Units 05:31 Sodium 139 (136-145) mEq/L Potassium 4.2 (3.5-5.1) mEq/L Chloride 104 (98-107) mEq/L Carbon Dioxide 25 (21-32) mEq/L Anion Gap 14.2 (5-15) BUN 28 H (7-18) mg/dL Creatinine 1.4 H (0.7-1.3) mg/dL Est Cr Clr Drug Dosing 30.15 mL/min Estimated GFR (MDRD) 48 (>60) mL/min BUN/Creatinine Ratio 20.0 H (14-18) Glucose 123 H (83-115) mg/dL Calcium 8.9 (8.5-10.1) mg/dL Med Orders - Current: Current Medications Discontinued Medications Acetaminophen (Tylenol) 650 mg PO Q4H PRN PRN Reason: Pain (Mild 1-3)/fever Last Admin: 08/02/20 08:56 Dose: 650 mg Documented by: Acetaminophen (Tylenol) 650 mg PO BID [facility] Last Admin: 08/14/20 09:23 Dose: 650 mg Documented by: Artificial Tears (Refresh Liquigel 1%) 0 ml EYERT BID [facility] Last Admin: 08/14/20 09:24 Dose: 1 drop Documented by: Bisacodyl (Dulcolax) 10 mg RECTAL ONETIME ONE Stop: 07/24/20 18:31 Last Admin: 07/24/20 18:27 Dose: 10 mg Documented by: Bisacodyl (Dulcolax) 10 mg RECTAL ONETIME ONE Stop: 07/29/20 09:20 Last Admin: 07/29/20 09:45 Dose: 10 mg Documented by: Brimonidine Tartrate (Alphagan 0.2% Ophth Soln) 0 ml EYERT BID [facility] Last Admin: 08/14/20 09:24 Dose: 1 drop Documented by: Cholecalciferol (Vitamin D3) 5,000 unit PO DAILY [facility] Last Admin: 07/27/20 09:02 Dose: 5,000 unit Documented by: Cholecalciferol (Vitamin D3) 5,000 unit PO DAILY [facility] Last Admin: 08/10/20 07:31 Dose: Not Given Documented by: Cholecalciferol (Vitamin D3) 5,000 unit PO DAILY [facility] Last Admin: 08/14/20 09:22 Dose: 5,000 unit Documented by: Dexamethasone (Dexamethasone) 4 mg IVPUSH ONETIME ONE Stop: 07/23/20 12:07 Last Admin: 07/23/20 12:41 Dose: 4 mg Documented by: Dexamethasone (Dexamethasone) 6 mg PO DAILY [facility] Stop: 08/01/20 09:01 Last Admin: 07/26/20 08:22 Dose: 6 mg Documented by: Enoxaparin Sodium (Lovenox) 40 mg SUBCUT DAILY [facility] Last Admin: 08/14/20 09:22 Dose: 40 mg Documented by: Gabapentin (Neurontin) 100 mg PO DAILY [facility] Last Admin: 08/14/20 09:23 Dose: 100 mg Documented by: Gabapentin (Neurontin) 100 mg PO BEDTIME PRN PRN Reason: Pain Haloperidol Lactate (Haldol) 2.5 mg IVPUSH ONETIME ONE Stop: 07/26/20 10:10 Last Admin: 07/26/20 10:21 Dose: 2.5 mg Documented by: Sodium Chloride (Normal Saline) 1,000 mls @ 125 mls/hr IV ASDIRECTED [facility] Last Admin: 07/24/20 07:34 Dose: 125 mls/hr Documented by: Remdesivir 200 mg/ Sodium (Chloride) 250 mls @ 250 mls/hr IV ONETIME ONE Stop: 07/24/20 01:29 Last Admin: 07/24/20 00:29 Dose: 250 mls/hr Documented by: Remdesivir 100 mg/ Sodium (Chloride) 100 mls @ 100 mls/hr IV Q24H [facility] Stop: 07/27/20 23:59 Last Admin: 07/27/20 23:38 Dose: 100 mls/hr Documented by: Magnesium Sulfate (Magnesium Sulfate In Water Premix) 2 gm in 50 mls @ 25 mls/hr IV ONETIME ONE Stop: 07/26/20 09:44 Last Admin: 07/26/20 08:22 Dose: 25 mls/hr Documented by: Sodium Chloride (Normal Saline) 1,000 mls @ 100 mls/hr IV ASDIRECTED [facility] Last Admin: 07/29/20 09:45 Dose: 100 mls/hr Documented by: Sodium Chloride (Normal Saline) 1,000 mls @ 100 mls/hr IV ASDIRECTED [facility] Last Admin: 07/31/20 01:42 Dose: 100 mls/hr Documented by: Magnesium Sulfate (Magnesium Sulfate In Water Premix) 2 gm in 50 mls @ 25 mls/hr IV ONETIME ONE Stop: 07/30/20 14:16 Last Admin: 07/30/20 12:52 Dose: 25 mls/hr Documented by: Sodium Chloride (Normal Saline) Confirm Administered Dose 1,000 mls @ as directed .ROUTE .STK-MED ONE Stop: 08/02/20 09:35 Last Admin: 08/02/20 09:51 Dose: Not Given Documented by: Sodium Chloride (Normal Saline) 500 mls @ 999 mls/hr IV .BOLUS ONE Stop: 08/02/20 10:07 Last Admin: 08/02/20 09:51 Dose: 999 mls/hr Documented by: Sodium Chloride (Normal Saline) 500 mls @ 500 mls/hr IV .BOLUS ONE Stop: 08/06/20 11:56 Last Admin: 08/06/20 11:11 Dose: 500 mls/hr Documented by: Magnesium Sulfate (Magnesium Sulfate In Water Premix) 2 gm in 50 mls @ 25 mls/hr IV ONETIME ONE Stop: 08/07/20 11:32 Last Admin: 08/07/20 09:50 Dose: 25 mls/hr Documented by: Sodium Chloride (Normal Saline) 500 mls @ 500 mls/hr IV .BOLUS ONE Stop: 08/07/20 10:32 Last Admin: 08/07/20 09:49 Dose: 500 mls/hr Documented by: Influenza Virus Vaccine (Fluzone High-Dose Quad 2020-) 240 mcg IM .ONCE ONE Stop: 07/26/20 13:16 Lactulose (Cephulac) 20 gm PO DAILY [facility] Last Admin: 08/14/20 09:22 Dose: 20 gm Documented by: Levofloxacin (Levaquin) 750 mg PO Q48H [facility] Last Admin: 08/12/20 14:14 Dose: Not Given Documented by: Magnesium Hydroxide (Milk Of Magnesia) 30 ml PO ONETIME ONE Stop: 07/24/20 09:01 Last Admin: 07/24/20 08:41 Dose: 30 ml Documented by: Magnesium Hydroxide (Milk Of Magnesia) 30 ml PO ONETIME ONE Stop: 07/28/20 13:56 Last Admin: 07/28/20 15:26 Dose: 30 ml Documented by: Magnesium Hydroxide (Milk Of Magnesia) 30 ml PO ONETIME ONE Stop: 08/07/20 05:36 Last Admin: 08/07/20 06:20 Dose: 30 ml Documented by: Nystatin (Nystop) 0 gm TOP TID [facility] Last Admin: 08/14/20 09:24 Dose: 1 applic Documented by: Ondansetron HCl (Zofran) 4 mg IV Q4H PRN PRN Reason: Nausea/Vomiting Polyethylene Glycol (Miralax) 17 gm PO DAILY PRN PRN Reason: Constipation Last Admin: 08/02/20 08:51 Dose: 17 gm Documented by: Potassium Chloride (Klor-Con M20) 40 meq PO ONETIME ONE Stop: 08/01/20 07:25 Last Admin: 08/01/20 08:02 Dose: 40 meq Documented by: Sodium Chloride (Saline Flush) 10 ml FLUSH ASDIRECTED PRN PRN Reason: Keep Vein Open Last Admin: 07/23/20 12:40 Dose: 10 ml Documented by: Sodium Chloride (Saline Flush) 10 ml FLUSH ASDIRECTED PRN PRN Reason: Keep Vein Open Timolol Maleate (Timoptic 0.5% Ophth Soln) 0 ml EYERT BID [facility] Last Admin: 08/14/20 09:25 Dose: 1 drop Documented by: Trimethoprim/Sulfamethoxazole (Septra Ds) 1 tab PO BID [facility] Last Admin: 08/12/20 14:13 Dose: Not Given Documented by: Trimethoprim/Sulfamethoxazole (Septra Ds) 1 tab PO BID [facility] Last Admin: 08/14/20 09:23 Dose: 1 tab Documented by:
== END 2020-08-14 10:18 | DRG 177 ==
LOC: JD.ED 09:37 → JD.MS 15:36
PROVIDERS: ADMIT Internal Medicine; ATTEND Internal Medicine
PROC: XW033E5 Introduction of Remdesivir Anti-infective into Peripheral Vein, Percutaneous Approach, New Technology Group 5 (ICD-10-PCS; principal; 2020-07-23)
DX: U07.1 COVID-19 (principal); J96.01 Acute respiratory failure with hypoxia; R09.02 Hypoxemia; J12.89 Other viral pneumonia; H54.7 Unspecified visual loss; T83.511A Infection and inflammatory reaction due to indwelling urethral catheter, initial encounter; E87.1 Hypo-osmolality and hyponatremia; N17.9 Acute kidney failure, unspecified; Z93.6 Other artificial openings of urinary tract status; I71.2 Thoracic aortic aneurysm, without rupture; N32.81 Overactive bladder; G89.29 Other chronic pain; R62.7 Adult failure to thrive; R53.1 Weakness; R53.81 Other malaise; E87.8 Other disorders of electrolyte and fluid balance, not elsewhere classified; E86.9 Volume depletion, unspecified; H54.61 Unqualified visual loss, right eye, normal vision left eye; K44.9 Diaphragmatic hernia without obstruction or gangrene; M54.9 Dorsalgia, unspecified; M46.1 Sacroiliitis, not elsewhere classified; Z66 Do not resuscitate; R41.0 Disorientation, unspecified; E66.9 Obesity, unspecified; M48.00 Spinal stenosis, site unspecified; E53.9 Vitamin B deficiency, unspecified; F32.9 Major depressive disorder, single episode, unspecified; I12.9 Hypertensive chronic kidney disease with stage 1 through stage 4 chronic kidney disease, or unspecified chronic kidney disease; N18.30 Chronic kidney disease, stage 3 unspecified; E11.22 Type 2 diabetes mellitus with diabetic chronic kidney disease; K59.00 Constipation, unspecified; E11.42 Type 2 diabetes mellitus with diabetic polyneuropathy; Z96.659 Presence of unspecified artificial knee joint; Z68.25 Body mass index [BMI] 25.0-25.9, adult; Z79.82 Long term (current) use of aspirin; Z88.8 Allergy status to other drugs, medicaments and biological substances; Z86.73 Personal history of transient ischemic attack (TIA), and cerebral infarction without residual deficits; Z79.899 Other long term (current) drug therapy
CPT/HCPCS: 36415; 36600; 71045; 80053; 81001; 82728; 82803; 83605; 83615; 83930; 84145; 85025; 85379; 85610; 85730; 86140; 94762; 96361; 96374; 99285; J1100; J7030; 51702; 80048; 82306; 82607; 82746; 83735; 83935; 84100; 84134; 84300; 87641; 92610-GN; 94760; 94761; 97110-GP; 97116-GP; 97162-GP; 97530-GP; 99284; A9270-GY; J1630; J1650; J3475; J7050; J8540; U0002